=== PATIENT | female | born 1935 | race Caucasian/White ===

== ENCOUNTER 2017-05-05 02:34 | Inpatient (IN) | payer MEDICARE ==
[2017-05-05] MEDS ORDERED: Furosemide IV* 10 MG/ML VIAL (40 MG) IV ONE (03:11)
[2017-05-05] MEDS ORDERED: Aspirin Low Dose CHEW TAB* 81 MG PO ONE (03:11)
[2017-05-05 03:36] LABS: Comments Flag Yes; Hematocrit 37 % (35-47); Mean Corpuscular HGB Conc 32 g/dl (31-36); Mean Corpuscular Hemoglobin 28 pg (27-31); Mean Corpuscular Volume 85 fL (80-97); Mean Platelet Volume 10 um3 (7.4-10.4); Red Blood Count 4.37 10^6/ul (4.0-5.4); Red Cell Distribution Width 15 % (10.5-15); White Blood Count 11.7 10^3/ul (3.5-10.8)
[2017-05-05 03:37] LABS: Add Diff/Slide Review? Slide Review Added
[2017-05-05 03:44] LABS: Albumin 3.7 g/dL (3.2-5.2); BUN/Creatinine Ratio 22.7 (8-20); Calcium 8.3 mg/dL (8.6-10.3); EGFR African American 42.9 (>60); EGFR Non-African American 33.3 (>60); Globulin 3.1 g/dL (2-4); Magnesium 2.3 mg/dL (1.9-2.7); Potassium 4.5 mmol/L (3.5-5.0); Total Bilirubin 0.5 mg/dL (0.2-1.0); Total Protein 6.8 g/dL (6.4-8.9)
[2017-05-05 03:54] LABS: Troponin I 0.04 ng/mL (<0.04)
[2017-05-05] MEDS ORDERED: CMC: Melatonin (NF) 3 MG TAB PO PRN (05:00)
[2017-05-05] MEDS ORDERED: Morphine INJ* 2 MG/ML 1 ML SYRINGE (TWO MG - NEW SYRINGE VERSION) IV PRN (05:00)
[2017-05-05] MEDS ORDERED: Albuterol 2.5 MG/3 ML NEB.SOL* (0.083%) INH PRN (05:00)
[2017-05-05] MEDS ORDERED: Ondansetron INJ* 2 MG/ML VIAL IV PRN (05:00)
[2017-05-05] MEDS ORDERED: Acetaminophen TAB* 325 MG PO PRN (05:00)
[2017-05-05] MEDS ORDERED: Metoprolol Tartrate TAB* 25 MG PO ONE (05:01)
[2017-05-05] MEDS ORDERED: Heparin DRIP 25,000 UNITS(*) 25,000 UNITS/500 ML BAG IVPB SCH (05:30)
--- NOTE | 2017-05-05 05:38 | ED ---
Tyler Mims Thomas, scribed for Garth Buchanan MD on 05/05/17 at 0315 . Shortness of Breath - HPI Summary HPI Summary: The pt is a 81 y/o F presenting to the ED c/o SOB that began three hours ago. She has SOB at rest that is worsened with exertion. She additionally c/o orthopnea, wheezing, and spitting up blood. Patient denies diarrhea and any pains. She is accompanied by her three family members. The patient was given ASA 324 prior to arrival by EMS. - History of Current Complaint Chief Complaint: EDShortnessOfBreath Time Seen by Provider: 05/05/17 02:46 Hx Obtained From: Patient Onset/Duration: Lasting Hours - 3, Still Present Timing: Constant Dyspnea At: Rest Aggrevating Factors: Other - Exertion Alleviating Factors: Nothing Associated Signs & Symptoms: Wheezing - Allergy/Home Medications Allergies/Adverse Reactions: Allergies Allergy/AdvReac Type Severity Reaction Status Date / Time No Known Allergies Allergy Verified 05/05/17 03:36 Home Medications: Home Medications Aspirin [Aspirin 81 MG TAB] 81 mg PO DAILY 05/05/17 [History Confirmed 05/05/17] Metoprolol Tartrate [Lopressor] 50 mg PO DAILY 05/05/17 [History Confirmed 05/05] Pravastatin Sodium [Pravachol] 40 mg PO DAILY 05/05/17 [History Confirmed ] Sertraline HCl [Zoloft] 100 mg PO DAILY 05/05/17 [History Confirmed 05/05/17] PMH/Surg Hx/FS Hx/Imm Hx Previously Healthy: No Endocrine/Hematology History: Denies: Hx Anticoagulant Therapy, Hx Blood Disorders, Hx Blood Transfusions, Hx Bone Marrow Disease, Hx Diabetes, Hx Systemic Lupus Erythematosus, Hx Sickle Cell Disease, Hx Thyroid Disease, Hx Anemia, Hx Unexplained Bleeding, Other Endocrine/Hematological Disorders Cardiovascular History: Reports: Hx Hypercholesterolemia, Hx Hypertension Denies: Hx Aneurysm, Hx Angina, Hx Angioplasty, Hx Auto Implanted Cardiovert Defib, Hx Cardiac Arrest, Hx Cardiomegaly, Hx Congenital Heart Disease, Hx Congestive Heart Failure, Hx Coronary Artery Disease, Hx Deep Vein Thrombosis, Hx Hypotension, Hx Pacemaker/ICD, Hx Peripheral Vascular Disease, Hx Rheumatic Fever, Hx Syncope, Hx Valvular Heart Disease, Other Cardiovascular Problems/ Disorders Respiratory History: Reports: Hx Pneumonia Denies: Hx Asthma, Hx Chronic Bronchitis, Hx Chronic Obstructive Pulmonary Disease (COPD), Hx Cystic Fibrosis, Hx Lung Cancer, Hx Pleural Effusion, Hx Pulmonary Edema, Hx Pulmonary Embolism, Hx Seasonal Allergies, Hx Sleep Apnea, Other Respiratory Problems/Disorders GI History: Denies: Hx Cirrhosis, Hx Crohn's Disease, Hx Diverticulosis, Hx Gall Bladder Disease, Hx Gastroesophageal Reflux Disease, Hx Gastrointestinal Bleed, Hx Hiatal Hernia, Hx Irritable Bowel, Hx Jaundice, Hx Obstructive Bowel, Hx Ileostomy, Hx Pyloric Stenosis, Hx Ulcer, Other GI Disorders History: Denies: Hx Acute Renal Failure, Hx Benign Prostatic Hyperplasia, Hx Chronic Renal Failure, Hx Dialysis, Hx Kidney Infection, Hx Kidney Stones, Other Problems/Disorders Musculoskeletal History: Reports: Hx Orthopedic Injury - 12/06/12: Knee surgery x 46yrs ago Denies: Hx Arthritis, Hx Back Problems, Hx Bursitis, Hx Congenital Bone Abnormalities, Hx Fibromyalgia, Hx Gout, Hx Osteoporosis, Hx Scoliosis, Hx Tendonitis, Other Musculoskeletal History Sensory History: Reports: Hx Contacts or Glasses, Hx Vision Problem - 12/06/12: glasses for reading Denies: Hx Cataracts, Hx Eye Injury, Hx Eye Prosthesis, Hx Glaucoma, Hx Macular Degeneration, Hx Hearing Aid, Hx Hearing Problem, Other Sensory Impairments Opthamlomology History: Reports: Hx Contacts or Glasses, Hx Vision Problem - : glasses for reading Denies: Hx Cataracts, Hx Eye Injury, Hx Eye Prosthesis, Hx Glaucoma, Hx Macular Degeneration, Other Sensory Impairments Neurological History: Denies: Hx Dementia, Hx Developmental Delay, Hx Headaches, Hx Migraine, Hx Nerve Disease, Hx Seizures, Hx Spinal Cord Injury, Hx Transient Ischemic Attacks (TIA), Other Neuro Impairments/Disorders Psychiatric History: Denies: Hx Anxiety, Hx Attention Deficit Hyperactivity Disorder, Hx Eating Disorder, Hx Depression, Hx Panic Disorder, Hx Post Traumatic Stress Disorder, Hx Inpatient Treatment, Hx Community Mental Health Tx, Hx Schizophrenia, Hx Bipolar Disorder, Hx Suicide Attempt, Hx of Violent Episodes Against Others, Hx Substance Abuse, Other Psychiatric Issues/Disorders - Cancer History Hx Chemotherapy: No Hx Radiation Therapy: No - Surgical History Surgery Procedure, Year, and Place: 12/06/12: knee surgery 40yrs ago. 12/06/12 : ectopic approx 40yrs ago Hx Anesthesia Reactions: No Infectious Disease History: No Infectious Disease History: Denies: Hx Clostridium Difficile, Hx Hepatitis, Hx Human Immunodeficiency Virus (HIV), Hx Shingles, Hx Tuberculosis, Traveled Outside the [place] in Last 30 Days - Family History Known Family History: Negative: Other - CHF - Social History Lives: Alone Alcohol Use: None Hx Substance Use: No Substance Use Type: Reports: None Review of Systems Negative: Chest Pain Positive: Shortness Of Breath, Other - Wheezing, spitting up blood Negative: Diarrhea All Other Systems Reviewed And Are Negative: Yes Physical Exam - Summary Physical Exam Summary: VITAL SIGNS: Reviewed. GENERAL: Patient is a female who is lying comfortable in the stretcher. Patient is not in any acute respiratory distress. HEAD AND FACE: No signs of trauma. No ecchymosis, hematomas or skull depressions. No sinus tenderness. EYES: PERRLA, EOMI x 2, No injected conjunctiva, no nystagmus. EARS: Hearing grossly intact. Ear canals and tympanic membranes are within normal limits. MOUTH: Oropharynx within normal limits. NECK: Supple, trachea is midline, no adenopathy, no JVD, no carotid bruit, no c- spine tenderness, neck with full ROM. CHEST: Symmetric, no tenderness at palpation LUNGS: Clear to auscultation bilaterally. No wheezing or crackles. CVS: Regular rate and rhythm, S1 and S2 present, no murmurs or gallops appreciated. ABDOMEN: Soft, non-tender. No signs of distention. No rebound no guarding, and no masses palpated. Bowel sounds are normal. EXTREMITIES: FROM in all major joints, no edema, no cyanosis or clubbing. NEURO: Alert and oriented x 3. No acute neurological deficits. Speech is normal and follows commands. SKIN: Dry and warm. She is pale-looking. Triage Information Reviewed: Yes Vital Signs On Initial Exam: Initial Vitals Temp Pulse Resp BP Pulse Ox 96.9 F 73 19 159/67 93 05/05/17 02:48 05/05/17 02:48 05/05/17 02:48 05/05/17 02:48 05/05/17 02:48 Vital Signs Reviewed: Yes Diagnostics - Vital Signs Vital Signs Temp Pulse Resp BP Pulse Ox 05/05/17 02:48 96.9 F 73 19 159/67 93 - Laboratory Result Diagrams: 05/05/17 03:10 05/05/17 03:10 Lab Statement: Any lab studies that have been ordered have been reviewed, and results considered in the medical decision making process. - Radiology CXR Xray Interpretation: Positive (See Comments) - Bilateral increased venous congestion and cephalization consistent with CHF, PENDING OFFICIAL REPORT. Radiology Interpretation Completed By: ED Physician - EKG 02:49 Cardiac Rate: NL EKG Rhythm: Sinus Rhythm EKG Interpretation: 72 BPM. Normal Tynan. LBBB, which is new from EKG on . Re-Evaluation - Re-Evaluation First Eval Re-Evaluation Time: 05:28 Change: Improved Comment: The patient is improved after she is diuresed. She is lying on her back comfortably. She is able to go back to sleep. She is not in any pain. Course/Dx - Course Assessment/Plan: The pt is a 81 y/o F presenting to the ED c/o SOB that began three hours ago. She has SOB at rest that is worsened with exertion. She additionally c/o wheezing and spitting up blood. Patient denies diarrhea and any pains. She is accompanied by her three family members. The patient was given ASA 324 prior to arrival by EMS. I obtained an EKG, bloodwork, and a CXR. The patient will be admitted to the hospitalists with a diagnosis of CHF rule out ACS. - Diagnoses Provider Diagnoses: CHF r/o ACS - Physician Notifications Discussed Care of Patient With: Ladarius Freitas Time Discussed With Above Provider: 05:00 Instructed by Provider To: Admit As Inpatient Discharge - Discharge Plan Condition: Fair Disposition: ADMITTED TO [facility] The documentation as recorded by the Tyler stahl Thomas accurately reflects the service I personally performed and the decisions made by me, Garth Buchanan MD.
[2017-05-05] MEDS ORDERED: Heparin VIAL(*) 5000 UNITS/ML VIAL (FIVE THOUSAND) IV SCH (06:00)
--- NOTE | 2017-05-05 06:04 | HP ---
H&P (Free Text) History and Physical: PCP: Juan Henry MD Date/Time: 05/05/2017 0530 CC: SOB, chest pain HPI: Mrs Bernal is an 81YO demented female HX CAD, HTN, HLD who is a very poor historian. Essentially she states she went to bed ~0030 and developed SOB around 0100. To me she denies chest pain, but she had called her daughter and informed her she was having chest pain. At this time, she cannot give further characterization such as type of pain, radiation, etc. She denies N/V, palpitations, and light-headedness. She also denies sweating, but her daughters state that she was very sweaty upon their arrival to her home. Her daughters also report her stating she coughed up some blood, but she had not done so here as yet. Her pain/SOB began to subside with oxygen from EMS and she is currently symptom free. Work up is notable for a new LBBB compared to our last ECG of 2012. Troponin is 0.04. PMedHx CAD/[place]/stent HTN HLD depression Ambulatory Orders Aspirin [Aspirin 81 MG TAB] 81 mg PO DAILY 05/05/17 Metoprolol Tartrate [Lopressor] 50 mg PO DAILY 05/05/17 Pravastatin Sodium [Pravachol] 40 mg PO DAILY 05/05/17 Sertraline HCl [Zoloft] 100 mg PO DAILY 05/05/17 Allergies No Known Allergies Allergy (Verified 05/05/17 03:36) SocHx: quit smoking ~35years ago, rare alcohol, no recreational drugs; lives alone, 3 adult daughters; full code status FamHx: reviewed, non-contributory ROS: as above, otherwise reviewed and all were negative vitals: Vital Signs Temp 36.1 C 05/05/17 02:48 Pulse 63 05/05/17 05:30 Resp 17 05/05/17 05:30 BP 161/66 05/05/17 05:30 Pulse Ox 96 05/05/17 05:30 Intake & Output 05/04/17 05/04/17 05/05/17 11:59 23:59 11:59 Weight 81.647 kg Constitutional: NAD, normally developed, obese elderly white female HEENM: atraumatic; sclera/conjunctiva: anicteric/clear; hearing: moderately decreased; oropharynx: clear, mucosa moist Neck: soft tissue: non-tender; thyroid: normal Pulmonary: clear to auscultation bilaterally, good aeration, no accessory muscle use CV: RR/RR, normal S1S2, no carotid bruit, no jugular venous distention, 2+ B DP/ PT, trace BLE edema Abdominal: soft, non-distended, non-tender, no rebound/guarding/rigidity, normoactive bowel sounds, no hepatosplenomegaly or masses, no costovertebral angle tenderness Musculoskeletal: general: grossly intact, no palpable tenderness Integumental: normal appearance and texture of exposed skin Psychiatric orientation: AA&O to PP, not entirely to situation affect: calm, mildly confused mood: cooperative eye contact: fair content: unreliable memory: poor responses: mildly slowed insight: poor Testing: Lab Results 05/05/17 05/05/17 05/05/17 Range/Units 03:10 03:10 03:10 WBC 11.7 H (3.5-10.8) 10^3/ul RBC 4.37 (4.0-5.4) 10^6/ul Hgb 12.0 (12.0-16.0) g/dl Hct 37 (35-47) % MCV 85 (80-97) fL MCH 28 (27-31) pg MCHC 32 (31-36) g/dl RDW 15 (10.5-15) % Plt Count 90 L (150-450) 10^3/ul MPV 10 (7.4-10.4) um3 Neut % (Auto) 73.6 (38-83) % Lymph % (Auto) 15.4 L (25-47) % [place] % (Auto) 6.7 (1-9) % Eos % (Auto) 3.4 (0-6) % Baso % (Auto) 0.9 (0-2) % Absolute Neuts (auto) 8.6 H (1.5-7.7) 10^3/ul Absolute Lymphs (auto) 1.8 (1.0-4.8) 10^3/ul Absolute Monos (auto) 0.8 (0-0.8) 10^3/ul Absolute Eos (auto) 0.4 (0-0.6) 10^3/ul Absolute Basos (auto) 0.1 (0-0.2) 10^3/ul Absolute Nucleated RBC 0 10^3/ul Nucleated RBC % 0 INR (Anticoag Therapy) 0.85 L (0.89-1.11) APTT 30.3 (26.0-36.3) seconds Sodium (133-145) mmol/L Potassium (3.5-5.0) mmol/L Chloride (101-111) mmol/L Carbon Dioxide (22-32) mmol/L Anion Gap (2-11) mmol/L BUN (6-24) mg/dL Creatinine (0.51-0.95) mg/dL Est GFR ( Amer) (>60) Est GFR (Non-Af Amer) (>60) BUN/Creatinine Ratio (8-20) Glucose (70-100) mg/dL Calcium (8.6-10.3) mg/dL Magnesium (1.9-2.7) mg/dL Total Bilirubin (0.2-1.0) mg/dL AST (13-39) U/L ALT (7-52) U/L Alkaline Phosphatase (34-104) U/L Troponin I (<0.04) ng/mL B-Natriuretic Peptide 138 H ( - 100) pg/mL Total Protein (6.4-8.9) g/dL Albumin (3.2-5.2) g/dL Globulin (2-4) g/dL Albumin/Globulin Ratio (1-3) Blood Type Antibody Screen 05/05/17 05/05/17 Range/Units 03:10 03:10 WBC (3.5-10.8) 10^3/ul RBC (4.0-5.4) 10^6/ul Hgb (12.0-16.0) g/dl Hct (35-47) % MCV (80-97) fL MCH (27-31) pg MCHC (31-36) g/dl RDW (10.5-15) % Plt Count (150-450) 10^3/ul MPV (7.4-10.4) um3 Neut % (Auto) (38-83) % Lymph % (Auto) (25-47) % [place] % (Auto) (1-9) % Eos % (Auto) (0-6) % Baso % (Auto) (0-2) % Absolute Neuts (auto) (1.5-7.7) 10^3/ul Absolute Lymphs (auto) (1.0-4.8) 10^3/ul Absolute Monos (auto) (0-0.8) 10^3/ul Absolute Eos (auto) (0-0.6) 10^3/ul Absolute Basos (auto) (0-0.2) 10^3/ul Absolute Nucleated RBC 10^3/ul Nucleated RBC % INR (Anticoag Therapy) (0.89-1.11) APTT (26.0-36.3) seconds Sodium 135 (133-145) mmol/L Potassium 4.5 (3.5-5.0) mmol/L Chloride 103 (101-111) mmol/L Carbon Dioxide 26 (22-32) mmol/L Anion Gap 6 (2-11) mmol/L BUN 34 H (6-24) mg/dL Creatinine 1.50 H (0.51-0.95) mg/dL Est GFR ( Amer) 42.9 (>60) Est GFR (Non-Af Amer) 33.3 (>60) BUN/Creatinine Ratio 22.7 H (8-20) Glucose 223 H (70-100) mg/dL Calcium 8.3 L (8.6-10.3) mg/dL Magnesium 2.3 (1.9-2.7) mg/dL Total Bilirubin 0.50 (0.2-1.0) mg/dL AST 13 (13-39) U/L ALT 10 (7-52) U/L Alkaline Phosphatase 62 (34-104) U/L Troponin I 0.04 H* (<0.04) ng/mL B-Natriuretic Peptide ( - 100) pg/mL Total Protein 6.8 (6.4-8.9) g/dL Albumin 3.7 (3.2-5.2) g/dL Globulin 3.1 (2-4) g/dL Albumin/Globulin Ratio 1.2 (1-3) Blood Type A Positive Antibody Screen Negative ECG, personally reviewed: LBBB rate 72, LBBB is new compared to most recent ECG dated 12/07/2012 CXR, personally reviewed: interstitial edema & pulmonary congestion Impression: 81F HX CAD/[place]/stent presenting with sketchy details, apparently developing rapid onset chest pain & SOB found to be in a new compared to 2013 LBBB and minimally elevated troponin DIAGNOSIS & PLAN Primary unstable angina r/o ACS : aspirin : metoprolol : heparin GTT ( treating more aggressively given new to us LBBB, HX CAD, elevated trop, & poor quality history) : supplemental oxygen : chemical NST this AM : ECHO this AM : supportive care acute diastolic HF : furosemide given by ED : strict I&Os : daily weights : check ECHO this AM Secondary HTN : continue metoprolol HLD : continue pravastatin depression : continue sertraline Admission Rational: inpatient for unstable angina DVTp: heparin GTT Code Status: full HCP: daughter, Evelia
[2017-05-05 06:43] LABS: Hematocrit 37 % (35-47); Hemoglobin 12.1 g/dl (12.0-16.0); Mean Corpuscular HGB Conc 33 g/dl (31-36); Mean Corpuscular Hemoglobin 27 pg (27-31); Mean Corpuscular Volume 83 fL (80-97); Mean Platelet Volume 10 um3 (7.4-10.4); Red Blood Count 4.44 10^6/ul (4.0-5.4); Red Cell Distribution Width 16 % (10.5-15); White Blood Count 11.6 10^3/ul (3.5-10.8)
[2017-05-05 06:49] LABS: Comments Flag Yes
[2017-05-05 07:07] LABS: BUN/Creatinine Ratio 25.5 (8-20); Calcium 8.9 mg/dL (8.6-10.3); EGFR African American 44.6 (>60); EGFR Non-African American 34.7 (>60); Potassium 4.6 mmol/L (3.5-5.0)
[2017-05-05 07:28] LABS: Troponin I 0.18 ng/mL (<0.04)
--- NOTE | 2017-05-05 07:40 | RAD ---
HISTORY: Shortness of breath COMPARISONS: August 08, 2012 VIEWS: 1: frontal portable view of the chest at 3:20 AM FINDINGS: LINES AND TUBES: None. CARDIOMEDIASTINAL SILHOUETTE: The cardiomediastinal silhouette is normal for portable technique. PLEURA: The costophrenic angles are sharp. No pleural abnormalities are noted. LUNG PARENCHYMA: There is prominence of the central pulmonary vasculature. There is a mild diffuse pattern of reticular opacification. There is hyperinflation. ABDOMEN: The upper abdomen is clear. There is no subphrenic gas. BONES AND SOFT TISSUES: No bone or soft tissue abnormalities are noted. IMPRESSION: PULMONARY VASCULAR CONGESTION WITH MILD PULMONARY INTERSTITIAL EDEMA
[2017-05-05] MEDS: Furosemide IV* 10 MG/ML 10 ML VIAL (100 MG) IV SCH ×3 (07:54→16:40)
[2017-05-05] MEDS: Omeprazole CAP* 20 MG PO SCH (07:55)
[2017-05-05] MEDS: Sertraline* 100 MG TAB PO SCH (07:55)
[2017-05-05] MEDS: Docusate CAP* 100 MG PO SCH ×2 (07:55→20:12)
[2017-05-05] MEDS: Atorvastatin* 10 MG TAB PO SCH (07:56)
[2017-05-05] MEDS: Aspirin EC Low Dose* 81 MG TAB.EC PO SCH (07:56)
--- NOTE | 2017-05-05 12:06 | PN ---
Subjective Date of Service: 05/05/17 Interval History: Patient seen this morning with 2 daughters present. Reports feeling in her USOH yesterday until acute onset of SOB while laying in bed around 1100 pm. Initially denied chest pain but daughters stated she was complaining of this to them at the time, also with diaphoretic. Pain and SOB resolved en route to the hospital and has not recurred. She says she is fairly active at home, does not require cane/walker, no history of blood clots. During previous admission on 2012 for NSTEMI patient was found to have a significant cardiomyoapthy and was transferred to [facility] after attempted cardiac cath was aborted to due problems with arterial access. She went on to receive one stent at [facility] as per family. Unclear if she has had much Cardiology follow-up since then. Family History: Unchanged from Admission Social History: Unchanged from Admission Past Medical History: Unchanged from Admission Objective Active Medications: Acetaminophen (Tylenol Tab*) 650 mg PO Q6H PRN Albuterol (Ventolin 2.5 Mg/3 Ml Neb.Makenna*) 2.5 mg INH Q2H PRN Aspirin (Aspirin Ec Low Dose*) 81 mg PO DAILY [facility] Atorvastatin Calcium (Lipitor*) 10 mg PO DAILY [facility] Docusate Sodium (Colace Cap*) 200 mg PO BID [facility] Heparin Sodium (Porcine) (Heparin Vial(*)) 0 units IV .PER PROTOCOL [facility] Heparin Sodium/Dextrose (Heparin Drip 25,000 Units(*)) 25,000 units in 500 mls @ 0 mls/hr IVPB .PER RATE JACKELINE; Per Protocol Melatonin (Melatonin (Nf)) 3 mg PO BEDTIME PRN; Protocol Metoprolol Tartrate (Lopressor Tab*) 50 mg PO DAILY [facility] Morphine Sulfate (Morphine Inj (Syringe)*) 2 mg IV Q4H PRN Omeprazole (Prilosec Cap*) 20 mg PO DAILY@0600 [facility] Ondansetron HCl (Zofran Inj*) 4 mg IV Q6H PRN Sertraline HCl (Zoloft*) 100 mg PO DAILY [facility] Vital Signs 05/05/17 05/05/17 05/05/17 05:00 05:30 06:00 Temperature Pulse Rate 64 63 62 Respiratory 19 17 17 Rate Blood Pressure 169/71 161/66 153/54 (mmHg) O2 Sat by Pulse 95 96 97 Oximetry 05/05/17 05/05/17 05/05/17 06:15 06:18 06:28 Temperature 97.2 F 97.2 F Pulse Rate 66 66 62 Respiratory 20 Rate Blood Pressure 186/80 (mmHg) O2 Sat by Pulse 97 97 Oximetry 05/05/17 05/05/17 05/05/17 07:42 09:38 11:16 Temperature 97.9 F 98.0 F Pulse Rate 59 62 63 Respiratory 16 18 Rate Blood Pressure 165/73 151/65 147/58 (mmHg) O2 Sat by Pulse 97 97 97 Oximetry Oxygen Devices in Use Now: Nasal Cannula Appearance: Elderly, F, laying in bed in NAD Eyes: No Scleral Icterus Ears/Nose/Mouth/Throat: - - Dry MM Neck: NL Appearance and Movements; NL JVP Respiratory: Symmetrical Chest Expansion and Respiratory Effort, - - Bibasilar rales Cardiovascular: NL Sounds; No Murmurs; No JVD, RRR Abdominal: NL Sounds; No Tenderness; No Distention Lymphatic: No Cervical Adenopathy Extremities: No Edema Skin: No Rash or Ulcers Neurological: Alert and Oriented x 3, - - no focal deficits Result Diagrams: 05/05/17 06:33 05/05/17 06:33 Assess/Plan/Problems-Billing Assessment: Chest pain, SOB, NSTEMI in an 81 yo F with hx of CAD s/p stent placement 2012, cardiomyopathy (last EF 25-30% in 2013 echo), HTN, HLD, depression - Patient Problems (1) NSTEMI (non-ST elevated myocardial infarction) Current Visit: Yes Comment: No further chest pain or SOB. Troponins slowly climbing, trend to peak. Cardiology consulted. Continue heparin gtt, ASA, statin, beta-kimberli. Echo pending. (2) Acute on chronic systolic (congestive) heart failure Current Visit: Yes Comment: Patient continues to require O2 and with rales on exam. Continue IV Lasix for now. Echo as above. Daily weight, I/O (3) Chest pain Current Visit: Yes Comment: SOB. May be 2/2 cardiac etiology but PE is a possbility as well. Will check d- dimer which is likely to be elevated. If it is, will get VQ scan as patient has elevated creatinine and may require catheterization. (4) Depression Current Visit: Yes Comment: Continue Zoloft (5) DVT prophylaxis Current Visit: Yes Comment: Heparin Status and Disposition: Inpatient for NSTEMI
--- NOTE | 2017-05-05 14:07 | ECHO ---
Patient: JOSE SWEENEY Rec#: [id number] : 1935 Date: 05/05/2017 Age: 81y Height: 152.4 cm / 60.0 in Weight: 83.01 kg / 183.0 lbs Sex: F BSA: 1.8 Room#: 435 Admit Date#: 05/05/2017 Type: Inpatient Referring: Ladarius Freitas MD Reading: Truman Leslie MD Search Engine Optimization Analyst: Rosie Smith PUAR CC: Zack Henry MD Transthoracic Echocardiogram Indication: Unstable angina BP: 186/80 HR: 57 Rhythm: NSR Findings History: CAD with PCI,HTN,HLDmdeoression, former smoker. Technical Comments: The study quality is good. Completed at 1001. Left Ventricle: The left ventricular chamber size is decreased. Moderate concentric left ventricular hypertrophy is observed. Global left ventricular wall motion and contractility are within normal limits. Left ventricular systolic function is at the lower limits of normal. The estimated ejection fraction is 50-55%. Abnormal left ventricular diastolic function is observed.Grade 3 Left Atrium: The left atrial chamber size is normal. Right Ventricle: The right ventricular cavity size is normal. The right ventricular global systolic function is normal. Right Atrium: The right atrial cavity size is normal. There is no patent foramen ovale visualized. A patent foramen ovale is demonstrated by color Doppler. There is evidence of an atrial septal aneurysm. Aortic Valve: The aortic valve is trileaflet. There is no evidence of aortic valve thickening. There is a trace of aortic regurgitation. There is no evidence of aortic stenosis. Mitral Valve: The mitral valve leaflets are mildly thickened. There is mild mitral regurgitation. There is no evidence of mitral stenosis. Tricuspid Valve: The tricuspid valve leaflets are normal. There is mild tricuspid regurgitation. There is evidence of borderline pulmonary hypertension. There is no tricuspid stenosis. Pulmonic Valve: The pulmonic valve appears normal. There is moderate pulmonic regurgitation. There is no pulmonic stenosis. Pericardium: A pericardial fat pad is visualized. Aorta: There is no dilatation of the ascending aorta. There is no dilatation of the aortic arch. There is no dilation of the aortic root. Pulmonary Artery: The main pulmonary artery appears normal. Venous: The venous system is not well visualized. Conclusions Moderate concentric left ventricular hypertrophy is observed. Global left ventricular wall motion and contractility are within normal limits. Left ventricular systolic function is at the lower limits of normal. The estimated ejection fraction is 50-55%. Abnormal left ventricular diastolic function is observed.Grade 3 The right ventricular global systolic function is normal. A patent foramen ovale is demonstrated by color Doppler. There is a trace of aortic regurgitation. There is no evidence of aortic stenosis. There is mild mitral regurgitation. There is mild tricuspid regurgitation. Compared to study of 11/2012, the LV function is much better. Valve function is stalbe Measurements Name Value Normal Range RVIDd (AP) 2D 2.7 cm (0.9 - 2.6) RVDdMajor (2D) 3 cm (2.2 - 4.4) RAd ISD 4CH 4 cm (3.4 - 4.9) RA (A4C)W 3.2 cm (2.9 - 4.6) IVSd (2D) 1.5 cm (0.6 - 1) LVPWd (2D) 1.6 cm (0.6 - 1) LVIDd (2D) 3.5 cm (3.6 - 5.4) LVIDs (2D) 2.7 cm - LV FS (2D) 25 % (25 - 45) Aortic Annulus 1.9 cm (1.4 - 2.6) Ao root diameter (2D) 2.9 cm (2.1 - 3.5) Ascending Ao 3.1 cm (2.1 - 3.4) Aortic arch 2.3 cm (1.8 - 3.4) Descending Ao 0.5 cm - LA dimension (AP) 2D 3.4 cm (2.3 - 3.8) LAd ISD 4CH 4.6 cm (2.9 - 5.3) LA ISD 4CH W 3.9 cm (2.5 - 4.5) Name Value Normal Range LA ESV SP 4CH (A/L) 39 ml - LA ESV SP 2CH (A/L) 43 ml - LA ESV BP (A/L) 41 ml - LA ESV BP (A/L) index 22.9 ml/m2 - LA ESV SP 4CH (MOD) 37 ml - LA ESV SP 2CH (MOD) 40 ml - Name Value Normal Range MV E-wave Vmax 0.5 m/sec - MV deceleration time 272 msec - MV A-wave Vmax 1.1 m/sec - MV E:A ratio 0.4 ratio - LV septal e' Vmax 0.02 m/sec - LV lateral e' Vmax 0.04 m/sec - LV E:e' septal ratio 25 ratio - LV E:e' lateral ratio 12.5 ratio - Name Value Normal Range AV Vmax 1.1 m/sec - AV VTI 24.2 cm - AV peak gradient 4.64 mmHg - AV mean gradient 2.27 mmHg - LVOT Vmax 0.8 m/sec - LVOT VTI 18.1 cm - LVOT peak gradient 2.48 mmHg - LVOT mean gradient 1.2 mmHg - Name Value Normal Range TR Vmax 2.6 m/sec - TR peak gradient 26 mmHg - RAP 8 mmHg - RVSP 34 mmHg - Name Value Normal Range PV Vmax 1 m/sec - PV peak gradient 3.79 mmHg -
[2017-05-05] MEDS: Metoprolol Tartrate TAB* 50 mg PO SCH (20:12)
--- NOTE | 2017-05-05 21:35 | CONS ---
CC: Dr. Zack Henry; Dr. Silvano De La Cruz * CARDIOLOGY CONSULTATION REPORT: DATE OF CONSULT: 05/05/17 INDICATION FOR CONSULT: Coronary artery disease, congestive heart failure. HISTORY OF PRESENT ILLNESS: The patient is an 81-year-old female with a history of coronary artery disease, history of stenting to her LAD back in 2012 , hypertension, hyperlipidemia, depression, who came to the emergency room after having woken up with an episode of shortness of breath and chest pain. The patient states that she was in bed around 1 o'clock in the morning. She had not fallen asleep yet, when she started noticing that she was getting more short of breath. She also noted that she was diaphoretic and had some very mild chest pain. The patient states she had these symptoms for about an half an hour and decided to call her daughter on arrival. Her daughter stated that she was short of breath and mildly diaphoretic. The patient at that time did not complain of any chest pain. The patient was transported to the emergency room where she was found to be in congestive heart failure. She was given IV Lasix in the emergency room with relief of her symptoms. In speaking with her tonight at 5 o'clock, she has no symptoms. She states she is not short of breath. She has no chest pain. She has no palpitations, no lightheadedness or dizziness. The patient's echocardiogram shows normal LV size and systolic function and no significant valvular abnormalities. Her troponin level peaked at 0.32. OUTPATIENT MEDICATIONS: 1. Aspirin 81 mg a day. 2. Metoprolol succinate 50 mg a day. 3. Pravastatin 40 mg a day. 4. Zoloft 100 mg a day. ALLERGIES: No known drug allergies. SOCIAL HISTORY: She lives alone. She has 3 daughters in the area. She quit smoking 35 years ago. Rare alcohol intake. REVIEW OF SYSTEMS: Showed no early coronary artery disease. PHYSICAL EXAM: Height is 5 feet, weight is 179 pounds. Blood pressure 137/55, heart rate is 64, respiratory rate is 20, oxygen saturation 96% on 2 L, temperature 98.6. Sclerae anicteric. Oropharynx is pink without erythema. Carotids are 2+ without bruits. JVD is normal. Thyroid is normal. Cardiac Exam: S1, S2 without any murmurs, rubs, or gallops. Lungs are clear to auscultation. There are some mild rales at the bases. There is no dullness to percussion. Abdomen is obese, soft, nontender, nondistended with normoactive bowel sounds. Extremities show minimal edema. She has 2+ pulses throughout. The patient is awake, alert, and oriented. She moves all 4 extremities equally. DIAGNOSTIC STUDIES/LAB DATA: Chemistries within normal limits. BUN 37, creatinine 1.45. We do not have an old one for comparison. AST and ALT are normal. Initial troponin was 0.04, again peak troponin was 0.32. BNP was 138. CBC within normal limits. D-dimer was minimally elevated at 386. EKG shows normal sinus rhythm with left bundle branch block. IMPRESSION AND PLAN: This is an 81-year-old female with a history of coronary artery disease. Her cardiac catheterization in 2012 showed an 80% stenosis to her left anterior descending artery and ramus artery that had a 50% to 60% stenosis. She was admitted to the hospital with congestive heart failure and minimally elevated troponins. Her echocardiogram shows normal left ventricular size and systolic function. She does have significant diastolic dysfunction. She has mild mitral regurgitation and mild tricuspid regurgitation. We could not estimate pulmonary artery systolic pressure. For now my recommendation is the patient continue on her current medications. The patient was on heparin. I have stopped the heparin. I am not convinced that this is an acute coronary syndrome. I think her elevated troponins are most likely due to diastolic dysfunction and her congestive heart failure. The question is whether she was mildly ischemic that has caused her diastolic dysfunction to worsen. I am going to schedule the patient for a chemical nuclear stress test tomorrow for further evaluation. Further recommendations pending results of her stress test. [id number]/[facility] #: [id number] [facility] CENTERJatinder
[2017-05-06 05:21] LABS: Hematocrit 35 % (35-47); Hemoglobin 11.8 g/dl (12.0-16.0); Mean Corpuscular HGB Conc 33 g/dl (31-36); Mean Corpuscular Hemoglobin 28 pg (27-31); Mean Corpuscular Volume 83 fL (80-97); Mean Platelet Volume 9 um3 (7.4-10.4); Red Blood Count 4.24 10^6/ul (4.0-5.4); Red Cell Distribution Width 16 % (10.5-15); White Blood Count 9.6 10^3/ul (3.5-10.8)
[2017-05-06 05:25] LABS: Comments Flag Yes
[2017-05-06 05:26] LABS: Add Diff/Slide Review? Slide Review Added
[2017-05-06 05:41] LABS: Calcium 8.9 mg/dL (8.6-10.3); EGFR African American 42.2 (>60); EGFR Non-African American 32.8 (>60); Potassium 3.9 mmol/L (3.5-5.0)
[2017-05-06] MEDS ORDERED: Heparin VIAL(*) 5000 UNITS/ML VIAL (FIVE THOUSAND) SUBCUT SCH (06:00)
[2017-05-06] MEDS: Omeprazole CAP* 20 MG PO SCH (06:02)
[2017-05-06 07:55] VITALS: BP 142/54
[2017-05-06] MEDS ORDERED: Aspirin EC Low Dose* 81 MG TAB.EC PO SCH (09:00)
[2017-05-06] MEDS ORDERED: Regadenoson* 0.4 MG/5 ML SYRINGE ONE (12:35)
[2017-05-06] MEDS: Atorvastatin* 10 MG TAB PO SCH (12:52)
[2017-05-06] MEDS: Metoprolol Tartrate TAB* 50 mg PO SCH (12:52)
[2017-05-06] MEDS: Sertraline* 100 MG TAB PO SCH (12:52)
[2017-05-06] MEDS: Aspirin EC Low Dose* 81 MG TAB.EC PO SCH (12:52)
[2017-05-06] MEDS: Docusate CAP* 100 MG PO SCH (12:52)
[2017-05-06] MEDS: Furosemide IV* 10 MG/ML 10 ML VIAL (100 MG) IV SCH (12:53)
--- NOTE | 2017-05-06 13:17 | RAD ---
Edited for charges. INDICATION: Shortness of breath. Coronary artery disease. Multiple risk factors. COMPARISON: No relevant prior exams available on the [facility] P[facility]. TECHNIQUE: 10.500 mCi of Tc-99m Myoview were administered IV. SPECT images of the heart were obtained. Later on the same day. Under the direction of Dr. Leslie, the patient was given an IV injection of a pharmacologic stress agent. Subsequently, the patient was given an IV injection of 25.310 mCi Tc-99m Myoview. SPECT images of the heart were obtained and a gated wall motion study was performed. FINDINGS: Gated wall motion images were obtained at stress and demonstrate hypokinesia most prominent at the septum. Presence of LEFT bundle branch block and artifact from gut activity decreases specificity of this finding. The calculated left ventricular ejection fraction is 53 % at stress. Estimated LEFT ventricular end diastolic volume is 88 mL. TID 1.14. Artifact from bowel activity. Diaphragmatic attenuation noted. Small region of decreased perfusion at the basilar segment of the septum at stress with reversal at rest. Presence of artifact from gut activity on the stress images and presence of LEFT bundle branch block decreases specificity of this finding. No additional reversible or fixed myocardial perfusion defect evident. IMPRESSION: 1. Potential small focus of stress-induced ischemia at the basilar segment of the septum however presence of artifact from gut activity and presence of LEFT bundle branch block decreases specificity. On this basis the hypokinesia at the septum may also be erroneous. Correlate with clinical assessment and consider further assessment with cardiac echo if deemed appropriate. 2. Normal range estimated LEFT ventricular ejection fraction. ASSESSMENT: LOW RISK. Based on imaging criteria from ACC/AHA 2002 Guideline Update for the Management of Patients With Chronic Stable Angina Table 23. Noninvasive Risk Stratification. MTDD
--- NOTE | 2017-05-06 14:31 | RAD ---
Indication: Bilateral leg edema. Duplex Doppler sonography of the deep venous system of both lower extremities was performed. Bilaterally the common femoral veins, proximal greater saphenous veins, proximal deep femoral veins, femoral veins, popliteal veins, posterior tibial veins and peroneal veins appear patent and compressible. IMPRESSION: NO EVIDENCE OF DEEP VENOUS THROMBOSIS OF EITHER LOWER EXTREMITY IS PRESENT.
--- NOTE | 2017-05-06 15:13 | DCNOTE ---
Patient seen this afternoon. No recurrent chest pain or SOB, says she feels good. Daughter at bedside agrees she is back to baseline. Asking for food. On exam, RRR, s1 and s2 present, no m/g/r, lungs CTA B/L, no w/r/r, abd soft, NTND, BS+, no LE edema NST low risk. LE dopplers negative. There was some concern for PE but I think symptoms were more likely due to CHF. Age-adjusted d-dimer was negative, LE dopplers negative. Patient is unable to get VQ scan for 48 hrs after nuclear stress test. As I think a cardiac source is more likely, I don't think it's necessary to keep the patient hospitalized for additional testing. Will discharge home with PCP follow-up and if felt necessary, VQ can be done as an outpatient.
--- NOTE | 2017-05-07 04:48 | DS ---
CC: Dr. Henry* DISCHARGE SUMMARY: DATE OF ADMISSION: 05/05/17 DATE OF DISCHARGE: 05/06/17 PRIMARY CARE PHYSICIAN: Dr. Henry. PRINCIPAL DISCHARGE DIAGNOSES: 1. Acute diastolic congestive heart failure exacerbation. 2. Chest pain. 3. Troponin elevation. SECONDARY DIAGNOSES: 1. History of coronary artery disease, status post stent placement. 2. Hypertension. 3. Hyperlipidemia. 4. Depression. CONSULTANTS DURING THIS HOSPITALIZATION: Dr. Truman Leslie, Cardiology. DISCHARGE MEDICATION REGIMEN: 1. Aspirin 81 mg by mouth daily. 2. Metoprolol 50 mg by mouth daily. 3. Pravastatin 40 by mouth daily. 4. Sertraline 100 mg by mouth daily. STUDIES DONE DURING HOSPITALIZATION: Chest x-ray, impression: Pulmonary vascular congestion with mild pulmonary interstitial edema. Transthoracic echocardiogram, conclusions: Moderate concentric LVH is observed , global left ventricular wall motion and contractility within normal limits, left ventricular systolic function is at the lower limits of normal. The estimated ejection fraction is 50% to 55%, abnormal left ventricular diastolic function is observed grade 3. The right ventricular global systolic function is normal. Patent foramen ovale is demonstrated by color Doppler. There is trace aortic regurgitation. No evidence of aortic stenosis, mild mitral regurgitation, mild tricuspid regurgitation. Compared to study of 11/2012 LV function is much better. Valve function is stable. Nuclear cardiac stress test, assessment: Low risk. Lower extremity Dopplers bilaterally, impression: No evidence of DVT of either lower extremity is present. HISTORY OF PRESENT ILLNESS AND HOSPITAL SUMMARY: Please see the full history and physical by Dr. Ladarius Freitas for full details. Briefly, Ms. Bernal is an 81-year-old female with past medical history as above who presented to the hospital with acute onset shortness of breath followed by chest pain, diaphoresis. The patient called her daughters who live next door. On arrival, she was transported by EMS to the hospital. The patient had an EKG that showed a new left bundle- branch block; however, on review of charting and reference by Dr. Leslie, she has actually had intermittent left bundle-branch block in the past. The patient's initial troponin was 0.04 and continued to climb until it peaked at 0.32. The initial plan had been for a nuclear cardiac stress test; however, this was held due to the increasing troponins and Cardiology was consulted. Dr. Leslie felt that her symptoms were likely due to her CHF exacerbation and recommended continuing with a stress test the following day which she had and was assessed as low risk. The patient received IV Lasix and by the following day, she was able to be weaned off her oxygen and her breathing was back to baseline. The patient had a D-dimer of 386 which by age adjustment standards is not elevated. Lower extremity Doppler's were done, which were negative. I entertained the idea of getting a V/Q scan as the patient's creatinine is elevated; however, due to receiving tracer for the nuclear stress test, she would be unable to get a V/Q scan for 48 hours. As my suspicion for a cardiac etiology is higher than PE at this point, I think it is safe to discharge the patient without additional testing at this time and she can follow up with her PCP to determine if he feels like a V/Q scan would be indicated. We will hold on prescribing any standing diuretics for now, but we will encourage the patient to weigh herself daily and monitor her salt intake. If she starts to notice she is gaining weight, she will contact her PCP and may be beneficial for the patient to start on Lasix or spironolactone, which she has been on in the past when her EF was reduced. TIME SPENT: Total time spent on this discharge - 45 minutes. This is a summary of the hospitalization. Please see the full medical record for further details. [id number]/[facility] #: [id number] MTDD
== END 2017-05-06 16:30 | disposition home or self-care (01) | DRG 293 ==
LOC: ED 02:34 → MEDTELE 04:54
PROVIDERS: ADMIT Hospitalist; ATTEND Hospitalist
DX: I11.0 Hypertensive heart disease with heart failure (principal); I44.7 Left bundle-branch block, unspecified; I08.3 Combined rheumatic disorders of mitral, aortic and tricuspid valves; I50.43 Acute on chronic combined systolic (congestive) and diastolic (congestive) heart failure; I25.10 Atherosclerotic heart disease of native coronary artery without angina pectoris; F32.9 Major depressive disorder, single episode, unspecified; Z87.891 Personal history of nicotine dependence; Z95.5 Presence of coronary angioplasty implant and graft
CPT/HCPCS: 36415; 71010; 78452; 80048; 80053; 82272; 83036; 83735; 83880; 84484; 85025; 85379; 85610; 85730; 86850; 86900; 86901; 93005; 93017; 93306; 93970; A9270-GY; A9502; J1644; J1940; J2785

== ENCOUNTER 2017-08-19 18:37 | Emergency (ER) | payer MEDICARE ==
[2017-08-19 18:51] VITALS: BP 112/58
--- NOTE | 2017-08-19 19:16 | UC ---
Knee Pain HPI - HPI Summary HPI Summary: 82 yo female presents with daughter, c/o R knee pain since this morning. Exact time unclear. Ms. Bernal reports that she felt like her R knee cap may be out of place. Does not recall a recent trauma, nor inciting event today. Just started hurting. No pain in contralateral knee, no hip / ankle / foot pain. No neck / back pain. No p/d/w. No new skin discoloration. PMH includes R knee surgery in the remote past, but Ms. Bernal not sure for what condition or what type of surgery. In general feels ok. No current cp / sob. - History of Current Complaint Chief Complaint: UCLowerExtremity Stated Complaint: KNEE INJURY Time Seen by Provider: 08/19/17 18:39 Hx Obtained From: Patient, Family/High Climber Pain Intensity: 2 - Allergies/Home Medications Allergies/Adverse Reactions: Allergies Allergy/AdvReac Type Severity Reaction Status Date / Time No Known Allergies Allergy Verified 08/19/17 18:46 Home Medications: Home Medications Furosemide TAB* [Lasix TAB*] 20 mg PO DAILY 08/19/17 [History Confirmed 08/19/17 ] Losartan Potassium 25 mg PO DAILY 08/19/17 [History Confirmed 08/19/17] Metoprolol Tartrate TAB* [Lopressor TAB*] 50 mg PO DAILY 08/19/17 [History Confirmed 08/19/17] Sertraline HCl [Zoloft] 100 mg PO DAILY 08/19/17 [History Confirmed 08/19/17] PMH/Surg Hx/FS Hx/Imm Hx Previously Healthy: No - cardiac history Endocrine History: Other - no hx dm Other Endocrine History: no dm Other History Of: Negative For: Anticoagulant Therapy - Surgical History Surgical History: Yes Surgery Procedure, Year, and Place: 12/06/12: knee surgery 40yrs ago. 12/06/12 : ectopic approx 40yrs ago - Family History Known Family History: Negative: Other - CHF - Social History Occupation: Retired Lives: Alone - family lives close by Alcohol Use: None Substance Use Type: None Smoking Status (MU): Former Smoker - Immunization History Most Recent Influenza Vaccination: received 04/21/17 Most Recent Tetanus Shot: 12/06/12: Unknown Most Recent Pneumonia Vaccination: never Review of Systems Constitutional: Negative Skin: Negative Eyes: Negative ENT: Negative Respiratory: Negative Cardiovascular: Negative Gastrointestinal: Negative Motor: Other - see hpi Neurovascular: Other - see gou Musculoskeletal: Arthralgia Neurological: Negative, Other - see hpi Psychological: Negative Is Patient Immunocompromised?: No All Other Systems Reviewed And Are Negative: Yes Physical Exam Triage Information Reviewed: Yes Appearance: Well-Appearing - sitting up in chair during physical examination, Well-Nourished Vital Signs: Initial Vital Signs Temp 98.2 F 08/19/17 18:46 Pulse 70 08/19/17 18:46 Resp 20 08/19/17 18:46 BP 112/58 08/19/17 18:46 Pulse Ox 100 08/19/17 18:46 Vital Signs Reviewed: Yes Eye Exam: Normal - grossly normal ENT Exam: Normal - grossly normal, mmm Neck exam: Normal - denies pain in neck or injury Respiratory Exam: Normal - no tachypnea, no dyspnea. Resp rate normal. converses in full sentances Cardiovascular Exam: Normal - heart rate regular. non-diaphoretic. Abdominal Exam: Normal - soft, no abd pain c/os Musculoskeletal Exam: Other - Hips nontender. R knee + swelling. + surgical scar faint medial knee approx 4cm, pain is particularly over this area. Tenderness exacerbated with bending knee. However, she is able to fully bend knee. + mild fluctuance post knee, c/w cerda's cyst. No cord, no Lenora's sign. R knee painful to lat>med rotation. No unilateral calf swelling appreciated. Feet both warm to touch. PT not palp bilat. DP faint. Distal cap refill approx 2 sec. Feet warm to touch. Neurological Exam: Other - see above detailed neuro exam not done grossly nonfocal. Distal bipedal sensation to Light touch present bilat. Psychological Exam: Normal - converses easily and appropriately Skin Exam: Normal - nondiaphoretic. BLE chronic venous insuff changes. + paucity of hair growth BLE. Knee Pain Course/Dx - Course Course Of Treatment: Pt lives alone but family will be able to stay with her. Family will call orthopedic surgeon for appt this week if possible. Family has seen Dr. Vera in the past, as such they will try to schedule appt with her. Otherwise they will call on-call orthopedist. Alex becker, with RN teaching. Diff dx includes albeit not limited to djd, meniscal degeneration / injury, tendon / ligament problem. Recommend elevation, acetaminophen as needed for discomfort. Given cardiac hx, nsaid not recommended. Considered jaycob wrap, but given + venous insuff chanes, and poor vascular status, the risk of bottle neck is sigificant. Knee immobilizer logistically problematic risky. D/w pt and family. Frequent rest, elevation optimal. - Differential Dx/Diagnosis Provider Diagnoses: R knee effusion. Likely internal knee damage. DJD Discharge - Discharge Plan Condition: Stable Disposition: HOME Patient Education Materials: Osteoarthritis (ED), Bakers Cyst (ED), Swollen Knee Joint (ED), Knee Pain (ED) Referrals: William Amato MD [Medical Doctor] - Zack Henry MD [Primary Care Provider] - Additional Instructions: Follow up with Dr. Henry per routine. Please call his office this week to let him know what happened and how you are doing. Follow up with Orthopedic surgeon - call tomorrow for appointment this week. Seek medical attention for worse or new problems. Over the counter acetaminophen as needed for pain.
--- NOTE | 2017-08-19 19:43 | RAD ---
Indication: Right knee pain. 4 views of the right knee demonstrates joint space narrowing in the medial compartment. Osteophyte formation is noted. Degenerative changes of patellofemoral joint is noted. Small joint effusion is noted. IMPRESSION: Degenerative changes medial compartment right knee. Degenerative changes of the patellofemoral joint.
== END 2017-08-19 20:10 | disposition home or self-care (01) ==
LOC: UCEAST 18:37
DX: M25.561 Pain in right knee (principal); M17.11 Unilateral primary osteoarthritis, right knee; Z87.891 Personal history of nicotine dependence
CPT/HCPCS: 99213; G0463

== ENCOUNTER 2017-10-06 22:35 | Inpatient (IN) | payer MEDICARE ==
[2017-10-06] MEDS ORDERED: Albuterol/Ipratropium NEB.SOL* Albuterol 2.5 MG/Ipratropium 0.5 MG 3 ML INH ONE (22:52)
[2017-10-06] MEDS ORDERED: NS 0.9% 1000 ML* 1,000 ML IV ONE (22:52)
[2017-10-06] MEDS ORDERED: NS 0.9% 1000 ML*IV.FLUID IV ONE (23:19)
[2017-10-06] MEDS ORDERED: Levofloxacin 750 MG IVPREMIX(* 750 MG/150 ML BAG IVPB ONE (23:20)
[2017-10-06] MEDS ORDERED: methylPREDNISolone 125 MG* 2 ML VIAL IV ONE (23:20)
[2017-10-06 23:34] LABS: INR 1.01 (0.77-1.02)
[2017-10-06 23:35] LABS: Hematocrit 22 % (35-47); Hemoglobin 6.5 g/dl (12.0-16.0); Mean Corpuscular HGB Conc 29 g/dl (31-36); Mean Corpuscular Hemoglobin 20 pg (27-31); Mean Corpuscular Volume 68 fL (80-97); Red Blood Count 3.24 10^6/ul (4.0-5.4); Red Cell Distribution Width 19 % (10.5-15)
[2017-10-06 23:43] LABS: Urine Appearance Cloudy; Urine Blood Negative (Negative); Urine Color Yellow; Urine Ketones Negative (Negative); Urine Protein Negative (Negative); Urine Specific Gravity 1.011 (1.010-1.030); Urine Urobilinogen Negative (Negative)
--- OUTSIDE RECORDS SUMMARY | 2017-10-06 23:44 | XMS REPORT ---
:1935 External Reference #:[id number] Author Organization [facility] Address [address] [address] Phone [phone] Care Team Providers Name Role Phone Lamar Calderon MD Primary Care Physician Unavailable Payers Type Date Identification Numbers Payment Provider Subscriber Health Maintenance Effective: Policy Number: Medicare Juan Bernal [facility] ([facility] 06/16/2013 [id number] o PayID: [id number] [address] [address] [place] [address] Problems Description No Information Social History Type Date Description Comments Lives With Alone Occupation Retired ETOH Use Denies alcohol use Smoking Patient is a former smoker Daily Caffeine Occasional soda and coffee Exercise Type/Frequency Does not exercise Allergies, Adverse Reactions, Alerts Date Description Reaction Status Severity Comments 06/04/2017 NKDA active Medications Medication Date Status Form Strength Qnty SIG Indications Ordering Provider Losartan Active Tablets 25mg 90tabs one a day I50.33 Truman Sheldon Potassium 017 Brand, M.D. Furosemide Active Tablets 20mg 90tabs 1 by I50.33 Truman Sheldon 017 mouth Brand, every day M.D. Metoprolol Active Tablets ER 50mg 1 tablet Ehrenberg, Succinate ER 000 24HR per day MD Zack Sertraline HCL Active Tablets 100mg 1 tablet Ehrenberg, 000 per day MD Zack Pravastatin Active Tablets 40mg 1 tablets Ehrenberg, Sodium 000 once per bryan Dixon MD Aspir-[address] 81mg 1 by Unknown 000 mouth every day Naproxen Hx Tablets 500mg 60tabs 1 tablet Jackie 014 - with food Chuy, by mouth M.D. 017 twice a day Vital Signs Date Vital Result Comment 09/17/2017 Height 62 inches 5'2" Weight 178.00 lb No shoes Heart Rate 62 /min BP Systolic Sitting 110 mmHg Lue reg cuff BP Diastolic Sitting 74 mmHg Lue reg cuff BP Systolic Standing 112 mmHg Lue reg cuff BP Diastolic Standing 76 mmHg Lue reg cuff Respiratory Rate 16 /min BMI (Body Mass Index) 32.6 kg/m2 Ejection Fraction 50-55% 05/05/2017-echo 06/04/2017 Weight 178.00 lb Heart Rate 60 /min BP Systolic Sitting 130 mmHg Lue large cuff BP Diastolic Sitting 80 mmHg Lue large cuff BP Systolic Standing 112 mmHg Lue BP Diastolic Standing 70 mmHg Lue Respiratory Rate 16 /min Ejection Fraction 50-55% 05/05/17 Results Test Date Test Result H/L Range Note Basic Metabolic Panel 07/04/2017 Sodium 139 mmol/L 133-145 Potassium 4.2 mmol/L 3.5-5.0 Chloride 104 mmol/L 101-111 Co2 Carbon Dioxide 28 mmol/L 22-32 Anion Gap 7 mmol/L 2-11 Glucose 153 mg/dL High 70-100 Blood Urea Nitrogen 32 mg/dL High 6-24 Creatinine 1.39 mg/dL High 0.51-0.95 BUN/Creatinine Ratio 23.0 High 8-20 Calcium 8.6 mg/dL 8.6-10.3 Egfr Non- 36.4 >60 Egfr 46.8 >60 1 1 Because ethnic data is not always readily available, this report includes an eGFR for both -Americans and non- Americans. The National Kidney Disease Education Program (NKDEP) does not endorse the use of the MDRD equation for patients that are not between the ages of 18 and 70, are , have extremes of body size, muscle mass, or nutritional status, or are non- or non-. According to the National Kidney Foundation, irrespective of diagnosis, the stage of the disease is based on the level of kidney function: Stage Description GFR(mL/min/1.73 m(2)) 1 Kidney damage with normal or decreased GFR 90 2 Kidney damage with mild decrease in GFR 60-89 3 Moderate decrease in GFR 30-59 4 Severe decrease in GFR 15-29 5 Kidney failure <15 (or dialysis) Procedures Date CPT Code Description Status 05/06/2017 87717 Treadmill Interp/Report Only Completed 05/06/2017 96073 Stress Test Supervsn W/Out I/R Completed 05/05/2017 49489 ECHO Transthorasic Realtime 2D W Doppler & Color Completed Flow [facility] 05/05/2017 65319 EKG, Interpretation Only Completed 05/30/2014 53598 Xray Knee 3 Views Completed 12/07/2012 43181 EKG, Interpretation Only Completed 12/06/2012 26881 Color Flow Doppler/Interp & Reprt Completed 12/06/2012 63790 Pulse Wave/Continuous-Interp.RPT Completed 12/06/2012 11090 ECHO Transthorasic Realtime 2D W Doppler & Color Completed Flow [facility]osp 12/06/2012 04926 EKG, Interpretation Only Completed Encounters Type Date Location Provider CPT E/M Dx Office Visit 06/04/2017 [facility] Truman Leslie, 32683 I50.33 8:30a Marge Moura I25.110 Office Visit 05/06/2017 2:11p [facility] Sejal eLslie, 91500 I50.9 Marge Moura I25.10 Office Visit 05/06/2017 1:10p [facility] ,[place] [address] I50.33 Hospitalists I25.110 R74.8 I10 Office Visit 05/05/2017 1:08p [facility] [place], [address] I20.0 Assoc,pc Hospitaliv[facility] Moura E78.5 I10 Office Visit 05/05/2017 2:32p [facility] Sejal Leslie, 19683 I25.10 Marge Moura I50.9 I20.0 Office Visit 05/30/2014 2:15p [facility] Vera M.D. 59939 715.16 C.M.A. Office Visit 12/07/2012 2:41p [facility] Assashok,elda Agustin, 95713 427.31 Hospitalists MSara 411.1 401.0 790.6 Office Visit 12/07/2012 8:47a [facility] Ksenia Hernandez, 15623 794.31 M.DAlfred 414.8 401.1 Office Visit 12/06/2012 2:40p [facility],[place] [address] 518.81 Hospitalists 518.4 401.0 790.6 Office Visit 12/06/2012 9:28a [facility] Ksenia Hernandez, 57205 786.05 M.Pito 794.31 428.22 425.9 427.31 Plan of Care Future Appointment(s):10/02/2017 2:00 pm - [facility] Nuclear Schedule at [facility]09/17/2017 - Truman Leslie M.D.I50.33 Acute on chronic diastolic (congestive) heart failureFollow up:6 iudeobF64.9 Heart failure, dakmemsjyegM32.89 Oth symptoms and signs involving the circ and resp systemsNew Orders:Doppler Study, Carotid Artery
[2017-10-06 23:58] LABS: ABS Basophils 0.1 10^3/ul (0-0.2); ABS Eosinophils 0.4 10^3/ul (0-0.6); ABS Lymphocytes 2.1 10^3/ul (1.0-4.8); ABS Monocytes 1.7 10^3/ul (0-0.8); ABS Neutrophils 8.8 10^3/ul (1.5-7.7); ABS Nucleated RBC 0 10^3/ul; Eosinophil % 3.1 % (0-6); Mean Platelet Volume 9.2 um3 (7.4-10.4); Nucleated Red Blood Cells % 0.2; Platelet Count 154 10^3/ul (150-450)
[2017-10-07] MEDS ORDERED: CMCS: Melatonin (NF) 3 MG TAB PO PRN (02:01)
[2017-10-07] MEDS ORDERED: Ondansetron INJ* 2 MG/ML VIAL IV PRN (02:01)
[2017-10-07] MEDS ORDERED: traMADol TAB* 50 MG PO PRN (02:01)
--- NOTE | 2017-10-07 02:07 | HP ---
H&P (Free Text) History and Physical: PCP: Juan Henry MD Date/Time: CC: SOB HPI: Mrs Bernal is an 81YO demented female HX CAD, HTN, HLD who PMedHx CAD/AR/stent diastolic HF HTN HLD depression Ambulatory Orders Furosemide TAB* [Lasix TAB*] 20 mg PO DAILY 08/19/17 Aspirin EC TAB* [Ecotrin EC Low Dose 81 MG*] 81 mg PO DAILY 10/06/17 Losartan TAB* [Cozaar TAB*] 25 mg PO DAILY 10/06/17 Metoprolol Succinate XL TAB* [Toprol XL TAB*] 50 mg PO DAILY 10/06/17 Pravastatin (NF) [Pravachol (NF)] 40 mg PO DAILY 10/06/17 Sertraline* [Zoloft*] 100 mg PO DAILY 10/06/17 Allergies No Known Allergies Allergy (Verified 08/19/17 18:46) SocHx: quit smoking ~35years ago, rare alcohol, no recreational drugs; lives alone, 3 adult daughters; full code status FamHx: reviewed, non-contributory ROS: as above, otherwise reviewed and all were negative vitals: Vital Signs Temp 36.0 C 10/06/17 22:36 Pulse 92 10/07/17 01:20 Resp 24 10/07/17 01:20 BP 92/67 10/07/17 01:20 Pulse Ox 95 10/07/17 01:20 Intake & Output 10/06/17 10/06/17 10/07/17 11:59 23:59 11:59 Intake Total 2570 Balance 2570 Weight 80.739 kg Intake: IV Fluids 2570 Constitutional: NAD, normally developed, obese elderly white female HEENM: atraumatic; sclera/conjunctiva: anicteric/clear; hearing: moderately decreased; oropharynx: clear, mucosa moist Neck: soft tissue: non-tender; thyroid: normal Pulmonary: clear to auscultation bilaterally, fair to good aeration, no accessory muscle use CV: RR/RR, normal S1S2, no carotid bruit, no jugular venous distention, 1+ B DP/ PT, trace BLE edema Abdominal: soft, non-distended, non-tender, no rebound/guarding/rigidity, normoactive bowel sounds, no hepatosplenomegaly or masses, no costovertebral angle tenderness Musculoskeletal: general: grossly intact, no palpable tenderness Integumental: pale appearance, normal texture of exposed skin Psychiatric orientation: AA&O to PPS affect: calm, mildly confused mood: cooperative eye contact: fair content: somewhat reliable memory: poor responses: mildly slowed insight: poor Testing: Lab Results 10/06/17 10/06/17 10/06/17 Range/Units 23:04 23:04 23:04 WBC 13.0 H (3.5-10.8) 10^3/ul RBC 3.24 L (4.0-5.4) 10^6/ul Hgb 6.5 L (12.0-16.0) g/dl Hct 22 L (35-47) % MCV 68 L (80-97) fL MCH 20 L (27-31) pg MCHC 29 L (31-36) g/dl RDW 19 H (10.5-15) % Plt Count 154 (150-450) 10^3/ul MPV 9.2 (7.4-10.4) um3 Neut % (Auto) 67.2 (38-83) % Lymph % (Auto) 16.0 L (25-47) % [place] % (Auto) 12.8 H (0-7) % Eos % (Auto) 3.1 (0-6) % Baso % (Auto) 0.9 (0-2) % Absolute Neuts (auto) 8.8 H (1.5-7.7) 10^3/ul Absolute Lymphs (auto) 2.1 (1.0-4.8) 10^3/ul Absolute Monos (auto) 1.7 H (0-0.8) 10^3/ul Absolute Eos (auto) 0.4 (0-0.6) 10^3/ul Absolute Basos (auto) 0.1 (0-0.2) 10^3/ul Absolute Nucleated RBC 0 10^3/ul Nucleated RBC % 0.2 Polychromasia 1+ Hypochromasia 2+ Anisocytosis 1+ Microcytosis 2+ INR (Anticoag Therapy) 1.01 (0.77-1.02) APTT 29.5 (26.0-36.3) seconds Sodium (139-145) mmol/L Potassium (3.5-5.0) mmol/L Chloride (101-111) mmol/L Carbon Dioxide (22-32) mmol/L Anion Gap (2-11) mmol/L BUN (6-24) mg/dL Creatinine (0.51-0.95) mg/dL Est GFR ( Amer) (>60) Est GFR (Non-Af Amer) (>60) BUN/Creatinine Ratio (8-20) Glucose (70-100) mg/dL Lactic Acid (0.5-2.0) mmol/L Calcium (8.6-10.3) mg/dL Total Bilirubin (0.2-1.0) mg/dL AST (13-39) U/L ALT (7-52) U/L Alkaline Phosphatase (34-104) U/L Total Creatine Kinase (10-223) U/L Troponin I (<0.04) ng/mL B-Natriuretic Peptide 1313 H ( - 100) pg/mL Total Protein (6.4-8.9) g/dL Albumin (3.2-5.2) g/dL Globulin (2-4) g/dL Albumin/Globulin Ratio (1-3) Urine Color Urine Appearance Urine pH (5-9) Ur Specific [place] (1.010-1.030) Urine Protein (Negative) Urine Ketones (Negative) Urine Blood (Negative) Urine Nitrate (Negative) Urine Bilirubin (Negative) Urine Urobilinogen (Negative) Ur Leukocyte Esterase (Negative) Urine WBC (Auto) (Absent) Urine RBC (Auto) (Absent) Ur Squamous Epith Cells (Absent) Urine Bacteria (Absent) Hyaline Casts (Absent) Urine Glucose (Negative) Influenza A (Rapid) (Negative) Influenza B (Rapid) (Negative) Blood Type Antibody Screen Crossmatch 10/06/17 10/06/17 10/06/17 Range/Units 23:04 23:04 23:04 WBC (3.5-10.8) 10^3/ul RBC (4.0-5.4) 10^6/ul Hgb (12.0-16.0) g/dl Hct (35-47) % MCV (80-97) fL MCH (27-31) pg MCHC (31-36) g/dl RDW (10.5-15) % Plt Count (150-450) 10^3/ul MPV (7.4-10.4) um3 Neut % (Auto) (38-83) % Lymph % (Auto) (25-47) % [place] % (Auto) (0-7) % Eos % (Auto) (0-6) % Baso % (Auto) (0-2) % Absolute Neuts (auto) (1.5-7.7) 10^3/ul Absolute Lymphs (auto) (1.0-4.8) 10^3/ul Absolute Monos (auto) (0-0.8) 10^3/ul Absolute Eos (auto) (0-0.6) 10^3/ul Absolute Basos (auto) (0-0.2) 10^3/ul Absolute Nucleated RBC 10^3/ul Nucleated RBC % Polychromasia Hypochromasia Anisocytosis Microcytosis INR (Anticoag Therapy) (0.77-1.02) APTT (26.0-36.3) seconds Sodium 134 L (139-145) mmol/L Potassium 4.4 (3.5-5.0) mmol/L Chloride 101 (101-111) mmol/L Carbon Dioxide 22 (22-32) mmol/L Anion Gap 11 (2-11) mmol/L BUN 26 H (6-24) mg/dL Creatinine 1.55 H (0.51-0.95) mg/dL Est GFR ( Amer) 41.2 (>60) Est GFR (Non-Af Amer) 32.0 (>60) BUN/Creatinine Ratio 16.8 (8-20) Glucose 171 H (70-100) mg/dL Lactic Acid 3.1 H* (0.5-2.0) mmol/L Calcium 8.7 (8.6-10.3) mg/dL Total Bilirubin 1.00 (0.2-1.0) mg/dL AST 32 (13-39) U/L ALT 11 (7-52) U/L Alkaline Phosphatase 73 (34-104) U/L Total Creatine Kinase 165 (10-223) U/L Troponin I 7.22 H* (<0.04) ng/mL B-Natriuretic Peptide ( - 100) pg/mL Total Protein 7.1 (6.4-8.9) g/dL Albumin 3.7 (3.2-5.2) g/dL Globulin 3.4 (2-4) g/dL Albumin/Globulin Ratio 1.1 (1-3) Urine Color Urine Appearance Urine pH (5-9) Ur Specific [place] (1.010-1.030) Urine Protein (Negative) Urine Ketones (Negative) Urine Blood (Negative) Urine Nitrate (Negative) Urine Bilirubin (Negative) Urine Urobilinogen (Negative) Ur Leukocyte Esterase (Negative) Urine WBC (Auto) (Absent) Urine RBC (Auto) (Absent) Ur Squamous Epith Cells (Absent) Urine Bacteria (Absent) Hyaline Casts (Absent) Urine Glucose (Negative) Influenza A (Rapid) (Negative) Influenza B (Rapid) (Negative) Blood Type A Positive Antibody Screen Negative Crossmatch See Detail 10/06/17 10/06/17 Range/Units 23:12 23:15 WBC (3.5-10.8) 10^3/ul RBC (4.0-5.4) 10^6/ul Hgb (12.0-16.0) g/dl Hct (35-47) % MCV (80-97) fL MCH (27-31) pg MCHC (31-36) g/dl RDW (10.5-15) % Plt Count (150-450) 10^3/ul MPV (7.4-10.4) um3 Neut % (Auto) (38-83) % Lymph % (Auto) (25-47) % [place] % (Auto) (0-7) % Eos % (Auto) (0-6) % Baso % (Auto) (0-2) % Absolute Neuts (auto) (1.5-7.7) 10^3/ul Absolute Lymphs (auto) (1.0-4.8) 10^3/ul Absolute Monos (auto) (0-0.8) 10^3/ul Absolute Eos (auto) (0-0.6) 10^3/ul Absolute Basos (auto) (0-0.2) 10^3/ul Absolute Nucleated RBC 10^3/ul Nucleated RBC % Polychromasia Hypochromasia Anisocytosis Microcytosis INR (Anticoag Therapy) (0.77-1.02) APTT (26.0-36.3) seconds Sodium (139-145) mmol/L Potassium (3.5-5.0) mmol/L Chloride (101-111) mmol/L Carbon Dioxide (22-32) mmol/L Anion Gap (2-11) mmol/L BUN (6-24) mg/dL Creatinine (0.51-0.95) mg/dL Est GFR ( Amer) (>60) Est GFR (Non-Af Amer) (>60) BUN/Creatinine Ratio (8-20) Glucose (70-100) mg/dL Lactic Acid (0.5-2.0) mmol/L Calcium (8.6-10.3) mg/dL Total Bilirubin (0.2-1.0) mg/dL AST (13-39) U/L ALT (7-52) U/L Alkaline Phosphatase (34-104) U/L Total Creatine Kinase (10-223) U/L Troponin I (<0.04) ng/mL B-Natriuretic Peptide ( - 100) pg/mL Total Protein (6.4-8.9) g/dL Albumin (3.2-5.2) g/dL Globulin (2-4) g/dL Albumin/Globulin Ratio (1-3) Urine Color Yellow Urine Appearance Cloudy Urine pH 5.0 (5-9) Ur Specific [place] 1.011 (1.010-1.030) Urine Protein Negative (Negative) Urine Ketones Negative (Negative) Urine Blood Negative (Negative) Urine Nitrate Positive A (Negative) Urine Bilirubin Negative (Negative) Urine Urobilinogen Negative (Negative) Ur Leukocyte Esterase Trace A (Negative) Urine WBC (Auto) 1+(6-10/hpf) A (Absent) Urine RBC (Auto) Absent (Absent) Ur Squamous Epith Cells Present A (Absent) Urine Bacteria 1+ A (Absent) Hyaline Casts Present A (Absent) Urine Glucose Negative (Negative) Influenza A (Rapid) Negative (Negative) Influenza B (Rapid) Negative (Negative) Blood Type Antibody Screen Crossmatch ECG, personally reviewed: sinus LBBB rate 77; LBBB present on ECG 04/2017 CXR, personally reviewed: no acute process Impression: 82F HX CAD/AR/stent presenting with SOB, NSTEMI 2nd GI hemorrhage w / hypovolemic shock DIAGNOSIS & PLAN Primary NSTEMI : transfuse to target HGB 10, respiratory status allowing : ICU telemetry : trend troponin : no aspirin or heparin in setting of GI hemorrhage : no beta kimberli 2nd hypotension : check ECHO in AM : consider cardiology consult in AM pending above : supportive care GI hemorrhage, suspect lower given BUN lower than typical : NPO x/ meds w/ sips of clears : GI consult in AM : transfuse to target HGB of 10 as above : no anti-platelets or anti-coagulation : close monitoring of respiratory status given HX diastolic HF Secondary HX acute diastolic HF : strict I&Os : daily weights HTN : hold anti-hypertensives in current setting HLD : continue pravastatin depression : continue sertraline Admission Rational: inpatient NSTEMI 2nd GI hemorrhage w/ hypovolemic shock; inappropriate for outpatient setting DVTp: SCDs, no anticoagulation in setting of GI hemorrhage Code Status: full HCP: daughter, Evelia
--- NOTE | 2017-10-07 03:10 | ED ---
Lincoln Mims Rebecca, scribed for Kojo Jasso MD on 10/06/17 at 2256 . Shortness of Breath - HPI Summary HPI Summary: Pt is an 82 y/o F who presents to ED due to SOB, cough, and increased confusion. She has been gradually worsening for about 3-4 days with a harsh, productive cough. Additionally notes diaphoresis, mild rhinorrhea and being increasingly sedentary. Takes 81 mg ASA daily. Pt lives alone and is accompanied by a family member who is responsible for administering all medications. No recent contact with a sick individual or young children. Received her flu vaccination this year. PMHx CHF, dementia, HLD, and HTN, FHx former smoker. - History of Current Complaint Chief Complaint: EDShortnessOfBreath Hx Obtained From: Patient, Family/Senior Sales Administrator Onset/Duration: Gradual Onset, Lasting Days - 3-4 days, Still Present Dyspnea At: Rest Aggrevating Factors: Nothing Alleviating Factors: Nothing Associated Signs & Symptoms: Cough (Productive) - Allergy/Home Medications Allergies/Adverse Reactions: Allergies Allergy/AdvReac Type Severity Reaction Status Date / Time No Known Allergies Allergy Verified 08/19/17 18:46 Home Medications: Home Medications Aspirin EC TAB* [Ecotrin EC Low Dose 81 MG*] 81 mg PO DAILY 10/06/17 [History Confirmed 10/06/17] Losartan TAB* [Cozaar TAB*] 25 mg PO DAILY 10/06/17 [History Confirmed 10/06/17] Metoprolol Succinate XL TAB* [Toprol XL TAB*] 50 mg PO DAILY 10/06/17 [History Confirmed 10/06/17] Pravastatin (NF) [Pravachol (NF)] 40 mg PO DAILY 10/06/17 [History Confirmed ] Sertraline* [Zoloft*] 100 mg PO DAILY 10/06/17 [History Confirmed 10/06/17] PMH/Surg Hx/FS Hx/Imm Hx Endocrine/Hematology History: Reports: Hx Diabetes - A1C 6.3 05/05/17 Denies: Hx Anticoagulant Therapy, Hx Blood Disorders, Hx Blood Transfusions, Hx Bone Marrow Disease, Hx Systemic Lupus Erythematosus, Hx Sickle Cell Disease , Hx Thyroid Disease, Hx Anemia, Hx Unexplained Bleeding, Other Endocrine/ Hematological Disorders Cardiovascular History: Reports: Hx Angina, Hx Congestive Heart Failure - , Hx Coronary Artery Disease, Hx Hypercholesterolemia, Hx Hypertension, Other Cardiovascular Problems/Disorders - cardiomyopathy EF 55% Denies: Hx Aneurysm, Hx Angioplasty, Hx Auto Implanted Cardiovert Defib, Hx Cardiac Arrest, Hx Cardiomegaly, Hx Congenital Heart Disease, Hx Deep Vein Thrombosis, Hx Hypotension, Hx Myocardial Infarction, Hx Pacemaker/ICD, Hx Peripheral Vascular Disease, Hx Rheumatic Fever, Hx Syncope, Hx Valvular Heart Disease Respiratory History: Reports: Hx Pneumonia Denies: Hx Asthma, Hx Chronic Bronchitis, Hx Chronic Obstructive Pulmonary Disease (COPD), Hx Cystic Fibrosis, Hx Lung Cancer, Hx Pleural Effusion, Hx Pulmonary Edema, Hx Pulmonary Embolism, Hx Seasonal Allergies, Hx Sleep Apnea, Other Respiratory Problems/Disorders GI History: Denies: Hx Cirrhosis, Hx Crohn's Disease, Hx Diverticulosis, Hx Gall Bladder Disease, Hx Gastroesophageal Reflux Disease, Hx Gastrointestinal Bleed, Hx Hiatal Hernia, Hx Irritable Bowel, Hx Jaundice, Hx Obstructive Bowel, Hx Ileostomy, Hx Pyloric Stenosis, Hx Ulcer, Other GI Disorders History: Denies: Hx Acute Renal Failure, Hx Benign Prostatic Hyperplasia, Hx Chronic Renal Failure, Hx Dialysis, Hx Kidney Infection, Hx Kidney Stones, Other Problems/Disorders Musculoskeletal History: Reports: Hx Orthopedic Injury - 12/06/12: Knee surgery x 46yrs ago Denies: Hx Arthritis, Hx Back Problems, Hx Bursitis, Hx Congenital Bone Abnormalities, Hx Fibromyalgia, Hx Gout, Hx Osteoporosis, Hx Scoliosis, Hx Tendonitis, Other Musculoskeletal History Sensory History: Reports: Hx Contacts or Glasses, Hx Vision Problem - 12/06/12: glasses for reading Denies: Hx Cataracts, Hx Eye Injury, Hx Eye Prosthesis, Hx Glaucoma, Hx Macular Degeneration, Hx Hearing Aid, Hx Hearing Problem, Other Sensory Impairments Opthamlomology History: Reports: Hx Contacts or Glasses, Hx Vision Problem - : glasses for reading Denies: Hx Cataracts, Hx Eye Injury, Hx Eye Prosthesis, Hx Glaucoma, Hx Macular Degeneration, Other Sensory Impairments Neurological History: Reports: Hx Dementia Denies: Hx Developmental Delay, Hx Headaches, Hx Migraine, Hx Nerve Disease, Hx Seizures, Hx Spinal Cord Injury, Hx Transient Ischemic Attacks (TIA), Other Neuro Impairments/Disorders Psychiatric History: Reports: Hx Depression Denies: Hx Anxiety, Hx Attention Deficit Hyperactivity Disorder, Hx Eating Disorder, Hx Panic Disorder, Hx Post Traumatic Stress Disorder, Hx Inpatient Treatment, Hx Community Mental Health Tx, Hx Schizophrenia, Hx Bipolar Disorder , Hx Suicide Attempt, Hx of Violent Episodes Against Others, Hx Substance Abuse , Other Psychiatric Issues/Disorders - Cancer History Hx Chemotherapy: No Hx Radiation Therapy: No - Surgical History Surgery Procedure, Year, and Place: 12/06/12: knee surgery 40yrs ago. 12/06/12 : ectopic approx 40yrs ago Hx Anesthesia Reactions: No Infectious Disease History: No Infectious Disease History: Denies: Hx Clostridium Difficile, Hx Hepatitis, Hx Human Immunodeficiency Virus (HIV), Hx of Known/Suspected MRSA, Hx Shingles, Hx Tuberculosis, Traveled Outside the [place] in Last 30 Days - Family History Known Family History: Negative: Other - CHF - Social History Alcohol Use: None Hx Substance Use: No Substance Use Type: Reports: None Smoking Status (MU): Former Smoker Review of Systems Positive: Skin Diaphoresis, Other - Increasingly sedentary Positive: Nasal Discharge - mild Positive: Shortness Of Breath, Cough Neurological: Other - Increased confusion All Other Systems Reviewed And Are Negative: Yes Physical Exam - Summary Physical Exam Summary: Appearance: Well appearing, no pain distress Skin: generalized pallor of skin, diaphoretic Head/face: normal Eyes: EOMI, SARAH, conjunctiva pale ENT: normal, mucous membranes moist Neck: supple, non-tender, some carotid stenosis Respiratory: diffuse expiratory wheezes, no rhonchi, prolonged expiratory phase , breath sounds present Cardiovascular: RRR, pulses symmetrical Abdomen: non-tender, soft Bowel Sounds: present Musculoskeletal: normal, strength/ROM intact, no LE edema Neuro: normal, sensory motor intact, A&Ox3 Triage Information Reviewed: Yes Vital Signs On Initial Exam: Initial Vitals Temp Pulse Resp BP Pulse Ox 96.8 F 97 22 104/66 97 10/06/17 22:36 10/06/17 22:36 10/06/17 22:36 10/06/17 22:36 10/06/17 22:36 Vital Signs Reviewed: Yes Diagnostics - Vital Signs Vital Signs Temp Pulse Resp BP Pulse Ox 10/06/17 22:36 96.8 F 97 22 104/66 97 - Laboratory Lab Results: Lab Results 10/06/17 10/06/17 10/06/17 Range/Units 23:04 23:04 23:04 WBC 13.0 H (3.5-10.8) 10^3/ul RBC 3.24 L (4.0-5.4) 10^6/ul Hgb 6.5 L (12.0-16.0) g/dl Hct 22 L (35-47) % MCV 68 L (80-97) fL MCH 20 L (27-31) pg MCHC 29 L (31-36) g/dl RDW 19 H (10.5-15) % Plt Count 154 (150-450) 10^3/ul MPV 9.2 (7.4-10.4) um3 Neut % (Auto) 67.2 (38-83) % Lymph % (Auto) 16.0 L (25-47) % [place] % (Auto) 12.8 H (0-7) % Eos % (Auto) 3.1 (0-6) % Baso % (Auto) 0.9 (0-2) % Absolute Neuts (auto) 8.8 H (1.5-7.7) 10^3/ul Absolute Lymphs (auto) 2.1 (1.0-4.8) 10^3/ul Absolute Monos (auto) 1.7 H (0-0.8) 10^3/ul Absolute Eos (auto) 0.4 (0-0.6) 10^3/ul Absolute Basos (auto) 0.1 (0-0.2) 10^3/ul Absolute Nucleated RBC 0 10^3/ul Nucleated RBC % 0.2 Polychromasia 1+ Hypochromasia 2+ Anisocytosis 1+ Microcytosis 2+ INR (Anticoag Therapy) 1.01 (0.77-1.02) APTT 29.5 (26.0-36.3) seconds Sodium (139-145) mmol/L Potassium (3.5-5.0) mmol/L Chloride (101-111) mmol/L Carbon Dioxide (22-32) mmol/L Anion Gap (2-11) mmol/L BUN (6-24) mg/dL Creatinine (0.51-0.95) mg/dL Est GFR ( Amer) (>60) Est GFR (Non-Af Amer) (>60) BUN/Creatinine Ratio (8-20) Glucose (70-100) mg/dL Lactic Acid (0.5-2.0) mmol/L Calcium (8.6-10.3) mg/dL Total Bilirubin (0.2-1.0) mg/dL AST (13-39) U/L ALT (7-52) U/L Alkaline Phosphatase (34-104) U/L Total Creatine Kinase (10-223) U/L Troponin I (<0.04) ng/mL B-Natriuretic Peptide 1313 H ( - 100) pg/mL Total Protein (6.4-8.9) g/dL Albumin (3.2-5.2) g/dL Globulin (2-4) g/dL Albumin/Globulin Ratio (1-3) Urine Color Urine Appearance Urine pH (5-9) Ur Specific [place] (1.010-1.030) Urine Protein (Negative) Urine Ketones (Negative) Urine Blood (Negative) Urine Nitrate (Negative) Urine Bilirubin (Negative) Urine Urobilinogen (Negative) Ur Leukocyte Esterase (Negative) Urine WBC (Auto) (Absent) Urine RBC (Auto) (Absent) Ur Squamous Epith Cells (Absent) Urine Bacteria (Absent) Hyaline Casts (Absent) Urine Glucose (Negative) Influenza A (Rapid) (Negative) Influenza B (Rapid) (Negative) Blood Type Antibody Screen Crossmatch 10/06/17 10/06/17 10/06/17 Range/Units 23:04 23:04 23:04 WBC (3.5-10.8) 10^3/ul RBC (4.0-5.4) 10^6/ul Hgb (12.0-16.0) g/dl Hct (35-47) % MCV (80-97) fL MCH (27-31) pg MCHC (31-36) g/dl RDW (10.5-15) % Plt Count (150-450) 10^3/ul MPV (7.4-10.4) um3 Neut % (Auto) (38-83) % Lymph % (Auto) (25-47) % [place] % (Auto) (0-7) % Eos % (Auto) (0-6) % Baso % (Auto) (0-2) % Absolute Neuts (auto) (1.5-7.7) 10^3/ul Absolute Lymphs (auto) (1.0-4.8) 10^3/ul Absolute Monos (auto) (0-0.8) 10^3/ul Absolute Eos (auto) (0-0.6) 10^3/ul Absolute Basos (auto) (0-0.2) 10^3/ul Absolute Nucleated RBC 10^3/ul Nucleated RBC % Polychromasia Hypochromasia Anisocytosis Microcytosis INR (Anticoag Therapy) (0.77-1.02) APTT (26.0-36.3) seconds Sodium 134 L (139-145) mmol/L Potassium 4.4 (3.5-5.0) mmol/L Chloride 101 (101-111) mmol/L Carbon Dioxide 22 (22-32) mmol/L Anion Gap 11 (2-11) mmol/L BUN 26 H (6-24) mg/dL Creatinine 1.55 H (0.51-0.95) mg/dL Est GFR ( Amer) 41.2 (>60) Est GFR (Non-Af Amer) 32.0 (>60) BUN/Creatinine Ratio 16.8 (8-20) Glucose 171 H (70-100) mg/dL Lactic Acid 3.1 H* (0.5-2.0) mmol/L Calcium 8.7 (8.6-10.3) mg/dL Total Bilirubin 1.00 (0.2-1.0) mg/dL AST 32 (13-39) U/L ALT 11 (7-52) U/L Alkaline Phosphatase 73 (34-104) U/L Total Creatine Kinase 165 (10-223) U/L Troponin I 7.22 H* (<0.04) ng/mL B-Natriuretic Peptide ( - 100) pg/mL Total Protein 7.1 (6.4-8.9) g/dL Albumin 3.7 (3.2-5.2) g/dL Globulin 3.4 (2-4) g/dL Albumin/Globulin Ratio 1.1 (1-3) Urine Color Urine Appearance Urine pH (5-9) Ur Specific [place] (1.010-1.030) Urine Protein (Negative) Urine Ketones (Negative) Urine Blood (Negative) Urine Nitrate (Negative) Urine Bilirubin (Negative) Urine Urobilinogen (Negative) Ur Leukocyte Esterase (Negative) Urine WBC (Auto) (Absent) Urine RBC (Auto) (Absent) Ur Squamous Epith Cells (Absent) Urine Bacteria (Absent) Hyaline Casts (Absent) Urine Glucose (Negative) Influenza A (Rapid) (Negative) Influenza B (Rapid) (Negative) Blood Type A Positive Antibody Screen Negative Crossmatch See Detail 10/06/17 10/06/17 Range/Units 23:12 23:15 WBC (3.5-10.8) 10^3/ul RBC (4.0-5.4) 10^6/ul Hgb (12.0-16.0) g/dl Hct (35-47) % MCV (80-97) fL MCH (27-31) pg MCHC (31-36) g/dl RDW (10.5-15) % Plt Count (150-450) 10^3/ul MPV (7.4-10.4) um3 Neut % (Auto) (38-83) % Lymph % (Auto) (25-47) % [place] % (Auto) (0-7) % Eos % (Auto) (0-6) % Baso % (Auto) (0-2) % Absolute Neuts (auto) (1.5-7.7) 10^3/ul Absolute Lymphs (auto) (1.0-4.8) 10^3/ul Absolute Monos (auto) (0-0.8) 10^3/ul Absolute Eos (auto) (0-0.6) 10^3/ul Absolute Basos (auto) (0-0.2) 10^3/ul Absolute Nucleated RBC 10^3/ul Nucleated RBC % Polychromasia Hypochromasia Anisocytosis Microcytosis INR (Anticoag Therapy) (0.77-1.02) APTT (26.0-36.3) seconds Sodium (139-145) mmol/L Potassium (3.5-5.0) mmol/L Chloride (101-111) mmol/L Carbon Dioxide (22-32) mmol/L Anion Gap (2-11) mmol/L BUN (6-24) mg/dL Creatinine (0.51-0.95) mg/dL Est GFR ( Amer) (>60) Est GFR (Non-Af Amer) (>60) BUN/Creatinine Ratio (8-20) Glucose (70-100) mg/dL Lactic Acid (0.5-2.0) mmol/L Calcium (8.6-10.3) mg/dL Total Bilirubin (0.2-1.0) mg/dL AST (13-39) U/L ALT (7-52) U/L Alkaline Phosphatase (34-104) U/L Total Creatine Kinase (10-223) U/L Troponin I (<0.04) ng/mL B-Natriuretic Peptide ( - 100) pg/mL Total Protein (6.4-8.9) g/dL Albumin (3.2-5.2) g/dL Globulin (2-4) g/dL Albumin/Globulin Ratio (1-3) Urine Color Yellow Urine Appearance Cloudy Urine pH 5.0 (5-9) Ur Specific [place] 1.011 (1.010-1.030) Urine Protein Negative (Negative) Urine Ketones Negative (Negative) Urine Blood Negative (Negative) Urine Nitrate Positive A (Negative) Urine Bilirubin Negative (Negative) Urine Urobilinogen Negative (Negative) Ur Leukocyte Esterase Trace A (Negative) Urine WBC (Auto) 1+(6-10/hpf) A (Absent) Urine RBC (Auto) Absent (Absent) Ur Squamous Epith Cells Present A (Absent) Urine Bacteria 1+ A (Absent) Hyaline Casts Present A (Absent) Urine Glucose Negative (Negative) Influenza A (Rapid) Negative (Negative) Influenza B (Rapid) Negative (Negative) Blood Type Antibody Screen Crossmatch Result Diagrams: 10/06/17 23:04 10/06/17 23:04 Lab Statement: Any lab studies that have been ordered have been reviewed, and results considered in the medical decision making process. - Radiology CXR Xray Interpretation: No Acute Changes - No acute disease. Radiology Interpretation Completed By: ED Physician - EKG 2252 Cardiac Rate: NL - 77 bpm EKG Rhythm: Sinus Rhythm ST Segment: Non-Specific EKG Interpretation: LAD, LBBB Re-Evaluation - Re-Evaluation First Eval Re-Evaluation Time: 01:51 Change: Improved Comment: Still coughing, but her BP is improving. She is currently getting blood. Course/Dx - Course Course Of Treatment: Pt is my great aunt -- and she presents feverish, diaphoretic and extremely pale. She has a harsh cough and expiratory wheezing. Flu testing neg. Hbg < 7. Stool heme positive. Iron def anemia. Trop/BNP grossly elevated. No CP, and CXR shows no overt CHF. No peripheral edema. BPs borderline low. IV fluids and antibiotics given. Consented and started infusion of 2 units of PRBCs. Cough no better with steroids, breathing tx. Sats well. Assume elev trop also from severe anemia. Admit thru hospitalist who saw pt in ED and admits to ICU. Assessment/Plan: CCT is EXCLUSIVE of separately billable procedures - Diagnoses Differential Diagnosis/HQI/PQRI: Positive: Asthma, Bronchitis, CHF, COPD Exacerbation, CT, Pneumonia Provider Diagnoses: Severe sepsis, GI bleed, COPD with exacerbation, Acute bronchitis with COPD, Iron deficiency anemia, NSTEMI (non-ST elevated myocardial infarction) - Physician Notifications Discussed Care of Patient With: Ladarius Freitas Time Discussed With Above Provider: 23:50 Instructed by Provider To: Other - Accepts pt for admission. - Critical Care Time Critical Care Time: 30-74 min - 30 minutes Discharge - Sign-Out/Discharge Documenting (check all that apply): Discharge/Admit/Transfer - Admit - Discharge Plan Condition: Critical Disposition: ADMITTED TO [facility] - Billing Disposition and Condition Condition: CRITICAL Disposition: [facility] [place] The documentation as recorded by the Lincoln stahl Rebecca accurately reflects the service I personally performed and the decisions made by , Kojo Jasso MD.
[2017-10-07] MEDS ORDERED: Furosemide IV* 10 MG/ML 2 ML VIAL (20 MG) ONE (03:44)
[2017-10-07] MEDS ORDERED: Furosemide IV* 10 MG/ML 2 ML VIAL (20 MG) IV ONE ×2 (04:21)
[2017-10-07] MEDS ORDERED: Furosemide IV* 10 MG/ML 10 ML VIAL (100 MG) IV ONE ×2 (04:21)
[2017-10-07] MEDS: Omeprazole CAP* 20 MG PO SCH ×3 (05:44→17:57)
[2017-10-07 07:58] LABS: Hematocrit 26 % (35-47); Hemoglobin 8.3 g/dl (12.0-16.0); Mean Corpuscular HGB Conc 32 g/dl (31-36); Mean Corpuscular Hemoglobin 23 pg (27-31); Mean Corpuscular Volume 72 fL (80-97); Red Blood Count 3.61 10^6/ul (4.0-5.4); Red Cell Distribution Width 22 % (10.5-15)
--- NOTE | 2017-10-07 08:01 | RAD ---
Indication: Cough, dyspnea on exertion. Comparison: May 05, 2017 Technique: Upright AP 2303 hours Report: Clear lungs and pleural spaces. Negative for pneumothorax. Cardiomegaly. Unremarkable central pulmonary vasculature. Mildly tortuous thoracic aorta. IMPRESSION: Cardiomegaly without evidence for pulmonary edema. No acute cardiopulmonary process evident.
[2017-10-07 08:14] LABS: EGFR Non-African American 35.1 (>60)
[2017-10-07 08:47] LABS: ABS Basophils 0.1 10^3/ul (0-0.2); ABS Eosinophils 0 10^3/ul (0-0.6); ABS Lymphocytes 0.7 10^3/ul (1.0-4.8); ABS Monocytes 0.3 10^3/ul (0-0.8); ABS Nucleated RBC 0 10^3/ul; Eosinophil % 0 % (0-6); Lymphocyte % 6.8 % (25-47); Mean Platelet Volume 9.3 um3 (7.4-10.4); Nucleated Red Blood Cells % 0.3; Platelet Count 125 10^3/ul (150-450)
[2017-10-07] MEDS: Atorvastatin* 10 MG TAB PO SCH (09:54)
[2017-10-07] MEDS: Sertraline* 100 MG TAB PO SCH (09:54)
[2017-10-07] MEDS: Docusate CAP* 100 MG PO SCH ×2 (09:54→21:14)
[2017-10-07] MEDS: Furosemide TAB* 20 MG PO SCH (09:54)
--- NOTE | 2017-10-07 12:31 | CONS ---
CC: Dr. Calderon* CARDIOLOGY CONSULTATION: DATE OF CONSULT: 10/07/17 INDICATION FOR CONSULTATION: Coronary artery disease, abnormal troponin. HISTORY OF PRESENT ILLNESS: The patient is an 82-year-old female with a history of coronary artery disease, history of stenting to her LAD in 2012, who was admitted to the hospital because of shortness of breath. The patient states that she was at home yesterday and then suddenly became short of breath. She was at home for about 2 hours with progressive shortness of breath and then decided to come to the emergency room. On arrival to the emergency room, her EKG showed no obvious ischemic changes. There was normal sinus rhythm and a left bundle-branch block which is at her baseline. She was admitted to the hospital. She was found to be profoundly anemic. Her hemoglobin was 7, her hematocrit 22. The patient had not described any changes in bowel or bladder habits, had not described any nausea or vomiting. Ultimately, the patient's troponin level was abnormal with a peak troponin level of 13. In speaking with the patient, she has no symptoms this morning. She feels a little fatigued. She denies any chest pain, she denies any GI symptoms. She denies any palpitations, no lightheadedness, dizziness or syncope. Again at home, her only complaint was shortness of breath. Of note, the patient was seen in my office recently and was found to have critical bilateral stenosis of her coronary arteries. The patient was to be scheduled for a carotid CT angiogram in the near future. Past medical history is significant for coronary artery disease. She had a cardiac catheterization in 2012, at that time, she had an 80 % stenosis to her LAD, which was stented. Her ramus artery had sequential 50% stenoses. The patient did have an echocardiogram in April 2017 which showed normal LV size and systolic function. Mild mitral and tricuspid regurgitation. PAST MEDICAL HISTORY: Is significant for: 1. Coronary artery disease as described above. 2. Hypertension. OUTPATIENT MEDICATIONS: 1. Losartan 25 mg a day. 2. Lasix 20 mg a day. 3. Metoprolol succinate 50 mg a day. 4. Sertraline 100 mg a day. 5. Pravastatin 40 mg a day. 6. Aspirin 81 mg a day. ALLERGIES: No known drug allergies. SOCIAL HISTORY: She lives alone. Both her daughters are in the area and take care of her. She is a former smoker. She quit many years ago. She denies alcohol use. She is not getting any regular exercise. PHYSICAL EXAMINATION: Height is 5 feet 2 inches, weight 183 pounds. Temperature 98.6, heart rate is 80, blood pressure 118/72, respiratory rate is 23, oxygen saturation 91% on room air. Sclerae anicteric. Oropharynx is pink without erythema. Carotids are 2+. She has bilateral bruits. JVD is normal. Thyroid is normal. Cardiac Exam: S1, S2 without any murmurs, rubs, or gallops. PMI is normal. Lungs are clear to auscultation bilaterally. There is no dullness to percussion. Abdomen is obese, soft, nontender, nondistended with normoactive bowel sounds. Extremities show 1+ edema. She has 2+ pulses throughout. The patient is awake, alert, oriented. She moves all 4 extremities equally. DIAGNOSTIC STUDIES/LAB DATA: Hemoglobin 6.5, hematocrit 22 yesterday, today it is 8.3 and 26 after 2 units. Chemistries within normal limits. BUN 28, creatinine 1.4. Again peak troponin is 13. AST and ALT are normal. IMPRESSION: This is an 82-year-old female with a history of coronary artery disease, admitted to the hospital with shortness of breath. She did rule in for a myocardial infarction with a peak troponin level of 13. The patient does have a history of coronary artery disease, she has a history of stenting to her LAD. The patient does have profound anemia on arrival with a hemoglobin of 6.5 and hematocrit of 22. The question is whether the patient had a truly unstable plaque or whether her troponin elevation is just due to poor supply of oxygen because of her severe anemia. At this point, I don't think the patient has truly unstable plaque. It is my recommendation the patient be treated aggressively by GI doctors and have colonoscopy or endoscopy as necessary. The patient will continue on her outpatient medications except for her aspirin. My recommendation is the patient to be stabilized and discharged from the hospital. I will see the patient in followup and get a stress test in my office in 1 to 2 weeks. [id number]/[facility] #: [id number] MARIUM
--- NOTE | 2017-10-07 16:50 | PN ---
Date of Service: 10/07/17 Critical Care Services: Has been clinically stable since sdmission. Hb up to 8.3 after 2 units packed RBCs. Cardiology (Dr. Leslie) in to see patient. Patient also seen by Dr. Hernandez (GI) Vital Signs: Temp Pulse Resp BP SpO2 FiO2 99.5 F 74 23 118/59 89 30 Physical Exam: Gen: Resting comfortably in bed. Lungs: Clear Abdomen: Soft, nontender. Not distended. Extremities: No cyanosis or edema Fluid Balance (Past 24 Hours): 10/07/17 06:59 Intake Total 640 Output Total 675 Balance -35 Weight 183 lb Intake: Packed Cells 640 Output: Silveira 675 Labs: 10/07/17 10/07/17 10/07/17 03:00 03:00 07:45 WBC 10.0 Hgb 8.3 Hct 26 MCV 72 MCH 23 L MCHC 32 RDW 22 H Plt Count 125 L Lactic Acid 2.7 H* Calcium Troponin I 2.59 H* 10/07/17 07:45 WBC RBC Hgb Hct MCV MCH MCHC RDW Plt Count MPV Neut % (Auto) Lymph % (Auto) Nelson % (Auto) Eos % (Auto) Baso % (Auto) Absolute Neuts (auto) Absolute Lymphs (auto) Absolute Monos (auto) Absolute Eos (auto) Absolute Basos (auto) Absolute Nucleated RBC Nucleated RBC % Sodium 134 L Potassium 4.2 Chloride 105 Carbon Dioxide 17 L Anion Gap 12 H BUN 28 H Creatinine 1.43 H Est GFR ( Amer) 45.2 Est GFR (Non-Af Amer) 35.1 BUN/Creatinine Ratio 19.6 Glucose 242 H Lactic Acid Calcium 8.0 L Troponin I 13.06 Studies: Stool hematest + Nutrition: NPO Impression: Occult GI bleeding with a microcytic anemia (? iron deficiency). No hemodynamic compromise. Also no evidence for ongoing myocardial ischemia. Plan: Upper GI endoscopy tomorrow.
[2017-10-07] MEDS ORDERED: Omeprazole CAP* 20 MG PO ONE (19:00)
--- NOTE | 2017-10-07 20:34 | CONS ---
GASTROENTEROLOGY CONSULT: Date 10/09/17 REFERRING PHYSICIAN: Logan Vargas, IRAIS REASON FOR CONSULT: Microcytic anemia in a woman with no history of gastrointestinal symptoms. HISTORY: This 82-year-old woman awakened in the hospice clinical marketer hours with shortness of breath. She had had some upper respiratory symptoms in the preceding few days. In the emergency room, she was found to be anemic, microcytic, and had an elevated troponin and BNP at 7 and 1313 respectively. She continued without chest pain. She was given blood, Lasix, and a dose of a PPI. She improved. Her troponin levels changed up and down. She was seen today by Dr. Leslie and he did not feel that she was having a major coronary event through an epicardial vessel. He thought that her GI workup should proceed as it would impact on potential cardiac catheterization or stenting decisions. Interview with the patient and her 2 daughters reveal that she has not been having any GI complaints lately and indeed does not have any history of chronic gastrointestinal concerns. She does not take Tums or Rolaids and has never been on acid blockers. There is no history of heartburn, dysphagia, weight loss , or trouble with her bowels. She has not had colonoscopy in quite some time ( on further review with second dtr probably never). When admitted to the hospital in April, her hemoglobin was 12.0 on admission with an MCV of 83. It is interesting to see that in 2012, her MCVs are running in the low 90s with a hemoglobin of 14.2. Since then, she has been on low-dose aspirin. She does not take Advil or Aleve. In 2012, she had heme-positive stool, although it was negative in April 2017 and positive again today. PAST MEDICAL HISTORY: 1. Coronary disease - followed by Dr. Leslie. 2. Hypertension. 3. Former smoker - quitting 30 years ago. 4. Obesity - mild. MEDICATIONS: At home aspirin 81, losartan 25, metoprolol extended release 50 mg , furosemide 20 mg, pravastatin 40, and Zoloft 100 mg SOCIAL HISTORY: She is . She has 3 adult daughters and one is a field consultant in the endoscopy department. One of her daughters lives across the street. REVIEW OF SYSTEMS: No history of seizures, alcoholism, or syncope. She did have a TIA in 1998, at which time it was noted in the [facility] that she had not had any medical contacts in 10 years, i.e., no mammograms, etc. There is no history of hepatitis, jaundice, gallstones, renal stones, ulcer, recent fracture. PHYSICAL EXAM: She is a healthy-appearing older woman, moderately overweight, somewhat pale, but in no acute distress. She has no adenopathy. Her lungs are clear with diminished breath sounds, but present symmetrically. Heart sounds are regular. The abdomen is rounded, moderately obese with normal bowel sounds , soft, and nontender. Rectal: Deferred. Extremities: Show no edema. Neurologic is nonfocal with symmetric cranial nerves and movement of all 4 extremities. Gait was not tested. IMPRESSION: This 82-year-old woman presents with congestive failure and clearly signs that anemia has stressed her cardiac circulation. The metallurgical inspector feels that her prognosis is still good. She has been transfused. With heme-positive stool, the options for cardiac care are limited and it appears appropriate to expedite workup of her chronic iron deficiency anemia. She will have EGD tomorrow. Further latter-day of her hemoglobin is probably in order prior to considering a colonoscopy. Intravenous iron might accelerate her recovery above 10.5 or 11 g. Findings on EGD will drive further decisions. [id number]/[facility] #: [id number] [facility]
[2017-10-07 21:37] LABS: Hematocrit 25 % (35-47)
[2017-10-08] MEDS ORDERED: Albuterol 2.5 MG/3 ML NEB.SOL* (0.083%) INH ONE (03:30)
[2017-10-08] MEDS ORDERED: Furosemide IV* 10 MG/ML 2 ML VIAL (20 MG) IV PRN (03:30)
[2017-10-08] MEDS ORDERED: Albuterol 2.5 MG/3 ML NEB.SOL* (0.083%) ONE (03:32)
[2017-10-08 04:25] LABS: Urine Appearance Clear; Urine Blood 3+ (Negative); Urine Color Yellow; Urine Ketones Negative (Negative); Urine Protein 1+(30 mg/dL) (Negative); Urine Specific Gravity 1.014 (1.010-1.030); Urine Urobilinogen Negative (Negative)
[2017-10-08 04:49] LABS: Hematocrit 29 % (35-47); Hemoglobin 8.9 g/dl (12.0-16.0); Mean Corpuscular HGB Conc 31 g/dl (31-36); Mean Corpuscular Hemoglobin 22 pg (27-31); Mean Corpuscular Volume 73 fL (80-97); Red Cell Distribution Width 22 % (10.5-15); White Blood Count 18.3 10^3/ul (3.5-10.8)
[2017-10-08 04:51] LABS: EGFR Non-African American 27.3 (>60)
[2017-10-08 05:15] LABS: Mean Platelet Volume 9.1 um3 (7.4-10.4); Platelet Count 146 10^3/ul (150-450)
[2017-10-08] MEDS ORDERED: Omeprazole CAP* 20 MG PO SCH (07:00)
[2017-10-08] MEDS ORDERED: Zosyn per Pharmacy* NOTE FOLLOW UP PRN (07:23)
--- NOTE | 2017-10-08 07:49 | RAD ---
INDICATION: GI hemorrhage and hypovolemic shock COMPARISON: Most recent comparison chest x-rays dated October 06, 2017 TECHNIQUE: Single AP portable view of the chest was obtained. FINDINGS: Image quality is compromised due to the relative inferiority of a portable chest x-ray. Again seen is mild cardiomegaly and coarse calcification overlying the arch of the aorta. There are increased patchy densities overlying the bilateral lungs relative to the most recent previous chest x-ray. There is bibasilar costophrenic angle blunting. The pulmonary vasculature appears increasingly indistinct. Visualized bones are normal for the patient's age. IMPRESSION: In the correct clinical setting chest x-ray findings are consistent with worsening pulmonary edema relative to the October 06, 2017 chest x-ray.
[2017-10-08] MEDS ORDERED: Piperacillin/Tazobac ADVAN(*) 3.375 GM in NS 0.9% 100 ML* 100 ML IVPB SCH (08:00)
[2017-10-08] MEDS ORDERED: ZOSYN 3.375 GM x ONE DOSE over 30 miuntes IVPB ×2 (08:00)
[2017-10-08] MEDS: Furosemide TAB* 20 MG PO SCH (08:32)
[2017-10-08] MEDS: Acetaminophen TAB* 325 MG PO PRN ×2 (08:32→20:15)
[2017-10-08] MEDS: Sertraline* 100 MG TAB PO SCH (08:32)
[2017-10-08] MEDS: Atorvastatin* 10 MG TAB PO SCH (08:32)
--- NOTE | 2017-10-08 09:19 | PN ---
Subjective Date of Service: 10/08/17 - CC: SOB Interval History: The patient had a hard time answering questions about breathing. Per nursing the patient was very SOB early this AM and loud wheezing. Treated with IV lasix, good diuresis and the patient admits breathing is better now. She is vague about whether breathing is better than when she came in. No chest pain, neck, arm or epigastric pain. No dysurea, no GI c/o. No awareness of fevers or chills. Medications Active Medications: Acetaminophen (Tylenol Tab*) 650 mg PO Q6H PRN PRN Reason: FEVER/PAIN Last Admin: 10/08/17 08:32 Dose: 650 mg Albuterol (Ventolin 2.5 Mg/3 Ml Neb.Makenna*) 2.5 mg INH Q2H PRN PRN Reason: SHORTNESS OF BREATH Atorvastatin Calcium (Lipitor*) 10 mg PO DAILY [facility] PRN Reason: Protocol Last Admin: 10/08/17 08:32 Dose: 10 mg Docusate Sodium (Colace Cap*) 200 mg PO BID [facility] Last Admin: 10/07/17 21:14 Dose: 200 mg Furosemide (Lasix Tab*) 20 mg PO DAILY [facility] Last Admin: 10/08/17 08:32 Dose: 20 mg Piperacillin Sod/Tazobactam (Sod 13.5 gm/ Sodium Chloride) 500 mls @ 20.833 mls /hr IVPB Q24H [facility] Melatonin (Melatonin (Nf)) 3 mg PO BEDTIME PRN; Protocol PRN Reason: Sleep Ondansetron HCl (Zofran Inj*) 4 mg IV Q6H PRN PRN Reason: NAUSEA Pantoprazole Sodium (Protonix Iv*) 40 mg IV Q24H [facility] Pharmacy Consult (Zosyn Per Pharmacy*) 1 note FOLLOW UP . PRN PRN Reason: PER PROTOCOL Sertraline HCl (Zoloft*) 100 mg PO DAILY [facility] Last Admin: 10/08/17 08:32 Dose: 100 mg Tramadol HCl (Ultram*) 50 mg PO Q6H PRN PRN Reason: PAIN Objective Vital Signs: Temp Pulse Resp BP Pulse Ox 102.2 F 101 29 113/78 98 10/08/17 08:00 10/08/17 08:00 10/08/17 08:00 10/08/17 08:00 10/08/17 08:00 Oxygen Devices in Use Now: Nasal Cannula Appearance: Elderly woman, lying 40 degrees, tachypnic. Eyes: No Scleral Icterus, PERRLA Ears/Nose/Mouth/Throat: NL Teeth, Lips, Gums, Clear Oropharnyx Neck: Trachea Midline, No Thyroid Enlargement, Masses - JVP distended at 40 degrees. Respiratory: Symmetrical Chest Expansion and Respiratory Effort - mild inspiratory wheezing. Cardiovascular: RRR - fast. No murmurs appreciated. Lymphatic: No Cervical Adenopathy Extremities: No Edema, No Clubbing, Cyanosis Skin: No Rash or Ulcers Neurological: NL Muscle Strength and Tone - for age, no gross neurological deficits. Lines/Tubes/Other Access: Clean, Dry and Intact Peripheral IV Laboratory Results: 10/08/17 04:15 10/08/17 04:15 INR (Anticoag Therapy) 1.01 (0.77-1.02) 10/06/17 23:04 APTT 29.5 seconds (26.0-36.3) 10/06/17 23:04 Total Bilirubin 1.00 mg/dL (0.2-1.0) 10/06/17 23:04 AST 32 U/L (13-39) 10/06/17 23:04 ALT 11 U/L (7-52) 10/06/17 23:04 Alkaline Phosphatase 73 U/L (34-104) 10/06/17 23:04 B-Natriuretic Peptide 1313 pg/mL (-100) H 10/06/17 23:04 Total Protein 7.1 g/dL (6.4-8.9) 10/06/17 23:04 Albumin 3.7 g/dL (3.2-5.2) 10/06/17 23:04 Globulin 3.4 g/dL (2-4) 10/06/17 23:04 Albumin/Globulin Ratio 1.1 (1-3) 10/06/17 23:04 10/07/17 10/07/17 03:00 07:45 Troponin I 2.59 H* 13.06 H* Laboratory Results - last 24 hr 10/07/17 10/08/17 10/08/17 21:30 04:10 04:15 WBC RBC Hgb 8.0 L Hct 25 L MCV MCH MCHC RDW Plt Count MPV Sodium 136 L Potassium 3.9 Chloride 103 Carbon Dioxide 24 Anion Gap 9 BUN 31 H Creatinine 1.78 H Est GFR ( Amer) 35.1 Est GFR (Non-Af Amer) 27.3 BUN/Creatinine Ratio 17.4 Glucose 172 H Calcium 8.7 Urine Color Yellow Urine Appearance Clear Urine pH 5.0 Ur Specific [place] 1.014 Urine Protein 1+(30 mg/dl) A Urine Ketones Negative Urine Blood 3+ A Urine Nitrate Negative Urine Bilirubin Negative Urine Urobilinogen Negative Ur Leukocyte Esterase 2+ A Urine WBC (Auto) 1+(6-10/hpf) A Urine RBC (Auto) 3+(>10/hpf) A Ur Squamous Epith Cells Present A Urine Bacteria Absent Urine Glucose Negative 10/08/17 04:15 WBC 18.3 H RBC 4.00 Hgb 8.9 L Hct 29 L MCV 73 L MCH 22 L MCHC 31 RDW 22 H Plt Count 146 L MPV 9.1 Sodium Potassium Chloride Carbon Dioxide Anion Gap BUN Creatinine Est GFR ( Amer) Est GFR (Non-Af Amer) BUN/Creatinine Ratio Glucose Calcium Urine Color Urine Appearance Urine pH Ur Specific [place] Urine Protein Urine Ketones Urine Blood Urine Nitrate Urine Bilirubin Urine Urobilinogen Ur Leukocyte Esterase Urine WBC (Auto) Urine RBC (Auto) Ur Squamous Epith Cells Urine Bacteria Urine Glucose Diagnostic Imaging: CXR 10/08/17: worsening CHF. EKG Data: ordered, not yet completed. Assessment/Plan 82 yo female presented with SOB, found to have a microcytic anemia, Guiaic + stool. Echo showed preserved ventricular function, mild to moderate mitral and tricuspid insufficiency and mod-severe pulmonary HTN. CXR also showed CHF. Trops increased to 13. Fevers that appear post transfusion. CHF: I suspect this is related to anemia, increased demand, renal insufficiency , increase in MR/TR. Worsening last evening likely related to volume from PRBC and diastolic CHF and is responding to diuretics. -Continue diuretics keeping euvolemic. -diagnosing and treating anemia. -hold off in resuming ACEI -I favor resuming low dose beta blockers for CHF, valvular insuffciency and bump in troponins. CAD/bump in trops: -Possibly demiand ischemia, small vessel disease. -agree iwth serial ECG's and troponins. -Supportive care working up and treating anemia. -as above, I favor resumption of beta kimberli, start low dose, I think wheezing was CHF. Anemia: -GI working up. -OK for endoscopy with normal EF. Fevers: -Newly documented after PRBC, ? UTI vs transfusion vs other. -Defer to ICU, but fevers will contribute to O2 demand/stress on heart.
--- NOTE | 2017-10-08 10:38 | PN ---
Date of Service: 10/08/17 Critical Care Services: Fever and increasing SOB last night - started on zosyn and cultures obtained of blood and urine. CXR looks like CHF and given duretic with some improvement in symptomatology. Upper endoscopy scheduled for today but has been postponed. Cardiology evaluation much appreciated. Vital Signs: Temp Pulse Resp BP SpO2 FiO2 102.2 F 101 29 113/78 98 30 Physical Exam: Gen:Alert, oriented. Tachypneic, but able to complete sentences. Lungs: Crackles both bases. No wheezes Cardiac: Reg rhythm Extremities: No cyanosis or edema Fluid Balance (Past 24 Hours): 10/07/17 10/08/17 06:59 06:59 Intake Total 640 Output Total 675 1945 Balance - Weight 183 lb 182 lb Intake: Packed Cells 640 Output: Silveira 675 1945 Labs: 10/07/17 10/08/17 10/08/17 21:30 04:10 04:15 Hgb 8.0 L Hct 25 L Sodium 136 Potassium 3.9 Chloride 103 Carbon Dioxide 24 Anion Gap 9 BUN 31 Creatinine 1.78 Glucose 172 Calcium 8.7 Urine Color Yellow Urine Appearance Clear Urine pH 5.0 Ur Specific [place] 1.014 Urine Protein 1+(30 mg/dl) A Urine Ketones Negative Urine Blood 3+ A Urine Nitrate Negative Urine Bilirubin Negative Urine Urobilinogen Negative Ur Leukocyte Esterase 2+ A Urine WBC (Auto) 1+(6-10/hpf) A Urine RBC (Auto) 3+(>10/hpf) A Ur Squamous Epith Cells Present A Urine Bacteria Absent Urine Glucose Negative 10/08/17 04:15 WBC 18.3 Hgb 8.9 L Hct 29 L MCV 73 Plt Count 146 L Studies: CXR: Pulmonary congestion. No focal infiltrate evident. Nutrition: Low residue diet (just started) Impression: CXR looks like CHF, but new-onset fever raises possibility of pneumonia (UTI also possible). Plan: 1. Will continue empiric antibiotic coverage (with Zosyn) pending results of blood and urine culture. 2. Use diuresis for apparent CHF. 3. Monitor blood Hb concentration. 4. Serum ferritin level for Dx of Fe-deficiency anemia. 5. Hold off on endoscopy for now. Critical Care Time: 40 minutes
[2017-10-08] MEDS: Pantoprazole IV* 40 MG IV SCH (11:57)
[2017-10-08] MEDS: Docusate CAP* 100 MG PO SCH ×2 (11:58→21:04)
[2017-10-08] MEDS: Metoprolol Succinate XL TAB* 25 MG PO SCH (11:58)
[2017-10-08] MEDS ORDERED: Piperacillin/Tazobactam 13.5 GM IV 24 hour continuous infusion IVPB SCH ×2 (12:00)
--- NOTE | 2017-10-08 13:58 | PN ---
CC: GASTROENTEROLOGY PROGRESS NOTE: DATE OF SERVICE: 10/08/17 HISTORY: Ms. Bernal has developed some congestive heart failure and also an apparent pneumonia. Her respiratory status is not quite as good and she requires higher FiO2. The patient has developed a lo w-grade fever as well, currently 100, 102 max. Blood pressure is running in the high 90s with the he art rate in the upper 70s and lower 80s. The patient denies any abdominal pain, nausea, or vomiting. She is tolerating clear liquids. She describes some shortness of breath. The patient has been rec eiving IV Lasix. She has received 2 units of packed red blood cells with followup hematocrit of 29 u p from 22 on 10/06/17. She does have very microcytic indices. I did discuss her case with the mica sizer this morning, a decision has been made to hold off on upper endoscopy at this time, give n the absence of any acute bleeding, her rise in hematocrit, and the likelihood that this has been an ongoing progressive slow process with her significantly microscopic indices. The patient is on IV p antoprazole 40 mg daily as well as antibiotics. Her troponin T level has risen up to 17. She is goi ng to be evaluated by Cardiology. IMPRESSION: Ms. Bernal presented with a severe microcytic anemia. She has ruled in for an acute myoc ardial infarction. She is having issues with congestive heart failure and now new onset of pneumonia . We will monitor her hematocrit carefully and any stool output. As of this point, there has been n o evidence of any active gastrointestinal bleeding. The patient will ultimately need upper endoscopy when her respiratory status has improved as well as if that examination is unremarkable, given her t enuous medical condition, I would highly recommend a CT colonography as opposed to colonoscopy to ki lara for source of her severe iron-deficiency anemia again, only if upper endoscopy is normal. We will continue to monitor the patient's condition. [id number]/[facility] #: [id number]
[2017-10-09 05:42] LABS: Hematocrit 28 % (35-47); Hemoglobin 8.7 g/dl (12.0-16.0); Mean Corpuscular HGB Conc 31 g/dl (31-36); Mean Corpuscular Hemoglobin 23 pg (27-31); Mean Corpuscular Volume 73 fL (80-97); Red Blood Count 3.85 10^6/ul (4.0-5.4); Red Cell Distribution Width 23 % (10.5-15); White Blood Count 13.1 10^3/ul (3.5-10.8)
[2017-10-09 06:19] LABS: Mean Platelet Volume 9.7 um3 (7.4-10.4); Platelet Count 150 10^3/ul (150-450)
--- NOTE | 2017-10-09 08:58 | RAD ---
HISTORY: Question pneumonia, non-ST elevation HI with GI hemorrhage and hypothalamic shock COMPARISONS: None VIEWS: 1: frontal portable view of the chest at 6:10 AM FINDINGS: LINES AND TUBES: None. CARDIOMEDIASTINAL SILHOUETTE: The cardiomediastinal silhouette is stable. PLEURA: The costophrenic angles are sharp. No pleural abnormalities are noted. LUNG PARENCHYMA: There is prominence of the central pulmonary vasculature, with improvement of the edema pattern noted on the previous examination. ABDOMEN: The upper abdomen is clear. There is no subphrenic gas. BONES AND SOFT TISSUES: No bone or soft tissue abnormalities are noted. IMPRESSION: PULMONARY VASCULAR CONGESTION WITH IMPROVEMENT OF THE EDEMA PATTERN NOTED ON THE PREVIOUS EXAMINATION.
[2017-10-09] MEDS: Pantoprazole IV* 40 MG IV SCH (09:22)
[2017-10-09] MEDS: Furosemide TAB* 20 MG PO SCH (09:22)
[2017-10-09] MEDS: Atorvastatin* 10 MG TAB PO SCH (09:22)
[2017-10-09] MEDS: Metoprolol Succinate XL TAB* 25 MG PO SCH (09:22)
[2017-10-09] MEDS: Docusate CAP* 100 MG PO SCH (09:23)
[2017-10-09] MEDS: Sertraline* 100 MG TAB PO SCH (09:23)
--- NOTE | 2017-10-09 11:37 | PN ---
Date of Service: 10/09/17 Critical Care Services: Continues to feel better. Slept well last night. Up in chair this AM. Vital Signs: Temp Pulse Resp BP SpO2 FiO2 98.8 F 88 20 93/65 94 30 Physical Exam: Gen:Alert, oriented, breathing comfortably. Lungs: Intermittent crackles at both bases Abdomen: Not distended Extremities:No cyanosis or edema Fluid Balance (Past 24 Hours): 10/09/17 06:59 Intake Total 905 Output Total 2175 Balance -1270 Weight 177 lb Intake: IV Fluids 373 ABX - PIPERACILLIN 166 NS 207 IVPB 157 ABX - PIPERACILLIN 157 Oral 375 Packed Cells Output: Silveira 2175 Other: Estimated Void Medium Labs: 10/09/17 10/09/17 04:35 04:35 WBC 13. Hgb 8.7 Hct 28 L MCV 73 L Plt Count 150 MPV 9.7 Sodium 139 Potassium 3.7 Chloride 105 Carbon Dioxide 28 Anion Gap 6 BUN 25 H Creatinine 1.51 H Est GFR ( Amer) 42.4 Est GFR (Non-Af Amer) 33.0 BUN/Creatinine Ratio 16.6 Glucose 128 H Calcium 8.0 L Ferritin 46.3 Troponin I 5.86 NOTE: 1) Hb unchanged from yesterday, 2) ferritin level is normal, and 3) troponin I down from 17 to 5.8. Studies: Urine culture growing E.coli (> 100,000 cfu/mL). Blood cultures negative. Nutrition: Oral diet Impression: Clinically improved today, with marked drop in troponin level. No evidence for active GI bleeding (i.e., Hb level is stable). Normal ferritin level is against the Dx of iron deficiency anemia. Plan: 1. D/C zosyn and start oral cipro (x 3 days) for UTI. 2. Start metoprolol Rx (25 mg daily) today. 3. Monitor whole blood Hb levels. 4. W/U gI blood loss per GI service. Critical care Time: 40 minutes
[2017-10-09] MEDS: Ciprofloxacin TAB* 500 MG PO SCH ×2 (11:43→22:03)
--- NOTE | 2017-10-09 13:21 | PN ---
GASTROENTEROLOGY PROGRESS NOTE: DATE OF SERVICE: 10/09/17 SUBJECTIVE: Ms. Bernal looks much better today. She is currently actually on room air with O2 sat in the 91 to 94 range. She has had no evidence of any further bleeding and her hematocrit has remained stable after her 2 units of blood on admission in the 29 to 28 range. Again, she does have signific antly microcytic indices. The patient has been seen by Cardiology who recommends pursuing GI evaluation. Her chest x-ray today looks improved in terms of congestive heart failure. The patient does have a known urinary tract infection. She denies any nausea or vomiting. She denies any stool o utput. She has no abdominal pain. She has no chest pain. PHYSICAL EXAMINATION: Heart: Regular rate and rhythm. Lungs have some crackles at the right base. No wheezing is heard. LABORATORY DATA: White blood count is 13.1. Her troponin T is down to 5.8. BUN and creatinine mild ly elevated at 25 and 1.5. IMPRESSION AND PLAN: I have discussed the case with Dr. Vargas, assistant manager of operations. We will plan on upper endoscopy either with minimal sedation and pediatric gastroscope tomorrow or regular gastroscope and anesthesia assistance. Dr. Hernandez will be in the hospital tomorrow to perform the procedure. This will be one additional day of rest and hopeful improvement in the patient's respiratory and cardiac c onditions or issues. She is on pantoprazole 40 mg IV q.24 hours, which should be continued. I will make the patient NPO after midnight for planned upper endoscopy tomorrow. [id number]/[facility] #: [id number]
[2017-10-10 05:21] LABS: Hematocrit 25 % (35-47); Hemoglobin 7.8 g/dl (12.0-16.0); Mean Corpuscular HGB Conc 32 g/dl (31-36); Mean Corpuscular Hemoglobin 23 pg (27-31); Mean Corpuscular Volume 72 fL (80-97); Red Blood Count 3.41 10^6/ul (4.0-5.4); Red Cell Distribution Width 23 % (10.5-15); White Blood Count 11.8 10^3/ul (3.5-10.8)
[2017-10-10 05:26] LABS: EGFR Non-African American 37.2 (>60)
[2017-10-10 05:50] LABS: Platelet Count 145 10^3/ul (150-450)
[2017-10-10 05:51] LABS: Mean Platelet Volume 8.4 um3 (7.4-10.4)
[2017-10-10] MEDS ORDERED: Midazolam* 1 MG/ML 10 ML VIAL (10 MG) ONE (10:23)
[2017-10-10] MEDS ORDERED: fentaNYL* 50 MCG/ML 2 ML VIAL (100 MCG VIAL) ONE (10:23)
[2017-10-10] MEDS: Ciprofloxacin TAB* 500 MG PO SCH ×2 (11:55→20:37)
[2017-10-10] MEDS: Sertraline* 100 MG TAB PO SCH (11:55)
[2017-10-10] MEDS: Atorvastatin* 10 MG TAB PO SCH (11:55)
[2017-10-10] MEDS: Furosemide TAB* 20 MG PO SCH (11:55)
[2017-10-10] MEDS: Metoprolol Succinate XL TAB* 25 MG PO SCH (11:55)
[2017-10-10] MEDS: Pantoprazole IV* 40 MG IV SCH (11:56)
--- NOTE | 2017-10-10 13:12 | PN ---
Subjective Date of Service: 10/10/17 Interval History: Ms. Bernal reports that she is feeling quite well today. She denies chest pain, SOB, nausea, or abdominal pain. She is tolerating oral intake well. Objective Active Medications: Albuterol (Ventolin 2.5 Mg/3 Ml Neb.Makenna*) 2.5 mg INH Q2H PRN Atorvastatin Calcium (Lipitor*) 10 mg PO DAILY JACKELINE Ciprofloxacin (Cipro Tab*) 500 mg PO Q12HR JACKELINE Furosemide (Lasix Tab*) 20 mg PO DAILY JACKELINE Metoprolol Succinate (Toprol Xl Tab*) 25 mg PO DAILY JACKELINE Pantoprazole Sodium (Protonix Iv*) 40 mg IV Q24H JACKELINE Sertraline HCl (Zoloft*) 100 mg PO DAILY JACKELINE Tramadol HCl (Ultram*) 50 mg PO Q6H PRN Vital Signs: Temp Pulse Resp BP Pulse Ox 98 F 64 14 111/47 98 10/10/17 11:37 10/10/17 11:37 10/10/17 11:37 10/10/17 11:37 10/10/17 11:37 Oxygen Devices in Use Now: Nasal Cannula Appearance: Female lying in bed in NAD Eyes: No Scleral Icterus Ears/Nose/Mouth/Throat: Mucous Membranes Moist Neck: Trachea Midline Respiratory: Symmetrical Chest Expansion and Respiratory Effort, Clear to Auscultation Cardiovascular: NL Sounds; No Murmurs; No JVD, No Edema Abdominal: NL Sounds; No Tenderness; No Distention Lymphatic: No Cervical Adenopathy Extremities: No Edema Skin: No Rash or Ulcers Neurological: Alert and Oriented x 3, NL Muscle Strength and Tone Nutrition: Taking PO's Result Diagrams: 10/10/17 04:42 10/10/17 04:42 Additional Lab and Data: . Microbiology and Other Data: . Assess/Plan/Problems-Billing Assessment: Ms. Bernal is an 82 yo female with a PMH of dementia and CAD who was admitted on 10/07/17 with NSTEMI in setting of anemia with GI bleed. - Patient Problems (1) GI bleed Comment: - Hgb 7.8 after 2 units PRBC (6.5 on arrival). - EGD completed today, no evidence of acute bleed. Plan for colonoscopy tomorrow, ok'd per Dr. Hernandez. - Continue PPI. (2) NSTEMI (non-ST elevated myocardial infarction) Comment: - Trops peaked at 17.52. - Appreciate cardiology consultation. History of cardiac cath in 2013 showing 80% stenosis to LAD which was stented. - Continue atorvastatin and metoprolol, antiplatelets and anticoagulants contraindicated in setting of acute GI bleed. (3) Acute on chronic diastolic CHF (congestive heart failure) Comment: - Resolved. - Continue home furosemide. (4) Depression Comment: - Continue Zoloft (5) UTI (urinary tract infection) Comment: - Continue cipro (6) DVT prophylaxis Comment: - SCDs only (7) Full code status Comment: Status and Disposition: Inpatient. May need rehab, [facility] referral made.
[2017-10-10] MEDS ORDERED: PEG 3000 GI LAVAGE* 1 GALLON PO ONE (15:00)
--- NOTE | 2017-10-10 21:13 | PRO ---
DATE: 10/10/17 REFERRING PHYSICIAN : Zack Henry PROCEDURE: Upper gastrointestinal endoscopy and CLOtest. INDICATION: This 82-year-old woman was admitted 4 days ago with shortness of breath and found to have an elevated troponin and signs of failure on chest x- ray. Her troponin has fluctuated. She has been diuresed. She was anemic with a lower MCV and has been transfused. ENDOSCOPIST: Dr. Hernandez MEDICATIONS: Midazolam 3.5, fentanyl 37.5. FINDINGS: She is an elderly woman, in no overt distress. EGD: Larynx - not seen. Esophagus - easily entered. The mucosa is normal in the upper, mid, and lower esophagus with the EG junction at 40. Stomach - generally normal mucosa in the cardia, fundus, and body. There is some minimal erythema on slightly swollen gastritic spots in the antrum. The changes are minimal, but worth remarking on. No blood was seen. There is no deformity. Duodenum - the pylorus, bulb, and second through fourth portions appear normal. IMPRESSION: 1. Mild antral gastritis. 2. Iron deficiency anemia - colonoscopy will proceed if cardiac clearance obtained. Addendum: stool heme negative and Clotest negative [id number]/[facility] #: [id number] [facility]
[2017-10-11] MEDS: Albuterol 2.5 MG/3 ML NEB.SOL* (0.083%) INH PRN ×2 (02:37→05:31)
[2017-10-11 05:25] LABS: Hematocrit 27 % (35-47); Hemoglobin 8.4 g/dl (12.0-16.0); Mean Corpuscular HGB Conc 31 g/dl (31-36); Mean Corpuscular Hemoglobin 23 pg (27-31); Mean Corpuscular Volume 73 fL (80-97); Platelet Count 175 10^3/ul (150-450); Red Blood Count 3.72 10^6/ul (4.0-5.4); Red Cell Distribution Width 24 % (10.5-15); White Blood Count 11.5 10^3/ul (3.5-10.8)
[2017-10-11 05:38] LABS: EGFR Non-African American 43.9 (>60)
[2017-10-11] MEDS ORDERED: PEG 3000 GI LAVAGE* 1 GALLON PO ONE (06:00)
[2017-10-11] MEDS: Atorvastatin* 10 MG TAB PO SCH (08:11)
[2017-10-11] MEDS: Pantoprazole IV* 40 MG IV SCH (08:11)
[2017-10-11] MEDS: Furosemide TAB* 20 MG PO SCH (08:11)
[2017-10-11] MEDS: Ciprofloxacin TAB* 500 MG PO SCH (08:11)
[2017-10-11] MEDS: Metoprolol Succinate XL TAB* 25 MG PO SCH (08:11)
[2017-10-11] MEDS: Sertraline* 100 MG TAB PO SCH (08:11)
[2017-10-11] MEDS ORDERED: Midazolam* 1 MG/ML 5 ML VIAL (5 MG) ONE (08:45)
[2017-10-11] MEDS ORDERED: fentaNYL* 50 MCG/ML 2 ML VIAL (100 MCG VIAL) ONE (08:45)
--- NOTE | 2017-10-11 11:44 | PN ---
Subjective Date of Service: 10/11/17 Interval History: Ms. Bernal reports that she is feeling quite well this morning. She is planned for colonoscopy today. She denies chest pain, SOB, nausea, or abdominal pain. Objective Active Medications: Albuterol (Ventolin 2.5 Mg/3 Ml Neb.Makenna*) 2.5 mg INH Q2H PRN Atorvastatin Calcium (Lipitor*) 10 mg PO DAILY JACKELINE Ciprofloxacin (Cipro Tab*) 500 mg PO Q12HR JACKELINE Furosemide (Lasix Tab*) 20 mg PO DAILY JACKELINE Metoprolol Succinate (Toprol Xl Tab*) 25 mg PO DAILY JACKELINE Pantoprazole Sodium (Protonix Iv*) 40 mg IV Q24H JACKELINE Sertraline HCl (Zoloft*) 100 mg PO DAILY JACKELINE Tramadol HCl (Ultram*) 50 mg PO Q6H PRN Vital Signs: Temp Pulse Resp BP Pulse Ox 99 F 81 20 138/56 94 10/11/17 11:08 10/11/17 11:08 10/11/17 11:08 10/11/17 11:08 10/11/17 11:08 Oxygen Devices in Use Now: None Appearance: Female lying in bed in NAD Eyes: No Scleral Icterus Ears/Nose/Mouth/Throat: Mucous Membranes Moist Neck: Trachea Midline Respiratory: Symmetrical Chest Expansion and Respiratory Effort, Clear to Auscultation Cardiovascular: NL Sounds; No Murmurs; No JVD, No Edema Abdominal: NL Sounds; No Tenderness; No Distention Lymphatic: No Cervical Adenopathy Extremities: No Edema Skin: No Rash or Ulcers Neurological: Alert and Oriented x 3, NL Muscle Strength and Tone Nutrition: Taking PO's Result Diagrams: 10/11/17 05:03 10/11/17 05:03 Additional Lab and Data: . Microbiology and Other Data: . Assess/Plan/Problems-Billing Assessment: Ms. Bernal is an 82 yo female with a PMH of dementia and CAD who was admitted on 10/07/17 with NSTEMI in setting of anemia with GI bleed. - Patient Problems (1) GI bleed Comment: - Hgb 8.4 after 2 units PRBC (6.5 on arrival). - EGD completed, no evidence of acute bleed. Plan for colonoscopy today, ok'd per Dr. Hernandez. - Continue PPI. (2) NSTEMI (non-ST elevated myocardial infarction) Comment: - Trops peaked at 17.52. - Appreciate cardiology consultation. History of cardiac cath in 2013 showing 80% stenosis to LAD which was stented. - Continue atorvastatin and metoprolol, antiplatelets and anticoagulants contraindicated in setting of acute GI bleed. (3) Acute on chronic diastolic CHF (congestive heart failure) Comment: - Resolved. - Continue home furosemide. (4) Depression Comment: - Continue Zoloft (5) UTI (urinary tract infection) Comment: - Continue cipro (6) DVT prophylaxis Comment: - SCDs only (7) Full code status Comment: Status and Disposition: Inpatient. Anticipate discharge to home after colonoscopy.
[2017-10-11 15:09] VITALS: BP 93/51
--- NOTE | 2017-10-11 15:30 | DS ---
CC: Dr. Henry; Dr. Leslie * HOSPITAL MEDICINE DISCHARGE SUMMARY: DATE OF ADMISSION: 10/07/17 DATE OF DISCHARGE: 10/11/17 PRIMARY CARE PHYSICIAN: Dr. Henry. COMPUTER HARDWARE DESIGNER: Dr. Leslie. ATTENDING PHYSICIAN: Dr. Chao * (dictation provided by Alem Ortega NP). PRIMARY DIAGNOSES: 1. Non-ST elevation myocardial infarction. 2. Gastrointestinal bleed (unclear source). 3. Acute on chronic diastolic congestive heart failure. 4. Acute blood loss anemia. 5. Urinary tract infection. SECONDARY DIAGNOSES: 1. History of coronary artery disease with myocardial infarction and stent in 2012. 2. Hypertension. 3. Hyperlipidemia. 4. Diastolic congestive heart failure. 5. Depression. MEDICATIONS: 1. Pravastatin 40 mg p.o. daily. 2. Sertraline 100 mg p.o. daily. 3. Losartan 25 mg p.o. daily. 4. Furosemide 20 mg p.o. daily. 5. Omeprazole 20 mg p.o. b.i.d. (new medication). 6. Metoprolol succinate 25 mg p.o. daily (new dose). 7. Ferrous sulfate 325 mg p.o. daily (new medication). 8. Ciprofloxacin 500 mg p.o. x1 this evening (completing a 3-day course for UTI ). HOSPITAL COURSE: Ms. Bernal is an 82-year-old female with a past medical history of coronary artery disease with HI and stent in 2012, who presented to the hospital on 10/07/17 with concern for shortness of breath. Please see dictated H and P from Dr. Ladarius Freitas for complete details. In brief, the patient stated that she was feeling well when she suddenly began to feel short of breath about 2 hours prior to her arrival. She denied chest pain, nausea, vomiting, abdominal pain, lightheadedness, or dizziness. She denied any blood in the stool or dark tarry stool. In the emergency room, Ms. Bernal had finding of a hemoglobin of 6.5 with a hematocrit of 22. Her last known hemoglobin was 11.8 noted on 05/06/17. She had initial elevated troponin to 7.22. She had a slight acute kidney injury with BUN 26 and creatinine 1.55. Her lactic acid was 3.1. Her BNP was 1313. Chest x-ray showed "cardiomegaly without evidence for pulmonary edema." Ms. Bernal had a transthoracic echocardiogram, which showed an intact ejection fraction of 50% to 55% as well as [id number] mitral regurgitation and tricuspid regurgitation. This was compared to study from April 2017, which showed that this mitral and tricuspid regurgitation had worsened as they were both previously mild. She also had increase in pulmonary hypertension from borderline to moderate. Repeat troponins were trended and they peaked at 17.52. The patient was seen in consultation by Dr. Leslie from Cardiology, who is her outpatient compensation programs manager. He made a note of her previous cardiac catheterization in 2012 that had an 80% stenosis to her LAD, which was stented and that she had a ramus artery with sequential stenosis of 50%. He suspected that she was not having a true HI, but likely had poor supply of oxygen due to severe anemia. The patient was not a candidate for antiplatelets or anticoagulants due to the GI bleed and he recommended that he follow up in the office with him in 1 to 2 weeks for stress testing. In terms of the GI bleed, the patient received 2 units of packed red blood cells. Today, her hemoglobin is stable at 8.4 with a hematocrit of 27. She was seen in consultation by Dr. Hernandez from Gastroenterology, who recommended upper endoscopy. Upper endoscopy showed no evidence of bleeding, but did show mild gastritis. At that point, he recommended colonoscopy, which was approved per Cardiology. The colonoscopy was also unremarkable. I do not have the report available, but there is no evidence of bleeding or gross significant abnormalities. Ms. Bernal is doing well today. In terms of the GI bleed, she has no evidence of bleeding and her hemoglobin and hematocrit are stable. Her vital signs are stable. In terms of the non-ST elevation HI, she has remained chest pain-free and has no shortness of breath. She is ambulating in her room independently. She is not requiring oxygen. I will make note that the patient did have urinary tract infection with E. coli , which was pansensitive and she is completing tonight a 3- day course of Cipro. Ms. Bernal is medically stable. DISPOSITION: To home. DIET: Heart healthy. ACTIVITY: As tolerated. FOLLOWUP PLANS: 1. Please follow up with Dr. Leslie in the next 1 to 2 weeks regarding this acute hospitalization with non-ST elevation HI. 2. Please follow up with Dr. Henry in the next week regarding this hospitalization as well. TIME SPENT: Approximately 60 minutes was spent in the discharge of this patient , more than half the time was spent with the patient at the bedside reviewing the events leading up to this hospitalization, performing the physical examination, and reviewing the plan of care. ALEM ORTEGA NP [id number]/[facility] #: [id number] MARIUM
--- NOTE | 2017-10-13 04:18 | PRO ---
DATE: 10/11/17 - ROOM #432 REFERRING PHYSICIANS: Zack Henry; Truman Leslie * PROCEDURE: Colonoscopy and ileoscopy INDICATION: This 82-year-old woman admitted with failure and fluctuating troponin and a severe iron-deficiency anemia, had a nondiagnostic upper endoscopy yesterday. Her stool was heme-negative yesterday, though had been positive on 10/06/17. There was no history of black stools. Stool was heme- negative on 05/05/17, during a prior admission and her hemoglobin was 12.0 and MCV 83. She has never had a colonoscopy. She has not been seeing blood in the stool. When she was given cardiac clearance, she was prepped with Colyte, just 2 L as the morning dose was missed in the orders. ENDOSCOPIST: Dr. Hernandez MEDICATIONS: Midazolam 2, fentanyl 37.5. FINDINGS: She is a frail, elderly woman, appearing pale and chronically ill. Her lungs are clear with O2 saturation 87 to 90 on 2 L. She states her breathing is as per usual. The adult colonoscope was inserted. The initial views showed surprisingly good prep. In the sigmoid, there was 1 to 2+ diverticulosis and a little bit of stiffening and tortuosity. There was a loop in the upper sigmoid or lower descending. Fair amount of maneuvering was required, the patient tolerated this well. There was some cramping. Additional 0.5 mg doses of midazolam were given. With left-sided pressure, a loop was taken out and then the scope easily advanced to the cecum. No blood was seen at anytime. Cecum was washed clear and appeared normal, as did the ileocecal valve, 15 cm terminal ileum, and the right colon directly. There was a small 4 mm polyp, 1 marking distal to the ileocecal valve. It was pale and clearly benign. Two more sessile small lesions were seen in the transverse and splenic flexure area respectively , also flat, pale, and clearly benign, estimated 3 and 5 mm respectively. On slow withdrawal, excellent segmental views were obtained without any recoil events and no blood or major lesions seen. There was no colitis. Final views of the rectosigmoid and rectum directly were normal. Given small confines, retroflexion was not done though digital rectal exam was clearly benign. IMPRESSION: 1. Mild sigmoid diverticulosis. 2. Small colon polyps - clearly clinically innocuous and not a source of heme- positive stool or iron-deficiency anemia. Polyps were not removed so as not to complicate decision making regarding cardiac interventions. 3. Iron-deficiency anemia - source unclear, but sporadic small bleeds from low - dose aspirin, possibly in conjunction with being on Plavix (1 to 3 years ago) can be postulated. She has never been on acid blockers and per her daughter, who is an endoscopy community outreach manager, has never had a steady use of NSAIDs. Spiritism of iron intravenously is recommended and following her Hemoccult as an outpatient. [id number]/[facility] #: [id number] [facility]
== END 2017-10-11 15:30 | disposition home or self-care (01) | DRG 377 ==
LOC: ED 22:35 → ICU 10-07 01:50 → MEDTELE 10-09 16:54
PROVIDERS: ADMIT Hospitalist; ATTEND Student in an Organized Health Care Education/Training Program
PROC: 30233N1 Transfusion of Nonautologous Red Blood Cells into Peripheral Vein, Percutaneous Approach (ICD-10-PCS; principal; 2017-10-06)
PROC: 5A09357 Assistance with Respiratory Ventilation, Less than 24 Consecutive Hours, Continuous Positive Airway Pressure (ICD-10-PCS; 2017-10-07)
PROC: 0DB68ZX Excision of Stomach, Via Natural or Artificial Opening Endoscopic, Diagnostic (ICD-10-PCS; 2017-10-10)
PROC: 0DJD8ZZ Inspection of Lower Intestinal Tract, Via Natural or Artificial Opening Endoscopic (ICD-10-PCS; 2017-10-11)
DX: K92.2 Gastrointestinal hemorrhage, unspecified (principal); I21.4 Non-ST elevation (NSTEMI) myocardial infarction; I50.33 Acute on chronic diastolic (congestive) heart failure; N39.0 Urinary tract infection, site not specified; D62 Acute posthemorrhagic anemia; N17.9 Acute kidney failure, unspecified; I11.0 Hypertensive heart disease with heart failure; B96.20 Unspecified Escherichia coli [E. coli] as the cause of diseases classified elsewhere; F03.90 Unspecified dementia, unspecified severity, without behavioral disturbance, psychotic disturbance, mood disturbance, and anxiety; I25.10 Atherosclerotic heart disease of native coronary artery without angina pectoris; E66.9 Obesity, unspecified; I65.23 Occlusion and stenosis of bilateral carotid arteries; E78.5 Hyperlipidemia, unspecified; F32.9 Major depressive disorder, single episode, unspecified; I08.1 Rheumatic disorders of both mitral and tricuspid valves; I27.20 Pulmonary hypertension, unspecified; K57.30 Diverticulosis of large intestine without perforation or abscess without bleeding; K63.5 Polyp of colon; D50.9 Iron deficiency anemia, unspecified; K29.70 Gastritis, unspecified, without bleeding; Z87.891 Personal history of nicotine dependence; Z79.82 Long term (current) use of aspirin; Z95.5 Presence of coronary angioplasty implant and graft; Z68.32 Body mass index [BMI] 32.0-32.9, adult; Z79.899 Other long term (current) drug therapy
CPT/HCPCS: 36415; 71045; 80048; 80053; 81003; 81015; 82272; 82550; 82728; 83605; 83880; 84484; 85014; 85018; 85025; 85027; 85610; 85730; 86850; 86900; 86901; 86922; 87040; 87070; 87077; 87086; 87186; 87205; 87502; 87641; 93005; 93308; 94640; 94660; 94760; 99156; 99157; 99285; A9270-GY; G8978-GP-CI; G8978-GP-CK; G8979-GP-CH; J1940; J2250; J2543; J2930; J3010; P9040

== ENCOUNTER 2017-10-17 11:50 | Inpatient (IN) | payer MEDICARE ==
[2017-10-17 12:59] LABS: Hematocrit 27 % (35-47); Hemoglobin 8.1 g/dl (12.0-16.0); Mean Corpuscular HGB Conc 30 g/dl (31-36); Mean Corpuscular Hemoglobin 22 pg (27-31); Mean Corpuscular Volume 73 fL (80-97); Mean Platelet Volume 8.7 um3 (7.4-10.4); Platelet Count 180 10^3/ul (150-450); Red Blood Count 3.66 10^6/ul (4.0-5.4); Red Cell Distribution Width 24 % (10.5-15); White Blood Count 11.1 10^3/ul (3.5-10.8)
[2017-10-17 13:03] LABS: EGFR Non-African American 43.9 (>60)
--- NOTE | 2017-10-17 13:18 | RAD ---
HISTORY: Shortness of breath COMPARISONS: October 09, 2014 VIEWS: 1: frontal portable view of the chest at 12:35 PM. The patient is obliqued to the right. FINDINGS: LINES AND TUBES: None. CARDIOMEDIASTINAL SILHOUETTE: The aorta is tortuous. The cardiomediastinal silhouette is otherwise normal for portable technique. PLEURA: The costophrenic angles are sharp. No pleural abnormalities are noted. LUNG PARENCHYMA: There is hyperinflation. There is patchy alveolar opacification of the right midlung field. ABDOMEN: The upper abdomen is clear. There is no subphrenic gas. BONES AND SOFT TISSUES: No bone or soft tissue abnormalities are noted. IMPRESSION: PATCHY AIRSPACE DISEASE OF THE RIGHT MIDLUNG FIELD. RECOMMEND FOLLOW-UP UNTIL RESOLUTION TO EXCLUDE UNDERLYING PULMONARY PARENCHYMAL PATHOLOGY.
[2017-10-17] MEDS ORDERED: Furosemide IV* 10 MG/ML 10 ML VIAL (100 MG) IV ONE (13:25)
[2017-10-17 13:44] LABS: ABS Basophils 0.1 10^3/ul (0-0.2); ABS Eosinophils 0.3 10^3/ul (0-0.6); ABS Lymphocytes 0.8 10^3/ul (1.0-4.8); ABS Monocytes 0.8 10^3/ul (0-0.8); ABS Neutrophils 9.2 10^3/ul (1.5-7.7); ABS Nucleated RBC 0 10^3/ul; Eosinophil % 2.4 % (0-6); Nucleated Red Blood Cells % 0
--- NOTE | 2017-10-17 17:33 | ED ---
Elizabet Mims Gabriel, scribed for Kojo Jasso MD on 10/17/17 at 1218 . Shortness of Breath - HPI Summary HPI Summary: This patient is a 82 year old F [facility] [place] by her daughter after she saw blood in her stool, [employer]. She also c/o increasing SOB. Patient reports cough, diaphoresis, and general malaise. Patient denies fever. Pt was recently admitted to the ICU for anemia with a hemoglobin of 6.5, weakness, and CHF exacerbation for a week and was released 6 days ago. Pt had a recent colonoscopy with show nothing significant. She states the symptoms are similar to the last time she was seen. - History of Current Complaint Chief Complaint: EDShortnessOfBreath Time Seen by Provider: 10/17/17 11:57 Hx Obtained From: Patient, Family/Director Search Onset/Duration: Still Present Timing: Constant Current Severity: Moderate Dyspnea At: Rest Associated Signs & Symptoms: Cough (Nonproductive), Diaphoresis - Allergy/Home Medications Allergies/Adverse Reactions: Allergies Allergy/AdvReac Type Severity Reaction Status Date / Time No Known Allergies Allergy Verified 10/17/17 12:05 PMH/Surg Hx/FS Hx/Imm Hx Endocrine/Hematology History: Reports: Hx Anemia Denies: Hx Anticoagulant Therapy, Hx Blood Disorders, Hx Blood Transfusions, Hx Bone Marrow Disease, Hx Diabetes, Hx Systemic Lupus Erythematosus, Hx Sickle Cell Disease, Hx Thyroid Disease, Hx Unexplained Bleeding, Other Endocrine/ Hematological Disorders Cardiovascular History: Reports: Hx Angina, Hx Congestive Heart Failure - , Hx Coronary Artery Disease, Hx Embolism, Hx Hypercholesterolemia, Hx Hypertension, Other Cardiovascular Problems/Disorders - cardiomyopathy EF 55%, stent at [place] Denies: Hx Aneurysm, Hx Angioplasty, Hx Auto Implanted Cardiovert Defib, Hx Cardiac Arrest, Hx Cardiomegaly, Hx Congenital Heart Disease, Hx Deep Vein Thrombosis, Hx Hypotension, Hx Myocardial Infarction, Hx Pacemaker/ICD, Hx Peripheral Vascular Disease, Hx Rheumatic Fever, Hx Syncope, Hx Valvular Heart Disease Respiratory History: Reports: Hx Pneumonia Denies: Hx Asthma, Hx Chronic Bronchitis, Hx Chronic Obstructive Pulmonary Disease (COPD), Hx Cystic Fibrosis, Hx Lung Cancer, Hx Pleural Effusion, Hx Pulmonary Edema, Hx Pulmonary Embolism, Hx Seasonal Allergies, Hx Sleep Apnea, Other Respiratory Problems/Disorders GI History: Denies: Hx Cirrhosis, Hx Crohn's Disease, Hx Diverticulosis, Hx Gall Bladder Disease, Hx Gastroesophageal Reflux Disease, Hx Gastrointestinal Bleed, Hx Hiatal Hernia, Hx Irritable Bowel, Hx Jaundice, Hx Obstructive Bowel, Hx Ileostomy, Hx Pyloric Stenosis, Hx Ulcer, Other GI Disorders History: Denies: Hx Acute Renal Failure, Hx Benign Prostatic Hyperplasia, Hx Chronic Renal Failure, Hx Dialysis, Hx Kidney Infection, Hx Kidney Stones, Other Problems/Disorders Musculoskeletal History: Reports: Hx Orthopedic Injury - 12/06/12: Knee surgery x 46yrs ago Denies: Hx Arthritis, Hx Back Problems, Hx Bursitis, Hx Congenital Bone Abnormalities, Hx Fibromyalgia, Hx Gout, Hx Osteoporosis, Hx Scoliosis, Hx Tendonitis, Other Musculoskeletal History Sensory History: Reports: Hx Contacts or Glasses, Hx Vision Problem - 12/06/12: glasses for reading Denies: Hx Cataracts, Hx Eye Injury, Hx Eye Prosthesis, Hx Glaucoma, Hx Macular Degeneration, Hx Hearing Aid, Hx Hearing Problem, Other Sensory Impairments Opthamlomology History: Reports: Hx Contacts or Glasses, Hx Vision Problem - : glasses for reading Denies: Hx Cataracts, Hx Eye Injury, Hx Eye Prosthesis, Hx Glaucoma, Hx Macular Degeneration, Other Sensory Impairments Neurological History: Denies: Hx Dementia, Hx Developmental Delay, Hx Headaches, Hx Migraine, Hx Nerve Disease, Hx Seizures, Hx Spinal Cord Injury, Hx Transient Ischemic Attacks (TIA), Other Neuro Impairments/Disorders Psychiatric History: Reports: Hx Depression Denies: Hx Anxiety, Hx Attention Deficit Hyperactivity Disorder, Hx Eating Disorder, Hx Panic Disorder, Hx Post Traumatic Stress Disorder, Hx Inpatient Treatment, Hx Community Mental Health Tx, Hx Schizophrenia, Hx Bipolar Disorder , Hx Suicide Attempt, Hx of Violent Episodes Against Others, Hx Substance Abuse , Other Psychiatric Issues/Disorders - Cancer History Hx Chemotherapy: No Hx Radiation Therapy: No - Surgical History Surgery Procedure, Year, and Place: 12/06/12: knee surgery 40yrs ago. 12/06/12 : ectopic approx 40yrs ago Hx Anesthesia Reactions: No Infectious Disease History: No Infectious Disease History: Denies: Hx Clostridium Difficile, Hx Hepatitis, Hx Human Immunodeficiency Virus (HIV), Hx of Known/Suspected MRSA, Hx Shingles, Hx Tuberculosis, Traveled Outside the [place] in Last 30 Days - Family History Known Family History: Negative: Other - CHF - Social History Lives: With Family Alcohol Use: None Hx Substance Use: No Substance Use Type: Reports: None Smoking Status (MU): Former Smoker Review of Systems Positive: Skin Diaphoresis, Other - general malaise. Negative: Fever Positive: Shortness Of Breath, Cough All Other Systems Reviewed And Are Negative: Yes Physical Exam - Summary Physical Exam Summary: Appearance: Well appearing, no pain distress Skin: warm, dry, reflects adequate perfusion Head/face: normal Eyes: EOMI, SAARH ENT: normal, mucous membranes are moist Neck: supple, non-tender, no JVD Respiratory: tachypnea, mild wheezing with forced expiration, bilateral crackles 1[address] Cardiovascular: RRR, pulses symmetrical, good radial pulses, soft S3 murmur, Abdomen: non-tender, soft Bowel Sounds: present Musculoskeletal: strength/ROM intact, 2+ pitting edema in bilateral extremities. Neuro: normal, sensory motor intact, A&Ox3 Triage Information Reviewed: Yes Vital Signs On Initial Exam: Initial Vitals Temp Pulse Resp BP Pulse Ox 98.2 F 87 28 84/53 91 10/17/17 11:59 10/17/17 11:59 10/17/17 11:59 10/17/17 11:59 10/17/17 11:59 Vital Signs Reviewed: Yes Diagnostics - Vital Signs Vital Signs Temp Pulse Resp BP Pulse Ox 10/17/17 11:59 98.2 F 87 28 84/53 91 - Laboratory Lab Results: Lab Results 10/17/17 10/17/17 10/17/17 Range/Units 12:31 12:31 12:31 WBC 11.1 H (3.5-10.8) 10^3/ul RBC 3.66 L (4.0-5.4) 10^6/ul Hgb 8.1 L (12.0-16.0) g/dl Hct 27 L (35-47) % MCV 73 L (80-97) fL MCH 22 L (27-31) pg MCHC 30 L (31-36) g/dl RDW 24 H (10.5-15) % Plt Count 180 (150-450) 10^3/ul MPV 8.7 (7.4-10.4) um3 Neut % (Auto) 83.0 (38-83) % Lymph % (Auto) 7.0 L (25-47) % Payette % (Auto) 7.1 H (0-7) % Eos % (Auto) 2.4 (0-6) % Baso % (Auto) 0.5 (0-2) % Absolute Neuts (auto) 9.2 H (1.5-7.7) 10^3/ul Absolute Lymphs (auto) 0.8 L (1.0-4.8) 10^3/ul Absolute Monos (auto) 0.8 (0-0.8) 10^3/ul Absolute Eos (auto) 0.3 (0-0.6) 10^3/ul Absolute Basos (auto) 0.1 (0-0.2) 10^3/ul Absolute Nucleated RBC 0 10^3/ul Nucleated RBC % 0 Sodium 134 L (139-145) mmol/L Potassium 3.5 (3.5-5.0) mmol/L Chloride 99 L (101-111) mmol/L Carbon Dioxide 27 (22-32) mmol/L Anion Gap 8 (2-11) mmol/L BUN 17 (6-24) mg/dL Creatinine 1.18 H (0.51-0.95) mg/dL Est GFR ( Amer) 56.4 (>60) Est GFR (Non-Af Amer) 43.9 (>60) BUN/Creatinine Ratio 14.4 (8-20) Glucose 148 H (70-100) mg/dL Lactic Acid 1.5 (0.5-2.0) mmol/L Calcium 8.4 L (8.6-10.3) mg/dL Total Bilirubin 0.70 (0.2-1.0) mg/dL AST 13 (13-39) U/L ALT 10 (7-52) U/L Alkaline Phosphatase 76 (34-104) U/L CK-MB (CK-2) 2.7 (0.6-6.3) ng/mL Troponin I 0.34 H* (<0.04) ng/mL B-Natriuretic Peptide ( - 100) pg/mL Total Protein 6.7 (6.4-8.9) g/dL Albumin 3.3 (3.2-5.2) g/dL Globulin 3.4 (2-4) g/dL Albumin/Globulin Ratio 1.0 (1-3) Blood Type Antibody Screen 10/17/17 10/17/17 Range/Units 12:31 12:31 WBC (3.5-10.8) 10^3/ul RBC (4.0-5.4) 10^6/ul Hgb (12.0-16.0) g/dl Hct (35-47) % MCV (80-97) fL MCH (27-31) pg MCHC (31-36) g/dl RDW (10.5-15) % Plt Count (150-450) 10^3/ul MPV (7.4-10.4) um3 Neut % (Auto) (38-83) % Lymph % (Auto) (25-47) % Payette % (Auto) (0-7) % Eos % (Auto) (0-6) % Baso % (Auto) (0-2) % Absolute Neuts (auto) (1.5-7.7) 10^3/ul Absolute Lymphs (auto) (1.0-4.8) 10^3/ul Absolute Monos (auto) (0-0.8) 10^3/ul Absolute Eos (auto) (0-0.6) 10^3/ul Absolute Basos (auto) (0-0.2) 10^3/ul Absolute Nucleated RBC 10^3/ul Nucleated RBC % Sodium (139-145) mmol/L Potassium (3.5-5.0) mmol/L Chloride (101-111) mmol/L Carbon Dioxide (22-32) mmol/L Anion Gap (2-11) mmol/L BUN (6-24) mg/dL Creatinine (0.51-0.95) mg/dL Est GFR ( Amer) (>60) Est GFR (Non-Af Amer) (>60) BUN/Creatinine Ratio (8-20) Glucose (70-100) mg/dL Lactic Acid (0.5-2.0) mmol/L Calcium (8.6-10.3) mg/dL Total Bilirubin (0.2-1.0) mg/dL AST (13-39) U/L ALT (7-52) U/L Alkaline Phosphatase (34-104) U/L CK-MB (CK-2) (0.6-6.3) ng/mL Troponin I (<0.04) ng/mL B-Natriuretic Peptide 2253 H ( - 100) pg/mL Total Protein (6.4-8.9) g/dL Albumin (3.2-5.2) g/dL Globulin (2-4) g/dL Albumin/Globulin Ratio (1-3) Blood Type A Positive Antibody Screen Negative Result Diagrams: 10/17/17 12:31 10/17/17 12:31 Lab Statement: Any lab studies that have been ordered have been reviewed, and results considered in the medical decision making process. - Radiology CXR Radiology Interpretation Completed By: Radiologist - PATCHY AIRSPACE DISEASE OF THE RIGHT MIDLUNG FIELD. RECOMMEND FOLLOW-UP UNTIL RESOLUTION TO EXCLUDE UNDERLYING PULMONARY PARENCHYMAL PATHOLOGY. ED physician has reviewed this radiology report. - EKG 1224 Cardiac Rate: NL EKG Rhythm: Sinus Rhythm - at [address] Segment: Non-Specific EKG Interpretation: LAD, LBBB Course/Dx - Course Course Of Treatment: Patient with recent ICU admission for off, CHF and GI bleed presents with difficulty breathing. She has crackles in both bases and evidence of CHF on her x-ray. Known history of diastolic heart failure. Lower extremity edema as well. Blood pressures have been borderline low running around 90. Discussed with cardiology who agrees that giving Lasix. Doses given here. No nitroglycerin obviously was given. She will require readmission , gentle diuresis, etc. Hemoglobin is 8.1 and there was evidence for blood streaking in in a bowel movement today. Her recent colonoscopy and endoscopy have been negative. - Diagnoses Differential Diagnosis/HQI/PQRI: Positive: CHF, Pneumonia, Pulmonary Edema, Other - Anemia, GI bleed Provider Diagnoses: CHF (congestive heart failure), Anemia, Hypotension - Physician Notifications Discussed Care of Patient With: Agata Leija Time Discussed With Above Provider: 13:25 Instructed by Provider To: Admit As Inpatient Discharge - Sign-Out/Discharge Documenting (check all that apply): Discharge/Admit/Transfer - admitted to Dr. Leija - Discharge Plan Condition: Fair Disposition: ADMITTED TO [facility] - Billing Disposition and Condition Condition: FAIR Disposition: [facility] Consult Consult: We discussed patient care with Dr. Vargas and he suggests given the patient lasixs. He will see the patient during the admission. The documentation as recorded by the Elizabet stahl Gabriel accurately reflects the service I personally performed and the decisions made by me, Kojo Jasso MD.
[2017-10-17 18:09] LABS: Hematocrit 28 % (35-47); Hemoglobin 8.4 g/dl (12.0-16.0)
[2017-10-17] MEDS: Omeprazole CAP* 20 MG PO SCH (21:04)
[2017-10-18 00:10] LABS: Hematocrit 26 % (35-47); Hemoglobin 8.1 g/dl (12.0-16.0)
--- NOTE | 2017-10-18 00:25 | HP ---
CC: Zack Henry MD * HISTORY AND PHYSICAL: DATE OF ADMISSION: 10/17/17 ATTENDING PHYSICIAN: Parminder Chao MD * (dictated by Daniela Guevara NP) CHIEF COMPLAINT: Shortness of breath. HISTORY OF PRESENT ILLNESS: Ms. Bernal is an 82-year-old female with past medical history significant for coronary artery disease, hypertension, hyperlipidemia, diastolic heart failure, depression, who was recently hospitalized from 10/07/17 to 10/11/17 for NSTEMI secondary to a GI bleed. The patient states that she had been feeling well since being discharged when she developed shortness of breath last evening. The patient denies any recent fevers, chills, chest pain, nausea, vomiting, diarrhea. Per her daughter, she was noted to have blood in her stool this morning (daughter is not at bedside to describe what she saw at this time). She has also been complaining of bilateral upper arm pain since her discharge. She also reports a cough, shortness of breath with exertion, and general malaise. The patient's daughter states that she has been fixing most of her meals for her mom, but she has had a few [employer] over the last few days since she went home. Due to her shortness of breath, she presented to the emergency room for further evaluation. While in the emergency room, the patient had labs showing a BNP of 2253. Her hemoglobin and hematocrit were near where she was at discharge. Her creatinine appears to be her baseline. She had an EKG showing a sinus rhythm, a left bundle- branch block, ST depression in V4 and II from previously have resolved. She had a chest x-ray showing patchy airspace disease of the right mid lung field. She received IV lasix. She was requiring 3 L of oxygen. The patient is on room air at baseline. The Hospitalists were asked to evaluate the patient for admission. PAST MEDICAL HISTORY: 1. Coronary artery disease. 2. Hypertension. 3. Hyperlipidemia. 4. Diastolic congestive heart failure. 5. Acute blood loss anemia. 6. GI bleed. 7. Recent urinary tract infection. PAST SURGICAL HISTORY: 1. Status post knee surgery. 2. Status post ectopic . 3. Status post cardiac stent placement. HOME MEDICATIONS: Include: 1. Zoloft 100 mg oral daily. 2. Pravastatin 40 mg oral daily. 3. Omeprazole 20 mg oral twice daily. 4. Toprol 25 mg oral daily. 5. Losartan 25 mg oral daily. 6. Furosemide 20 mg oral daily. 7. Ferrous sulfate 325 mg oral daily. ALLERGIES: No known drug allergies. FAMILY HISTORY: The patient's mother had a history of coronary artery disease. She denies any family history of diabetes mellitus or cancer. SOCIAL HISTORY: The patient is a former smoker, quitting 35 years ago. She rarely drinks alcohol. She denies recreational drug use. The patient's daughters will be her surrogate decision makers in the event she is unable to make decisions for herself. REVIEW OF SYSTEMS: I performed an 11-point review of systems. All the pertinent positives and negatives are mentioned in the history of present illness. The remaining review of systems is negative. PHYSICAL EXAMINATION GENERAL APPEARANCE: The patient is alert, pleasant, appears to be in no acute distress. VITAL SIGNS: Temperature 98.2, heart rate 80, respiratory rate 26, O2 sat 98% on 3 L via nasal cannula, blood pressure 94/69. HEENT: Normocephalic, atraumatic. Pupils are equal and reactive to light. Extraocular movements are intact. RESPIRATORY: There is no accessory muscle use. The lungs have crackles in the bases in addition to a mild wheeze with forced expiration. CARDIOVASCULAR: Regular rate and rhythm. S1, S2 present. There are no murmurs , rubs, or gallops. ABDOMEN: Soft, nontender, nondistended. Bowel sounds present x4. EXTREMITIES: There is trace to 1+ bilateral lower extremity edema. DP and PT pulses are 1+ and symmetric. MUSCULOSKELETAL: There is no clubbing or cyanosis noted. The patient exhibits good strength in all extremities. NEUROLOGICAL: The patient is alert and oriented x4. Cranial nerves II through XII are grossly intact. PSYCHOLOGICAL: The patient is calm and cooperative. SKIN: There are no rashes or abnormalities seen. DIAGNOSTIC STUDIES/LAB DATA: Sodium 134, potassium 3.5, chloride 99, CO2 27, BUN 17, creatinine 1.18, glucose 148. White blood cell count 11.1, hemoglobin 8.1, hematocrit 27, platelet count 180. Troponin 0.34. BNP 2253. EKG shows a sinus rhythm, rate of 81, and a left bundle-branch block. There are some nonspecific ST changes when compared to previous EKG from 10/08/17. The previously seen T wave inversion in V4 and lead II have now resolved. Chest x-ray from today. Radiologist's impression: Patchy airspace of the right mid lung field. Recommend followup until resolution to exclude underlying pulmonary parenchymal pathology. IMPRESSION: Ms. Bernal is an 82-year-old female with past medical history significant for coronary artery disease, hypertension, hyperlipidemia, diastolic congestive heart failure, depression, recent GI bleed, and non-ST elevation myocardial infarction who presented to the emergency room with complaints of shortness of breath. She will be admitted as an inpatient for acute on chronic diastolic congestive heart failure exacerbation and a possible GI bleed. ASSESSMENT/PLAN: 1. Acute on chronic diastolic congestive heart failure. The patient last had an echo on 10/07/17 showing EF of 50% to 55%, abnormal LV function. We will not repeat another echo as she does have 1 done in the last few weeks. The patient received 40 mg of IV Lasix in the ER. This caused her to be hypotensive with systolic blood pressures into the 80s. Her blood pressures have improved while in the emergency room up to 117/75. For now, we are going to hold on any further diuresis. She can likely be resumed on her home Lasix in the morning if her blood pressures allow. In the differential for her shortness of breath includes a pulmonary embolism. I am going to get a V/Q scan. I am not going to do a CTA due to her renal insufficiency. I am holding on a Cardiology consult and if her heart failure continues to be difficult to manage with diuresis and her blood pressure not tolerating it, I would recommend having Cardiology consult. We will get strict I's and O's and daily weights. I will also ask the dieticians to consult, to discuss a low sodium diet. The patient also has acute hypoxic respiratory failure in the setting of her acute CHF exacerbation, we will continue supplemental O2 as needed. 2. Blood in stool. According to the patient's daughter (who is not at bedside currently), she had blood in her stool today prior to arrival. The patient recently had an upper and lower endoscopy showing mild gastritis with no signs of bleeding and a diverticulitis with no signs of active bleeding. We will trend her H and H's and check a stool for guaiac. If she drops her H and H, we will ask GI to consult; but at this time, we will just going to continue to monitor her. 3. Hypertroponinemia. I suspect this is secondary to the patient's recent non- ST elevation myocardial infarction. This is lower than she had been. With her chronic kidney disease, this could actually be close to her baseline troponin. We will check a CK-MB just to verify. We will not trend anymore troponins as when she was here previously 9 days ago, her troponin peaked at 17.52. 4. Hypertension. The patient was hypotensive in the ER. This is resolved. For now, I am going to hold her losartan, but continue her metoprolol with hold parameters. 5. Chronic kidney disease, stage 3. The patient's creatinine appears to be near her baseline. 6. Hyperlipidemia. The patient will be continued on her home pravastatin. 7. Anemia and recent GI bleed. This is secondary to acute blood loss secondary to recent GI bleed. The patient will be continued on her home ferrous sulfate. We will continue to trend her H and H and the patient will also be continued on omeprazole. 8. Depression. The patient will be continued on her home Zoloft. 9. Fluids, electrolytes, and nutrition. The patient will be on a clear liquid diet. 10. Code status. Full code. 11. DVT prophylaxis. The patient is at highest risk. She will not have chemical DVT prophylaxis due to her possible GI bleed and additionally, I am not going to use SCDs with her history of heart failure. 12. Disposition. Inpatient. TIME SPENT: Time for this admission was approximately 60 minutes, greater than half of that was spent with the patient and daughter discussing medications, past medical history, the events leading up to her arrival today, performing a physical examination. The case has been reviewed with the attending, Dr. Chao, who agrees with the plan of care. Reviewed by LEBA LUCERO 10/20/17 1133 [id number]/[facility] #: [id number] MARIUM
[2017-10-18 06:27] LABS: EGFR Non-African American 45.6 (>60)
[2017-10-18] MEDS: Nystatin CREAM* 15 GM TUBE TOPICAL SCH ×3 (07:28→21:52)
[2017-10-18] MEDS: Atorvastatin* 10 MG TAB PO SCH (07:29)
[2017-10-18] MEDS: Ferrous Sulfate TAB* 325 MG PO SCH (07:29)
[2017-10-18] MEDS: Sertraline* 100 MG TAB PO SCH (07:29)
[2017-10-18 07:30] LABS: ABS Basophils 0.1 10^3/ul (0-0.2); ABS Eosinophils 0.3 10^3/ul (0-0.6); ABS Lymphocytes 1.3 10^3/ul (1.0-4.8); ABS Monocytes 0.9 10^3/ul (0-0.8); ABS Neutrophils 7.2 10^3/ul (1.5-7.7); ABS Nucleated RBC 0 10^3/ul; Eosinophil % 3.6 % (0-6); Hematocrit 26 % (35-47); Lymphocyte % 12.8 % (25-47); Mean Corpuscular HGB Conc 31 g/dl (31-36); Mean Corpuscular Hemoglobin 23 pg (27-31); Mean Corpuscular Volume 72 fL (80-97); Mean Platelet Volume 9.6 um3 (7.4-10.4); Nucleated Red Blood Cells % 0.1; Platelet Count 165 10^3/ul (150-450); Red Blood Count 3.56 10^6/ul (4.0-5.4); Red Cell Distribution Width 24 % (10.5-15); White Blood Count 9.8 10^3/ul (3.5-10.8)
[2017-10-18] MEDS: Omeprazole CAP* 20 MG PO SCH ×2 (07:30→21:52)
[2017-10-18] MEDS: Metoprolol Succinate XL TAB* 25 MG PO SCH (07:36)
[2017-10-18] MEDS: Potassium Chlor TAB* 20 MEQ TAB.ER PO SCH ×2 (10:53→15:23)
[2017-10-18] MEDS: Furosemide TAB* 40 MG PO SCH (10:53)
--- NOTE | 2017-10-18 11:14 | PN ---
Progress Note - Progress Note Date of Service: 10/18/17 Note: CRITICAL CARE MEDICINE Date: 10/18/17 Time: 1030 SUBJECTIVE: Patient seen and examined. daughter at bedside PHYSICAL EXAM: Vital Signs: Reviewed. stablized. sbp >90; Hr 90s not back on bb yet. Neurologic: awake, clear dementia features, but otherwise pleasant and answers as appropriate for her recollection HEENT: pupils equal. Sclera anicteric. Trachea midline. Cardiovascular: S1 S2, 2/6 esther Respiratory: better air movement and chest excursion on R with dec at base, mod rhonchi and paradoxical with larger neg pressure on left side. Raspy cough without clearance. Abdomen: Soft, obese, nt. No masses Extremities: Warm. Access: piv LABS: Reviewed. IMAGING: Reviewed. MEDICATIONS: Reviewed. ASSESSMENT: 82 F Acute hypoxic resp failure sec to acute on chronic diastolic heart failure > systolic with underlying pulm htn and underappreciated copd degree with component of tracheobronchomalacia. Could have had a aspiration component but story seems more indicative of vasovagal response with bm and poor ventilation recovery with exac of diastolic failure with acute pulmonary edema and failure to self rescue given her degree of ailments. Has improved now with low O2 use, low level lasix utilization and time. No acute bleeding ailment worry for direct cause. Had recent GI workup and H&H stable. On ppi post gastritis component and same f/ u needs there. Has been off asa, plavix. PLAN: Neurologic: stable. Cardiovascular: Bp softer end but perfusion fine and equilibrating well. resuming meds but may be geriatric phase of needing lower doses of regimen, especially post recent stay and still trying to equilibrate post GIB and nstemi. Respiratory: utilize some nebs and close f/u of anticipated outpt needs and f/ u. is Gastrointestinal: po. no gi needs at this time. ppi. Renal/Metabolic: baseline stage 3 ckd. Infectious Disease: no abx needs Hematology: counts holding. iron suppl. recheck daily for hosp stay to ensure no needs. can start on hsq. Endocrine: ok Musculoskeletal: oob. pt. Psych/Social: case work eval and consider what outpt needs/issues. lives alone with daughters close by checking on her. Supportive and preventative care as ordered. SUP: ppi VTE prophylaxis: heparin Disposition: ICU Code Status: Full Critical Care Time: 25min Helen Lynn DO
[2017-10-18] MEDS: Albuterol 2.5 MG/3 ML NEB.SOL* (0.083%) INH SCH ×3 (11:50→23:17)
[2017-10-18] MEDS: Potassium Chloride LIQUID* 20 MEQ PACKET PO ONE (15:29)
[2017-10-18] MEDS ORDERED: Furosemide IV* 10 MG/ML VIAL (40 MG) ONE (16:52)
[2017-10-18] MEDS ORDERED: Nitroglycerin 2% OINT* 1 GM PAK ONE (16:55)
--- NOTE | 2017-10-18 17:12 | PN ---
Hospitalist Progress Note Date of Service: 10/18/17 Arrived to eval pt in resp distress. Pt was sitting up in bed c/o SOB, tachypneic, tripoding. SBP 140, HR 120 (EKG shows known LBBB and sinus tachy). Pt denies CP, AAOx2. +JVD and rales on exam. Neuro: intact. Suspect pulm edema. Treated with nitro paste and Lasix [address] Lynn notified. Pt will be transferred back to ICU. PCX pending
--- NOTE | 2017-10-18 18:09 | RAD ---
INDICATION: Pulmonary edema. COMPARISON: Comparison is made with prior chest x-ray studies from October 09, 2017 and October 17, 2017. TECHNIQUE: A portable view of the chest was obtained. FINDINGS: The heart is mildly enlarged and unchanged. There is diffuse prominence of the interstitial markings with more confluent infiltrates in the right mid and lower lung field and in the left perihilar region. There is a trace right pleural effusion. These findings have progressed from the prior study. IMPRESSION: FINDINGS MOST CONSISTENT WITH CONGESTIVE HEART FAILURE. RECOMMEND FOLLOW-UP CHEST X-RAYS TO RESOLUTION.
[2017-10-18] MEDS: Heparin VIAL(*) 5000 UNITS/ML VIAL (FIVE THOUSAND) SUBCUT SCH (21:53)
[2017-10-19] MEDS: Heparin VIAL(*) 5000 UNITS/ML VIAL (FIVE THOUSAND) SUBCUT SCH ×3 (05:16→21:19)
[2017-10-19] MEDS: Albuterol 2.5 MG/3 ML NEB.SOL* (0.083%) INH SCH (05:21)
[2017-10-19 05:50] LABS: EGFR Non-African American 39.2 (>60)
[2017-10-19 06:36] LABS: ABS Basophils 0.1 10^3/ul (0-0.2); ABS Eosinophils 0.3 10^3/ul (0-0.6); ABS Lymphocytes 1.6 10^3/ul (1.0-4.8); ABS Monocytes 0.9 10^3/ul (0-0.8); ABS Neutrophils 7.4 10^3/ul (1.5-7.7); ABS Nucleated RBC 0 10^3/ul; Eosinophil % 2.5 % (0-6); Hematocrit 26 % (35-47); Hemoglobin 8.2 g/dl (12.0-16.0); Lymphocyte % 15.5 % (25-47); Mean Corpuscular HGB Conc 32 g/dl (31-36); Mean Corpuscular Hemoglobin 23 pg (27-31); Mean Corpuscular Volume 72 fL (80-97); Mean Platelet Volume 9.2 um3 (7.4-10.4); Nucleated Red Blood Cells % 0; Platelet Count 184 10^3/ul (150-450); Red Blood Count 3.55 10^6/ul (4.0-5.4); Red Cell Distribution Width 24 % (10.5-15); White Blood Count 10.2 10^3/ul (3.5-10.8)
[2017-10-19] MEDS: Metoprolol Succinate XL TAB* 25 MG PO SCH (08:22)
[2017-10-19] MEDS: Atorvastatin* 10 MG TAB PO SCH (08:34)
[2017-10-19] MEDS: Sertraline* 100 MG TAB PO SCH (08:34)
[2017-10-19] MEDS: Ferrous Sulfate TAB* 325 MG PO SCH (08:34)
[2017-10-19] MEDS: Omeprazole CAP* 20 MG PO SCH ×2 (08:34→21:19)
[2017-10-19] MEDS: Nystatin CREAM* 15 GM TUBE TOPICAL SCH ×3 (08:35→21:19)
[2017-10-19] MEDS: Furosemide TAB* 40 MG PO SCH (08:35)
[2017-10-19] MEDS ORDERED: Furosemide IV* 10 MG/ML VIAL (40 MG) IV SLOW PU ONE (10:38)
--- NOTE | 2017-10-19 11:09 | PN ---
Progress Note - Progress Note Date of Service: 10/19/17 Note: CRITICAL CARE MEDICINE Date: 10/19/17 Time: 930 SUBJECTIVE: Patient seen and examined. PHYSICAL EXAM: Vital Signs: Reviewed. stable. Neurologic: awake, dementia features, but otherwise pleasant and answers appropriate HEENT: pupils equal. Sclera anicteric. Trachea midline. Cardiovascular: S1 S2, 2/6 esther Respiratory: mild rhonchi but stable. still with signs of tbm. Abdomen: Soft, obese, nt. No masses Extremities: Warm. Access: piv LABS: Reviewed. IMAGING: Reviewed. MEDICATIONS: Reviewed. ASSESSMENT: 82 F Acute hypoxic resp failure sec to acute on chronic diastolic heart failure > systolic with underlying pulm htn and unappreciated copd degree with component of tracheobronchomalacia. Acute pulm edema - unclear failure yesterday, not ischemic; shouldn't be a worsening valve but may need to look if not improving or recurrent; certainly her resp, neg pressure with tbm could exacerbate especially given how quickly she reversed with bipap. PLAN: Neurologic: stable. Cardiovascular: lasix this am and back to po. allowing her to equilibrate but seems more lungs exacerbating heart Respiratory: nebs. is. may need sleep eval and or pulm eval. Gastrointestinal: po. ppi. Renal/Metabolic: stage 3 ckd. Infectious Disease: no abx needs Hematology: counts stable. iron suppl. hsq. Endocrine: ok Musculoskeletal: oob. pt. Psych/Social: case work eval Supportive and preventative care as ordered. SUP: ppi VTE prophylaxis: heparin Disposition: floor with tele Code Status: Full Critical Care Time: 30min Helen Lynn DO
[2017-10-20] MEDS ORDERED: Furosemide IV* 10 MG/ML VIAL (40 MG) IV ONE (04:26)
[2017-10-20] MEDS ORDERED: Furosemide IV* 10 MG/ML VIAL (40 MG) ONE (04:28)
[2017-10-20] MEDS ORDERED: Albuterol 2.5 MG/3 ML NEB.SOL* (0.083%) INH ONE (04:36)
--- NOTE | 2017-10-20 04:40 | PN ---
Progress Note - Progress Note Date of Service: 10/20/17 Note: Paged for increase work of breathing. Patient admitted for acute decompensated heart failure, per nurse responded to lasix earlier. Ordered Lasix 40 mg. On arrival patient tachypneic with increase in work of breathing. Exam: tight, b/ l expiratory wheezing with rhonchi b/l. ?COPD component as well. Will give one time albuterol neb and order CXR as well.
[2017-10-20] MEDS: Albuterol 2.5 MG/3 ML NEB.SOL* (0.083%) INH PRN (04:50)
[2017-10-20] MEDS ORDERED: Nitroglycerin 2% OINT* 1 GM PAK TOPICAL ONE (04:50)
[2017-10-20 05:36] LABS: Hematocrit 29 % (35-47); Mean Corpuscular HGB Conc 31 g/dl (31-36); Mean Corpuscular Hemoglobin 22 pg (27-31); Mean Corpuscular Volume 72 fL (80-97); Mean Platelet Volume 8.8 um3 (7.4-10.4); Platelet Count 241 10^3/ul (150-450); Red Blood Count 4.05 10^6/ul (4.0-5.4); Red Cell Distribution Width 24 % (10.5-15); White Blood Count 10.8 10^3/ul (3.5-10.8)
[2017-10-20 05:49] LABS: EGFR Non-African American 41.4 (>60)
[2017-10-20] MEDS: Heparin VIAL(*) 5000 UNITS/ML VIAL (FIVE THOUSAND) SUBCUT SCH ×3 (07:00→21:31)
--- NOTE | 2017-10-20 08:05 | RAD ---
Indication: Shortness of breath. Single frontal view of the chest performed at 0445 hours was reviewed. Comparison is made with previous exam dated October 18, 2017. Cardiomegaly is noted. Interstitial edema consistent with vascular congestion. No alveolar consolidation. IMPRESSION: CARDIOMEGALY WITH INTERSTITIAL EDEMA AND VASCULAR CONGESTION SIMILAR TO THAT SEEN ON OCTOBER 18, 2017.
[2017-10-20] MEDS: Nystatin CREAM* 15 GM TUBE TOPICAL SCH ×3 (09:13→21:31)
[2017-10-20] MEDS: Metoprolol Succinate XL TAB* 25 MG PO SCH (09:13)
[2017-10-20] MEDS: Atorvastatin* 10 MG TAB PO SCH (09:13)
[2017-10-20] MEDS: Sertraline* 100 MG TAB PO SCH (09:13)
[2017-10-20] MEDS: Omeprazole CAP* 20 MG PO SCH ×2 (09:13→21:31)
[2017-10-20] MEDS: Ferrous Sulfate TAB* 325 MG PO SCH (09:13)
[2017-10-20] MEDS: Furosemide TAB* 40 MG PO SCH (09:13)
[2017-10-20] MEDS ORDERED: Nitro Patch/OINT Remove TOPICAL ONE (11:00)
--- NOTE | 2017-10-20 11:40 | PN ---
Progress Note - Progress Note Date of Service: 10/20/17 Note: CRITICAL CARE MEDICINE Date: 10/20/17 Time: 930 SUBJECTIVE: Patient seen and examined. daughter at bedside PHYSICAL EXAM: Vital Signs: Reviewed. stable. Neurologic: awake, pleasant and answers appropriately. HEENT: pupils equal. Sclera anicteric. Trachea midline. Cardiovascular: S1 S2, 2/6 esther Respiratory: mild rhonchi but better again. still with signs of tbm. Abdomen: Soft, obese, nt. No masses Extremities: Warm. Access: piv LABS: Reviewed. IMAGING: Reviewed. MEDICATIONS: Reviewed. ASSESSMENT: 82 F Acute hypoxic resp failure sec to acute on chronic diastolic heart failure > systolic with underlying pulm htn and unappreciated copd degree with component of tracheobronchomalacia. Now recurrent Acute pulm edema - troponins not impressive but have to blame ischemic nature at this point. Can try and argue neg pressure pulm edema sec to tbm and resp status, even if a shunt were present, but can't say this isn't ischemia. Will need cards to eval PLAN: Neurologic: stable. Cardiovascular: lasix daily. vol status grossly not the main issue. on bb. not on asa, plavix. on statin. cards eval. Respiratory: nebs. is. can consider dynamics ct scan. Gastrointestinal: po. ppi. no sign of gib but was still heme po on admit. may have to revisit ailments if cards needing to intervene. Renal/Metabolic: stage 3 ckd stable. Infectious Disease: no abx needs Hematology: counts stable. iron suppl. hsq. Endocrine: ok Musculoskeletal: oob. pt. Psych/Social: case work eval; daughter updated. expressed good understanding. Supportive and preventative care as ordered. SUP: ppi VTE prophylaxis: heparin Disposition: ICU today Code Status: Full presently Critical Care Time: 30min Helen Lynn DO
--- NOTE | 2017-10-20 13:49 | ECHO ---
Patient: JOSE SWEENEY Rec#: [id number] : 1935 Date: 10/20/2017 Age: 82y Height: 162.56 cm / 64.0 in Weight: 80.29 kg / 177.0 lbs Sex: F BSA: 1.86 Room#: [facility] Admit Date#: 10/17/2017 Type: Inpatient Referring: Rogers Lynn Reading: Truman Leslie MD Religion Department Chair: Daniela JamesPURA CC: Zack Henry MD Transthoracic Echocardiogram Indication: CHF, pulmonary edema. BP: 147/78 HR: 83 Rhythm: NSR with PVCs Findings History: CAD with PCI, NSTEMI, LBBB, TIA, CHF, HLD, HTN. Technical Comments: The study quality is fair. Completed at 1215. Left Ventricle: The left ventricular chamber size is normal. Mild concentric left ventricular hypertrophy is observed. There is global hypokinesis of the left ventricle with minor regional variation. There is moderately decreased left ventricular systolic function. The estimated ejection fraction is 35-40%. There is a left ventricular septal wall motion abnormality observed, possibly due to the presence of a left bundle branch block. Abnormal left ventricular diastolic function is observed. The left ventricular diastolic filling pattern is consistent with pseudonormalization. Left Atrium: The left atrium is mildly dilated. Right Ventricle: Moderator Band present. The right ventricle is mildly dilated. The right ventricular global systolic function is low normal. Right Atrium: The right atrium is mildly dilated. Interatrial septum appears intact without evidence of shunting. The bubble study is negative. A patent foramen ovale is not demonstrated with color Doppler and agitated contrast. Aortic Valve: The aortic valve is trileaflet. The aortic valve leaflets are mildly thickened. There is a trace of aortic regurgitation. There is no evidence of aortic stenosis. Mitral Valve: The mitral valve leaflets are mildly thickened. There is moderate mitral regurgitation. The mitral regurgitant jet is eccentric. There is no evidence of mitral stenosis. Tricuspid Valve: The tricuspid valve leaflets are normal. There is mild to moderate tricuspid regurgitation. The right ventricular systolic pressure is estimated at 47 mmHg. There is evidence of moderate pulmonary hypertension. There is no tricuspid stenosis. Pulmonic Valve: The pulmonic valve appears normal. There is mild pulmonic regurgitation. There is no pulmonic stenosis. Pericardium: There is no significant pericardial effusion. A pericardial fat pad is visualized. Aorta: There is no dilatation of the ascending aorta. There is no dilatation of the aortic arch. There is mild dilatation of the aortic root. Pulmonary Artery: The main pulmonary artery appears normal. Venous: The inferior vena cava appears normal in size. There is a greater than 50% respiratory change in the inferior vena cava dimension. Contrast: Normal saline was used as contrast for the bubble study. Intravenous contrast was used to help determine presence of intracardiac shunting. Conclusions There is global hypokinesis of the left ventricle with minor regional variation. There is moderately decreased left ventricular systolic function. The estimated ejection fraction is 35-40%. There is a left ventricular septal wall motion abnormality observed, possibly due to the presence of a left bundle branch block. The right ventricular global systolic function is low normal. The bubble study is negative. A patent foramen ovale is not demonstrated with color Doppler and agitated contrast. There is a trace of aortic regurgitation. There is moderate mitral regurgitation. There is mild to moderate tricuspid regurgitation. The right ventricular systolic pressure is estimated at 47 mmHg. There is evidence of moderate pulmonary hypertension. There is no significant pericardial effusion. Compared to study of 10/07/17, the LV function is much lower. The valve abnormalities are about the same Measurements Name Value Normal Range RVIDd (AP) 2D 2.7 cm (0.9 - 2.6) RVDdMajor (2D) 4.8 cm (2.2 - 4.4) RAd ISD 4CH 5 cm (3.4 - 4.9) RA (A4C)W 3.6 cm (2.9 - 4.6) IVSd (2D) 1.2 cm (0.6 - 1) LVPWd (2D) 1.2 cm (0.6 - 1) LVIDd (2D) 4.9 cm (3.6 - 5.4) LVIDs (2D) 4 cm - LV FS (2D) 17 % (25 - 45) Aortic Annulus 1.6 cm (1.4 - 2.6) Ao root diameter (2D) 3.1 cm (2.1 - 3.5) Ascending Ao 3.3 cm (2.1 - 3.4) Aortic arch 3 cm (1.8 - 3.4) LA dimension (AP) 2D 3.2 cm (2.3 - 3.8) LAd ISD 4CH 5.9 cm (2.9 - 5.3) LA ISD 4CH W 4.3 cm (2.5 - 4.5) Name Value Normal Range LA ESV SP 4CH (A/L) 51 ml - LA ESV SP 2CH (A/L) 68 ml - LA ESV BP (A/L) 62 ml - LA ESV BP (A/L) index 33 ml/m2 - LA ESV SP 4CH (MOD) 48 ml - LA ESV SP 2CH (MOD) 65 ml - Name Value Normal Range MV E-wave Vmax 1.1 m/sec - MV deceleration time 157.5 msec - MV A-wave Vmax 0.92 m/sec - MV E:A ratio 1.2 ratio - LV septal e' Vmax 0.02 m/sec - LV lateral e' Vmax 0.06 m/sec - LV E:e' septal ratio 55 ratio - LV E:e' lateral ratio 18.33 ratio - Name Value Normal Range AV Vmax 1.1 m/sec - AV VTI 24.44 cm - AV peak gradient 4.5 mmHg - AV mean gradient 3.09 mmHg - LVOT Vmax 0.82 m/sec - LVOT VTI 18.39 cm - LVOT peak gradient 2.69 mmHg - LVOT mean gradient 1.73 mmHg - CLAUDIA Vmax 0.52 m/sec - Name Value Normal Range MR Vmax 4.73 m/sec - MR VTI 144.1 cm - MR flow (PISA) 59.8 ml/sec - MR ERO 0.13 cm2 - MR PISA radius 0.5 cm - MR alias Vmax 38 cm/sec - Name Value Normal Range TR Vmax 3.3 m/sec - TR peak gradient 44 mmHg - RAP 3 mmHg - RVSP 47 mmHg - IVC diameter 1.8 cm - Name Value Normal Range PV Vmax 0.98 m/sec - PV peak gradient 3.85 mmHg - MD end-diastolic Vmax 1.58 m/sec -
[2017-10-21] MEDS ORDERED: Furosemide IV* 10 MG/ML VIAL (40 MG) IV ONE (00:29)
--- NOTE | 2017-10-21 00:31 | PN ---
Progress Note - Progress Note Date of Service: 10/21/17 Note: Paged for increase in work of breathing and crackles - Will do another Lasix [address] on BiPAP to try and avoid acute respiratory event that occurred last evening.
[2017-10-21 05:39] LABS: ABS Basophils 0.1 10^3/ul (0-0.2); ABS Eosinophils 0.4 10^3/ul (0-0.6); ABS Lymphocytes 1.5 10^3/ul (1.0-4.8); ABS Monocytes 0.8 10^3/ul (0-0.8); ABS Neutrophils 6.4 10^3/ul (1.5-7.7); ABS Nucleated RBC 0 10^3/ul; Eosinophil % 3.9 % (0-6); Hematocrit 27 % (35-47); Hemoglobin 8.4 g/dl (12.0-16.0); Mean Corpuscular HGB Conc 31 g/dl (31-36); Mean Corpuscular Hemoglobin 22 pg (27-31); Mean Corpuscular Volume 72 fL (80-97); Mean Platelet Volume 8.7 um3 (7.4-10.4); Nucleated Red Blood Cells % 0; Platelet Count 204 10^3/ul (150-450); Red Blood Count 3.74 10^6/ul (4.0-5.4); Red Cell Distribution Width 24 % (10.5-15); White Blood Count 9.1 10^3/ul (3.5-10.8)
[2017-10-21 05:55] LABS: EGFR Non-African American 42.6 (>60)
[2017-10-21] MEDS: Heparin VIAL(*) 5000 UNITS/ML VIAL (FIVE THOUSAND) SUBCUT SCH ×2 (07:49→13:35)
[2017-10-21] MEDS: Atorvastatin* 10 MG TAB PO SCH (09:04)
[2017-10-21] MEDS: Omeprazole CAP* 20 MG PO SCH ×2 (09:04→21:09)
[2017-10-21] MEDS: Sertraline* 100 MG TAB PO SCH (09:04)
[2017-10-21] MEDS: Furosemide TAB* 40 MG PO SCH (09:04)
[2017-10-21] MEDS: Ferrous Sulfate TAB* 325 MG PO SCH (09:04)
[2017-10-21] MEDS: Nystatin CREAM* 15 GM TUBE TOPICAL SCH ×3 (09:04→21:09)
[2017-10-21] MEDS: Metoprolol Succinate XL TAB* 25 MG PO SCH (09:04)
[2017-10-21] MEDS ORDERED: Furosemide IV* 10 MG/ML 2 ML VIAL (20 MG) IV SLOW PU ONE (09:59)
[2017-10-21] MEDS: acetaZOLAMIDE VIAL* 500 MG in NS 0.9% 50 ML* 50 ML IVPB SCH (10:35)
--- NOTE | 2017-10-21 12:09 | PN ---
Progress Note - Progress Note Date of Service: 10/21/17 Note: CRITICAL CARE MEDICINE Date: 10/21/17 Time: 1030 SUBJECTIVE: Patient seen and examined. daughter at bedside PHYSICAL EXAM: Vital Signs: Reviewed. stable. Neurologic: awake, pleasant and answers appropriately. HEENT: pupils equal. Sclera anicteric. Trachea midline. Cardiovascular: S1 S2, 2/6 esther Respiratory: mild rhonchi but same Abdomen: Soft, obese, nt. No masses Extremities: Warm. Access: piv LABS: Reviewed. IMAGING: Reviewed. MEDICATIONS: Reviewed. ASSESSMENT: 82 F Acute hypoxic resp failure sec to acute on chronic diastolic heart failure > systolic with underlying pulm htn and unappreciated copd degree with component of tracheobronchomalacia. Recurrent Acute pulm edema CAD Valvular heart disease Stage 3 ckd Recent gib Anemia PLAN: Neurologic: stable. Cardiovascular: lasix daily with iv today again. try to maintain dry. cardiac regimen. cards eval but no interventions currently Respiratory: nebs. is. can utilize bipap empirically at night Gastrointestinal: po. ppi. no sign of gib. can ask gi to weigh in on gib potentials etc with anticoags potentials but not anticipating re-scope at this point Renal/Metabolic: stage 3 ckd stable holding. Infectious Disease: no abx needs Hematology: counts stable. iron suppl. hsq. Endocrine: ok Musculoskeletal: oob. pt. Psych/Social: case work eval; daughter updated. expressed good understanding. Supportive and preventative care as ordered. SUP: ppi VTE prophylaxis: heparin Disposition: ICU still given rescue needs Code Status: Full currently Critical Care Time: 30min Helen Lynn DO
[2017-10-21] MEDS: Albuterol 2.5 MG/3 ML NEB.SOL* (0.083%) INH PRN (17:24)
--- NOTE | 2017-10-21 22:05 | CONS ---
GASTROENTEROLOGY CONSULTATION: DATE OF CONSULT: 10/21/17 CONSULTING PHYSICIAN: Rogers Lynn DO REASON FOR CONSULT: Assessment of GI bleeding risk in a woman admitted with shortness of breath just after a week after an admission where she was transfused 2 units and evaluated for a new microcytic anemia. HISTORY OF PRESENT ILLNESS: This 82-year-old woman came to the emergency room short of breath. There was no sign of an acute NE or pulmonary embolism or pneumonia. Her BNP was 2253 and troponin 0.34. Serial troponins have remained in the 0.45 range. She had been diuresed a couple of times and had some acute shortness of breath episodes in the night. She has been eating okay. Some blood has been seen on tissue. Her stools are very dark, but she has been taking ferrous sulfate 325 daily. During her previous admission with a new anemia and a hemoglobin of 6.5, MCV 68 , she had upper endoscopy that showed gastritis, fairly mild without sign of acute or accelerated oozing, had colonoscopy that was normal apart from diverticulosis that was not bleeding. She had heme-positive stool on the day of admission, but then heme-negative a few days later. At this time, she denies any abdominal pain, difficulty eating. The nurses say she is eating well. PAST MEDICAL HISTORY: 1. Coronary artery disease. 2. Hypertension. 3. Diastolic CHF. 4. Diverticulosis - seen on colonoscopy, which was her first, 10/11/17. 5. Status post knee surgery. 6. Status post cardiac stent placement. OUTPATIENT MEDICATIONS: Prior to this admission included: 1. Omeprazole 20 mg b.i.d. 2. Ferrous sulfate 325. 3. Furosemide 20. 4. Losartan 25. 5. Toprol 25. 6. Pravastatin 40. ALLERGIES: None to drugs. FAMILY HISTORY: No history of colon cancer. SOCIAL HISTORY: She quit smoking 35 years ago and rarely has a glass of wine. Her daughter is an endoscopy nurse unit manager. REVIEW OF SYSTEMS: Reviewed in detail with the family and from prior notes and 13 points negative including no TB, fever, chronic diarrhea. No renal stones. PHYSICAL EXAM: She is a chronic ill-appearing woman, slightly pale, lying in bed in the ICU. Pulse 82 and regular. HEENT exam shows no icterus. She is a little wheezy and lying at 15 degrees. She has no adenopathy. Breath sounds are intact in all 4 quadrants. There is a little bit of wheezing that is bilaterally. There are a couple of crackles at both bases. Breasts are without masses. Heart sounds are regular. The abdomen is obese, soft, and without masses. Rectal is normal with good tone for age and sex. There is a little bit of very loose mucoid, almost black stools submitted for Hemoccult. DIAGNOSTIC STUDIES/LAB DATA: Labs on this admission BUN 17 with a pattern during the preceding week's admission being 25 to 31, creatinine 1.18 on admission. Admitting hemoglobin 8.1, has fluctuated to 8.4 a couple of times. Hemoccult just submitted, positive. IMPRESSION: This 82-year-old woman with a history of coronary artery disease and congestive failure is not doing well with persisting shortness of breath and signs of cardiac failure. A moderately severe anemia is certainly stressing this situation. She has no overt GI symptoms and is having a regular stool once a day. Generally, no blood has been seen though it was once recently on the tissue. She is currently having loose stools once, sometimes twice a day and the nurses have attributed that to iron therapy. That may be the case, though obviously diarrhea to this degree has many potential causes. Her iron therapy probably will be more effective and we will give less reason to wonder about GI side effects if it is given intravenously. Low dose daily intravenous iron could be more effective and decrease difficulty in interpreting her stool situation. Her recent GI workup did not include the small bowel, but she appears not to be a candidate for enteroscopy or capsule endoscopy at this time. Repeating her prior studies would appear to be low yield. [id number]/[facility] #: [id number] MTDD
[2017-10-22] MEDS ORDERED: Nitro Patch/OINT Remove TOPICAL ONE (04:30)
--- NOTE | 2017-10-22 04:54 | CONS ---
CC: Dr. Calderon * CARDIOLOGY CONSULTATION: DATE OF CONSULT: 10/20/17. INDICATION FOR CONSULTATION: Congestive heart failure. HISTORY OF PRESENT ILLNESS: The patient is an 82-year-old woman, well-known to me from a consultation 2 weeks ago. The patient has a history of coronary artery disease. At that time, the patient was admitted to the hospital with shortness of breath. She was found to be profoundly anemic and mild elevation of troponin. At that time, the decision was to maximize on medical therapy. The patient was discharged home and she was readmitted to the hospital on , because of severe shortness of breath. During this admission her troponin levels have been mildly elevated at 0.47 at its peak. The patient's echocardiogram showed a drop in her LV function and her ejection fraction had been 55% to 60%, it is now down to 45%. She has no significant valvular abnormalities. On speaking with the family, they state that the patient has just been short of breath at night. She denies any angina. She denies any palpitations, no lightheadedness, dizziness, or syncope. PAST MEDICAL HISTORY: Significant for: 1. Coronary artery disease. She had a stent to her LAD in 2012, at that time, she had a 50% stenosis to her ramus artery. 2. History of hypertension. 3. History of a recent anemic episode with hemoglobin down to 6.5. OUTPATIENT MEDICATIONS: 1. Lasix 20 mg a day. 2. Pravastatin 40 mg a day. 3. Sertraline 100 mg a day. 4. Losartan 25 mg a day. 5. Metoprolol succinate 25 mg a day. 6. Omeprazole 20 mg b.i.d. 7. Iron tablets. ALLERGIES: No known drug allergies. FAMILY HISTORY: Noncontributory. SOCIAL HISTORY: She lives alone. She has a lot of care from her daughters. She denies any tobacco or alcohol use. PHYSICAL EXAMINATION: Her height is 5 feet 4 inches, weight 174 pounds. Temperature 99.3, heart rate is 75, blood pressure 100/67, respiratory rate is 20. Sclerae anicteric. Oropharynx is pink without erythema. Carotids are 2+ without bruits. JVD is normal. Thyroid is normal. Cardiac Exam: S1, S2 without any murmurs, rubs, or gallops. Lung sounds are difficult to hear as she is unable to sit forward. Abdomen is soft, nontender, nondistended with normoactive bowel sounds. Extremities show 2+ edema. She has 2+ pulses throughout. The patient is very somnolent, unable to participate in neuro exam. DIAGNOSTIC STUDIES/LAB DATA: Laboratory studies, chemistry is within normal limits. BUN 17, creatinine 1.1. AST and ALT are normal. Troponin was 0.03, peaked it is 0.47. Hemoglobin 8, hematocrit 26, platelet count 180. EKG demonstrates normal sinus rhythm, left bundle-branch block. IMPRESSION: This is an 82-year-old female, who was readmitted to the hospital because of shortness of breath, and congestive heart failure. Her echocardiogram shows a drop in her LV function of unclear cause. The patient was sent home on beta-blockers, LINSEY inhibitors, Lasix. At this point, I think we will continue to maximize medical therapy. Again, the patient does have a history of coronary artery disease. Her last admission with severe anemia had a significant troponin elevation. At some point repeat cardiac catheterization may be helpful; however, at this time, we do not have a good source for her bleeding episode or her anemic episode with her last admission and may not be appropriate for stent implantation. We will stay with medical therapy. We will continue beta-blockers, LINSEY inhibitor, Lasix for diuresis. Further recommendations pending her hospital course. Again, the patient has a reduction in her LV function, but at this point would not meet criteria for biventricular pacing. [id number]/[facility] #: [id number] MARIUM
[2017-10-22] MEDS: Metoprolol Succinate XL TAB* 25 MG PO SCH ×3 (08:15→21:43)
[2017-10-22] MEDS ORDERED: acetaZOLAMIDE VIAL* 500 MG VIAL ONE (08:18)
[2017-10-22] MEDS: Nystatin CREAM* 15 GM TUBE TOPICAL SCH ×3 (08:42→21:44)
[2017-10-22] MEDS: Sertraline* 100 MG TAB PO SCH (08:42)
[2017-10-22] MEDS: Atorvastatin* 10 MG TAB PO SCH (08:42)
[2017-10-22] MEDS: Omeprazole CAP* 20 MG PO SCH ×2 (08:42→21:43)
[2017-10-22] MEDS: Furosemide TAB* 40 MG PO SCH (08:42)
[2017-10-22] MEDS: Ferrous Sulfate TAB* 325 MG PO SCH (08:42)
--- NOTE | 2017-10-22 09:07 | PN ---
Subjective Date of Service: 10/22/17 - CC: SOB Interval History: The patient was examined with her daughter in the room. Acute decompensation in breathing at night, now s/p IV diuresis and BiPAP HS. Pt feels breathing is much improved, daughter concurs. Daughter reports leg edema has resolved as well, the patient did not remember this. No other c/o, denies CP, trouble eating, no constipation or diarrhea. Slept flat in bed last night and slept well with BiPAP. The patient's nurse held the patient's beta kimberli this AM for low BP. Medications Active Medications: Albuterol (Ventolin 2.5 Mg/3 Ml Neb.Makenna*) 2.5 mg INH Q6H PRN PRN Reason: SOB/WHEEZING Last Admin: 10/21/17 17:24 Dose: 2.5 mg Atorvastatin Calcium (Lipitor*) 10 mg PO DAILY [facility] PRN Reason: Protocol Last Admin: 10/22/17 08:42 Dose: 10 mg Ferrous Sulfate (Ferrous Sulfate Tab*) 325 mg PO 0730 [facility] Last Admin: 10/22/17 08:42 Dose: 325 mg Furosemide (Lasix Tab*) 40 mg PO DAILY [facility] Last Admin: 10/22/17 08:42 Dose: 40 mg Acetazolamide Sodium 500 mg/ (Sodium Chloride) 50 mls @ 100 mls/hr IVPB DAILY [facility] Last Admin: 10/21/17 10:35 Dose: 100 mls/hr Metoprolol Succinate (Toprol Xl Tab*) 25 mg PO DAILY [facility] Last Admin: 10/22/17 08:15 Dose: Not Given Nystatin (Nystatin Cream*) 1 applic TOPICAL TID [facility] Last Admin: 10/22/17 08:42 Dose: 1 applic Omeprazole (Prilosec Cap*) 20 mg PO BID [facility] Last Admin: 10/22/17 08:42 Dose: 20 mg Sertraline HCl (Zoloft*) 100 mg PO DAILY [facility] Last Admin: 10/22/17 08:42 Dose: 100 mg Objective Vital Signs: Temp Pulse Resp BP Pulse Ox 98.5 F 64 12 104/58 92 10/22/17 07:51 10/22/17 07:01 10/22/17 07:01 10/22/17 07:01 10/22/17 07:01 Oxygen Devices in Use Now: Nasal Cannula Appearance: elderly female, appears frail, sitting on edge of the bed and appears comfortable. Eyes: No Scleral Icterus, PERRLA Ears/Nose/Mouth/Throat: NL Teeth, Lips, Gums, Clear Oropharnyx, Mucous Membranes Moist Neck: NL Appearance and Movements; NL JVP, Trachea Midline Respiratory: Symmetrical Chest Expansion and Respiratory Effort - a few squeaks with inspiration, no rales, no rhonchi Cardiovascular: RRR - soft murmurs heard LLLB and apex. Abdominal: NL Sounds; No Tenderness; No Distention Extremities: No Edema - warm. Skin: No Rash or Ulcers Neurological: - - Hard of hearing, answers questions but with evidence of memory loss, follows commands well. Formal exam not performed. Laboratory Results: 10/21/17 05:15 10/21/17 05:15 Total Bilirubin 0.70 mg/dL (0.2-1.0) 10/17/17 12:31 AST 13 U/L (13-39) 10/17/17 12:31 ALT 10 U/L (7-52) 10/17/17 12:31 Alkaline Phosphatase 76 U/L (34-104) 10/17/17 12:31 CK-MB (CK-2) 2.7 ng/mL (0.6-6.3) 10/17/17 12:31 B-Natriuretic Peptide 2253 pg/mL (-100) H 10/17/17 12:31 Total Protein 6.7 g/dL (6.4-8.9) 10/17/17 12:31 Albumin 3.3 g/dL (3.2-5.2) 10/17/17 12:31 Globulin 3.4 g/dL (2-4) 10/17/17 12:31 Albumin/Globulin Ratio 1.0 (1-3) 10/17/17 12:31 10/17/17 10/17/17 10/18/17 17:37 21:01 00:01 Troponin I 0.47 H* 0.45 H* 0.40 H* 10/20/17 05:19 Troponin I 0.43 H* Diagnostic Imaging: ECHO 10/21/17: EF 35-40%, moderate MR, TR, PA pre 49 mmHg. EKG Data: Monitor: NSR. Assessment/Plan 82 yo female with recurrent respiratory failure with CHF on CXR (per nursing "flash CHF", moderate LV CM, Moderate mitral and tricuspid insufficiency, troponins bumping. Guiaic + stool and gastritis on EGD in September. Improved with IV diuresis. CHF -Recurrent, likely multifactorial related to valvular insufficiency, EF has now dropped significantly and anemia puts the patient at risk for high output CHF. -Continue metoprolol, I can split to BID for BP. -On oral lasix 40 mg/day. -Once euvolemic consider daily aldactone 25 mg QOD alternating with lasix , follow BUN/Cr and KCl levels carefully. Alternative would be low dose ACEI or ARB addition if/when BP allows. -Low salt diet, avoid NSAIDs and follow weights daily, lasix PRN. Troponins: -beta kimberli, medical management, not a candidate for intervention with GI bleeding, anemia and per GI not a candidate for any additional diagnostic measures. Respiratory: -Uncertain if an additional pulmonary component, but daughter thinks BiPAP helping, now on albuterol, defer to ICU/hospitalists to determine if she uses these modalities. GI: -Note reviewed, it appears the patient is not a candidate for additional testing/therapy. Overall the patient has multiple comorbidities, is failing medical management for CHF, anemia and I think the two are related. If not yet done, consider palliative/comfort approach.
[2017-10-22] MEDS: acetaZOLAMIDE VIAL* 500 MG in NS 0.9% 50 ML* 50 ML IVPB SCH (09:27)
--- NOTE | 2017-10-22 10:58 | PN ---
Progress Note - Progress Note Date of Service: 10/22/17 Note: CRITICAL CARE MEDICINE Date: 10/22/17 Time: 955 SUBJECTIVE: Patient seen and examined. daughter at bedside PHYSICAL EXAM: Vital Signs: Reviewed. stable. Neurologic: awake, pleasant and answers appropriately. HEENT: pupils equal. Sclera anicteric. Trachea midline. Cardiovascular: S1 S2, 2/6 esther Respiratory: mild rhonchi better Abdomen: Soft, obese, nt. No masses Extremities: Warm. Access: piv LABS: Reviewed. IMAGING: Reviewed. MEDICATIONS: Reviewed. ASSESSMENT: 82 F Acute hypoxic resp failure Acute on chronic diastolic heart failure > systolic Pulm htn Copd with component of tracheobronchomalacia. Acute pulm edema CAD Valvular heart disease Stage 3 ckd Recent gib Anemia PLAN: Neurologic: stable. Cardiovascular: lasix daily po now. cardiac medical therapy and cards f/u but no interventions currently Respiratory: nebs. is. continue to utilize bipap empirically at night Gastrointestinal: po. ppi. no sign of gib. gi eval appreciated and no acute inteventions currently Renal/Metabolic: stage 3 ckd stable holding. juaquin pak Infectious Disease: no abx needs Hematology: counts stable. iron suppl. hsq. Endocrine: ok Musculoskeletal: oob. pt. Psych/Social: case work eval; daughter updated and again expresses good understanding. Supportive and preventative care as ordered. SUP: ppi VTE prophylaxis: heparin Disposition: ok for floor with tele Code Status: Full currently Critical Care Time: 25min FAlfred Lynn DO
[2017-10-22] MEDS ORDERED: Benzonatate CAP* 100 MG PO PRN (20:21)
[2017-10-22] MEDS ORDERED: Nitroglycerin 2% OINT* 1 GM PAK TOPICAL ONE (22:13)
[2017-10-22] MEDS ORDERED: Furosemide IV* 10 MG/ML VIAL (40 MG) IV SLOW PU ONE (22:13)
[2017-10-22] MEDS: Albuterol 2.5 MG/3 ML NEB.SOL* (0.083%) INH PRN (22:18)
[2017-10-22] MEDS ORDERED: Morphine VIAL* 4 MG/ML VIAL (1 ml vial) IV ONE (22:36)
--- NOTE | 2017-10-22 22:49 | RAD ---
INDICATION: Respiratory distress COMPARISON: Chest x-ray dated October 20, 2017 TECHNIQUE: Single AP portable view of the chest was obtained. FINDINGS: Image quality is compromised due to the relative inferiority of a portable chest x-ray. There is a mild degree of cardiomegaly. There are patchy infiltrates overlying the bilateral lungs. The pulmonary vasculature appears to be mildly engorged and indistinct. Visualized bones are normal for the patient's age. IMPRESSION: Again seen are patchy densities not significantly changed since the October 20, 2017 chest x-ray. Depending on the clinical presentation diagnostic possibilities include pulmonary edema, multifocal pneumonia, drug toxicity and/or ARDS.
--- NOTE | 2017-10-22 22:51 | PN ---
Progress Note - Progress Note Date of Service: 10/22/17 Note: Paged for respiratory distress. Patient given Lasix 40 mg IV, inch of nitro paste, CXR essentially unchanged. Her evening BiPAP was not on on arrival to room. Patient in distress, c/o CP which quickly resolved. Once on BiPAP still c/o difficulty breathing. Labs ordered, Morphine 1 mg IV ordered. Transfer to ICU, Dr. Lynn notified. Daugther at the bedside aware of plan.
[2017-10-22 22:53] LABS: Hematocrit 30 % (35-47); Mean Corpuscular HGB Conc 30 g/dl (31-36); Mean Corpuscular Hemoglobin 22 pg (27-31); Mean Corpuscular Volume 73 fL (80-97); Red Blood Count 4.09 10^6/ul (4.0-5.4); Red Cell Distribution Width 24 % (10.5-15); White Blood Count 13.1 10^3/ul (3.5-10.8)
[2017-10-22 23:04] LABS: EGFR Non-African American 28.6 (>60)
[2017-10-22 23:34] LABS: ABS Basophils 0.2 10^3/ul (0-0.2); ABS Eosinophils 0.7 10^3/ul (0-0.6); ABS Lymphocytes 2.1 10^3/ul (1.0-4.8); ABS Neutrophils 9.1 10^3/ul (1.5-7.7); ABS Nucleated RBC 0 10^3/ul; Eosinophil % 5.3 % (0-6); Lymphocyte % 16.4 % (25-47); Mean Platelet Volume 8.5 um3 (7.4-10.4); Nucleated Red Blood Cells % 0.2; Platelet Count 329 10^3/ul (150-450)
[2017-10-23] MEDS ORDERED: Nitro Patch/OINT Remove TOPICAL ONE (04:30)
[2017-10-23 06:51] LABS: Hematocrit 27 % (35-47); Hemoglobin 8.4 g/dl (12.0-16.0); Mean Corpuscular HGB Conc 31 g/dl (31-36); Mean Corpuscular Hemoglobin 23 pg (27-31); Mean Corpuscular Volume 73 fL (80-97); Platelet Count 227 10^3/ul (150-450); Red Cell Distribution Width 24 % (10.5-15); White Blood Count 8.6 10^3/ul (3.5-10.8)
[2017-10-23 07:03] LABS: EGFR Non-African American 31.5 (>60)
[2017-10-23] MEDS: Omeprazole CAP* 20 MG PO SCH ×2 (09:48→20:15)
[2017-10-23] MEDS: Atorvastatin* 10 MG TAB PO SCH (09:48)
[2017-10-23] MEDS: Sertraline* 100 MG TAB PO SCH (09:48)
[2017-10-23] MEDS: Metoprolol Succinate XL TAB* 25 MG PO SCH ×2 (09:48→20:15)
[2017-10-23] MEDS: Furosemide TAB* 40 MG PO SCH (09:49)
[2017-10-23] MEDS: acetaZOLAMIDE VIAL* 500 MG in NS 0.9% 50 ML* 50 ML IVPB SCH (10:04)
[2017-10-23] MEDS: Nystatin CREAM* 15 GM TUBE TOPICAL SCH ×3 (10:10→22:30)
[2017-10-23] MEDS: Ferrous Sulfate TAB* 325 MG PO SCH (11:00)
--- NOTE | 2017-10-23 11:19 | PN ---
Progress Note - Progress Note Date of Service: 10/23/17 Note: CRITICAL CARE MEDICINE Date: 10/23/17 Time: 945 SUBJECTIVE: Patient seen and examined. other daughter at bedside PHYSICAL EXAM: Vital Signs: Reviewed. stable. Neurologic: awake, pleasant and answers appropriately. HEENT: pupils equal. Sclera anicteric. Trachea midline. Cardiovascular: S1 S2, 2/6 esther Respiratory: mild rhonchi inc; same phases Abdomen: Soft, obese, nt. No masses Extremities: Warm. no edema Access: piv LABS: Reviewed. IMAGING: Reviewed. MEDICATIONS: Reviewed. ASSESSMENT: 82 F Acute hypoxic resp failure Acute on chronic diastolic heart failure > systolic Pulm htn Copd with component of tracheobronchomalacia. Recurrent acute pulm edema CAD Valvular heart disease Stage 3 ckd Recent gib Anemia PLAN: Neurologic: stable. Cardiovascular: can only really hope to further dry pt as this recurrence is everlasting. lasix iv bid and see how dry we can make her without toom much Cr rise. if >2 would cut back on lasix. bb. cards f/u. need to assume she has unamendable cad at this point and see how to maximizes rx tx. Respiratory: nebs. is. continue to utilize bipap empirically every night. will obtain dynamics ct chest to eval for degree of tbm and copd and what else we can offer tx and px frey. Gastrointestinal: po. ppi. no sign of active gib. Renal/Metabolic: stage 3 ckd stable. Infectious Disease: no abx needs Hematology: counts stable. iron suppl. hsq. Endocrine: ok Musculoskeletal: oob. pt. Psych/Social: d/w both daughter this am and they too understand everyone's frustration with her medical needs. Supportive and preventative care as ordered. SUP: ppi VTE prophylaxis: heparin Disposition: icu for now Code Status: Full currently Critical Care Time: 30min Helen Lynn DO
--- NOTE | 2017-10-23 16:31 | RAD ---
INDICATION: Recurrent hypoxic respiratory failure. COMPARISON: October 22, 2017 chest radiograph. TECHNIQUE: Multidetector CT images were obtained from the lung apices to the upper abdomen including 5 mm contiguous axial sections as well as supine and prone 1.25 mm interval axial sections on inspiration and supine 1.25 mm interval axial sections on expiration. HRCT protocol. Evaluation of the viscera is limited without IV contrast. REPORT: Diffuse mild prominence of interstitial markings and thickened peripheral interlobular septa at the lower lung zones. Negative for bronchiectasis. Mild patchy alveolar and interstitial consolidation at the bilateral upper lung zones. No compelling focal air trapping on expiration. Small to moderate bilateral dependent pleural effusions with proportional atelectasis. No compelling suspicious focal pulmonary lesions evident. Negative for pneumothorax. 1.2 cm short axis precarinal lymph node. 0.9 cm short axis prevascular lymph nodes. Negative for cardiomegaly or pericardial effusion. Coronary artery calcifications. Normal diameter thoracic aorta with atherosclerotic calcification. Unremarkable limited images through the upper abdomen. Negative for suspicious thoracic osseous lesions. IMPRESSION: 1. The constellation of findings is most consistent with predominant interstitial pulmonary edema with associated small to moderate dependent pleural effusions. 2. Few borderline enlarged mediastinal lymph nodes.
[2017-10-23] MEDS: Potassium Chloride LIQUID* 20 MEQ PACKET PO ONE (16:45)
[2017-10-23] MEDS ORDERED: Potassium Chloride LIQUID* 20 MEQ PACKET ONE (17:34)
[2017-10-23] MEDS: Heparin VIAL(*) 5000 UNITS/ML VIAL (FIVE THOUSAND) SUBCUT SCH ×2 (17:38→22:39)
[2017-10-23] MEDS: Furosemide IV* 10 MG/ML VIAL (40 MG) IV SLOW PU SCH (20:15)
[2017-10-23] MEDS: Potassium Chlor TAB* 20 MEQ TAB.ER PO SCH ×2 (20:15→22:44)
[2017-10-24] MEDS: Heparin VIAL(*) 5000 UNITS/ML VIAL (FIVE THOUSAND) SUBCUT SCH ×3 (05:33→21:13)
[2017-10-24 06:04] LABS: Hematocrit 26 % (35-47); Hemoglobin 8.1 g/dl (12.0-16.0); Mean Corpuscular HGB Conc 31 g/dl (31-36); Mean Corpuscular Hemoglobin 23 pg (27-31); Mean Corpuscular Volume 73 fL (80-97); Red Blood Count 3.59 10^6/ul (4.0-5.4); Red Cell Distribution Width 24 % (10.5-15); White Blood Count 6.9 10^3/ul (3.5-10.8)
[2017-10-24 06:14] LABS: EGFR Non-African American 34.3 (>60)
[2017-10-24 06:34] LABS: Mean Platelet Volume 8.5 um3 (7.4-10.4); Platelet Count 213 10^3/ul (150-450)
[2017-10-24] MEDS: Ferrous Sulfate TAB* 325 MG PO SCH (08:32)
[2017-10-24] MEDS: Furosemide IV* 10 MG/ML VIAL (40 MG) IV SLOW PU SCH ×2 (09:12→21:12)
[2017-10-24] MEDS: Omeprazole CAP* 20 MG PO SCH ×2 (09:13→21:12)
[2017-10-24] MEDS: Metoprolol Succinate XL TAB* 25 MG PO SCH ×2 (09:13→21:12)
[2017-10-24] MEDS: Atorvastatin* 10 MG TAB PO SCH (09:13)
[2017-10-24] MEDS: Potassium Chlor TAB* 20 MEQ TAB.ER PO SCH ×2 (09:13→21:13)
[2017-10-24] MEDS: Sertraline* 100 MG TAB PO SCH (09:13)
--- NOTE | 2017-10-24 10:45 | PN ---
Progress Note - Progress Note Date of Service: 10/24/17 Note: CRITICAL CARE MEDICINE Date: 10/24/17 Time: 955 SUBJECTIVE: Patient seen and examined. daughter at bedside PHYSICAL EXAM: Vital Signs: Reviewed. stable. 3L Neurologic: awake, pleasant and answers appropriately. HEENT: pupils equal. Sclera anicteric. Trachea midline. Cardiovascular: S1 S2, 2/6 esther Respiratory: mild rhonchi same Abdomen: Soft, obese, nt. No masses Extremities: Warm. no edema Access: piv LABS: Reviewed. IMAGING: Reviewed. MEDICATIONS: Reviewed. ASSESSMENT: 82 F Acute hypoxic resp failure Acute on chronic diastolic heart failure > systolic Pulm htn Copd with component of tracheobronchomalacia. Recurrent acute pulm edema transudative pleural effusions CAD Valvular heart disease Stage 3 ckd Recent gib Anemia PLAN: Neurologic: stable. Cardiovascular: maximizing cardiac regimen as able but bp on low end making it tough to push bb. hr been ok though. no cp. Respiratory: nebs. is. bipap nightly. will need to qualify ultimately for this as it has been a huge benefit for her. ct with water. continued diuresis and hopefully can maximize lung and be able to support her better longevity that way. spiriva. nebs prn. can consider inh steroid but no wheeze. Gastrointestinal: po. ppi continued. Renal/Metabolic: stage 3 ckd stable. f/u with diuretics. Infectious Disease: no abx needs Hematology: counts stable. iron suppl. hsq. Endocrine: ok Musculoskeletal: oob. pt. Psych/Social: daughter updated at length this am and we reviewed ct. Supportive and preventative care as ordered. SUP: ppi VTE prophylaxis: heparin Disposition: icu for now given multiple acute exaccerbations needing rescue bipap Code Status: Full Critical Care Time: 30min Helen Lynn DO
[2017-10-24] MEDS ORDERED: Spiriva Inhaler DEVICE* 1 EACH DEVICE SCH (11:00)
[2017-10-24] MEDS ORDERED: Metolazone TAB* 5 MG PO ONE (13:30)
[2017-10-24] MEDS: Nystatin CREAM* 15 GM TUBE TOPICAL SCH (13:32)
[2017-10-24] MEDS ORDERED: Furosemide IV* 10 MG/ML VIAL (40 MG) IV SLOW PU ONE (14:00)
[2017-10-24] MEDS: Nystatin CREAM* 30 GM TOPICAL SCH ×2 (14:16→21:14)
[2017-10-24] MEDS: acetaZOLAMIDE VIAL* 250 MG in NS 0.9% 50 ML* 50 ML IVPB SCH (14:50)
[2017-10-24] MEDS: Tiotropium CAP.INH* CAP.INH/18 MCG (USE ORDER SET !) INH SCH (15:28)
[2017-10-25] MEDS: Heparin VIAL(*) 5000 UNITS/ML VIAL (FIVE THOUSAND) SUBCUT SCH ×3 (06:15→21:18)
[2017-10-25] MEDS: Tiotropium CAP.INH* CAP.INH/18 MCG (USE ORDER SET !) INH SCH (08:08)
[2017-10-25] MEDS: Furosemide IV* 10 MG/ML VIAL (40 MG) IV SLOW PU SCH ×2 (09:16→21:18)
[2017-10-25] MEDS: Omeprazole CAP* 20 MG PO SCH ×2 (09:16→21:18)
[2017-10-25] MEDS: Sertraline* 100 MG TAB PO SCH (09:17)
[2017-10-25] MEDS: Atorvastatin* 10 MG TAB PO SCH (09:17)
[2017-10-25] MEDS: Ferrous Sulfate TAB* 325 MG PO SCH (09:17)
[2017-10-25] MEDS: Potassium Chlor TAB* 20 MEQ TAB.ER PO SCH (09:28)
[2017-10-25] MEDS: Nystatin CREAM* 30 GM TOPICAL SCH ×3 (09:33→21:18)
--- NOTE | 2017-10-25 09:46 | PN ---
Date of Service: 10/25/17 - [facility] progress note Critical Care Services: Pt seen and examined at bedside, pt denies SOB, cough, chest pain, N, V, D, abd pain, headaches. Reports being constipated for 3 days. No acute events o/n Labs, vitals reviewed Vital Signs: Temp Pulse Resp BP SpO2 FiO2 97.9 F 68 18 102/59 91 45 10/25/17 07:39 10/25/17 08:12 10/25/17 08:12 10/25/17 07:00 10/25/17 08:12 10/25 04:00 Physical Exam: Gen: Obese f in NAD HEENT: PERRLA, No JVD, no accessory muscle usage, mucus membranes moist Lungs: Good a/e b/l, no wheeze Cardiac: S1, S2+, regular, no tachycardia Abdomen: Obese , BS+, NT, ND Extremities: Trace edema, normal ROM Neuro: Alert, awake, oriented x3, no focal defecits Skin: no rash or bruise Fluid Balance (Past 24 Hours): I= 840 O=550 Net 290 Intake & Output 10/23/17 10/24/17 10/25/17 10/26/17 06:59 06:59 06:59 06:59 Intake Total 840 560 811 Output Total 550 Balance 290 560 811 Weight 170 lb 13.732 oz 173 lb 1.006 oz 164 lb 10.965 oz Intake: Medicated IV 61 Diamox 61 Oral 840 560 750 [place] Irrigate Amount 0 Output: Urine 0 [place] 550 Other: Estimated Void Large Small Medium Date of Last Bowel 10/24/17 Movement # Bowel Movements 1 Estimated Stool Amount Medium # Voids 1 3 1 Labs: No new labs, H&H low, but stable Nutrition: Cardiac diet Impression: 82 y o obese f, former smoker with h/o COPD, sys and diastolic CHF, pulm HTN, recent GI bleed sec to gastritis, anemia, with recurrent admissions for SOB, was transferred back to ICU from floor due to flash pulmonary edema. 1. Acute systolic and diastolic CHF with drop in EF, stable currently 2. Pos troponins, possible CAD, h/o NSTEMI being complicated by GI bleed, anemia on medical management 3. COPD not in acute exacerbation 4. Hypercapnic and hypoxic resp failure imrpoved with NIPPV 5. Chronic renal insufficiency Plan: C/w diuresis with Lasix, on metoprolol 12.5mg q 12hrs, BP on low end. On medical management for CAD. Will maintain negative fluid balance. Pt benefitting from NIPPV, will continue at night and will need arrangements upon d /c Currently stable on 2L FiO2, not in any distress Anemia, no active bleeding H&H stable Pulm HTN sec to valvular abnormalities with possible group2 pulm HTN. Body habitus concerning for sleep apnea. Will obtain sleep study as out pt if pt doesnot qualify for NIIPV from hypercapnia perspective Optimization of cardiac meds DVT px
[2017-10-25] MEDS: Metoprolol Succinate XL TAB* 25 MG PO SCH ×3 (10:00→21:17)
[2017-10-25] MEDS: acetaZOLAMIDE VIAL* 250 MG in NS 0.9% 50 ML* 50 ML IVPB SCH (10:00)
[2017-10-26] MEDS: Heparin VIAL(*) 5000 UNITS/ML VIAL (FIVE THOUSAND) SUBCUT SCH ×3 (06:27→21:50)
[2017-10-26 06:54] LABS: Hematocrit 34 % (35-47); Hemoglobin 10.6 g/dl (12.0-16.0); Mean Corpuscular HGB Conc 31 g/dl (31-36); Mean Corpuscular Hemoglobin 23 pg (27-31); Mean Corpuscular Volume 72 fL (80-97); Mean Platelet Volume 9.2 um3 (7.4-10.4); Platelet Count 191 10^3/ul (150-450); Red Blood Count 4.69 10^6/ul (4.0-5.4); Red Cell Distribution Width 24 % (10.5-15); White Blood Count 6.8 10^3/ul (3.5-10.8)
[2017-10-26 07:01] LABS: EGFR Non-African American 27.8 (>60)
[2017-10-26] MEDS: Ferrous Sulfate TAB* 325 MG PO SCH (07:33)
[2017-10-26] MEDS: Tiotropium CAP.INH* CAP.INH/18 MCG (USE ORDER SET !) INH SCH (07:44)
[2017-10-26] MEDS: Atorvastatin* 10 MG TAB PO SCH (08:37)
[2017-10-26] MEDS: Fluconazole 100 MG TAB* TAB PO SCH (08:37)
[2017-10-26] MEDS: Sertraline* 100 MG TAB PO SCH (08:37)
[2017-10-26] MEDS: Omeprazole CAP* 20 MG PO SCH ×2 (08:38→20:19)
[2017-10-26] MEDS: Metoprolol Succinate XL TAB* 25 MG PO SCH ×2 (08:38→20:19)
--- NOTE | 2017-10-26 08:59 | PN ---
Date of Service: 10/26/17 - [facility] f/u note Critical Care Services: Pt seen and examined at bedside. Ptsitting up in bed. Denies any complaints. Reports feeling better and getting good sleep last night with BIpAP, denies any issues with NIPPV. Active Medications Generic Name Dose Route Start Last Admin Trade Name Freq PRN Reason Stop Dose Admin Albuterol 2.5 mg 10/18/17 10:23 10/22/17 22:18 Ventolin 2.5 Mg/3 Ml Neb.Makenna* INH 2.5 mg Q6H PRN Administration SOB/WHEEZING Atorvastatin Calcium 10 mg 10/18/17 09:00 10/26/17 08:37 Lipitor* PO 10 mg DAILY JACKELINE Administration Protocol Device 1 each 10/24/17 11:00 Tiotropium Inhaler Device* .SEE ORDER .USE w/ SPIRIVA CAPS JACKELINE Docusate Sodium 100 mg 10/25/17 10:19 Colace Cap* PO BID PRN CONSTIPATION Ferrous Sulfate 325 mg 10/18/17 07:30 10/26/17 07:33 Ferrous Sulfate Tab* PO 325 mg 0730 JACKELINE Administration Fluconazole 100 mg 10/26/17 09:00 10/26/17 08:37 Diflucan 100 Mg Tab* PO 10/27/17 11:00 100 mg DAILY JACKELINE Administration Furosemide 40 mg 10/26/17 09:00 Lasix Tab* PO DAILY JACKELINE Heparin Sodium (Porcine) 5,000 units 10/23/17 14:00 10/26/17 06:27 Heparin Vial(*) SUBCUT 5,000 units Q8HR JACKELINE Administration Metoprolol Succinate 12.5 mg 10/22/17 10:00 10/26/17 08:38 Toprol Xl Tab* PO 12.5 mg BID JACKELINE Administration Nystatin 1 applic 10/24/17 14:00 10/25/17 21:18 Nystatin Cream* TOPICAL 1 applic TID JACKELINE Administration Omeprazole 20 mg 10/17/17 21:00 10/26/17 08:38 Prilosec Cap* PO 20 mg BID JACKELINE Administration Potassium Chloride 20 meq 10/26/17 09:00 Klor Con Er Tab* PO DAILY JACKELINE Sertraline HCl 100 mg 10/18/17 09:00 10/26/17 08:37 Zoloft* PO 100 mg DAILY JACKELINE Administration Tiotropium [place] 1 cap 10/24/17 11:00 10/26/17 07:44 Spiriva Cap.Inh* INH 1 cap DAILY JACKELINE Administration Vital Signs Vital Signs: Temp Pulse Resp BP SpO2 FiO2 98.0 F 69 21 129/55 95 45 10/25/17 19:27 10/26/17 08:00 10/26/17 08:00 10/26/17 08:00 10/26/17 08:00 10/26 04:00 Physical Exam: Gen: Elderly f in NAD, sitting up in bed, comfortable HEENT:PERRLA, No JVD Lungs: Diminished air entry at bases, clear to asucultation b/l Cardiac: S1, S2+, regular Abdomen: Obese, BS+ Extremities: Normal ROM, trace edema Neuro: No focal defects, alert, awake, oriented x3 Fluid Balance (Past 24 Hours): I= 375 O= 1975 Net -1600 Intake & Output 10/24/17 10/25/17 10/26/17 10/27/17 06:59 06:59 06:59 06:59 Intake Total 560 811 375 Output Total 1974 Balance 560 811 -1600 Weight 173 lb 1.006 oz 164 lb 10.965 oz 161 lb 13.109 oz Intake: Medicated IV 61 Diamox 61 Oral 560 750 375 Output: Silveira 1974 Other: Estimated Void Small Medium Date of Last Bowel 10/24/17 10/25/17 Movement # Bowel Movements 1 1 Estimated Stool Amount Medium Small # Voids 3 1 Labs: Laboratory Results - last 24 hr 10/26/17 10/26/17 06:35 06:35 WBC 6.8 RBC 4.69 Hgb 10.6 L Hct 34 L MCV 72 L MCH 23 L MCHC 31 RDW 24 H Plt Count 191 MPV 9.2 Sodium 135 L Potassium 3.1 L Chloride 89 L Carbon Dioxide 34 H Anion Gap 12 H BUN 30 H Creatinine 1.75 H Est GFR ( Amer) 35.8 Est GFR (Non-Af Amer) 27.8 BUN/Creatinine Ratio 17.1 Glucose 151 H Calcium 9.3 Nutrition: Cardiac diet Impression: 82 y o obese f, former smoker with h/o COPD, sys and diastolic CHF, pulm HTN, recent GI bleed sec to gastritis, anemia, with recurrent admissions for SOB, was transferred back to ICU from floor due to flash pulmonary edema. 1. Acute systolic and diastolic CHF with drop in EF, stable currently on diuretics 2. Pos troponins, possible CAD, h/o NSTEMI being complicated by GI bleed, anemia on medical management 3. COPD not in acute exacerbation 4. Hypercapnic and hypoxic resp failure imrpoved with NIPPV 5. Acute on Chronic renal insufficiency with elevated BUN/Cr sec to diuresis Plan: C/w diuresis with Lasix at 40mg daily, will change to 20mg which is her home dose given elevated BUN/Cr from her baseline On metoprolol 12.5mg q 12hrs, to be increased as tolerated On medical management for CAD. Able to stay in negative fluid balance. Pt benefitting from NIPPV, will continue at night and will need arrangements upon d/c Currently stable on 2L FiO2, not in any distress Anemia, no active bleeding other than dark stool yesterday, H&H stable Pulm HTN sec to valvular abnormalities with possible group2 pulm HTN. Body habitus concerning for sleep apnea. Will obtain sleep study as out pt if pt doesnot qualify for NIIPV from hypercapnia perspective Optimization of cardiac meds Pt stable to be transferred to regular medical floor today, to c/w BiPAP at night Will d/w Dr David
[2017-10-26] MEDS: Potassium Chlor TAB* 20 MEQ TAB.ER PO SCH (09:28)
[2017-10-26] MEDS: Nystatin CREAM* 30 GM TOPICAL SCH ×3 (09:28→20:27)
[2017-10-26] MEDS: Furosemide TAB* 40 MG PO SCH (09:28)
[2017-10-27] MEDS: Heparin VIAL(*) 5000 UNITS/ML VIAL (FIVE THOUSAND) SUBCUT SCH ×3 (05:35→21:12)
[2017-10-27] MEDS: Tiotropium CAP.INH* CAP.INH/18 MCG (USE ORDER SET !) INH SCH (07:34)
[2017-10-27 09:01] LABS: Hematocrit 31 % (35-47); Hemoglobin 9.6 g/dl (12.0-16.0); Mean Corpuscular HGB Conc 31 g/dl (31-36); Mean Corpuscular Hemoglobin 23 pg (27-31); Mean Corpuscular Volume 73 fL (80-97); Mean Platelet Volume 9.2 um3 (7.4-10.4); Platelet Count 214 10^3/ul (150-450); Red Blood Count 4.22 10^6/ul (4.0-5.4); Red Cell Distribution Width 24 % (10.5-15); White Blood Count 8.3 10^3/ul (3.5-10.8)
[2017-10-27 09:16] LABS: EGFR Non-African American 27.1 (>60)
[2017-10-27] MEDS: Atorvastatin* 10 MG TAB PO SCH (09:19)
[2017-10-27] MEDS: Sertraline* 100 MG TAB PO SCH (09:19)
[2017-10-27] MEDS: Ferrous Sulfate TAB* 325 MG PO SCH (09:19)
[2017-10-27] MEDS: Furosemide TAB* 40 MG PO SCH (09:19)
[2017-10-27] MEDS: Fluconazole 100 MG TAB* TAB PO SCH (09:19)
[2017-10-27] MEDS: Potassium Chlor TAB* 20 MEQ TAB.ER PO SCH (09:19)
[2017-10-27] MEDS: Omeprazole CAP* 20 MG PO SCH ×2 (09:19→21:12)
[2017-10-27] MEDS: Metoprolol Succinate XL TAB* 25 MG PO SCH ×2 (09:20→21:19)
[2017-10-27 09:24] LABS: ABS Basophils 0.1 10^3/ul (0-0.2); ABS Eosinophils 0.6 10^3/ul (0-0.6); ABS Lymphocytes 1.5 10^3/ul (1.0-4.8); ABS Monocytes 0.8 10^3/ul (0-0.8); ABS Neutrophils 5.4 10^3/ul (1.5-7.7); ABS Nucleated RBC 0 10^3/ul; Eosinophil % 7.2 % (0-6); Lymphocyte % 17.8 % (25-47); Nucleated Red Blood Cells % 0
[2017-10-27] MEDS: Nystatin CREAM* 30 GM TOPICAL SCH ×3 (12:49→21:40)
--- NOTE | 2017-10-27 13:44 | PN ---
Subjective Date of Service: 10/27/17 Interval History: . patient laying flat in bed A+O x3 in NAD. She reports she feels better today. She denies SOB/CP. Denies orthopnea. No LE swelling. Denies fever/chills. Reports her appetite is improving. Objective Active Medications: Albuterol (Ventolin 2.5 Mg/3 Ml Neb.Makenna*) 2.5 mg INH Q6H PRN PRN Reason: SOB/WHEEZING Last Admin: 10/22/17 22:18 Dose: 2.5 mg Atorvastatin Calcium (Lipitor*) 10 mg PO DAILY [facility] PRN Reason: Protocol Last Admin: 10/27/17 09:19 Dose: 10 mg Device (Tiotropium Inhaler Device*) 1 each .SEE ORDER .USE w/ SPIRIVA CAPS [facility] Docusate Sodium (Colace Cap*) 100 mg PO BID PRN PRN Reason: CONSTIPATION Ferrous Sulfate (Ferrous Sulfate Tab*) 325 mg PO 0730 [facility] Last Admin: 10/27/17 09:19 Dose: 325 mg Furosemide (Lasix Tab*) 40 mg PO DAILY [facility] Last Admin: 10/27/17 09:19 Dose: 40 mg Heparin Sodium (Porcine) (Heparin Vial(*)) 5,000 units SUBCUT Q8HR [facility] Last Admin: 10/27/17 05:35 Dose: 5,000 units Metoprolol Succinate (Toprol Xl Tab*) 12.5 mg PO BID [facility] Last Admin: 10/27/17 09:20 Dose: 12.5 mg Nystatin (Nystatin Cream*) 1 applic TOPICAL TID [facility] Last Admin: 10/27/17 12:49 Dose: Not Given Omeprazole (Prilosec Cap*) 20 mg PO BID [facility] Last Admin: 10/27/17 09:19 Dose: 20 mg Potassium Chloride (Klor Con Er Tab*) 20 meq PO DAILY [facility] Last Admin: 10/27/17 09:19 Dose: 20 meq Sertraline HCl (Zoloft*) 100 mg PO DAILY [facility] Last Admin: 10/27/17 09:19 Dose: 100 mg Tiotropium [place] (Spiriva Cap.Inh*) 1 cap INH DAILY [facility] Last Admin: 10/27/17 07:34 Dose: 1 cap Vital Signs - 8 hr 10/27/17 10/27/17 10/27/17 07:27 07:34 09:32 Temperature 97.6 F Pulse Rate 64 63 Respiratory 16 18 Rate Blood Pressure 112/47 (mmHg) O2 Sat by Pulse 94 95 Oximetry 10/27/17 11:19 Temperature 98.1 F Pulse Rate 72 Respiratory 17 Rate Blood Pressure 130/56 (mmHg) O2 Sat by Pulse 100 Oximetry Oxygen Devices in Use Now: Nasal Cannula Appearance: jh female A+O x3 laying in bed resting in NAD Eyes: No Scleral Icterus, PERRLA Ears/Nose/Mouth/Throat: NL Teeth, Lips, Gums, Mucous Membranes Moist Neck: NL Appearance and Movements; NL JVP Respiratory: Symmetrical Chest Expansion and Respiratory Effort, Clear to Auscultation Cardiovascular: NL Sounds; No Murmurs; No JVD, RRR, No Edema Abdominal: NL Sounds; No Tenderness; No Distention Extremities: No Edema, No Clubbing, Cyanosis Skin: No Rash or Ulcers, No Nodules or Sclerosis Neurological: Alert and Oriented x 3, NL Sensation, NL Muscle Strength and Tone Lines/Tubes/Other Access: Clean, Dry and Intact Peripheral IV Nutrition: Taking PO's Result Diagrams: 10/27/17 08:45 10/27/17 08:47 Additional Lab and Data: Lab Results 10/17/17 10/17/17 10/17/17 Range/Units 12:31 12:31 12:31 WBC 11.1 H (3.5-10.8) 10^3/ul RBC 3.66 L (4.0-5.4) 10^6/ul Hgb 8.1 L (12.0-16.0) g/dl Hct 27 L (35-47) % MCV 73 L (80-97) fL MCH 22 L (27-31) pg MCHC 30 L (31-36) g/dl RDW 24 H (10.5-15) % Plt Count 180 (150-450) 10^3/ul MPV 8.7 (7.4-10.4) um3 Neut % (Auto) 83.0 (38-83) % Lymph % (Auto) 7.0 L (25-47) % [place] % (Auto) 7.1 H (0-7) % Eos % (Auto) 2.4 (0-6) % Baso % (Auto) 0.5 (0-2) % Absolute Neuts (auto) 9.2 H (1.5-7.7) 10^3/ul Absolute Lymphs (auto) 0.8 L (1.0-4.8) 10^3/ul Absolute Monos (auto) 0.8 (0-0.8) 10^3/ul Absolute Eos (auto) 0.3 (0-0.6) 10^3/ul Absolute Basos (auto) 0.1 (0-0.2) 10^3/ul Absolute Nucleated RBC 0 10^3/ul Nucleated RBC % 0 Sodium 134 L (139-145) mmol/L Potassium 3.5 (3.5-5.0) mmol/L Chloride 99 L (101-111) mmol/L Carbon Dioxide 27 (22-32) mmol/L Anion Gap 8 (2-11) mmol/L BUN 17 (6-24) mg/dL Creatinine 1.18 H (0.51-0.95) mg/dL Est GFR ( Amer) 56.4 (>60) Est GFR (Non-Af Amer) 43.9 (>60) BUN/Creatinine Ratio 14.4 (8-20) Glucose 148 H (70-100) mg/dL Lactic Acid 1.5 (0.5-2.0) mmol/L Calcium 8.4 L (8.6-10.3) mg/dL Total Bilirubin 0.70 (0.2-1.0) mg/dL AST 13 (13-39) U/L ALT 10 (7-52) U/L Alkaline Phosphatase 76 (34-104) U/L CK-MB (CK-2) 2.7 (0.6-6.3) ng/mL Troponin I 0.34 H* (<0.04) ng/mL B-Natriuretic Peptide ( - 100) pg/mL Total Protein 6.7 (6.4-8.9) g/dL Albumin 3.3 (3.2-5.2) g/dL Globulin 3.4 (2-4) g/dL Albumin/Globulin Ratio 1.0 (1-3) Blood Type Antibody Screen 10/17/17 10/17/17 Range/Units 12:31 12:31 WBC (3.5-10.8) 10^3/ul RBC (4.0-5.4) 10^6/ul Hgb (12.0-16.0) g/dl Hct (35-47) % MCV (80-97) fL MCH (27-31) pg MCHC (31-36) g/dl RDW (10.5-15) % Plt Count (150-450) 10^3/ul MPV (7.4-10.4) um3 Neut % (Auto) (38-83) % Lymph % (Auto) (25-47) % [place] % (Auto) (0-7) % Eos % (Auto) (0-6) % Baso % (Auto) (0-2) % Absolute Neuts (auto) (1.5-7.7) 10^3/ul Absolute Lymphs (auto) (1.0-4.8) 10^3/ul Absolute Monos (auto) (0-0.8) 10^3/ul Absolute Eos (auto) (0-0.6) 10^3/ul Absolute Basos (auto) (0-0.2) 10^3/ul Absolute Nucleated RBC 10^3/ul Nucleated RBC % Sodium (139-145) mmol/L Potassium (3.5-5.0) mmol/L Chloride (101-111) mmol/L Carbon Dioxide (22-32) mmol/L Anion Gap (2-11) mmol/L BUN (6-24) mg/dL Creatinine (0.51-0.95) mg/dL Est GFR ( Amer) (>60) Est GFR (Non-Af Amer) (>60) BUN/Creatinine Ratio (8-20) Glucose (70-100) mg/dL Lactic Acid (0.5-2.0) mmol/L Calcium (8.6-10.3) mg/dL Total Bilirubin (0.2-1.0) mg/dL AST (13-39) U/L ALT (7-52) U/L Alkaline Phosphatase (34-104) U/L CK-MB (CK-2) (0.6-6.3) ng/mL Troponin I (<0.04) ng/mL B-Natriuretic Peptide 2253 H ( - 100) pg/mL Total Protein (6.4-8.9) g/dL Albumin (3.2-5.2) g/dL Globulin (2-4) g/dL Albumin/Globulin Ratio (1-3) Blood Type A Positive Antibody Screen Negative Microbiology and Other Data: Microbiology 10/21/17 16:54 Stool Occult Blood (CHARLIE) - Final Stool Assess/Plan/Problems-Billing Assessment: 82 yo female with a PMH of former smoker with hx of COPD, sys & diastolic CHF, pulm HTN, recent hospitalization with GI bleed 2nd to gastritis with NSTEMI that was treated medically, chronic renal failure with recurrent admission for SOB with hypercapnic and hypoxic respiratory failure who's hospitalization was complicated by flash pulmonary edema improved on NIPPV. - Patient Problems (1) Acute on chronic combined systolic and diastolic congestive heart failure Comment: - Transferred out of ICU last night - doing well - hypercapnic and hypoxic Resp failure improved on NIPPV in ICU - continue Bipap at nighttime/naps - Stable on 2L NC. Has lost appox 18 lbs since admission. - drop in EF noted this admission 35%. - Continue Lasix 40 mg daily - monitor creatinine - Metoprolol 12.5 mg Q12 - Apprciate cardiology consult - once euvolemic could consider aldactone 25 mg QOD alternating with lasix, follwoing K+ and BUN/Cr levels carefully. Alternative low dose ACEI or ARB addition if BP allows. (2) CAD (coronary artery disease) Comment: - Last admission September 17 with NSTEMI - Trops peaked at 17.52 at that time and was medical managed only. History of cardiac cath in 2012 showing 80% stenosis to LAD which was stented. - Appreciate cardiology consultation this admission. Trop peaked .47; Possible CAD - Plan to continue medical management only at this time. Patient may be a canidate for a cath in the future. - Continue atorvastatin and metoprolol (3) Anemia Comment: - Recent GI bleed. No active bleeding noted. HH stable (4) Pulmonary HTN Comment: - secondary to valvular abnormalites with possible group2 Pulm HTN - Dr. Wood saw patient this hospitalization. Follow with Dr. Wood as outpt (5) Sleep apnea Comment: - Questionable sleep apnea, d/t body habitus placed her at higher risk - Sleep study as outpt (6) DVT prophylaxis Comment: - SCDs only (7) Full code status Comment: Status and Disposition: inpatient. Multiple readmissions. PT/OT evals. Possibly may need subacute rehab
[2017-10-28] MEDS: Heparin VIAL(*) 5000 UNITS/ML VIAL (FIVE THOUSAND) SUBCUT SCH ×3 (05:09→21:26)
[2017-10-28 06:59] LABS: EGFR Non-African American 27.6 (>60)
[2017-10-28] MEDS: Nystatin CREAM* 30 GM TOPICAL SCH ×3 (07:57→21:25)
[2017-10-28] MEDS: Potassium Chlor TAB* 20 MEQ TAB.ER PO SCH (08:00)
[2017-10-28] MEDS: Furosemide TAB* 40 MG PO SCH (08:00)
[2017-10-28] MEDS: Ferrous Sulfate TAB* 325 MG PO SCH (08:00)
[2017-10-28] MEDS: Atorvastatin* 10 MG TAB PO SCH (08:01)
[2017-10-28] MEDS: Sertraline* 100 MG TAB PO SCH (08:01)
[2017-10-28] MEDS: Omeprazole CAP* 20 MG PO SCH ×2 (08:01→21:25)
[2017-10-28] MEDS: Metoprolol Succinate XL TAB* 25 MG PO SCH ×2 (08:01→21:26)
[2017-10-28] MEDS: Tiotropium CAP.INH* CAP.INH/18 MCG (USE ORDER SET !) INH SCH (08:15)
--- NOTE | 2017-10-28 08:34 | PN ---
Subjective Date of Service: 10/28/17 Interval History: Ms. Bernal denies any complaint today. She denies chest pain, SOB, nausea, or abdominal pain. She felt tired after working with PT but is otherwise well. Objective Active Medications: Albuterol (Ventolin 2.5 Mg/3 Ml Neb.Makenna*) 2.5 mg INH Q6H PRN Atorvastatin Calcium (Lipitor*) 10 mg PO DAILY [facility] Device (Tiotropium Inhaler Device*) 1 each .SEE ORDER .USE w/ SPIRIVA CAPS [facility] Docusate Sodium (Colace Cap*) 100 mg PO BID PRN Ferrous Sulfate (Ferrous Sulfate Tab*) 325 mg PO 0730 [facility] Furosemide (Lasix Tab*) 40 mg PO DAILY [facility] Heparin Sodium (Porcine) (Heparin Vial(*)) 5,000 units SUBCUT Q8HR [facility] Metoprolol Succinate (Toprol Xl Tab*) 12.5 mg PO BID [facility] Nystatin (Nystatin Cream*) 1 applic TOPICAL TID [facility] Omeprazole (Prilosec Cap*) 20 mg PO BID [facility] Potassium Chloride (Klor Con Er Tab*) 20 meq PO DAILY [facility] Sertraline HCl (Zoloft*) 100 mg PO DAILY [facility] Tiotropium [place] (Spiriva Cap.Inh*) 1 cap INH DAILY [facility] Vital Signs: Temp Pulse Resp BP Pulse Ox 98.0 F 64 20 96/48 97 10/28/17 07:28 10/28/17 08:05 10/28/17 08:05 10/28/17 07:28 10/28/17 08:05 Oxygen Devices in Use Now: Nasal Cannula Appearance: Elderly female lying in bed in NAD Eyes: No Scleral Icterus Ears/Nose/Mouth/Throat: Mucous Membranes Moist Neck: Trachea Midline Respiratory: Symmetrical Chest Expansion and Respiratory Effort, Clear to Auscultation Cardiovascular: NL Sounds; No Murmurs; No JVD, No Edema Abdominal: NL Sounds; No Tenderness; No Distention Lymphatic: No Cervical Adenopathy Extremities: No Edema Skin: No Rash or Ulcers Neurological: Alert and Oriented x 3, NL Muscle Strength and Tone Nutrition: Taking PO's Result Diagrams: 10/27/17 08:45 10/28/17 05:50 Additional Lab and Data: . Microbiology and Other Data: . Assess/Plan/Problems-Billing Assessment: Ms. Bernal is an 82 yo female with a PMH of former smoker with hx of COPD, sys & diastolic CHF, pulm HTN, recent hospitalization with GI bleed 2nd to gastritis with NSTEMI that was treated medically, chronic renal failure with recurrent admission for SOB with hypercapnic and hypoxic respiratory failure who's hospitalization was complicated by flash pulmonary edema improved on NIPPV. - Patient Problems (1) Acute on chronic combined systolic and diastolic congestive heart failure Comment: - Resolved. - Hypercapnic and hypoxic resp failure improved on NIPPV. Stable on 2L NC. Continue Bipap at nighttime/naps - Appreciate cardiology consult - EF dropped from 50-55% in April down to 35% . Once euvolemic (has reportedly lost 18 lbs since admission) could consider aldactone 25 mg QOD alternating with lasix, following K+ and BUN/Cr levels carefully. Alternative low dose ACEI or ARB addition if BP allows. - Continue Lasix 40 mg daily - monitor creatinine . Continue metoprolol 12.5 mg Q12 (2) CAD (coronary artery disease) Comment: - Last admission September 17 with NSTEMI - Trops peaked at 17.52 at that time and was medical managed only. History of cardiac cath in 2012 showing 80% stenosis to LAD which was stented. - Appreciate cardiology consultation this admission. Trop peaked .47; Possible CAD - Plan to continue medical management only at this time. Patient may be a canidate for a cath in the future. - Continue atorvastatin and metoprolol (3) Anemia Comment: - Recent GI bleed. No active bleeding noted. HH stable (4) Pulmonary HTN Comment: - Secondary to valvular abnormalites with possible group2 Pulm HTN - Dr. Wood saw patient this hospitalization. Follow with Dr. Wood as outpt (5) Sleep apnea Comment: - Questionable sleep apnea, d/t body habitus placed her at higher risk - Sleep study as outpt (6) Depression Comment: - Continue Zoloft (7) DVT prophylaxis Comment: - SCDs only (8) Full code status Comment: Status and Disposition: inpatient. Multiple readmissions. PT/OT evals. Possibly may need subacute rehab
[2017-10-29] MEDS: Heparin VIAL(*) 5000 UNITS/ML VIAL (FIVE THOUSAND) SUBCUT SCH ×3 (06:00→20:48)
[2017-10-29] MEDS: Tiotropium CAP.INH* CAP.INH/18 MCG (USE ORDER SET !) INH SCH (07:59)
[2017-10-29] MEDS: Ferrous Sulfate TAB* 325 MG PO SCH (08:02)
[2017-10-29] MEDS: Sertraline* 100 MG TAB PO SCH (08:02)
[2017-10-29] MEDS: Omeprazole CAP* 20 MG PO SCH ×2 (08:02→20:48)
[2017-10-29] MEDS: Potassium Chlor TAB* 20 MEQ TAB.ER PO SCH (08:02)
[2017-10-29] MEDS: Atorvastatin* 10 MG TAB PO SCH (08:03)
[2017-10-29] MEDS: Furosemide TAB* 40 MG PO SCH (08:03)
[2017-10-29] MEDS: Metoprolol Succinate XL TAB* 25 MG PO SCH ×2 (08:03→20:48)
[2017-10-29] MEDS: Nystatin CREAM* 30 GM TOPICAL SCH ×3 (08:04→20:52)
--- NOTE | 2017-10-29 10:51 | PN ---
Subjective Date of Service: 10/29/17 Interval History: Ms. Bernal reports that she is feeling better today. She denies chest pain, SOB , nausea, or abdominal pain. She is tolerating oral intake well. She is currently on 1L NC. She tells me that she does have a CPAP machine at home but her daughter later confirms that she does not. Objective Active Medications: Albuterol (Ventolin 2.5 Mg/3 Ml Neb.Makenna*) 2.5 mg INH Q6H PRN Atorvastatin Calcium (Lipitor*) 10 mg PO DAILY [facility] Device (Tiotropium Inhaler Device*) 1 each .SEE ORDER .USE w/ SPIRIVA CAPS [facility] Docusate Sodium (Colace Cap*) 100 mg PO BID PRN Ferrous Sulfate (Ferrous Sulfate Tab*) 325 mg PO 0730 [facility] Furosemide (Lasix Tab*) 40 mg PO DAILY [facility] Heparin Sodium (Porcine) (Heparin Vial(*)) 5,000 units SUBCUT Q8HR [facility] Metoprolol Succinate (Toprol Xl Tab*) 12.5 mg PO BID [facility] Nystatin (Nystatin Cream*) 1 applic TOPICAL TID [facility] Omeprazole (Prilosec Cap*) 20 mg PO BID [facility] Potassium Chloride (Klor Con Er Tab*) 20 meq PO DAILY [facility] Sertraline HCl (Zoloft*) 100 mg PO DAILY [facility] Tiotropium [place] (Spiriva Cap.Inh*) 1 cap INH DAILY [facility] Vital Signs: Temp Pulse Resp BP Pulse Ox 97.7 F 66 22 96/51 93 10/29/17 07:29 10/29/17 07:29 10/29/17 07:29 10/29/17 07:29 10/29/17 07:29 Oxygen Devices in Use Now: Nasal Cannula Appearance: Female lying in bed in NAD Eyes: No Scleral Icterus Ears/Nose/Mouth/Throat: Mucous Membranes Moist Respiratory: Symmetrical Chest Expansion and Respiratory Effort, Clear to Auscultation Cardiovascular: NL Sounds; No Murmurs; No JVD, No Edema Abdominal: NL Sounds; No Tenderness; No Distention Extremities: No Edema Skin: No Rash or Ulcers Neurological: Alert and Oriented x 3, NL Muscle Strength and Tone Nutrition: Taking PO's Result Diagrams: 10/27/17 08:45 10/28/17 05:50 Additional Lab and Data: . Microbiology and Other Data: . Assess/Plan/Problems-Billing Assessment: Ms. Bernal is an 82 yo female with a PMH of former smoker with hx of COPD, sys & diastolic CHF, pulm HTN, recent hospitalization with GI bleed 2nd to gastritis with NSTEMI that was treated medically, chronic renal failure with recurrent admission for SOB with hypercapnic and hypoxic respiratory failure who's hospitalization was complicated by flash pulmonary edema improved on NIPPV. - Patient Problems (1) Acute on chronic combined systolic and diastolic congestive heart failure Comment: - Resolved. - Hypercapnic and hypoxic resp failure improved on NIPPV with diuresis. Stable on 1L NC. - Plan to trial off bipap tonight with 1L NC and pulse oximetry monitoring. - Appreciate cardiology consult - EF dropped from 50-55% in April down to 35% . Plan for aldactone 25 mg QOD alternating with lasix, following K+ and BUN/Cr levels carefully. - Continue metoprolol 12.5 mg Q12 (2) CAD (coronary artery disease) Comment: - Last admission September 17 with NSTEMI - Trops peaked at 17.52 at that time and was medical managed only. History of cardiac cath in 2012 showing 80% stenosis to LAD which was stented. - Appreciate cardiology consultation this admission. Trop peaked .47; Possible CAD - Plan to continue medical management only at this time. Patient may be a canidate for a cath in the future. - Continue atorvastatin and metoprolol (3) Anemia Comment: - Recent GI bleed. No active bleeding noted. HH stable (4) Pulmonary HTN Comment: - Secondary to valvular abnormalites with possible group2 Pulm HTN - Dr. Wood saw patient this hospitalization. Follow with Dr. Wood as outpt (5) Sleep apnea Comment: - Questionable sleep apnea, d/t body habitus placed her at higher risk - Sleep study as outpt (6) Depression Comment: - Continue Zoloft (7) DVT prophylaxis Comment: - SCDs only (8) Full code status Comment: Status and Disposition: Inpatient. At this point, anticipate discharge to home.
[2017-10-29] MEDS: Docusate CAP* 100 MG PO PRN (20:48)
[2017-10-30] MEDS: Heparin VIAL(*) 5000 UNITS/ML VIAL (FIVE THOUSAND) SUBCUT SCH ×3 (05:34→21:43)
[2017-10-30] MEDS: Docusate CAP* 100 MG PO PRN (05:34)
[2017-10-30 06:33] LABS: EGFR Non-African American 30.9 (>60)
[2017-10-30] MEDS ORDERED: Polyethylene Glycol 3350* 17 GM PACKET PO PRN (07:20)
[2017-10-30] MEDS: Sertraline* 100 MG TAB PO SCH (07:52)
[2017-10-30] MEDS: Ferrous Sulfate TAB* 325 MG PO SCH (07:52)
[2017-10-30] MEDS: Omeprazole CAP* 20 MG PO SCH ×2 (07:53→20:41)
[2017-10-30] MEDS: Atorvastatin* 10 MG TAB PO SCH (07:53)
[2017-10-30] MEDS: Metoprolol Succinate XL TAB* 25 MG PO SCH ×2 (07:53→20:41)
[2017-10-30] MEDS: Potassium Chlor TAB* 20 MEQ TAB.ER PO SCH ×2 (07:54→07:59)
[2017-10-30] MEDS: Nystatin CREAM* 30 GM TOPICAL SCH ×3 (07:55→20:42)
[2017-10-30] MEDS: Senna TAB PO PRN (07:56)
[2017-10-30] MEDS: Tiotropium CAP.INH* CAP.INH/18 MCG (USE ORDER SET !) INH SCH (08:29)
[2017-10-30] MEDS ORDERED: Spironolactone TAB* 25 MG PO SCH (09:00)
--- NOTE | 2017-10-30 09:55 | PN ---
Subjective Date of Service: 10/30/17 Interval History: Ms. Bernal reports feeling quite well this morning and denies any complaint. She specially denies chest pain, SOB, nausea, or abdominal pain. Objective Active Medications: Albuterol (Ventolin 2.5 Mg/3 Ml Neb.Makenna*) 2.5 mg INH Q6H PRN Atorvastatin Calcium (Lipitor*) 10 mg PO DAILY [facility] Device (Tiotropium Inhaler Device*) 1 each .SEE ORDER .USE w/ SPIRIVA CAPS [facility] Docusate Sodium (Colace Cap*) 100 mg PO BID PRN Ferrous Sulfate (Ferrous Sulfate Tab*) 325 mg PO 0730 [facility] Furosemide (Lasix Tab*) 20 mg PO EVERY OTHER DAY [facility] Heparin Sodium (Porcine) (Heparin Vial(*)) 5,000 units SUBCUT Q8HR [facility] Metoprolol Succinate (Toprol Xl Tab*) 12.5 mg PO BID [facility] Nystatin (Nystatin Cream*) 1 applic TOPICAL TID [facility] Omeprazole (Prilosec Cap*) 20 mg PO BID [facility] Polyethylene Glycol/Electrolytes (Miralax*) 17 gm PO DAILY [facility] Potassium Chloride (Klor Con Er Tab*) 20 meq PO DAILY [facility] Senna (Senokot Tab*) 1 tab PO DAILY PRN Sertraline HCl (Zoloft*) 100 mg PO DAILY [facility] Spironolactone (Aldactone Tab*) 25 mg PO EVERY OTHER DAY [facility] Tiotropium [place] (Spiriva Cap.Inh*) 1 cap INH DAILY [facility] Vital Signs: Temp Pulse Resp BP Pulse Ox 98.0 F 62 18 106/54 97 10/30/17 07:35 10/30/17 07:35 10/30/17 09:10 10/30/17 07:35 10/30/17 07:35 Oxygen Devices in Use Now: Nasal Cannula Appearance: Elderly female lying in bed in NAD Eyes: No Scleral Icterus Ears/Nose/Mouth/Throat: Mucous Membranes Moist Neck: Trachea Midline Respiratory: Symmetrical Chest Expansion and Respiratory Effort, Clear to Auscultation Cardiovascular: No Edema, - - Mitral click at apex Abdominal: NL Sounds; No Tenderness; No Distention Lymphatic: No Cervical Adenopathy Extremities: No Edema Skin: No Rash or Ulcers Neurological: Alert and Oriented x 3, NL Muscle Strength and Tone Nutrition: Taking PO's Result Diagrams: 10/27/17 08:45 10/30/17 06:04 Additional Lab and Data: . Microbiology and Other Data: . Assess/Plan/Problems-Billing Assessment: Ms. Bernal is an 82 yo female with a PMH of former smoker with hx of COPD, sys & diastolic CHF, pulm HTN, recent hospitalization with GI bleed 2nd to gastritis with NSTEMI that was treated medically, chronic renal failure with recurrent admission for SOB with hypercapnic and hypoxic respiratory failure who's hospitalization was complicated by flash pulmonary edema improved on NIPPV. - Patient Problems (1) Acute on chronic combined systolic and diastolic congestive heart failure Comment: - Resolved. - Hypercapnic and hypoxic resp failure improved on NIPPV with diuresis. Stable on 1L NC during the day - Patient hypoxic overnight on 1L NC on pulse oximetry study last night, plan to repeat with titration of O2. Patient without significant hypercarbia and no history of documented ELENI so likely unable to obtain CPAP for home until completes sleep study outpatient. - Appreciate cardiology consult - EF dropped from 50-55% in April down to 35% . Plan for aldactone 25 mg QOD alternating with lasix, following K+ and BUN/Cr levels carefully. - Continue metoprolol 12.5 mg Q12 (2) CAD (coronary artery disease) Comment: - Last admission September 17 with NSTEMI - Trops peaked at 17.52 at that time and was medical managed only. History of cardiac cath in 2012 showing 80% stenosis to LAD which was stented. - Appreciate cardiology consultation this admission. Trop peaked .47; Possible CAD - Plan to continue medical management only at this time. Patient may be a canidate for a cath in the future. - Continue atorvastatin and metoprolol (3) Anemia Comment: - Recent GI bleed. No active bleeding noted. HH stable (4) Pulmonary HTN Comment: - Secondary to valvular abnormalites with possible group2 Pulm HTN - Dr. Wood saw patient this hospitalization. Follow with Dr. Wood as outpt (5) Sleep apnea Comment: - O2 at night, plan for pulse oximetry with titration of O2 to determine O2 needs. - Sleep study as outpt (6) Depression Comment: - Continue Zoloft (7) DVT prophylaxis Comment: - SCDs only (8) Full code status Comment: Status and Disposition: Inpatient. At this point, anticipate discharge to home.
[2017-10-31] MEDS: Heparin VIAL(*) 5000 UNITS/ML VIAL (FIVE THOUSAND) SUBCUT SCH ×2 (05:15→13:40)
[2017-10-31] MEDS: Senna TAB PO PRN (08:00)
[2017-10-31] MEDS: Omeprazole CAP* 20 MG PO SCH (08:00)
[2017-10-31] MEDS: Sertraline* 100 MG TAB PO SCH (08:00)
[2017-10-31] MEDS: Metoprolol Succinate XL TAB* 25 MG PO SCH (08:01)
[2017-10-31] MEDS: Docusate CAP* 100 MG PO PRN (08:01)
[2017-10-31] MEDS: Atorvastatin* 10 MG TAB PO SCH (08:01)
[2017-10-31] MEDS: Ferrous Sulfate TAB* 325 MG PO SCH (08:01)
[2017-10-31] MEDS: Potassium Chlor TAB* 20 MEQ TAB.ER PO SCH (08:01)
[2017-10-31] MEDS: Nystatin CREAM* 30 GM TOPICAL SCH ×2 (08:03→13:42)
[2017-10-31] MEDS: Tiotropium CAP.INH* CAP.INH/18 MCG (USE ORDER SET !) INH SCH (08:22)
[2017-10-31] MEDS ORDERED: Furosemide TAB* 20 MG PO SCH ×2 (09:00)
[2017-10-31 15:51] VITALS: BP 121/47
--- NOTE | 2017-11-02 00:14 | DS ---
DISCHARGE SUMMARY: DATE OF ADMISSION: 10/17/17 DATE OF DISCHARGE: 10/31/17 PRIMARY CARE PROVIDER: Zack Henry MD ATTENDING PHYSICIAN WHILE IN THE HOSPITAL: Parminder Chao MD * ( dictated by Chantelle Singletary NP) PRIMARY DIAGNOSES: 1. Acute on chronic diastolic congestive heart failure. 2. Hypertroponinemia. SECONDARY DIAGNOSES: 1. Coronary artery disease. 2. Hypertension. 3. Hyperlipidemia. 4. Acute blood loss anemia. 5. Gastrointestinal bleed. 6. Recent urinary tract infection. STUDIES COMPLETED WHILE IN THE HOSPITAL: She had a chest x-ray on 10/17/17, radiologist's impression: Patchy airspace disease of the right mid lung. Recommend followup until resolution to exclude underlying pulmonary parenchymal pathology. She had several repeat chest x-rays during her admission. The last x- ray was on 10/22/17, again seen are patchy densities, not significantly changed since the 10/20/17 chest x-ray. Depending on clinical presentation, diagnostic possibilities include pulmonary edema, multifocal pneumonia, drug toxicity, or ARDS. She had a CT of the chest on 10/23/17, radiologist's impression: The constellation of findings is most consistent with prominent interstitial pulmonary edema with associated small to moderate dependent pleural effusions, few borderline enlarged mediastinal lymph nodes. She had a transthoracic echocardiogram on 10/20/17, conclusion: There is global hypokinesis of the left ventricle with minor regional variation. There is moderate decreased left ventricular systolic function. Estimated ejection fraction is 35% to 40%. There is left ventricular septal wall motion abnormality observed, possibly due to the presence of left bundle-branch block. The right ventricular global systolic function is low normal. The bubble study was negative. A patent foramen ovale is not demonstrated with color Doppler and agitated contrast. There is a trace aortic regurgitation. There is moderate MR. There is mild to moderate TX. The right ventricular systolic pressure is estimated at 47 mmHg with evidence of moderate pulmonary hypertension. There is no significant pericardial effusion. Compared to study on 10/07/17, the LV function is much lower. The valve abnormalities are about the same. Her last EKG on 10/22/17 showed sinus tachycardia at a rate of 116 with a bundle-branch block. DISCHARGE MEDICATIONS: 1. Furosemide 20 mg p.o. every other day. 2. Metoprolol succinate 12.5 mg p.o. b.i.d. 3. Potassium chloride 20 mEq p.o. daily. 4. Spiriva inhaler 1 p.o. daily. 5. Spironolactone 25 mg p.o. every other day, alternate with Lasix. Continued home medications: 1. Prilosec 20 mg p.o. b.i.d. 2. Pravastatin 40 mg p.o. daily. 3. Sertraline 100 mg p.o. daily. 4. Ferrous sulfate 325 mg p.o. daily. HISTORY OF PRESENT ILLNESS AND HOSPITAL COURSE: Ms. Bernal is an 82-year-old female with past medical history significant for coronary artery disease, hypertension, hyperlipidemia, diastolic heart failure, depression who was recently hospitalized from 10/07/17 to 10/11/17 with non-STEMI secondary to a GI bleed. The patient states that she has been feeling well since discharge and developed some shortness of breath last evening. She denies any recent fever, chills, chest pain, nausea, vomiting, or diarrhea. Per daughter, she has noted some blood in her stool this morning. She has been complaining of bilateral upper arm pain since discharge. The patient also reports a cough and shortness of breath with exertion and general malaise. The daughter states that she has been fixing most of the meals for her mother. Due to her increased shortness of breath, she presented to the emergency room for further evaluation. While in the emergency room, the patient's labs showed BNP of 2253 , hemoglobin and hematocrit were unchanged from her previous discharge. Her EKG showed sinus rhythm with bundle-branch block. The patient was requiring 3 L of oxygen via nasal cannula and her baseline is generally room air. During her hospitalization, she was seen and consulted by Cardiology who felt that optimizing her medical treatment of her acute on chronic diastolic congestive heart failure was appropriate treatment at this time. In the future, when we have a known cause of her GI bleeding, the possibility of a repeat cardiac catheterization would be appropriate. She was seen and consulted by Gastroenterology who recommended not repeating an upper endoscopy. During this hospitalization, her hemoglobin and hematocrit remained stable. Her last H and H was 9.6 and 31. On admission, it was 8.4 and 27. She was found to have an elevated BNP. She was given diuresis throughout the hospitalization, which improved her congestive heart failure. She was able to maintain oxygen saturations on room air at the time of discharge between 94% and 99%. During this hospitalization, she was placed in the ICU. She needed continued rescue ventilation, aeration with BiPAP. She did continue to improve throughout her hospitalization and was able to maintain O2 saturations on room air of 94% to 99 %. She was monitored on telemetry throughout her hospitalization. Her congestive heart failure resolved. The patient did have O2 sat monitoring overnight, which showed approximate 3 minute dip below 88% while on 1 L nasal cannula. At this time, Ms. Bernal is stable for discharge home. Ms. Bernal will be discharged home today. Vital signs are as follows: Blood pressure 121/47, heart rate is 72, respirations are 20, O2 saturation 99% on room air. REVIEW OF SYSTEMS: She denies any fever or chills. Denies any nausea, vomiting or diarrhea. Denies any abdominal pain. Denies any chest pain or shortness of breath. PHYSICAL EXAMINATION: General: Appears comfortable, sitting on the edge of the bed, no acute distress. She is alert and oriented. Neck: Trachea is midline. Respiratory: Symmetrical chest expansion and respiratory effort. Clear to auscultation bilaterally. No wheezes, rales, or rhonchi. Cardiovascular: No edema. Positive for murmur noted. Abdomen: Normal sounds. No tenderness. No distention. Extremities: No edema. Skin: No rashes, ulcers, or lesions. Neurologic: She is alert and oriented x3. Muscle strength and tone within normal limits. Nutrition: She is taking p.o. intake without any issues. DISCHARGE PLAN: Ms. Bernal will be discharged home today. Activity as tolerated. 1. Acute on chronic diastolic congestive heart failure. She will be placed on Lasix 20 mg p.o. every other day alternating with Aldactone 25 mg p.o. every other day. She should continue metoprolol 12.5 mg p.o. b.i.d. Her losartan was discontinued due to her hypotension during this hospitalization. I recommend that she follow up with Cardiology next week. I also recommended she follows up with her primary care provider. She was advised to continue on her heart healthy low sodium diet, no more than 2 g daily. She was also advised to do daily weights and report a weight gain of more than 2 pounds in 24 hours. The patient will take potassium supplement 20 mEq p.o. daily. 2. Anemia. It was stable throughout her hospitalization. There was no acute blood loss anemia. She did not have any GI bleeding. The patient should continue ferrous sulfate 325 mg p.o. daily. 3. Coronary artery disease. She should continue on metoprolol 12.5 mg p.o. daily as well as pravastatin 40 mg p.o. daily. 4. Chronic obstructive pulmonary disease. I placed her on Spiriva 1 cap inhaled daily. The patient should also have an outpatient sleep study completed for further evaluation of possible sleep apnea. 5. Recent GI bleed. The patient was placed on omeprazole 20 mg p.o. b.i.d. 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 She should also follow up with her primary care provider. The patient was instructed to return to the emergency room for any chest pain, shortness of breath, or any other concerning symptoms. This is a summarization of a complex long hospitalization. For further details , please see the entire medical record. TIME SPENT: Time spent on this discharge was approximately 60 minutes, greater than half the time was spent with the patient discussing discharge plans and instructions. CONDITION AT DISCHARGE: Stable. CHANTELLE SINGLETARY NP [id number]/[facility] #: [id number] MARIUM
== END 2017-10-31 18:25 | disposition home or self-care (01) | DRG 280 ==
LOC: ED 11:50 → ICU 14:23 → MED 10-18 14:17 → ICU 10-18 17:33 → MEDTELE 10-19 15:04 → ICU 10-20 06:09 → MEDTELE 10-22 15:48 → ICU 10-22 22:39 → MED 10-26 09:47
PROVIDERS: ADMIT Student in an Organized Health Care Education/Training Program; ATTEND Student in an Organized Health Care Education/Training Program
PROC: 5A09357 Assistance with Respiratory Ventilation, Less than 24 Consecutive Hours, Continuous Positive Airway Pressure (ICD-10-PCS; principal; 2017-10-17)
DX: I13.0 Hypertensive heart and chronic kidney disease with heart failure and stage 1 through stage 4 chronic kidney disease, or unspecified chronic kidney disease (principal); I21.4 Non-ST elevation (NSTEMI) myocardial infarction; J96.21 Acute and chronic respiratory failure with hypoxia; I50.43 Acute on chronic combined systolic (congestive) and diastolic (congestive) heart failure; K92.2 Gastrointestinal hemorrhage, unspecified; N17.9 Acute kidney failure, unspecified; K92.1 Melena; D62 Acute posthemorrhagic anemia; I25.10 Atherosclerotic heart disease of native coronary artery without angina pectoris; E78.5 Hyperlipidemia, unspecified; F32.9 Major depressive disorder, single episode, unspecified; R59.0 Localized enlarged lymph nodes; J44.9 Chronic obstructive pulmonary disease, unspecified; I44.7 Left bundle-branch block, unspecified; N18.3 Chronic kidney disease, stage 3 (moderate); I08.3 Combined rheumatic disorders of mitral, aortic and tricuspid valves; I42.9 Cardiomyopathy, unspecified; J98.09 Other diseases of bronchus, not elsewhere classified; E66.9 Obesity, unspecified; K29.70 Gastritis, unspecified, without bleeding; G47.30 Sleep apnea, unspecified; I27.20 Pulmonary hypertension, unspecified; K57.90 Diverticulosis of intestine, part unspecified, without perforation or abscess without bleeding; Z79.51 Long term (current) use of inhaled steroids; Z95.5 Presence of coronary angioplasty implant and graft; Z82.49 Family history of ischemic heart disease and other diseases of the circulatory system; Z87.891 Personal history of nicotine dependence; Z72.89 Other problems related to lifestyle; Z87.01 Personal history of pneumonia (recurrent); Z87.440 Personal history of urinary (tract) infections
CPT/HCPCS: 36415; 36600; 71045; 71250; 80048; 80053; 82272; 82553; 82803; 83605; 83735; 83880; 84100; 84484; 85014; 85018; 85025; 85027; 86850; 86900; 86901; 93005; 93306; 94640; 94660; 94762; 99283; A9270-GY; C1751; G8978-GP-CI; G8978-GP-CJ; G8979-GP-CH; J1120; J1644; J1940; J2270

== ENCOUNTER 2017-11-07 21:36 | Observation (INO) | payer MEDICARE ==
[2017-11-08 00:06] LABS: INR 0.96 (0.77-1.02)
[2017-11-08 00:21] LABS: ABS Basophils 0.1 10^3/ul (0-0.2); ABS Eosinophils 0.7 10^3/ul (0-0.6); ABS Lymphocytes 1.8 10^3/ul (1.0-4.8); ABS Monocytes 1.1 10^3/ul (0-0.8); ABS Neutrophils 6.1 10^3/ul (1.5-7.7); Hematocrit 29 % (35-47); Hemoglobin 8.9 g/dl (12.0-16.0); Mean Corpuscular HGB Conc 31 g/dl (31-36); Mean Corpuscular Hemoglobin 24 pg (27-31); Mean Corpuscular Volume 76 fL (80-97); Red Blood Count 3.76 10^6/ul (4.0-5.4); Red Cell Distribution Width 26 % (10.5-15); White Blood Count 9.8 10^3/ul (3.5-10.8)
[2017-11-08] MEDS ORDERED: Furosemide IV* 10 MG/ML VIAL (40 MG) IV SLOW PU ONE (00:33)
--- NOTE | 2017-11-08 00:53 | ED ---
Lincoln Mims Rebecca, scribed for Garth Buchanan MD on 11/07/17 at 2318 . HPI Chest Pain - HPI Summary HPI Summary: Pt is an 82 y/o F who presents to ED c/o CP. Pain began at 2030 tonight while in the bathroom. Pain was located in the left lateral chest and resolved after approximately 1 hour. Confirms she remembers the episode. Sx are still resolved. Additionally c/o SOB that began at the same time. Uses 1.5 L of O2 at night, which her daughter placed after onset, which improved SOB. Denies diaphoresis. Pt lives alone, but her daughters live nearby and are often with the pt. - History of Current Complaint Chief Complaint: EDChestPainROMI Time Seen by Provider: 11/07/17 23:05 Hx Obtained From: Patient Onset/Duration: Started Hours Ago, Resolved Time of Onset: 20:30 Current Severity: None Pain Intensity: 0 Pain Scale Used: 0-10 Numeric Chest Pain Location: Left Lateral Aggravating Factor(s): Nothing Alleviating Factor(s): Oxygen - SOB, Spontaneous Resolution - CP Associated Signs and Symptoms: Positive: Shortness of Breath - resolved - Additional Pertinent History Primary Care Physician: [id number] - Allergy/Home Medications Allergies/Adverse Reactions: Allergies Allergy/AdvReac Type Severity Reaction Status Date / Time No Known Allergies Allergy Verified 10/17/17 12:05 Home Medications: Home Medications Pravastatin Sodium [Pravastatin Sodium] 40 mg PO DAILY 11/07/17 [History Confirmed 11/07/17] PMH/Surg Hx/FS Hx/Imm Hx Endocrine/Hematology History: Reports: Hx Anemia Denies: Hx Anticoagulant Therapy, Hx Blood Disorders, Hx Blood Transfusions, Hx Bone Marrow Disease, Hx Diabetes, Hx Systemic Lupus Erythematosus, Hx Sickle Cell Disease, Hx Thyroid Disease, Hx Unexplained Bleeding, Other Endocrine/ Hematological Disorders Cardiovascular History: Reports: Hx Angina, Hx Congestive Heart Failure - , Hx Coronary Artery Disease, Hx Embolism, Hx Hypercholesterolemia, Hx Hypertension, Other Cardiovascular Problems/Disorders - cardiomyopathy EF 55%, stent at [place] Denies: Hx Aneurysm, Hx Angioplasty, Hx Auto Implanted Cardiovert Defib, Hx Cardiac Arrest, Hx Cardiomegaly, Hx Congenital Heart Disease, Hx Deep Vein Thrombosis, Hx Hypotension, Hx Myocardial Infarction, Hx Pacemaker/ICD, Hx Peripheral Vascular Disease, Hx Rheumatic Fever, Hx Syncope, Hx Valvular Heart Disease Respiratory History: Reports: Hx Pneumonia Denies: Hx Asthma, Hx Chronic Bronchitis, Hx Chronic Obstructive Pulmonary Disease (COPD), Hx Cystic Fibrosis, Hx Lung Cancer, Hx Pleural Effusion, Hx Pulmonary Edema, Hx Pulmonary Embolism, Hx Seasonal Allergies, Hx Sleep Apnea, Other Respiratory Problems/Disorders GI History: Denies: Hx Cirrhosis, Hx Crohn's Disease, Hx Diverticulosis, Hx Gall Bladder Disease, Hx Gastroesophageal Reflux Disease, Hx Gastrointestinal Bleed, Hx Hiatal Hernia, Hx Irritable Bowel, Hx Jaundice, Hx Obstructive Bowel, Hx Ileostomy, Hx Pyloric Stenosis, Hx Ulcer, Other GI Disorders History: Denies: Hx Acute Renal Failure, Hx Benign Prostatic Hyperplasia, Hx Chronic Renal Failure, Hx Dialysis, Hx Kidney Infection, Hx Kidney Stones, Other Problems/Disorders Musculoskeletal History: Reports: Hx Orthopedic Injury - 12/06/12: Knee surgery x 46yrs ago Denies: Hx Arthritis, Hx Back Problems, Hx Bursitis, Hx Congenital Bone Abnormalities, Hx Fibromyalgia, Hx Gout, Hx Osteoporosis, Hx Scoliosis, Hx Tendonitis, Other Musculoskeletal History Sensory History: Reports: Hx Contacts or Glasses, Hx Vision Problem - 12/06/12: glasses for reading Denies: Hx Cataracts, Hx Eye Injury, Hx Eye Prosthesis, Hx Glaucoma, Hx Macular Degeneration, Hx Hearing Aid, Hx Hearing Problem, Other Sensory Impairments Opthamlomology History: Reports: Hx Contacts or Glasses, Hx Vision Problem - : glasses for reading Denies: Hx Cataracts, Hx Eye Injury, Hx Eye Prosthesis, Hx Glaucoma, Hx Macular Degeneration, Other Sensory Impairments Neurological History: Denies: Hx Dementia, Hx Developmental Delay, Hx Headaches, Hx Migraine, Hx Nerve Disease, Hx Seizures, Hx Spinal Cord Injury, Hx Transient Ischemic Attacks (TIA), Other Neuro Impairments/Disorders Psychiatric History: Reports: Hx Depression Denies: Hx Anxiety, Hx Attention Deficit Hyperactivity Disorder, Hx Eating Disorder, Hx Panic Disorder, Hx Post Traumatic Stress Disorder, Hx Inpatient Treatment, Hx Community Mental Health Tx, Hx Schizophrenia, Hx Bipolar Disorder , Hx Suicide Attempt, Hx of Violent Episodes Against Others, Hx Substance Abuse , Other Psychiatric Issues/Disorders - Cancer History Hx Chemotherapy: No Hx Radiation Therapy: No - Surgical History Surgery Procedure, Year, and Place: 12/06/12: knee surgery 40yrs ago. 12/06/12 : ectopic approx 40yrs ago Hx Anesthesia Reactions: No - Immunization History Immunizations Up to Date: Yes Infectious Disease History: No Infectious Disease History: Denies: Hx Clostridium Difficile, Hx Hepatitis, Hx Human Immunodeficiency Virus (HIV), Hx of Known/Suspected MRSA, Hx Shingles, Hx Tuberculosis, Traveled Outside the [place] in Last 30 Days - Family History Known Family History: Negative: Other - CHF - Social History Alcohol Use: None Hx Substance Use: No Substance Use Type: Reports: None Smoking Status (MU): Former Smoker Type: Cigarettes Review of Systems Negative: Skin Diaphoresis Positive: Chest Pain - resolved Positive: Shortness Of Breath - resolved All Other Systems Reviewed And Are Negative: Yes Physical Exam - Summary Physical Exam Summary: VITAL SIGNS: Reviewed. GENERAL: ~Patient is a well-developed and nourished female who is lying comfortable in the stretcher. Patient is not in any acute respiratory distress. HEAD AND FACE: No signs of trauma. No ecchymosis, hematomas or skull depressions. No sinus tenderness. EYES: PERRLA, EOMI x 2, No injected conjunctiva, no nystagmus. EARS: Hearing grossly intact. Ear canals and tympanic membranes are within normal limits. MOUTH: Oropharynx within normal limits. NECK: Supple, trachea is midline, no adenopathy, no JVD, no carotid bruit, no c- spine tenderness, neck with full ROM. CHEST: Symmetric, no tenderness at palpation LUNGS: Clear to auscultation bilaterally. No wheezing or crackles. CVS: Regular rate and rhythm, S1 and S2 present, no murmurs or gallops appreciated. ABDOMEN: Soft, non-tender. No signs of distention. No rebound no guarding, and no masses palpated. Bowel sounds are normal. EXTREMITIES: FROM in all major joints, no edema, no cyanosis or clubbing. NEURO: Alert and oriented x 3. No acute neurological deficits. Speech is normal and follows commands. SKIN: Dry and warm, pale Triage Information Reviewed: Yes Vital Signs On Initial Exam: Initial Vitals Pulse BP Pulse Ox 92 117/74 96 11/07/17 21:48 11/07/17 21:48 11/07/17 21:48 Vital Signs Reviewed: Yes Diagnostics - Vital Signs Vital Signs Temp Pulse Resp BP Pulse Ox 11/07/17 21:51 97.6 F 84 20 117/74 97 11/07/17 21:49 89 16 98 11/07/17 21:48 92 117/74 96 - Laboratory Result Diagrams: 11/07/17 23:34 11/07/17 23:34 Lab Statement: Any lab studies that have been ordered have been reviewed, and results considered in the medical decision making process. - Radiology CXR Xray Interpretation: Positive (See Comments) - Cardiomegaly and bilateral venous congestion. Pending official report. Radiology Interpretation Completed By: ED Physician - EKG 2333 Cardiac Rate: NL - 87 bpm EKG Interpretation: Bigeminy. LBBB. Re-Evaluation - Re-Evaluation First Eval Re-Evaluation Time: 00:37 Comment: Discussed results and admission plan. Chest Pain Course/Dx - Course Assessment/Plan: Pt is an 82 y/o F who presents to ED c/o CP and SOB, beginnign at 2030 tonight while in the bathroom, resolved completely after 1 hour. Confirms she remembers the episode. Sx are still resolved. Uses 1.5 L of O2 at night, which her daughter placed after onset, which improved SOB. Denies diaphoresis. Blood work was done including a troponin of 0.01. CXR reveals cardiomegaly with bilateral venous congestion. EKG is sinus rhythm with bigeminy and LBBB. In the ED course, pt received Lasix. Discussed care of pt with Dr. Freitas who accepts pt for admission. Pt will be admitted with Dx of chest pain and CHF. She and her family understand and agree. - Diagnoses Provider Diagnoses: CHF (congestive heart failure), Chest pain Discharge - Sign-Out/Discharge Documenting (check all that apply): Discharge/Admit/Transfer - Admit - Discharge Plan Condition: Stable Disposition: ADMITTED TO [facility] Referrals: Zack Henry MD [Primary Care Provider] - The documentation as recorded by the Lincoln stahl Rebecca accurately reflects the service I personally performed and the decisions made by me, Garth Buchanan MD.
--- NOTE | 2017-11-08 01:05 | HP ---
H&P (Free Text) History and Physical: Date/Time: 11/08/2017 0110 CC: SOB HPI: Mrs Bernal is an 81YO demented female HX CAD, HTN, HLD who was admitted to [facility] 10/07-10/11/2017 and again 10/17-10/31/2017 for cardiac issues and GI bleeding please refer to those H&P/DC summaries for more information. She reports gradual worsening of SOB since discharge despite taking meds and following diet as advised. Tonight she developed some non-exertional L chest aching radiating to the L axilla/side associated with SOB, but no N/V, sweating , palpitations, or light-headedness. The chest pain resolved spontaneously after ~1 hour and the SOB resolved with donning her 1.5L oxygen via NC. She denies s/s at this time. PMedHx CAD/DE/stent diastolic HF HTN HLD depression Ambulatory Orders Sertraline* [Zoloft*] 100 mg PO DAILY 10/06/17 Ferrous Sulfate TAB* 325 mg PO DAILY #30 tab 10/11/17 Omeprazole CAP* [Prilosec CAP* 20 MG] 20 mg PO BID #60 cap.dr 10/11/17 Spironolactone TAB* [Aldactone TAB 25 MG*] 25 mg PO EVERY OTHER DAY #15 tab Tiotropium CAP.INH* [Spiriva CAP.INH*] 1 cap INH DAILY #30 cap.inh 10/31/17 Pravastatin Sodium [Pravastatin Sodium] 40 mg PO DAILY 11/07/17 Allergies No Known Allergies Allergy (Verified 10/17/17 12:05) SocHx: quit smoking ~35years ago, rare alcohol, no recreational drugs; lives alone, 3 adult daughters; full code status FamHx: reviewed, non-contributory ROS: as above, otherwise reviewed and all were negative vitals: Vital Signs Temp 36.4 C 11/07/17 21:51 Pulse 57 11/07/17 23:48 Resp 18 11/07/17 23:48 BP 136/54 11/07/17 23:48 Pulse Ox 96 11/07/17 23:48 Intake & Output 11/07/17 11/07/17 11/08/17 11:59 23:59 11:59 Weight 72.575 kg Constitutional: NAD, normally developed, obese elderly white female HEENM: atraumatic; sclera/conjunctiva: anicteric/clear; hearing: moderately decreased; oropharynx: clear, mucosa moist Neck: soft tissue: non-tender; thyroid: normal Pulmonary: clear to auscultation bilaterally, fair to good aeration, no accessory muscle use CV: RR/RR, normal S1S2, no carotid bruit, no jugular venous distention, 1+ B DP/ PT, trace BLE edema Abdominal: soft, non-distended, non-tender, no rebound/guarding/rigidity, normoactive bowel sounds, no hepatosplenomegaly or masses, no costovertebral angle tenderness Musculoskeletal: general: grossly intact, no palpable tenderness Integumental: pale appearance, normal texture of exposed skin Psychiatric orientation: AA&O to PPS affect: calm, mildly confused mood: cooperative eye contact: fair content: somewhat reliable memory: poor responses: mildly slowed insight: poor Testing: Lab Results 11/07/17 11/07/17 11/07/17 Range/Units 23:34 23:34 23:34 WBC 9.8 (3.5-10.8) 10^3/ul RBC 3.76 L (4.0-5.4) 10^6/ul Hgb 8.9 L (12.0-16.0) g/dl Hct 29 L (35-47) % MCV 76 L (80-97) fL MCH 24 L (27-31) pg MCHC 31 (31-36) g/dl RDW 26 H (10.5-15) % Plt Count Pending MPV Pending Neut % (Auto) Pending Lymph % (Auto) Pending Marin % (Auto) Pending Eos % (Auto) Pending Baso % (Auto) Pending Absolute Neuts (auto) 6.1 (1.5-7.7) 10^3/ul Absolute Lymphs (auto) 1.8 (1.0-4.8) 10^3/ul Absolute Monos (auto) 1.1 H (0-0.8) 10^3/ul Absolute Eos (auto) 0.7 H (0-0.6) 10^3/ul Absolute Basos (auto) 0.1 (0-0.2) 10^3/ul Absolute Nucleated RBC Pending Nucleated RBC % Pending INR (Anticoag Therapy) 0.96 (0.77-1.02) APTT 29.2 (26.0-36.3) seconds Sodium 136 L (139-145) mmol/L Potassium 4.8 (3.5-5.0) mmol/L Chloride 108 (101-111) mmol/L Carbon Dioxide 24 (22-32) mmol/L Anion Gap 4 (2-11) mmol/L BUN 26 H (6-24) mg/dL Creatinine 1.51 H (0.51-0.95) mg/dL Est GFR ( Amer) 42.4 (>60) Est GFR (Non-Af Amer) 33.0 (>60) BUN/Creatinine Ratio 17.2 (8-20) Glucose 125 H (70-100) mg/dL Calcium 8.3 L (8.6-10.3) mg/dL Magnesium 2.3 (1.9-2.7) mg/dL Total Bilirubin 0.60 (0.2-1.0) mg/dL AST 17 (13-39) U/L ALT 16 (7-52) U/L Alkaline Phosphatase 65 (34-104) U/L Troponin I 0.01 (<0.04) ng/mL B-Natriuretic Peptide ( - 100) pg/mL Total Protein 6.3 L (6.4-8.9) g/dL Albumin 3.3 (3.2-5.2) g/dL Globulin 3.0 (2-4) g/dL Albumin/Globulin Ratio 1.1 (1-3) 05/25/18 Range/Units 23:34 WBC (3.5-10.8) 10^3/ul RBC (4.0-5.4) 10^6/ul Hgb (12.0-16.0) g/dl Hct (35-47) % MCV (80-97) fL MCH (27-31) pg MCHC (31-36) g/dl RDW (10.5-15) % Plt Count MPV Neut % (Auto) Lymph % (Auto) Marin % (Auto) Eos % (Auto) Baso % (Auto) Absolute Neuts (auto) (1.5-7.7) 10^3/ul Absolute Lymphs (auto) (1.0-4.8) 10^3/ul Absolute Monos (auto) (0-0.8) 10^3/ul Absolute Eos (auto) (0-0.6) 10^3/ul Absolute Basos (auto) (0-0.2) 10^3/ul Absolute Nucleated RBC Nucleated RBC % INR (Anticoag Therapy) (0.77-1.02) APTT (26.0-36.3) seconds Sodium (139-145) mmol/L Potassium (3.5-5.0) mmol/L Chloride (101-111) mmol/L Carbon Dioxide (22-32) mmol/L Anion Gap (2-11) mmol/L BUN (6-24) mg/dL Creatinine (0.51-0.95) mg/dL Est GFR ( Amer) (>60) Est GFR (Non-Af Amer) (>60) BUN/Creatinine Ratio (8-20) Glucose (70-100) mg/dL Calcium (8.6-10.3) mg/dL Magnesium (1.9-2.7) mg/dL Total Bilirubin (0.2-1.0) mg/dL AST (13-39) U/L ALT (7-52) U/L Alkaline Phosphatase (34-104) U/L Troponin I (<0.04) ng/mL B-Natriuretic Peptide 2144 H ( - 100) pg/mL Total Protein (6.4-8.9) g/dL Albumin (3.2-5.2) g/dL Globulin (2-4) g/dL Albumin/Globulin Ratio (1-3) ECG, personally reviewed: sinus LBBB rate 87, frequent PVCs vs ventricular bigeminy CXR, personally reviewed: interval improvement in pulmonary edema Impression: 82F HX CAD/DE/stent recently discharged after prolonged stays at [facility] for CHF represents for same DIAGNOSIS & PLAN Primary CHF : poor prognosis given recent admissions w/ refractory CHF : furosemide diuresis : supplemental oxygen : telemetry Secondary CAD/DE/stent : review meds once reconciled HTN : review meds once reconciled HLD : review meds once reconciled depression : review meds once reconciled Admission Rational: inpatient for refractory CHF in patient at very high risk for mortality DVTp: heparin SQ & SCDs Code Status: full, needs revisiting HCP: daughterEvelia
[2017-11-08] MEDS ORDERED: Albuterol 2.5 MG/3 ML NEB.SOL* (0.083%) INH PRN (01:13)
[2017-11-08] MEDS ORDERED: Acetaminophen TAB* 325 MG PO PRN (01:13)
[2017-11-08] MEDS ORDERED: Ondansetron ODT TAB* 4 MG PO PRN (01:13)
[2017-11-08] MEDS ORDERED: CMCS:Melatonin (NF) 3 MG TAB PO PRN (01:13)
[2017-11-08 01:28] LABS: ABS Nucleated RBC 0 10^3/ul; Eosinophil % 7.2 % (0-6); Lymphocyte % 18.7 % (25-47); Nucleated Red Blood Cells % 0; Platelet Count 124 10^3/ul (150-450)
[2017-11-08 05:46] LABS: EGFR Non-African American 33.8 (>60)
[2017-11-08 05:49] LABS: Hematocrit 29 % (35-47); Hemoglobin 9.1 g/dl (12.0-16.0); Mean Corpuscular HGB Conc 32 g/dl (31-36); Mean Corpuscular Hemoglobin 24 pg (27-31); Mean Corpuscular Volume 76 fL (80-97); Red Blood Count 3.76 10^6/ul (4.0-5.4); Red Cell Distribution Width 26 % (10.5-15); White Blood Count 9.4 10^3/ul (3.5-10.8)
[2017-11-08] MEDS ORDERED: Omeprazole CAP* 20 MG PO SCH (06:00)
[2017-11-08] MEDS: Omeprazole CAP* 20 MG PO SCH ×2 (07:50→17:16)
[2017-11-08] MEDS: Atorvastatin* 10 MG TAB PO SCH (07:50)
[2017-11-08] MEDS: Docusate CAP* 100 MG PO SCH ×2 (07:50→20:07)
[2017-11-08] MEDS: Ferrous Sulfate TAB* 325 MG PO SCH (07:50)
[2017-11-08] MEDS: Tiotropium CAP.INH* CAP.INH/18 MCG (USE ORDER SET !) INH SCH (07:58)
[2017-11-08] MEDS ORDERED: Furosemide IV* 10 MG/ML VIAL (40 MG) IV SCH (08:00)
--- NOTE | 2017-11-08 08:06 | RAD ---
HISTORY: Chest pain COMPARISONS: October 22, 2017 VIEWS: 1: frontal portable view of the chest at 11:24 PM FINDINGS: LINES AND TUBES: None. CARDIOMEDIASTINAL SILHOUETTE: The cardiomediastinal silhouette is stable. PLEURA: The costophrenic angles are sharp. No pleural abnormalities are noted. LUNG PARENCHYMA: There is mild prominence of the central pulmonary vasculature. ABDOMEN: The upper abdomen is clear. There is no subphrenic gas. BONES AND SOFT TISSUES: No bone or soft tissue abnormalities are noted. IMPRESSION: MILD PULMONARY VASCULAR CONGESTION.
[2017-11-08] MEDS ORDERED: Spiriva Inhaler DEVICE* 1 EACH DEVICE INH ONE (09:00)
[2017-11-08] MEDS ORDERED: Spironolactone TAB* 25 MG PO SCH (09:00)
[2017-11-08] MEDS ORDERED: Sertraline* 100 MG TAB PO SCH (09:00)
--- NOTE | 2017-11-08 10:51 | PN ---
Subjective Date of Service: 11/08/17 Interval History: Less SOB. Slept well last night. Only had trouble with dyspnea while walking at home. No new c/o. Objective Active Medications: Acetaminophen (Tylenol Tab*) 650 mg PO Q6H PRN PRN Reason: FEVER/PAIN Albuterol (Ventolin 2.5 Mg/3 Ml Neb.Makenna*) 2.5 mg INH Q2H PRN PRN Reason: SOB/WHEEZING Atorvastatin Calcium (Lipitor*) 10 mg PO DAILY [facility] Last Admin: 11/08/17 07:50 Dose: 10 mg Docusate Sodium (Colace Cap*) 200 mg PO BID [facility] Last Admin: 11/08/17 07:50 Dose: 200 mg Ferrous Sulfate (Ferrous Sulfate Tab*) 325 mg PO DAILY [facility] Last Admin: 11/08/17 07:50 Dose: 325 mg Furosemide (Lasix Tab*) 20 mg PO DAILY [facility] Heparin Sodium (Porcine) (Heparin Vial(*)) 5,000 units SUBCUT Q8HR [facility] Iron Sucrose 200 mg/ Sodium (Chloride) 110 mls @ 110 mls/hr IVPB ONCE ONE Stop: 11/08/17 11:44 Omeprazole (Prilosec Cap*) 20 mg PO BID [facility] Last Admin: 11/08/17 07:50 Dose: 20 mg Ondansetron HCl (Zofran Odt Tab*) 4 mg PO Q6H PRN PRN Reason: n/v Sertraline HCl (Zoloft*) 100 mg PO DAILY [facility] Last Admin: 11/08/17 07:50 Dose: 100 mg Spironolactone (Aldactone Tab*) 25 mg PO DAILY [facility] Tiotropium [place] (Spiriva Cap.Inh*) 1 cap INH DAILY [facility] Last Admin: 11/08/17 07:58 Dose: 1 cap.inh Vital Signs - 8 hr 11/08/17 11/08/17 11/08/17 05:31 07:28 07:59 Temperature 97.8 F Pulse Rate 68 90 Respiratory 16 18 Rate Blood Pressure 150/53 (mmHg) O2 Sat by Pulse 98 Oximetry 11/08/17 11/08/17 08:06 08:44 Temperature 97.5 F Pulse Rate 76 75 Respiratory 17 18 Rate Blood Pressure 103/57 (mmHg) O2 Sat by Pulse 100 100 Oximetry Oxygen Devices in Use Now: None Appearance: Alert, in a chair. In good spirits. Looks comfortable. Eyes: No Scleral Icterus Neck: NL Appearance and Movements; NL JVP, No Thyroid Enlargement, Masses Respiratory: Symmetrical Chest Expansion and Respiratory Effort, Clear to Auscultation, Clear to Percussion Cardiovascular: NL Sounds; No Murmurs; No JVD, No Edema, - - Radial pulse 30 while apical rate 60. V Bigeminy on monitor. Extremities: No Edema, No Clubbing, Cyanosis, - Skin: No Rash or Ulcers, No Nodules or Sclerosis, - Neurological: Alert and Oriented x 3, NL Sensation Result Diagrams: 11/08/17 04:58 11/08/17 04:58 Assess/Plan/Problems-Billing Assessment: - Patient Problems (1) Acute on chronic combined systolic and diastolic congestive heart failure Current Visit: No Status: Acute Code(s): I50.43 - ACUTE ON CHRONIC COMBINED SYSTOLIC AND DIASTOLIC HRT FAIL SNOMED Code(s): 605137483637788 Comment: Improved with IV furosemide. She denies dietary indiscretion. On only QOD spironolactone, no other diuretic at home. Increase spironolactone to 25 mg daily, start po furodsemide 20 mg on 11/09, O2 sat on RA 89-98%. BMP . (2) Anemia Current Visit: No Status: Acute Code(s): D64.9 - ANEMIA, UNSPECIFIED SNOMED Code(s): 995926374 Comment: Hx GI bleed. Hypochromic, likely iron deficien. Add on soluble transferrin receptor. Iron sucrose 200 mg 11/08. (3) CAD (coronary artery disease) Current Visit: No Status: Acute Code(s): I25.10 - ATHSCL HEART DISEASE OF [place] CORONARY ARTERY W/O ANG PCTRS SNOMED Code(s): 88511981 Comment: - Last admission 10/11/17 with NSTEMI - Trops peaked at 17.52 at that time and was medical managed only. History of cardiac cath in 2012 showing 80% stenosis to LAD which was stented. - Continue atorvastatin. Not on anti-platlet drug d? d/t hx GI bleed, not on BB likely did not tolerate. (4) Depression Current Visit: No Status: Acute Code(s): F32.9 - MAJOR DEPRESSIVE DISORDER, SINGLE EPISODE, UNSPECIFIED SNOMED Code(s): 08115237 Comment: Reduce sertraline to 75 mg daily start 11/09. Not depressed .
[2017-11-08] MEDS ORDERED: Iron Sucrose* 200 MG in NS 0.9% 100 ML* 100 ML IVPB ONE (11:00)
[2017-11-08] MEDS: Benzonatate CAP* 100 MG PO PRN (23:01)
[2017-11-09 05:49] LABS: EGFR Non-African American 32.3 (>60)
[2017-11-09] MEDS: Heparin VIAL(*) 5000 UNITS/ML VIAL (FIVE THOUSAND) SUBCUT SCH ×2 (06:39→12:41)
[2017-11-09] MEDS: Omeprazole CAP* 20 MG PO SCH (08:04)
[2017-11-09] MEDS: Ferrous Sulfate TAB* 325 MG PO SCH (08:05)
[2017-11-09] MEDS: Benzonatate CAP* 100 MG PO PRN (08:05)
[2017-11-09] MEDS: Atorvastatin* 10 MG TAB PO SCH (08:05)
[2017-11-09] MEDS: Docusate CAP* 100 MG PO SCH (08:05)
[2017-11-09] MEDS: Tiotropium CAP.INH* CAP.INH/18 MCG (USE ORDER SET !) INH SCH (08:58)
[2017-11-09] MEDS ORDERED: Furosemide TAB* 20 MG PO SCH (09:00)
[2017-11-09] MEDS ORDERED: Sertraline* 25 MG TAB PO SCH (09:00)
[2017-11-09] MEDS ORDERED: Spironolactone TAB* 25 MG PO SCH (09:00)
[2017-11-09 11:21] VITALS: BP 133/55
--- NOTE | 2017-11-09 13:54 | DS ---
CC: Dr. Henry. DISCHARGE SUMMARY: DATE OF ADMISSION: DATE OF DISCHARGE: 11/09/17 HOSPITAL COURSE: This 82-year-old woman presented with shortness of breath. She was recently admitt ed with GI bleeding. She was on aspirin at the time. She had some gastric erosion. She was placed on PPI and aspirin was discontinued. She reports taking her medications as prescribed and following a low-salt diet. The history is detailed in the admission note. The patient was given intravenous furosemide, she responded well. She has chronic kidney disease. H er creatinine was essentially stable. It was 1.51 on admission to 1.54 on the day of discharge. Her potassium was 4.1. Sodium 137 on the day of discharge. Her anemia is not completely resolved. Her MCV has increased to 76. Since her last admission, her h ematocrit was 29 on the day of discharge. As the PPI possibly will interfere with absorption of iron or other factors may to absorb iron well, I did give her a 200 mg dose of iron sucrose while she was in the hospital. couple of weeks, the anemia is considered to be a problem, this dose could be repeated. She will have a BMP in 2 days on 11/11/17. I have increased spironolactone and furosemide to each daily 25 mg and 20 mg respectively. FINAL DIAGNOSES: 1. Congestive heart failure. 2. Chronic kidney disease. 3. Iron deficiency anemia, soluble transferrin receptor level is pending. 4. Coronary artery disease. 5. Depression. I have started patient on a gradual dose reduction of sertraline. DISCHARGE MEDICATIONS: 1. Furosemide 20 mg daily. 2. Sertraline 25 mg 3 tablets daily for 1 week then 2 tablets daily. 3. Spironolactone 25 mg daily. 4. Omeprazole 20 mg b.i.d. 5. Ferrous sulfate 325 mg daily. 6. Tiotropium 1 capsule daily. 7. Pravastatin 40 mg daily. [id number]/[facility] #: [id number]
== END 2017-11-09 14:45 | disposition home or self-care (01) ==
LOC: ED 21:36 → MEDTELE 11-08 01:08 → INTOOBSV 11-08 01:08
PROVIDERS: ADMIT Hospitalist; ATTEND Internal Medicine
DX: I50.43 Acute on chronic combined systolic (congestive) and diastolic (congestive) heart failure (principal); D64.9 Anemia, unspecified; I25.10 Atherosclerotic heart disease of native coronary artery without angina pectoris; R06.02 Shortness of breath; R07.9 Chest pain, unspecified; Z87.891 Personal history of nicotine dependence; I25.2 Old myocardial infarction; Z95.5 Presence of coronary angioplasty implant and graft; I10 Essential (primary) hypertension; E87.5 Hyperkalemia; F32.9 Major depressive disorder, single episode, unspecified
CPT/HCPCS: 36415; 71045; 80048; 80053; 83735; 83880; 84238; 84484; 85025; 85027; 85610; 85730; 93005; 94640; 96374; 96375; 99284; A9270-GY; G0378; J1644; J1756; J1940

== ENCOUNTER 2017-11-09 21:44 | Inpatient (IN) | payer MEDICARE ==
[2017-11-09] MEDS ORDERED: Furosemide IV* 10 MG/ML VIAL (40 MG) IV ONE (22:17)
[2017-11-09 22:58] LABS: ABS Basophils 0.2 10^3/ul (0-0.2); ABS Eosinophils 0.4 10^3/ul (0-0.6); ABS Lymphocytes 1.5 10^3/ul (1.0-4.8); ABS Monocytes 0.8 10^3/ul (0-0.8); ABS Neutrophils 8.1 10^3/ul (1.5-7.7); ABS Nucleated RBC 0 10^3/ul; Eosinophil % 3.8 % (0-6); Hematocrit 31 % (35-47); Hemoglobin 9.6 g/dl (12.0-16.0); Lymphocyte % 13.6 % (25-47); Mean Corpuscular HGB Conc 31 g/dl (31-36); Mean Corpuscular Hemoglobin 24 pg (27-31); Mean Corpuscular Volume 76 fL (80-97); Nucleated Red Blood Cells % 0.1; Red Blood Count 4.07 10^6/ul (4.0-5.4); Red Cell Distribution Width 27 % (10.5-15)
[2017-11-09 23:00] LABS: INR 0.98 (0.77-1.02)
[2017-11-09 23:07] LABS: EGFR Non-African American 31.8 (>60)
[2017-11-09 23:36] LABS: Platelet Count 70 10^3/ul (150-450)
--- NOTE | 2017-11-09 23:39 | HP ---
H&P (Free Text) History and Physical: Date/Time: 11/09/2017 2330 CC: SOB HPI: Mrs Beranl is an 81YO demented female HX CAD, HTN, HLD who [place] [facility]07-10[place]11[place], 10/17-10/31/2017, & again 11/08-11/09/2017 for cardiac issues, GI bleeding, & CHF please refer to those H&P/DC summaries for more information. She was discharged earlier today after admission last PM and returns with recurrent SOB with a newly elevated troponin of 0.10. She had an NSTEMI & upper GI bleed during the 09/2017 admission and so heparin will not be used. We will give aspirin & low dose beta kimberli. Continue furosemide diuresis. If accepting, patient should be considered for Hospice to prevent further admissions and provide comfort in the home setting. PMedHx CAD/CT/stent diastolic HF HTN HLD depression Ambulatory Orders Ferrous Sulfate TAB* 325 mg PO DAILY #30 tab 10/11/17 Omeprazole CAP* [Prilosec CAP* 20 MG] 20 mg PO BID #60 cap.dr 10/11/17 Tiotropium CAP.INH* [Spiriva CAP.INH*] 1 cap INH DAILY #30 cap.inh 10/31/17 Pravastatin Sodium 40 mg PO DAILY 11/07/17 Furosemide TAB* [Lasix TAB*] 20 mg PO DAILY #30 tab 11/09/17 Sertraline* [Zoloft*] 75 mg PO DAILY #90 tab 11/09/17 Spironolactone TAB* [Aldactone TAB 25 MG*] 25 mg PO DAILY #30 tab 11/09/17 Allergies No Known Allergies Allergy (Verified 10/17/17 12:05) SocHx: quit smoking ~35years ago, rare alcohol, no recreational drugs; lives alone, 3 adult daughters; full code status FamHx: reviewed, non-contributory ROS: as above, otherwise reviewed and all were negative vitals: Vital Signs Temp 36.5 C 11/09/17 21:58 Pulse 94 11/09/17 21:58 Resp 18 11/09/17 21:58 BP 134/69 11/09/17 21:58 Pulse Ox 95 11/09/17 22:18 Intake & Output 11/08/17 11/09/17 11/09/17 23:59 11:59 23:59 Weight 72.575 kg Constitutional: NAD, normally developed, obese elderly white female HEENM: atraumatic; sclera/conjunctiva: anicteric/clear; hearing: moderately decreased; oropharynx: clear, mucosa moist Neck: soft tissue: non-tender; thyroid: normal Pulmonary: clear to auscultation bilaterally, fair to good aeration, no accessory muscle use CV: RR/RR, normal S1S2, no carotid bruit, no jugular venous distention, 1+ B DP/ PT, trace BLE edema Abdominal: soft, non-distended, non-tender, no rebound/guarding/rigidity, normoactive bowel sounds, no hepatosplenomegaly or masses, no costovertebral angle tenderness Musculoskeletal: general: grossly intact, no palpable tenderness Integumental: pale appearance, normal texture of exposed skin Psychiatric orientation: AA&O to PPS affect: calm, mildly confused mood: cooperative eye contact: fair content: somewhat reliable memory: poor responses: mildly slowed insight: poor Testing: Lab Results 11/09/17 11/09/17 11/09/17 Range/Units 22:41 22:41 22:41 WBC 11.0 H (3.5-10.8) 10^3/ul RBC 4.07 (4.0-5.4) 10^6/ul Hgb 9.6 L (12.0-16.0) g/dl Hct 31 L (35-47) % MCV 76 L (80-97) fL MCH 24 L (27-31) pg MCHC 31 (31-36) g/dl RDW 27 H (10.5-15) % Plt Count 70 L D (150-450) 10^3/ul MPV 10.0 (7.4-10.4) um3 Neut % (Auto) 73.7 (38-83) % Lymph % (Auto) 13.6 L (25-47) % [place] % (Auto) 7.5 H (0-7) % Eos % (Auto) 3.8 (0-6) % Baso % (Auto) 1.4 (0-2) % Absolute Neuts (auto) 8.1 H (1.5-7.7) 10^3/ul Absolute Lymphs (auto) 1.5 (1.0-4.8) 10^3/ul Absolute Monos (auto) 0.8 (0-0.8) 10^3/ul Absolute Eos (auto) 0.4 (0-0.6) 10^3/ul Absolute Basos (auto) 0.2 (0-0.2) 10^3/ul Absolute Nucleated RBC 0 10^3/ul Nucleated RBC % 0.1 Large Platelets Present Anisocytosis 2+ Elliptocytes 1+ INR (Anticoag Therapy) 0.98 (0.77-1.02) APTT 31.2 (26.0-36.3) seconds Sodium 131 L (139-145) mmol/L Potassium 4.5 (3.5-5.0) mmol/L Chloride 100 L (101-111) mmol/L Carbon Dioxide 24 (22-32) mmol/L Anion Gap 7 (2-11) mmol/L BUN 27 H (6-24) mg/dL Creatinine 1.56 H (0.51-0.95) mg/dL Est GFR ( Amer) 40.9 (>60) Est GFR (Non-Af Amer) 31.8 (>60) BUN/Creatinine Ratio 17.3 (8-20) Glucose 150 H (70-100) mg/dL Lactic Acid (0.5-2.0) mmol/L Calcium 8.6 (8.6-10.3) mg/dL Magnesium 2.2 (1.9-2.7) mg/dL Total Bilirubin 0.90 (0.2-1.0) mg/dL AST 18 (13-39) U/L ALT 16 (7-52) U/L Alkaline Phosphatase 60 (34-104) U/L Troponin I 0.10 H* (<0.04) ng/mL B-Natriuretic Peptide ( - 100) pg/mL Total Protein 6.8 (6.4-8.9) g/dL Albumin 3.6 (3.2-5.2) g/dL Globulin 3.2 (2-4) g/dL Albumin/Globulin Ratio 1.1 (1-3) 11/09/17 11/09/17 Range/Units 22:41 22:41 WBC (3.5-10.8) 10^3/ul RBC (4.0-5.4) 10^6/ul Hgb (12.0-16.0) g/dl Hct (35-47) % MCV (80-97) fL MCH (27-31) pg MCHC (31-36) g/dl RDW (10.5-15) % Plt Count (150-450) 10^3/ul MPV (7.4-10.4) um3 Neut % (Auto) (38-83) % Lymph % (Auto) (25-47) % [place] % (Auto) (0-7) % Eos % (Auto) (0-6) % Baso % (Auto) (0-2) % Absolute Neuts (auto) (1.5-7.7) 10^3/ul Absolute Lymphs (auto) (1.0-4.8) 10^3/ul Absolute Monos (auto) (0-0.8) 10^3/ul Absolute Eos (auto) (0-0.6) 10^3/ul Absolute Basos (auto) (0-0.2) 10^3/ul Absolute Nucleated RBC 10^3/ul Nucleated RBC % Large Platelets Anisocytosis Elliptocytes INR (Anticoag Therapy) (0.77-1.02) APTT (26.0-36.3) seconds Sodium (139-145) mmol/L Potassium (3.5-5.0) mmol/L Chloride (101-111) mmol/L Carbon Dioxide (22-32) mmol/L Anion Gap (2-11) mmol/L BUN (6-24) mg/dL Creatinine (0.51-0.95) mg/dL Est GFR ( Amer) (>60) Est GFR (Non-Af Amer) (>60) BUN/Creatinine Ratio (8-20) Glucose (70-100) mg/dL Lactic Acid 1.1 (0.5-2.0) mmol/L Calcium (8.6-10.3) mg/dL Magnesium (1.9-2.7) mg/dL Total Bilirubin (0.2-1.0) mg/dL AST (13-39) U/L ALT (7-52) U/L Alkaline Phosphatase (34-104) U/L Troponin I (<0.04) ng/mL B-Natriuretic Peptide 1577 H ( - 100) pg/mL Total Protein (6.4-8.9) g/dL Albumin (3.2-5.2) g/dL Globulin (2-4) g/dL Albumin/Globulin Ratio (1-3) ECG, personally reviewed: sinus LBBB rate 91, frequent PVCs CXR, personally reviewed: pulmonary edema Impression: 82F HX CAD/CT/stent admitted 10/07-10/11/2017, 10/17-10/31/2017, & agian 11/08-11/09/2017 for CHF & cardiac issues, represents for same DIAGNOSIS & PLAN Primary CHF : poor prognosis given recent admissions w/ refractory CHF : furosemide diuresis : supplemental oxygen : telemetry elevated troponin : recent NSTEMI 09/2017 : telemetry : trend troponin : aspirin, but no heparin 2nd recent GI bleed 09/2017 : supplemental oxygen : supportive care : consider cardiology consult in AM as a critical stenosis could be provoking her symptoms & she has failed medical management Secondary CAD/CT/stent : review meds once reconciled HTN : review meds once reconciled HLD : review meds once reconciled depression : review meds once reconciled Admission Rational: inpatient for refractory CHF in patient at very high risk for mortality DVTp: heparin SQ & SCDs Code Status: full, needs revisiting HCP: daughter, Evelia
[2017-11-09] MEDS ORDERED: Acetaminophen TAB* 325 MG PO PRN (23:43)
[2017-11-09] MEDS ORDERED: Ondansetron ODT TAB* 4 MG PO PRN (23:44)
[2017-11-09] MEDS ORDERED: Aspirin 81 mg CHEW TAB* 81 MG TAB.CHEW PO ONE (23:44)
--- NOTE | 2017-11-10 03:01 | ED ---
Alia Mims Julia, scribed for Garth Buchanan MD on 11/09/17 at 2212 . Shortness of Breath - HPI Summary HPI Summary: This patient is a 82 year old F BIBA to [facility] with a chief complaint of SOB and CP beginning around 19:00 tonight. Patient was seen in ED for similar symptoms on 11/07/17. Chest pain is currently resolved. PMHx of CHF. - History of Current Complaint Chief Complaint: EDShortnessOfBreath Time Seen by Provider: 11/09/17 22:04 Hx Obtained From: Patient Onset/Duration: Lasting Hours, Still Present Timing: Constant Alleviating Factors: Nothing Associated Signs & Symptoms: Chest Pain Unrelated to Cough Related History: Similar Episode - Allergy/Home Medications Allergies/Adverse Reactions: Allergies Allergy/AdvReac Type Severity Reaction Status Date / Time No Known Allergies Allergy Verified 10/17/17 12:05 PMH/Surg Hx/FS Hx/Imm Hx Endocrine/Hematology History: Reports: Hx Anemia Denies: Hx Anticoagulant Therapy, Hx Blood Disorders, Hx Blood Transfusions, Hx Bone Marrow Disease, Hx Diabetes, Hx Systemic Lupus Erythematosus, Hx Sickle Cell Disease, Hx Thyroid Disease, Hx Unexplained Bleeding, Other Endocrine/ Hematological Disorders Cardiovascular History: Reports: Hx Angina, Hx Congestive Heart Failure - , Hx Coronary Artery Disease, Hx Embolism, Hx Hypercholesterolemia, Hx Hypertension, Other Cardiovascular Problems/Disorders - cardiomyopathy EF 55%, stent at [place] Denies: Hx Aneurysm, Hx Angioplasty, Hx Auto Implanted Cardiovert Defib, Hx Cardiac Arrest, Hx Cardiomegaly, Hx Congenital Heart Disease, Hx Deep Vein Thrombosis, Hx Hypotension, Hx Myocardial Infarction, Hx Pacemaker/ICD, Hx Peripheral Vascular Disease, Hx Rheumatic Fever, Hx Syncope, Hx Valvular Heart Disease Respiratory History: Reports: Hx Pneumonia Denies: Hx Asthma, Hx Chronic Bronchitis, Hx Chronic Obstructive Pulmonary Disease (COPD), Hx Cystic Fibrosis, Hx Lung Cancer, Hx Pleural Effusion, Hx Pulmonary Edema, Hx Pulmonary Embolism, Hx Seasonal Allergies, Hx Sleep Apnea, Other Respiratory Problems/Disorders GI History: Denies: Hx Cirrhosis, Hx Crohn's Disease, Hx Diverticulosis, Hx Gall Bladder Disease, Hx Gastroesophageal Reflux Disease, Hx Gastrointestinal Bleed, Hx Hiatal Hernia, Hx Irritable Bowel, Hx Jaundice, Hx Obstructive Bowel, Hx Ileostomy, Hx Pyloric Stenosis, Hx Ulcer, Other GI Disorders History: Denies: Hx Acute Renal Failure, Hx Benign Prostatic Hyperplasia, Hx Chronic Renal Failure, Hx Dialysis, Hx Kidney Infection, Hx Kidney Stones, Other Problems/Disorders Musculoskeletal History: Reports: Hx Orthopedic Injury - 12/06/12: Knee surgery x 46yrs ago Denies: Hx Arthritis, Hx Back Problems, Hx Bursitis, Hx Congenital Bone Abnormalities, Hx Fibromyalgia, Hx Gout, Hx Osteoporosis, Hx Scoliosis, Hx Tendonitis, Other Musculoskeletal History Sensory History: Reports: Hx Contacts or Glasses, Hx Vision Problem - 12/06/12: glasses for reading Denies: Hx Cataracts, Hx Eye Injury, Hx Eye Prosthesis, Hx Glaucoma, Hx Macular Degeneration, Hx Hearing Aid, Hx Hearing Problem, Other Sensory Impairments Opthamlomology History: Reports: Hx Contacts or Glasses, Hx Vision Problem - : glasses for reading Denies: Hx Cataracts, Hx Eye Injury, Hx Eye Prosthesis, Hx Glaucoma, Hx Macular Degeneration, Other Sensory Impairments Neurological History: Denies: Hx Dementia, Hx Developmental Delay, Hx Headaches, Hx Migraine, Hx Nerve Disease, Hx Seizures, Hx Spinal Cord Injury, Hx Transient Ischemic Attacks (TIA), Other Neuro Impairments/Disorders Psychiatric History: Reports: Hx Depression Denies: Hx Anxiety, Hx Attention Deficit Hyperactivity Disorder, Hx Eating Disorder, Hx Panic Disorder, Hx Post Traumatic Stress Disorder, Hx Inpatient Treatment, Hx Community Mental Health Tx, Hx Schizophrenia, Hx Bipolar Disorder , Hx Suicide Attempt, Hx of Violent Episodes Against Others, Hx Substance Abuse , Other Psychiatric Issues/Disorders - Cancer History Hx Chemotherapy: No Hx Radiation Therapy: No - Surgical History Surgery Procedure, Year, and Place: 12/06/12: knee surgery 40yrs ago. 12/06/12 : ectopic approx 40yrs ago Hx Anesthesia Reactions: No Infectious Disease History: No Infectious Disease History: Denies: Hx Clostridium Difficile, Hx Hepatitis, Hx Human Immunodeficiency Virus (HIV), Hx of Known/Suspected MRSA, Hx Shingles, Hx Tuberculosis, Traveled Outside the [place] in Last 30 Days - Family History Known Family History: Negative: Other - CHF - Social History Alcohol Use: Occasionally Hx Substance Use: No Substance Use Type: Reports: None Smoking Status (MU): Former Smoker Type: Cigarettes Review of Systems Positive: Chest Pain Positive: Shortness Of Breath All Other Systems Reviewed And Are Negative: Yes Physical Exam - Summary Physical Exam Summary: VITAL SIGNS: Reviewed. GENERAL: Patient is a well-developed and nourished femalewho is lying comfortable in the stretcher. Patient is not in any acute respiratory distress. HEAD AND FACE: No signs of trauma. No ecchymosis, hematomas or skull depressions. No sinus tenderness. EYES: PERRLA, EOMI x 2, No injected conjunctiva, no nystagmus. EARS: Hearing grossly intact. Ear canals and tympanic membranes are within normal limits. MOUTH: Oropharynx within normal limits. NECK: Supple, trachea is midline, no adenopathy, no JVD, no carotid bruit, no c- spine tenderness, neck with full ROM. CHEST: Symmetric, no tenderness at palpation LUNGS: Bilateral rales CVS: Regular rate and rhythm, S1 and S2 present, no murmurs or gallops appreciated. ABDOMEN: Soft, non-tender. No signs of distention. No rebound no guarding, and no masses palpated. Bowel sounds are normal. EXTREMITIES: FROM in all major joints, no edema, no cyanosis or clubbing. NEURO: Alert and oriented x 3. No acute neurological deficits. Speech is normal and follows commands. SKIN: Dry and warm Triage Information Reviewed: Yes Vital Signs On Initial Exam: Initial Vitals Temp Pulse Resp BP Pulse Ox 97.7 F 94 18 134/69 95 11/09/17 21:58 11/09/17 21:58 11/09/17 21:58 11/09/17 21:58 11/09/17 21:58 Vital Signs Reviewed: Yes Diagnostics - Vital Signs Vital Signs Temp Pulse Resp BP Pulse Ox 11/09/17 21:58 97.7 F 94 18 134/69 95 - Laboratory Result Diagrams: 11/09/17 22:41 11/10/17 00:23 Lab Statement: Any lab studies that have been ordered have been reviewed, and results considered in the medical decision making process. - Radiology CXR Radiology Interpretation Completed By: Radiologist - cardimegaly, interstital fluid consistent with CHF - EKG 2221 Cardiac Rate: NL EKG Rhythm: Sinus Rhythm - 91 BPM EKG Interpretation: LBBB Course/Dx - Course Course Of Treatment: 82 year old F BIBA to [facility] with a chief complaint of SOB and CP beginning around 19:00 tonight. Patient was seen in ED for similar symptoms on 11/07/17. Chest pain is currently resolved. PMHx of CHF. EKG reveals LBBB. CXR reveals cardiomegaly and interstital fluid consistent with CHF. Patient is given Lasix and ASA. Lab work reveals a troponin of 0.10. Patient is informed of results. Patient is admitted to Dr. Freitas. - Diagnoses Provider Diagnoses: CHF (congestive heart failure) - Physician Notifications Discussed Care of Patient With: Ladarius Freitas - hospitalist Time Discussed With Above Provider: 23:32 Instructed by Provider To: Admit As Inpatient Discharge - Sign-Out/Discharge Documenting (check all that apply): Discharge/Admit/Transfer - admit - Discharge Plan Condition: Stable Disposition: ADMITTED TO [facility] The documentation as recorded by the Alia stahl Julia accurately reflects the service I personally performed and the decisions made by Chanel pierre Abdul, MD.
[2017-11-10] MEDS: Heparin VIAL(*) 5000 UNITS/ML VIAL (FIVE THOUSAND) SUBCUT SCH ×3 (05:17→21:41)
[2017-11-10] MEDS ORDERED: Omeprazole CAP* 20 MG PO SCH (06:00)
[2017-11-10 06:12] LABS: Hematocrit 29 % (35-47); Hemoglobin 9.2 g/dl (12.0-16.0); Mean Corpuscular HGB Conc 32 g/dl (31-36); Mean Corpuscular Hemoglobin 24 pg (27-31); Mean Corpuscular Volume 76 fL (80-97); Red Blood Count 3.83 10^6/ul (4.0-5.4); Red Cell Distribution Width 27 % (10.5-15)
[2017-11-10 07:15] LABS: Platelet Count 102 10^3/ul (150-450)
[2017-11-10 07:16] LABS: ABS Basophils 0.1 10^3/ul (0-0.2); ABS Eosinophils 0.5 10^3/ul (0-0.6); ABS Monocytes 0.8 10^3/ul (0-0.8); ABS Neutrophils 5.6 10^3/ul (1.5-7.7); ABS Nucleated RBC 0 10^3/ul; Eosinophil % 5.1 % (0-6); Lymphocyte % 22.5 % (25-47); Nucleated Red Blood Cells % 0
[2017-11-10 07:24] LABS: EGFR Non-African American 34.6 (>60)
--- NOTE | 2017-11-10 07:49 | RAD ---
HISTORY: Shortness of breath COMPARISONS: November 07, 2017 VIEWS: 1: frontal portable view of the chest at 10:28 PM FINDINGS: LINES AND TUBES: None. CARDIOMEDIASTINAL SILHOUETTE: The cardiomediastinal silhouette is stable. PLEURA: The costophrenic angles are sharp. No pleural abnormalities are noted. LUNG PARENCHYMA: There is a mild diffuse reticular pattern with indistinct pulmonary vessels. ABDOMEN: The upper abdomen is clear. There is no subphrenic gas. BONES AND SOFT TISSUES: No bone or soft tissue abnormalities are noted. IMPRESSION: MILD PULMONARY INTERSTITIAL EDEMA
[2017-11-10] MEDS: Furosemide IV* 10 MG/ML VIAL (40 MG) IV SCH ×2 (09:04→13:35)
[2017-11-10] MEDS: Aspirin EC TAB* 81 MG TAB.EC PO SCH (09:04)
[2017-11-10] MEDS: Docusate CAP* 100 MG PO SCH ×2 (09:04→21:41)
--- NOTE | 2017-11-10 09:24 | PN ---
Subjective Date of Service: 11/10/17 Interval History: Less SOB. She recalls a significant diuresis after the ER dose of IV furosemide. She got SOB at home after dinner--her first meal at home. Objective Active Medications: Acetaminophen (Tylenol Tab*) 650 mg PO Q6H PRN PRN Reason: FEVER/PAIN Albuterol (Ventolin 2.5 Mg/3 Ml Neb.Makenna*) 2.5 mg INH Q2H PRN PRN Reason: SOB/WHEEZING Aspirin (Aspirin Ec Tab*) 81 mg PO DAILY [facility] Last Admin: 11/10/17 09:04 Dose: 81 mg Docusate Sodium (Colace Cap*) 200 mg PO BID [facility] Last Admin: 11/10/17 09:04 Dose: 200 mg Furosemide (Lasix Iv*) 40 mg IV 0800,1200 [facility] Stop: 11/10/17 23:30 Last Admin: 11/10/17 09:04 Dose: 40 mg Heparin Sodium (Porcine) (Heparin Vial(*)) 5,000 units SUBCUT Q8HR [facility] Last Admin: 11/10/17 05:17 Dose: 5,000 units Omeprazole (Prilosec Cap*) 20 mg PO DAILY@0600 [facility] Last Admin: 11/10/17 05:17 Dose: 20 mg Ondansetron HCl (Zofran Odt Tab*) 4 mg PO Q6H PRN PRN Reason: NAUSEA/VOMITING Spironolactone (Aldactone Tab*) 25 mg PO DAILY [facility] Torsemide (Demadex*) 40 mg PO DAILY [facility] Vital Signs - 8 hr 11/10/17 11/10/17 11/10/17 01:24 04:21 04:34 Temperature 97.2 F Pulse Rate 88 89 Respiratory 16 16 Rate Blood Pressure 102/54 130/69 (mmHg) O2 Sat by Pulse 97 94 95 Oximetry 11/10/17 11/10/17 11/10/17 04:35 06:30 07:35 Temperature 97.5 F Pulse Rate 89 76 Respiratory 16 18 12 Rate Blood Pressure 130/69 130/54 (mmHg) O2 Sat by Pulse 95 97 Oximetry 11/10/17 08:15 Temperature Pulse Rate 78 Respiratory 16 Rate Blood Pressure (mmHg) O2 Sat by Pulse 92 Oximetry Oxygen Devices in Use Now: Nasal Cannula Appearance: Alert, sittin up in bed. In good spirits. Looks comfortable. Eyes: No Scleral Icterus Respiratory: Symmetrical Chest Expansion and Respiratory Effort, Clear to Percussion, - - Some crackles at bases only. Cardiovascular: NL Sounds; No Murmurs; No JVD, RRR, No Edema, - Skin: No Rash or Ulcers, No Nodules or Sclerosis, - Neurological: Alert and Oriented x 3, NL Sensation Result Diagrams: 11/10/17 05:52 11/10/17 05:52 Assess/Plan/Problems-Billing Assessment: - Patient Problems (1) Acute on chronic combined systolic and diastolic congestive heart failure Current Visit: No Status: Acute Code(s): I50.43 - ACUTE ON CHRONIC COMBINED SYSTOLIC AND DIASTOLIC HRT FAIL SNOMED Code(s): 800016788994070 Comment: Improved with IV furosemide. She denies dietary indiscretion. Possibly does not absorb furosemide well and/or diet not as good at home. Continue spironolactone 25 mg daily, start po torsemide 40 mg on 11/11. BMP . Follow daily weights also. (2) GI bleed Current Visit: No Status: Acute Code(s): K92.2 - GASTROINTESTINAL HEMORRHAGE , UNSPECIFIED SNOMED Code(s): 76309897 Comment: - Continue PPI, FeSO4. No ASA or other NSAID. Needs outpt fup. (3) CAD (coronary artery disease) Current Visit: No Status: Acute Code(s): I25.10 - ATHSCL HEART DISEASE OF [place] CORONARY ARTERY W/O ANG PCTRS SNOMED Code(s): 02725049 Comment: Last admission 10/11/17 with NSTEMI - Trops peaked at 17.52 at that time and was medical managed only. History of cardiac cath in 2012 showing 80% stenosis to LAD which was stented. Current mild troponin elevation likely related to CHF. - Continue atorvastatin. Not on anti-platlet drug d/t hx GI bleed, not on BB likely did not tolerate. (4) Depression Current Visit: No Status: Acute Code(s): F32.9 - MAJOR DEPRESSIVE DISORDER, SINGLE EPISODE, UNSPECIFIED SNOMED Code(s): 06020139 Comment: Reduce sertraline to 50 mg daily start 11/10. Not depressed .
[2017-11-10] MEDS: Spironolactone TAB* 25 MG PO SCH (09:56)
[2017-11-10] MEDS: Sertraline* 50 MG TAB PO SCH (09:56)
[2017-11-10] MEDS: Omeprazole CAP* 20 MG PO SCH (21:41)
[2017-11-11] MEDS: Heparin VIAL(*) 5000 UNITS/ML VIAL (FIVE THOUSAND) SUBCUT SCH ×3 (05:09→20:20)
[2017-11-11 07:41] LABS: EGFR Non-African American 31.1 (>60)
[2017-11-11] MEDS: Atorvastatin* 10 MG TAB PO SCH (08:42)
[2017-11-11] MEDS: Docusate CAP* 100 MG PO SCH ×2 (08:42→20:20)
[2017-11-11] MEDS: Torsemide TAB* 20 MG PO SCH (08:42)
[2017-11-11] MEDS: Omeprazole CAP* 20 MG PO SCH ×2 (08:43→20:20)
[2017-11-11] MEDS: Aspirin EC TAB* 81 MG TAB.EC PO SCH (08:43)
[2017-11-11] MEDS: Ferrous Sulfate TAB* 325 MG PO SCH (08:43)
[2017-11-11] MEDS: Sertraline* 50 MG TAB PO SCH (08:43)
[2017-11-11] MEDS: Spironolactone TAB* 25 MG PO SCH (08:43)
[2017-11-11] MEDS ORDERED: Spironolactone TAB* 25 MG PO SCH (09:00)
[2017-11-11] MEDS ORDERED: Spiriva Inhaler DEVICE* 1 EACH DEVICE INH ONE (09:00)
[2017-11-11] MEDS: Tiotropium CAP.INH* CAP.INH/18 MCG (USE ORDER SET !) INH SCH (13:44)
[2017-11-11] MEDS ORDERED: Metoprolol Tartrate IV* 1 MG/ML 5 ML VIAL IV ONE (14:53)
[2017-11-11] MEDS ORDERED: Furosemide IV* 10 MG/ML VIAL (40 MG) IV ONE (15:00)
--- NOTE | 2017-11-11 15:08 | PN ---
Subjective Date of Service: 11/11/17 Interval History: Pt is feeling very SOB currently. All she states is she does not want to breathe like this any more. She denies any pain. Staff notes the patient has been coughing quite a bit all day. She was noted to go tachycardic about 30 minutes ago. Objective Active Medications: Acetaminophen (Tylenol Tab*) 650 mg PO Q6H PRN PRN Reason: FEVER/PAIN Albuterol (Ventolin 2.5 Mg/3 Ml Neb.Makenna*) 2.5 mg INH Q2H PRN PRN Reason: SOB/WHEEZING Aspirin (Aspirin Ec Tab*) 81 mg PO DAILY [facility] Last Admin: 11/11/17 08:43 Dose: 81 mg Atorvastatin Calcium (Lipitor*) 10 mg PO DAILY [facility] Last Admin: 11/11/17 08:42 Dose: 10 mg Docusate Sodium (Colace Cap*) 200 mg PO BID [facility] Last Admin: 11/11/17 08:42 Dose: 200 mg Ferrous Sulfate (Ferrous Sulfate Tab*) 325 mg PO DAILY [facility] Last Admin: 11/11/17 08:43 Dose: 325 mg Furosemide (Lasix Iv*) 40 mg IV ONCE ONE Stop: 11/11/17 15:01 Heparin Sodium (Porcine) (Heparin Vial(*)) 5,000 units SUBCUT Q8HR [facility] Last Admin: 11/11/17 05:09 Dose: 5,000 units Omeprazole (Prilosec Cap*) 20 mg PO BID [facility] Last Admin: 11/11/17 08:43 Dose: 20 mg Ondansetron HCl (Zofran Odt Tab*) 4 mg PO Q6H PRN PRN Reason: NAUSEA/VOMITING Sertraline HCl (Zoloft*) 50 mg PO DAILY [facility] Last Admin: 11/11/17 08:43 Dose: 50 mg Spironolactone (Aldactone Tab*) 25 mg PO DAILY [facility] Last Admin: 11/11/17 08:43 Dose: 25 mg Tiotropium [place] (Spiriva Cap.Inh*) 1 cap INH DAILY [facility] Last Admin: 11/11/17 13:44 Dose: 1 cap Torsemide (Demadex*) 40 mg PO DAILY [facility] Last Admin: 11/11/17 08:42 Dose: 40 mg Vital Signs - 8 hr 11/11/17 11/11/17 11/11/17 07:44 08:00 11:22 Temperature 98.1 F 98.0 F Pulse Rate 84 93 Respiratory 16 20 12 Rate Blood Pressure 145/57 134/59 (mmHg) O2 Sat by Pulse 97 93 Oximetry Oxygen Devices in Use Now: None Appearance: Elderly female sitting up in bed, mild respiratory distress Eyes: No Scleral Icterus Ears/Nose/Mouth/Throat: Mucous Membranes Moist Respiratory: Symmetrical Chest Expansion and Respiratory Effort, - - few coarse bibasilar crackles Cardiovascular: No Edema, - - tachycardic, regular no murmurs heard Abdominal: NL Sounds; No Tenderness; No Distention Extremities: No Clubbing, Cyanosis Skin: No Nodules or Sclerosis Neurological: Alert and Oriented x 3 Result Diagrams: 11/10/17 05:52 11/11/17 06:45 Assess/Plan/Problems-Billing Ms Bernal is an 82 yo F who has been hospitalized 3 times prior to this admission in the last one month who presented to the ER later after being discharged on 11/09/17 and was diagnosed with acute systolic CHF. - Patient Problems (1) Acute systolic (congestive) heart failure Current Visit: Yes Status: Acute Code(s): I50.21 - ACUTE SYSTOLIC ( CONGESTIVE) HEART FAILURE SNOMED Code(s): 536513933 Comment: The patient had been feeling improved prior to about 30minutes to my visit today. She suddenly became very SOB. SHe has a few crackles on exam. Will give lasix 40mg IV x1 now. Continue torsemide 40mg daily and spironolactone 25mg daily. As this is now her 3rd admission in the last 3 weeks for CHF I spoke with Dr. Leslie about her case. He then spoke with Dr. Hussein who will evaluate the patient this afternoon for possible catheterization tomorrow. I question if she may be developing flash pulmonary edema from a critical coronary lesion. (2) CAD (coronary artery disease) Current Visit: Yes Status: Acute Code(s): I25.10 - ATHSCL HEART DISEASE OF [place] CORONARY ARTERY W/O ANG PCTRS SNOMED Code(s): 97468292 Comment: During her admission in 09/2017 the patient bumped her troponin to 17.52. [place] to be secondary to demand ischemia. She was to follow up with Dr. Leslie for outpatient stress testing but she has been hospitalized (3) Anemia Current Visit: Yes Status: Acute Code(s): D64.9 - ANEMIA, UNSPECIFIED SNOMED Code(s): 712277575 Comment: H/H stable post GI bleed 09/2017. Continue to follow H/H. (4) Depression Current Visit: Yes Status: Acute Code(s): F32.9 - MAJOR DEPRESSIVE DISORDER , SINGLE EPISODE, UNSPECIFIED SNOMED Code(s): 72883504 Comment: Continue zoloft. (5) DVT prophylaxis Current Visit: Yes Status: Acute Code(s): WSY1037 - SNOMED Code(s): 005509099 Comment: SQ heparin (6) Full code status Current Visit: Yes Status: Acute Code(s): Z78.9 - OTHER SPECIFIED HEALTH STATUS SNOMED Code(s): 162753564 Comment:
--- NOTE | 2017-11-11 15:32 | RAD ---
Indication: Evaluate for pulmonary edema. Shortness of breath. History of cardiomyopathy. Comparison: November 09, 2017 Technique: Upright AP 1515 hours Report: Elevated lung volumes and both diffuse mild prominence of the interstitial markings and patchy rarefaction of the mid to upper lung zone interstitial markings. Thickened peripheral interlobular septa. Small RIGHT pleural effusion. Negative for pneumothorax. Mild cardiomegaly. Unremarkable central pulmonary vasculature and mediastinal contours accounting for rightward rotation and portable technique. IMPRESSION: Mild interstitial pulmonary edema superimposed on chronic obstructive pulmonary disease.
[2017-11-11] MEDS ORDERED: Furosemide IV* 10 MG/ML 10 ML VIAL (100 MG) IV ONE (19:00)
--- NOTE | 2017-11-12 04:41 | CONS ---
CC: Dr. Calderon; Dr. Leslie * INTERVENTIONAL CARDIOLOGY CONSULT NOTE: DATE OF CONSULT: 11/11/17 PRIMARY CARE PHYSICIAN: Dr. Calderon. COPPER PLATE LITHOGRAPHER: Dr. Leslie. HISTORY OF PRESENT ILLNESS: An 82-year-old woman with coronary artery disease, peripheral vascular disease, CKD stage 3, chronic microcytic anemia with recurring admissions with decompensated diastolic heart failure. In 2012, she presented with ACS, had a low ejection fraction of 25%. Apparently, presenting blood pressure was very high in the 230s systolic. She at that time had attempted cath via the groin here, had distal aortoiliac disease as well as an aneurysm, was therefore transferred to [facility] where she had diagnostic coronary angiography via the right radial approach. According to that report, she had no significant circumflex disease, had a 50% to 60% ramus stenosis, 80% LAD stenosis which was thought to be the culprit and was stented with a 2.75 x 14 drug eluting stent. Stent passage required predilatation of a calcified vessel. The RCA in the report is described as having up to 95% mid disease. Subsequent LV systolic function improved. In 2016, she developed CKD stage 3 with persisting elevated creatinines, and also developed a microcytic anemia. She presented here with ACS this spring, in the setting of a profound anemia. She was treated medically, subsequently had gastritis on upper GI endoscopy, negative colonoscopy. She did not have a small bowel study. Her hemoglobin subsequently has improved, she had a heme-positive stool on 10/21/17. She has not been on antiplatelet agents. Her recurring episodes of shortness of breath by her description are fairly sudden in onset without known hypertension, she has no associated chest pain. She apparently responds to diuretics, has been feeling very debilitated and weak lately, does not have peripheral edema or profound orthopnea. Since her admission here, she has been diuresed about 4 pounds. Recent outpatient carotid Duplex demonstrated bilateral significant carotid stenosis. She has never had renal artery Duplex or abdominal aortic ultrasound in our system. I do not see a CT of the abdomen. She did have a chest CT, which did not go below the diaphragm. PAST MEDICAL HISTORY: Peripheral vascular disease with bilateral carotid stenosis, known abdominal aortic aneurysm, and known aortoiliac disease in 2012. CKD stage 3 with history of hypertension, hyperlipidemia, diabetes type 2 , microcytic anemia. ADMISSION MEDICATIONS: 1. Bronchodilators. 2. Aldactone 25 mg daily. 3. Pravachol 40 daily. 4. Prilosec 20 b.i.d. 5. Iron. 6. Lasix 20 daily. 7. Zoloft 75 daily. ALLERGIES: None to medications. SOCIAL HISTORY: She lives independently, but has supportive daughters. She is a nonsmoker. REVIEW OF SYSTEMS: General: She denies weight loss, feels generally very weak. 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 Pulmonary: No known history of lung disease, although the x-rays read as showing underlying changes of COPD. I do not see PFTs. GI: As above. Remainder all negative. PHYSICAL EXAM: She is an elderly woman, looks debilitated, she is able to stand and transfer from chair to bed. Her lungs, she has rales at both bases, she is tachypneic. She is not wheezing. JVP is not elevated. Carotids are diminished bilaterally with questionable bruits. HEENT: Unremarkable. Cardiac Exam: Heart sounds are relatively distant, she has occasional ectopy, I do not hear a murmur or rub or gallop. The abdomen is without bruit, I cannot feel the aorta, but she is sitting in a chair. I cannot evaluate her femoral pulses. Her pedal pulses are not palpable. She has no edema. DIAGNOSTIC STUDIES/LAB DATA: Hemoglobin on this admission 8.9, MCV 76, platelet count low at 124,000, has been intermittently low in the past. Admission creatinine was 1.5 with a BUN 26, GFR 33. Her BNP was high at 2144. Troponin 0.01 with subsequent of 0.1, 0.18, 0.17. Chest x-ray shows uncoiling of the thoracic aorta as well as some interstitial prominence. Last hemoglobin A1c in April was 6.3. I do not see a lipid profile. EKG shows left bundle-branch block. IMPRESSION: Decompensated diastolic heart failure. Her most recent echo, 10/20, reported left ventricular hypertrophy, global hypokinesis, and ejection fraction decreased at 35% to 40% from previously normal. She has moderate pulmonary hypertension with right ventricular systolic pressure of 47. Echo, , reported ejection fraction of 50% to 55%. Her dyspnea is probably multifactorial including diastolic heart failure, now compromised left ventricular systolic function, excess preload from her chronic kidney disease stage 3 with insufficient diuresis, and possibly an element of intrinsic lung disease. At this point, it is unclear whether her moderate pulmonary hypertension is arterial or venous. She is symptomatically still very limited, is still volume overloaded and needs more diuresis. I have ordered an extra dose of Lasix for this evening. She may also have an element of renal artery stenosis contributing to her episodes of heart failure decompensation. I have ordered an abdominal aortic ultrasound recognizing that it may be difficult to see her renal arteries on this study. Even though she is on b.i.d. Prilosec, she had a recent heme-positive stool and still is anemic with microcytosis. It is likely her blood loss is not primarily from her colon or gastritis, but small bowel has not been ruled out. She also has episodes of thrombocytopenia, all placing her at increased risk for bleeding in the presence of dual antiplatelet therapy. PLAN: For now, our recommendation is to diurese her and try to optimize her for catheterization while we work her up for renal artery stenosis and abdominal aortic aneurysm with ultrasound. I will follow with you as needed. [id number]/[facility] #: [id number] MARIUM
[2017-11-12] MEDS: Heparin VIAL(*) 5000 UNITS/ML VIAL (FIVE THOUSAND) SUBCUT SCH ×3 (05:08→21:40)
[2017-11-12 08:13] LABS: EGFR Non-African American 27.3 (>60)
[2017-11-12] MEDS: Tiotropium CAP.INH* CAP.INH/18 MCG (USE ORDER SET !) INH SCH (08:23)
--- NOTE | 2017-11-12 08:48 | RAD ---
INDICATION: History of aortic aneurysm COMPARISON: None TECHNIQUE: Longitudinal and transverse grayscale and color Doppler imaging of the aorta and iliac vessels was performed. FINDINGS: Aorta: There is a fusiform aneurysm of the infrarenal abdominal aorta measuring 3.7 x 3.9 cm in transverse dimension and 4.3 cm in length. The proximal aorta and the aorta at the bifurcation are both normal in caliber Iliac vessels: The iliac vessels are normal in caliber. The right common iliac artery measures 0.9 cm in AP dimension and the left common iliac artery 1.0 cm in AP dimension. The renal arteries are visualized and appear patent. This was not a dedicated renal arterial examination Other: None IMPRESSION: 3.9 CM INFRARENAL ABDOMINAL AORTIC ANEURYSM
[2017-11-12] MEDS: Aspirin EC TAB* 81 MG TAB.EC PO SCH (09:19)
[2017-11-12] MEDS: Atorvastatin* 10 MG TAB PO SCH (09:19)
[2017-11-12] MEDS: Sertraline* 50 MG TAB PO SCH (09:19)
[2017-11-12] MEDS: Ferrous Sulfate TAB* 325 MG PO SCH (09:19)
[2017-11-12] MEDS: Torsemide TAB* 20 MG PO SCH (09:19)
[2017-11-12] MEDS: Spironolactone TAB* 25 MG PO SCH (09:20)
[2017-11-12] MEDS: Docusate CAP* 100 MG PO SCH ×2 (09:20→20:42)
[2017-11-12] MEDS: Omeprazole CAP* 20 MG PO SCH ×2 (09:20→20:42)
--- NOTE | 2017-11-12 16:06 | PN ---
Subjective Date of Service: 11/12/17 Interval History: HOSPITALIST PROGRESS NOTE Patient seen and examined at bedside. Care reviewed and d/w Ruth Rios RN. She feels better today. Denies chest pain, breathing is easier, but she's concerned with recurrence of her symptoms in the future. Family History: Unchanged from Admission Social History: Unchanged from Admission Past Medical History: Unchanged from Admission Objective Active Medications: Acetaminophen (Tylenol Tab*) 650 mg PO Q6H PRN PRN Reason: FEVER/PAIN Albuterol (Ventolin 2.5 Mg/3 Ml Neb.Makenna*) 2.5 mg INH Q2H PRN PRN Reason: SOB/WHEEZING Aspirin (Aspirin Ec Tab*) 81 mg PO DAILY [facility] Last Admin: 11/12/17 09:19 Dose: 81 mg Atorvastatin Calcium (Lipitor*) 10 mg PO DAILY [facility] Last Admin: 11/12/17 09:19 Dose: 10 mg Docusate Sodium (Colace Cap*) 200 mg PO BID [facility] Last Admin: 11/12/17 09:20 Dose: Not Given Ferrous Sulfate (Ferrous Sulfate Tab*) 325 mg PO DAILY [facility] Last Admin: 11/12/17 09:19 Dose: 325 mg Heparin Sodium (Porcine) (Heparin Vial(*)) 5,000 units SUBCUT Q8HR [facility] Stop: 11/12/17 23:59 Last Admin: 11/12/17 14:40 Dose: 5,000 units Sodium Chloride (Ns 0.9% 1000 Ml*) 1,000 mls @ 25 mls/hr IV PER RATE [facility] Omeprazole (Prilosec Cap*) 20 mg PO BID [facility] Last Admin: 11/12/17 09:20 Dose: 20 mg Ondansetron HCl (Zofran Odt Tab*) 4 mg PO Q6H PRN PRN Reason: NAUSEA/VOMITING Sertraline HCl (Zoloft*) 50 mg PO DAILY [facility] Last Admin: 11/12/17 09:19 Dose: 50 mg Spironolactone (Aldactone Tab*) 25 mg PO DAILY [facility] Last Admin: 11/12/17 09:20 Dose: 25 mg Tiotropium [place] (Spiriva Cap.Inh*) 1 cap INH DAILY [facility] Last Admin: 11/12/17 08:23 Dose: 1 cap Torsemide (Demadex*) 40 mg PO DAILY [facility] Last Admin: 11/12/17 09:19 Dose: 40 mg Vital Signs - 8 hr 11/12/17 11/12/17 11/12/17 08:24 11:21 15:23 Temperature 98.0 F 98.1 F Pulse Rate 68 32 60 Respiratory 14 12 16 Rate Blood Pressure 125/60 122/50 (mmHg) O2 Sat by Pulse 97 95 95 Oximetry Oxygen Devices in Use Now: Nasal Cannula - 2 liters Appearance: Pleasant elderly lady lying in bed in NAD. Eyes: No Scleral Icterus Ears/Nose/Mouth/Throat: Mucous Membranes Moist Neck: Trachea Midline Respiratory: Symmetrical Chest Expansion and Respiratory Effort, Clear to Auscultation Cardiovascular: RRR - Normal S1 and S2 Abdominal: NL Sounds; No Tenderness; No Distention Neurological: Alert and Oriented x 3 Result Diagrams: 11/10/17 05:52 11/12/17 07:22 Assess/Plan/Problems-Billing Assessment: Ms Bernal is an 82 yo F who has been hospitalized 3 times prior to this admission in the last one month who presented to the ER later after being discharged on 11/09/17 and was diagnosed with acute systolic CHF. - Patient Problems (1) Acute systolic (congestive) heart failure Comment: - She feels much better today after further diuresis. - Initial plan was for w/u as outpatient as patient has anemia, EGD 10/10/17 showed mild antral gastritis and colonoscopy was negative. Patient has been on PPI with no signs of active bleeding and stable H/H. - Plan for catheterization 11/13 as flash pulmonary edema could be secondary to a critical coronary lesion. (2) CKD (chronic kidney disease) stage 3, GFR 30-59 ml/min Comment: - Creatinine up to 1.7 today in the setting of diuresis - continue to monitor renal function. (3) CAD (coronary artery disease) Comment: - During her admission in 09/2017 the patient bumped her troponin to 17.52. [place] to be secondary to demand ischemia. She was to follow up with Dr. Leslie for outpatient stress testing but she has been hospitalized, so for that reason we'll do w/u as inpatient - plan for cath tomorrow. (4) Anemia Comment: - H/H stable post GI bleed 09/2017. (5) Thrombocytopenia Comment: - Present intermittently since 2012. - Trending up. (6) Depression Comment: - Continue zoloft. (7) DVT prophylaxis Comment: - SQ heparin. (8) Full code status Comment: Status and Disposition: Inpatient.
[2017-11-12 18:03] LABS: ABS Basophils 0 10^3/ul (0-0.2); ABS Eosinophils 0.6 10^3/ul (0-0.6); ABS Lymphocytes 1.9 10^3/ul (1.0-4.8); ABS Monocytes 0.8 10^3/ul (0-0.8); ABS Neutrophils 4.9 10^3/ul (1.5-7.7); ABS Nucleated RBC 0 10^3/ul; Eosinophil % 7.1 % (0-6); Hematocrit 33 % (35-47); Hemoglobin 10.3 g/dl (12.0-16.0); Lymphocyte % 23.4 % (25-47); Mean Corpuscular HGB Conc 31 g/dl (31-36); Mean Corpuscular Hemoglobin 24 pg (27-31); Mean Corpuscular Volume 78 fL (80-97); Mean Platelet Volume 8.6 um3 (7.4-10.4); Nucleated Red Blood Cells % 0; Platelet Count 82 10^3/ul (150-450); Red Blood Count 4.24 10^6/ul (4.0-5.4); Red Cell Distribution Width 28 % (10.5-15); White Blood Count 8.2 10^3/ul (3.5-10.8)
[2017-11-12] MEDS ORDERED: hydrALAZINE IV* 20 MG/ML VIAL IV SLOW PU PRN (18:27)
[2017-11-12] MEDS: Albuterol 2.5 MG/3 ML NEB.SOL* (0.083%) INH PRN (19:29)
[2017-11-13] MEDS: Tiotropium CAP.INH* CAP.INH/18 MCG (USE ORDER SET !) INH SCH (07:54)
[2017-11-13] MEDS ORDERED: NS 0.9% 1000 ML* 1,000 ML IV SCH ×2 (08:00→10:45)
[2017-11-13] MEDS ORDERED: Heparin(*) 1000 UNIT/ML 10 ML VIAL CATH LAB IV ONE (09:01)
[2017-11-13] MEDS ORDERED: fentaNYL* 50 MCG/ML 2 ML VIAL (100 MCG VIAL) ONE (09:01)
[2017-11-13] MEDS ORDERED: nitroGLYCERIN DRIP* 25,000 MCG/250 ML BTL ONE (09:03)
[2017-11-13] MEDS ORDERED: Heparin 2 UNITS/ML IVPREMIX* 3,000 ML IV ONE (09:03)
[2017-11-13] MEDS ORDERED: Lidocaine 1% INJ* 10 MG/ML 30 ML SDV ONE (09:03)
[2017-11-13] MEDS ORDERED: Iohexol 350 (CONTRAST) 200 ML MDV IV ONE (09:03)
[2017-11-13] MEDS ORDERED: Iodixanol* (CONTRAST) 320 MG/ML 100 ML SDV ONE (09:03)
[2017-11-13] MEDS ORDERED: VERAPAMIL 2.5 MG/ML 2 ML VIAL ** 5 mg/2 ml ONE (09:04)
[2017-11-13] MEDS ORDERED: Midazolam* 1 MG/ML 10 ML VIAL (10 MG) ONE (09:04)
[2017-11-13] MEDS: Docusate CAP* 100 MG PO SCH ×2 (13:55→21:26)
[2017-11-13] MEDS: Omeprazole CAP* 20 MG PO SCH ×2 (13:55→21:27)
[2017-11-13] MEDS: Torsemide TAB* 20 MG PO SCH (15:00)
[2017-11-13] MEDS: Atorvastatin* 10 MG TAB PO SCH (15:36)
[2017-11-13] MEDS: Ferrous Sulfate TAB* 325 MG PO SCH (15:36)
[2017-11-13] MEDS: Sertraline* 50 MG TAB PO SCH (15:36)
[2017-11-13] MEDS: Aspirin EC TAB* 81 MG TAB.EC PO SCH (15:36)
[2017-11-13] MEDS ORDERED: Lisinopril TAB* 5 MG PO SCH (16:00)
[2017-11-13] MEDS: Spironolactone TAB* 25 MG PO SCH (17:00)
--- NOTE | 2017-11-13 17:42 | PN ---
Subjective Date of Service: 11/13/17 Interval History: HOSPITALIST PROGRESS NOTE Patient seen and examined at bedside. Care reviewed and d/w Kwabena Chavez RN. She feels better today. No further episodes of CP or dyspnea. Family History: Unchanged from Admission Social History: Unchanged from Admission Past Medical History: Unchanged from Admission Objective Active Medications: Acetaminophen (Tylenol Tab*) 650 mg PO Q6H PRN PRN Reason: FEVER/PAIN Albuterol (Ventolin 2.5 Mg/3 Ml Neb.Makenna*) 2.5 mg INH Q2H PRN PRN Reason: SOB/WHEEZING Last Admin: 11/12/17 19:29 Dose: 2.5 mg Aspirin (Aspirin Ec Tab*) 81 mg PO DAILY [facility] Last Admin: 11/13/17 15:36 Dose: 81 mg Atorvastatin Calcium (Lipitor*) 10 mg PO DAILY [facility] Last Admin: 11/13/17 15:36 Dose: 10 mg Docusate Sodium (Colace Cap*) 200 mg PO BID [facility] Last Admin: 11/13/17 13:55 Dose: Not Given Ferrous Sulfate (Ferrous Sulfate Tab*) 325 mg PO DAILY [facility] Last Admin: 11/13/17 15:36 Dose: 325 mg Hydralazine HCl (Apresoline Iv*) 5 mg IV SLOW PU Q6H PRN PRN Reason: SBP>180 Last Admin: 11/12/17 18:35 Dose: 5 mg Sodium Chloride (Ns 0.9% 1000 Ml*) 1,000 mls @ 25 mls/hr IV PER [facility] Metoprolol Tartrate (Lopressor Tab*) 25 mg PO BID [facility] Omeprazole (Prilosec Cap*) 20 mg PO BID [facility] Last Admin: 11/13/17 13:55 Dose: Not Given Ondansetron HCl (Zofran Odt Tab*) 4 mg PO Q6H PRN PRN Reason: NAUSEA/VOMITING Sertraline HCl (Zoloft*) 50 mg PO DAILY [facility] Last Admin: 11/13/17 15:36 Dose: 50 mg Tiotropium [place] (Spiriva Cap.Inh*) 1 cap INH [facility] Last Admin: 11/13/17 07:54 Dose: 1 cap Torsemide (Demadex*) 40 mg PO DAILY [facility] Last Admin: 11/13/17 15:00 Dose: Not Given Vital Signs - 8 hr 11/13/17 11/13/17 11/13/17 10:28 10:29 10:45 Temperature Pulse Rate 82 82 81 Respiratory 18 Rate Blood Pressure 116/74 115/68 (mmHg) O2 Sat by Pulse 97 97 95 Oximetry 11/13/17 11/13/17 11/13/17 13:52 14:26 14:27 Temperature 97.9 F Pulse Rate 63 79 Respiratory 18 Rate Blood Pressure 94/72 84/50 (mmHg) O2 Sat by Pulse 100 99 Oximetry 11/13/17 11/13/17 15:42 16:58 Temperature 97.2 F 98.2 F Pulse Rate 90 83 Respiratory 12 16 Rate Blood Pressure 130/58 129/56 (mmHg) O2 Sat by Pulse 96 97 Oximetry Oxygen Devices in Use Now: Nasal Cannula - 2 liters Appearance: Pleasant elderly lady lying in bed in NAD. Eyes: No Scleral Icterus Ears/Nose/Mouth/Throat: Mucous Membranes Moist Neck: Trachea Midline Respiratory: Symmetrical Chest Expansion and Respiratory Effort, Clear to Auscultation Cardiovascular: RRR - Normal S1 and S2 Neurological: Alert and Oriented x 3 Result Diagrams: 11/12/17 17:34 11/13/17 05:59 Assess/Plan/Problems-Billing Assessment: Ms Bernal is an 82 yo F who has been hospitalized 3 times prior to this admission in the last one month who presented to the ER later after being discharged on 11/09/17 and was diagnosed with acute systolic CHF. - Patient Problems (1) CAD (coronary artery disease) Comment: - Cardiac cath showed significant 3 VD but patient is a very poor candidate for CABG due to her comorbidities. Plan is for evaluation by Dr. Harvey Ruth at [facility] for cath with FFR and stenting of critical lesions. - Medical management of CAD with Aspirin, metoprolol, higher dose statin. (2) Acute systolic (congestive) heart failure Comment: - Compensated at this time. - Will add low dose Lisinopril, continue Torsemide. (3) CKD (chronic kidney disease) stage 3, GFR 30-59 ml/min Comment: - Creatinine 1.6 today. (4) Anemia Comment: - H/H stable post GI bleed 09/2017. (5) Thrombocytopenia Comment: - Present intermittently since 2012. (6) Depression Comment: - Continue zoloft. (7) DVT prophylaxis Comment: - SQ heparin. (8) Full code status Comment: Status and Disposition: Inpatient.
[2017-11-13] MEDS: Metoprolol Tartrate TAB* 25 MG PO SCH ×2 (18:18→21:26)
[2017-11-13] MEDS: Lisinopril TAB* 5 MG PO SCH (18:18)
[2017-11-13] MEDS: Heparin VIAL(*) 5000 UNITS/ML VIAL (FIVE THOUSAND) SUBCUT SCH (21:27)
[2017-11-14] MEDS ORDERED: NS 0.9% 500 ML* 500 ML IV ONE ×2 (04:00→15:45)
--- NOTE | 2017-11-14 04:02 | PN ---
Progress Note - Progress Note Date of Service: 11/14/17 Note: Cross coverage: Notified of decreased BP with SBP in 70s on 3 manual attempts No UOP since midnight Bolus 500cc NS now at 250cc/hr and follow
[2017-11-14] MEDS: Heparin VIAL(*) 5000 UNITS/ML VIAL (FIVE THOUSAND) SUBCUT SCH ×3 (05:31→21:38)
[2017-11-14 05:48] LABS: ABS Basophils 0.1 10^3/ul (0-0.2); ABS Eosinophils 0.7 10^3/ul (0-0.6); ABS Lymphocytes 1.4 10^3/ul (1.0-4.8); ABS Monocytes 0.9 10^3/ul (0-0.8); ABS Nucleated RBC 0 10^3/ul; Eosinophil % 8.8 % (0-6); Hematocrit 32 % (35-47); Hemoglobin 9.9 g/dl (12.0-16.0); Lymphocyte % 17.5 % (25-47); Mean Corpuscular HGB Conc 31 g/dl (31-36); Mean Corpuscular Hemoglobin 25 pg (27-31); Mean Corpuscular Volume 79 fL (80-97); Mean Platelet Volume 8.6 um3 (7.4-10.4); Nucleated Red Blood Cells % 0.1; Platelet Count 83 10^3/ul (150-450); Red Blood Count 4.02 10^6/ul (4.0-5.4); Red Cell Distribution Width 29 % (10.5-15); White Blood Count 8.1 10^3/ul (3.5-10.8)
[2017-11-14 05:50] LABS: EGFR Non-African American 26.4 (>60)
[2017-11-14] MEDS: Ferrous Sulfate TAB* 325 MG PO SCH (07:56)
[2017-11-14] MEDS: Docusate CAP* 100 MG PO SCH ×2 (07:57→21:38)
[2017-11-14] MEDS: Atorvastatin* 40 MG TAB PO SCH (07:57)
[2017-11-14] MEDS: Omeprazole CAP* 20 MG PO SCH ×2 (07:57→21:38)
[2017-11-14] MEDS: Sertraline* 50 MG TAB PO SCH (07:57)
[2017-11-14] MEDS: Aspirin EC TAB* 81 MG TAB.EC PO SCH (07:57)
[2017-11-14] MEDS: Lisinopril TAB* 5 MG PO SCH (08:02)
[2017-11-14] MEDS: Metoprolol Tartrate TAB* 25 MG PO SCH ×2 (08:02→21:38)
[2017-11-14] MEDS: Tiotropium CAP.INH* CAP.INH/18 MCG (USE ORDER SET !) INH SCH (09:03)
--- NOTE | 2017-11-14 15:56 | PN ---
Subjective Date of Service: 11/14/17 Interval History: HOSPITALIST PROGRESS NOTE Patient seen and examined at bedside. Care reviewed and d/w Kwabena Chavez RN. She feels well today. Denies chest pain, palpitations, dyspnea. Asymptomatic hypotension overnight, again this morning. Family History: Unchanged from Admission Social History: Unchanged from Admission Past Medical History: Unchanged from Admission Objective Active Medications: Acetaminophen (Tylenol Tab*) 650 mg PO Q6H PRN PRN Reason: FEVER/PAIN Albuterol (Ventolin 2.5 Mg/3 Ml Neb.Makenna*) 2.5 mg INH Q2H PRN PRN Reason: SOB/WHEEZING Last Admin: 11/12/17 19:29 Dose: 2.5 mg Aspirin (Aspirin Ec Tab*) 81 mg PO DAILY [facility] Last Admin: 11/14/17 07:57 Dose: 81 mg Atorvastatin Calcium (Lipitor*) 40 mg PO DAILY [facility] Last Admin: 11/14/17 07:57 Dose: 40 mg Docusate Sodium (Colace Cap*) 200 mg PO BID [facility] Last Admin: 11/14/17 07:57 Dose: 200 mg Ferrous Sulfate (Ferrous Sulfate Tab*) 325 mg PO DAILY [facility] Last Admin: 11/14/17 07:56 Dose: 325 mg Heparin Sodium (Porcine) (Heparin Vial(*)) 5,000 units SUBCUT Q8HR [facility] Last Admin: 11/14/17 14:27 Dose: 5,000 units Sodium Chloride (Ns 0.9% 500 Ml*) 500 mls @ 0 mls/hr IV ONCE ONE PRN Reason: Wide Open Stop: 11/14/17 15:46 Lisinopril (Prinivil Tab*) 2.5 mg PO DAILY [facility] Last Admin: 11/14/17 08:02 Dose: Not Given Metoprolol Tartrate (Lopressor Tab*) 12.5 mg PO BID [facility] Omeprazole (Prilosec Cap*) 20 mg PO BID [facility] Last Admin: 11/14/17 07:57 Dose: 20 mg Ondansetron HCl (Zofran Odt Tab*) 4 mg PO Q6H PRN PRN Reason: NAUSEA/VOMITING Sertraline HCl (Zoloft*) 50 mg PO DAILY [facility] Last Admin: 11/14/17 07:57 Dose: 50 mg Tiotropium [place] (Spiriva Cap.Inh*) 1 cap INH DAILY [facility] Last Admin: 11/14/17 09:03 Dose: 1 cap Vital Signs - 8 hr 11/14/17 11/14/17 11/14/17 08:00 09:04 11:28 Temperature 97.7 F Pulse Rate 71 65 Respiratory 15 18 Rate Blood Pressure 102/36 (mmHg) O2 Sat by Pulse 95 99 Oximetry 11/14/17 11/14/17 15:00 15:37 Temperature 98.1 F Pulse Rate 72 Respiratory 16 Rate Blood Pressure 69/41 (mmHg) O2 Sat by Pulse 84 96 Oximetry Oxygen Devices in Use Now: Nasal Cannula Appearance: Elderly lady lying in bed in NAD. Eyes: No Scleral Icterus Ears/Nose/Mouth/Throat: Mucous Membranes Moist Neck: Trachea Midline Respiratory: Symmetrical Chest Expansion and Respiratory Effort, Clear to Auscultation Cardiovascular: RRR - Normal S1 and S2 Abdominal: NL Sounds; No Tenderness; No Distention - obese Neurological: Alert and Oriented x 3 Result Diagrams: 11/14/17 05:14 11/14/17 05:14 Assess/Plan/Problems-Billing Assessment: Ms Bernal is an 82 yo F who has been hospitalized 3 times prior to this admission in the last one month who presented to the ER later after being discharged on 11/09/17 and was diagnosed with acute systolic CHF. - Patient Problems (1) CAD (coronary artery disease) Comment: - Cardiac cath showed significant 3 VD but patient is a very poor candidate for CABG due to her comorbidities. Plan is for evaluation by Dr. Harvey Ruth at [facility] for cath with FFR and stenting of critical lesions. - Medical management of CAD with Aspirin, metoprolol (as BP allows), higher dose statin. (2) Acute systolic (congestive) heart failure Comment: - Compensated at this time. - Low dose Lisinopril as BP permits, discontinue Torsemide. (3) CKD (chronic kidney disease) stage 3, GFR 30-59 ml/min Comment: - Creatinine 1.8 today. (4) Anemia Comment: - H/H stable post GI bleed 09/2017. (5) Thrombocytopenia Comment: - Present intermittently since 2012. (6) Depression Comment: - Continue zoloft. (7) DVT prophylaxis Comment: - SQ heparin. (8) Full code status Comment: Status and Disposition: Inpatient.
[2017-11-14] MEDS: Albuterol 2.5 MG/3 ML NEB.SOL* (0.083%) INH PRN (23:49)
[2017-11-15] MEDS: Albuterol 2.5 MG/3 ML NEB.SOL* (0.083%) INH PRN (01:44)
[2017-11-15] MEDS: Heparin VIAL(*) 5000 UNITS/ML VIAL (FIVE THOUSAND) SUBCUT SCH ×3 (06:00→21:31)
[2017-11-15 07:08] LABS: EGFR Non-African American 31.1 (>60)
[2017-11-15] MEDS: Lisinopril TAB* 5 MG PO SCH (08:58)
[2017-11-15] MEDS: Tiotropium CAP.INH* CAP.INH/18 MCG (USE ORDER SET !) INH SCH (08:59)
[2017-11-15] MEDS: Aspirin EC TAB* 81 MG TAB.EC PO SCH (09:11)
[2017-11-15] MEDS: Sertraline* 50 MG TAB PO SCH (09:11)
[2017-11-15] MEDS: Omeprazole CAP* 20 MG PO SCH ×2 (09:11→21:28)
[2017-11-15] MEDS: Ferrous Sulfate TAB* 325 MG PO SCH (09:11)
[2017-11-15] MEDS: Atorvastatin* 40 MG TAB PO SCH (09:11)
[2017-11-15] MEDS: Docusate CAP* 100 MG PO SCH ×2 (09:11→21:27)
[2017-11-15] MEDS: Metoprolol Tartrate TAB* 25 MG PO SCH ×2 (09:22→21:28)
[2017-11-15] MEDS: Furosemide TAB* 20 MG PO SCH (13:34)
--- NOTE | 2017-11-15 14:20 | PN ---
Subjective Date of Service: 11/15/17 Interval History: HOSPITALIST PROGRESS NOTE Patient seen and examined at bedside. Care reviewed and d/w William Flores RN. She feels well today. Denies CP or dyspnea, but BP is still on the lower side and most of her meds were held. Family History: Unchanged from Admission Social History: Unchanged from Admission Past Medical History: Unchanged from Admission Objective Active Medications: Acetaminophen (Tylenol Tab*) 650 mg PO Q6H PRN PRN Reason: FEVER/PAIN Albuterol (Ventolin 2.5 Mg/3 Ml Neb.Makenna*) 2.5 mg INH Q2H PRN PRN Reason: SOB/WHEEZING Last Admin: 11/15/17 01:44 Dose: 2.5 mg Aspirin (Aspirin Ec Tab*) 81 mg PO DAILY [facility] Last Admin: 11/15/17 09:11 Dose: 81 mg Atorvastatin Calcium (Lipitor*) 40 mg PO DAILY [facility] Last Admin: 11/15/17 09:11 Dose: 40 mg Docusate Sodium (Colace Cap*) 200 mg PO BID [facility] Last Admin: 11/15/17 09:11 Dose: 200 mg Ferrous Sulfate (Ferrous Sulfate Tab*) 325 mg PO DAILY [facility] Last Admin: 11/15/17 09:11 Dose: 325 mg Furosemide (Lasix Tab*) 20 mg PO DAILY@1200 [facility] Last Admin: 11/15/17 13:34 Dose: 20 mg Heparin Sodium (Porcine) (Heparin Vial(*)) 5,000 units SUBCUT Q8HR [facility] Last Admin: 11/15/17 13:34 Dose: 5,000 units Lisinopril (Prinivil Tab*) 2.5 mg PO DAILY [facility] Last Admin: 11/15/17 08:58 Dose: Not Given Metoprolol Tartrate (Lopressor Tab*) 12.5 mg PO BID [facility] Last Admin: 11/15/17 09:22 Dose: 12.5 mg Omeprazole (Prilosec Cap*) 20 mg PO BID [facility] Last Admin: 11/15/17 09:11 Dose: 20 mg Ondansetron HCl (Zofran Odt Tab*) 4 mg PO Q6H PRN PRN Reason: NAUSEA/VOMITING Sertraline HCl (Zoloft*) 50 mg PO DAILY [facility] Last Admin: 11/15/17 09:11 Dose: 50 mg Tiotropium [place] (Spiriva Cap.Inh*) 1 cap INH DAILY [facility] Last Admin: 11/15/17 08:59 Dose: 1 cap Vital Signs - 8 hr 11/15/17 11/15/17 11/15/17 07:33 08:00 09:00 Temperature 97.9 F Pulse Rate 70 70 Respiratory 16 18 19 Rate Blood Pressure 93/52 (mmHg) O2 Sat by Pulse 100 100 Oximetry 11/15/17 11/15/17 11/15/17 09:01 09:21 12:11 Temperature 98.6 F Pulse Rate 70 71 Respiratory 16 18 Rate Blood Pressure 92/56 (mmHg) O2 Sat by Pulse 100 97 96 Oximetry Oxygen Devices in Use Now: Nasal Cannula - 2 liters Appearance: Elderly lady sitting up in bed in NAD. Eyes: No Scleral Icterus Ears/Nose/Mouth/Throat: Mucous Membranes Moist Neck: Trachea Midline Respiratory: Symmetrical Chest Expansion and Respiratory Effort, - - BS+ bilaterally with fine crackles Cardiovascular: RRR - Normal S1 and S2 Abdominal: NL Sounds; No Tenderness; No Distention Neurological: Alert and Oriented x 3 Result Diagrams: 11/14/17 05:14 11/15/17 06:21 Assess/Plan/Problems-Billing Assessment: Ms Bernal is an 82 yo F who has been hospitalized 3 times prior to this admission in the last one month who presented to the ER later after being discharged on 11/09/17 and was diagnosed with acute systolic CHF. - Patient Problems (1) CAD (coronary artery disease) Comment: - Cardiac cath showed significant 3 VD but patient is a very poor candidate for CABG due to her comorbidities. Plan is for evaluation by Dr. Harvey Ruth at [facility] for cath with FFR and stenting of critical lesions, but as per family, her appointment will be in December. I don't think this patient will be out of the hospital until then as this is her 4th admission in a month. - Will continue medical management of CAD with Aspirin, metoprolol (as BP allows ), higher dose statin, but will discuss transfer with Cardiology. (2) Acute systolic (congestive) heart failure Comment: - Compensated at this time. - Low dose Lisinopril and Furosemide as BP permits. (3) CKD (chronic kidney disease) stage 3, GFR 30-59 ml/min Comment: - Creatinine 1.59 today. (4) Anemia Comment: - H/H stable post GI bleed 09/2017. (5) Thrombocytopenia Comment: - Present intermittently since 2012. (6) Depression Comment: - Continue zoloft. (7) DVT prophylaxis Comment: - SQ heparin. (8) Full code status Comment: Status and Disposition: Inpatient.
[2017-11-16] MEDS: Heparin VIAL(*) 5000 UNITS/ML VIAL (FIVE THOUSAND) SUBCUT SCH (05:53)
[2017-11-16 06:35] LABS: ABS Basophils 0.1 10^3/ul (0-0.2); ABS Eosinophils 0.8 10^3/ul (0-0.6); ABS Lymphocytes 1.6 10^3/ul (1.0-4.8); ABS Neutrophils 4.7 10^3/ul (1.5-7.7); ABS Nucleated RBC 0 10^3/ul; Eosinophil % 9.3 % (0-6); Hematocrit 28 % (35-47); Lymphocyte % 19.5 % (25-47); Mean Corpuscular HGB Conc 32 g/dl (31-36); Mean Corpuscular Hemoglobin 25 pg (27-31); Mean Corpuscular Volume 79 fL (80-97); Mean Platelet Volume 8.7 um3 (7.4-10.4); Nucleated Red Blood Cells % 0; Platelet Count 60 10^3/ul (150-450); Red Blood Count 3.57 10^6/ul (4.0-5.4); Red Cell Distribution Width 29 % (10.5-15); White Blood Count 8.1 10^3/ul (3.5-10.8)
[2017-11-16 06:47] LABS: EGFR Non-African American 37.5 (>60)
[2017-11-16] MEDS: Tiotropium CAP.INH* CAP.INH/18 MCG (USE ORDER SET !) INH SCH (08:14)
[2017-11-16] MEDS: Aspirin EC TAB* 81 MG TAB.EC PO SCH (08:49)
[2017-11-16] MEDS: Fondaparinux* 2.5 MG/0.5 ML SYRINGE SUBCUT SCH (08:50)
[2017-11-16] MEDS: Ferrous Sulfate TAB* 325 MG PO SCH (08:50)
[2017-11-16] MEDS: Sertraline* 50 MG TAB PO SCH (08:50)
[2017-11-16] MEDS: Lisinopril TAB* 5 MG PO SCH (08:50)
[2017-11-16] MEDS: Omeprazole CAP* 20 MG PO SCH ×2 (08:50→20:47)
[2017-11-16] MEDS: Docusate CAP* 100 MG PO SCH ×2 (08:50→20:47)
[2017-11-16] MEDS: Atorvastatin* 40 MG TAB PO SCH (08:50)
[2017-11-16] MEDS: Metoprolol Tartrate TAB* 25 MG PO SCH ×2 (08:58→20:46)
[2017-11-16] MEDS: Furosemide TAB* 20 MG PO SCH (12:19)
--- NOTE | 2017-11-16 14:18 | PN ---
Subjective Date of Service: 11/16/17 Interval History: HOSPITALIST PROGRESS NOTE Patient seen and examined at bedside. Care reviewed and d/w Tasneem Herrera RN. She offers no new complaints today. Family History: Unchanged from Admission Social History: Unchanged from Admission Past Medical History: Unchanged from Admission Objective Active Medications: Acetaminophen (Tylenol Tab*) 650 mg PO Q6H PRN PRN Reason: FEVER/PAIN Albuterol (Ventolin 2.5 Mg/3 Ml Neb.Makenna*) 2.5 mg INH Q2H PRN PRN Reason: SOB/WHEEZING Last Admin: 11/15/17 01:44 Dose: 2.5 mg Aspirin (Aspirin Ec Tab*) 81 mg PO DAILY [facility] Last Admin: 11/16/17 08:49 Dose: 81 mg Atorvastatin Calcium (Lipitor*) 40 mg PO DAILY [facility] Last Admin: 11/16/17 08:50 Dose: 40 mg Docusate Sodium (Colace Cap*) 200 mg PO BID [facility] Last Admin: 11/16/17 08:50 Dose: 200 mg Ferrous Sulfate (Ferrous Sulfate Tab*) 325 mg PO DAILY [facility] Last Admin: 11/16/17 08:50 Dose: 325 mg Fondaparinux (Arixtra*) 2.5 mg SUBCUT DAILY [facility] Last Admin: 11/16/17 08:50 Dose: 2.5 mg Furosemide (Lasix Tab*) 20 mg PO DAILY@1200 [facility] Lisinopril (Prinivil Tab*) 2.5 mg PO DAILY [facility] Last Admin: 11/16/17 08:50 Dose: Not Given Metoprolol Tartrate (Lopressor Tab*) 12.5 mg PO BID [facility] Last Admin: 11/16/17 08:58 Dose: 12.5 mg Omeprazole (Prilosec Cap*) 20 mg PO BID [facility] Last Admin: 11/16/17 08:50 Dose: 20 mg Ondansetron HCl (Zofran Odt Tab*) 4 mg PO Q6H PRN PRN Reason: NAUSEA/VOMITING Sertraline HCl (Zoloft*) 50 mg PO DAILY [facility] Last Admin: 11/16/17 08:50 Dose: 50 mg Tiotropium [place] (Spiriva Cap.Inh*) 1 cap INH DAILY [facility] Last Admin: 11/16/17 08:14 Dose: 1 cap Vital Signs - 8 hr 11/16/17 11/16/17 11/16/17 08:00 08:03 08:15 Temperature 99.9 F Pulse Rate 75 71 Respiratory 20 16 12 Rate Blood Pressure 93/55 (mmHg) O2 Sat by Pulse 93 94 Oximetry 11/16/17 11:52 Temperature 97.8 F Pulse Rate 68 Respiratory 18 Rate Blood Pressure 96/47 (mmHg) O2 Sat by Pulse 91 Oximetry Oxygen Devices in Use Now: None Appearance: Pleasant elderly lady lying in bed in NAD. Eyes: No Scleral Icterus Ears/Nose/Mouth/Throat: Mucous Membranes Moist Neck: Trachea Midline Respiratory: Symmetrical Chest Expansion and Respiratory Effort, - - BS+ bilaterally with bibasilar rales Cardiovascular: RRR - Normal S1 and S2 Extremities: - - Mild LE edema Neurological: Alert and Oriented x 3 Result Diagrams: 11/16/17 05:42 11/16/17 05:42 Assess/Plan/Problems-Billing Assessment: Ms Bernal is an 82 yo F who has been hospitalized 3 times prior to this admission in the last one month who presented to the ER later after being discharged on 11/09/17 and was diagnosed with acute systolic CHF. - Patient Problems (1) CAD (coronary artery disease) Comment: - Cardiac cath showed significant 3 VD but patient is a very poor candidate for CABG due to her comorbidities. Plan is for evaluation by Dr. Harvey Ruth at [facility] for cath with FFR and stenting of critical lesions, but as per family, her appointment will be in December. I don't think this patient will be out of the hospital until then as this is her 4th admission in a month and I'm also concerned with her worsening thrombocytopenia as she'll need DAPT. - Will continue medical management of CAD with Aspirin, metoprolol (as BP allows ), higher dose statin, but will discuss transfer with Cardiology. (2) Thrombocytopenia Comment: - Present intermittently since 2012, but down to 60k today. - No signs of bleeding. - D/c heparin, check PF4 antibodies. (3) Acute systolic (congestive) heart failure Comment: - Compensated at this time. - Low dose Lisinopril and Furosemide as BP permits. (4) CKD (chronic kidney disease) stage 3, GFR 30-59 ml/min Comment: - Creatinine 1.35 today. (5) Anemia Comment: - H/H stable post GI bleed 09/2017. (6) Depression Comment: - Continue zoloft. (7) DVT prophylaxis Comment: - Fondaparinux. (8) Full code status Comment: Status and Disposition: Inpatient.
[2017-11-16] MEDS ORDERED: GuaiFENesin DM* 5 ML UDC PO PRN (23:06)
[2017-11-16] MEDS: Albuterol 2.5 MG/3 ML NEB.SOL* (0.083%) INH PRN (23:19)
[2017-11-16] MEDS ORDERED: Albuterol/Ipratropium NEB.SOL* Albuterol 2.5 MG/Ipratropium 0.5 MG 3 ML INH SCH (23:45)
[2017-11-16] MEDS ORDERED: Furosemide IV* 10 MG/ML VIAL (40 MG) ONE (23:48)
[2017-11-16] MEDS ORDERED: Morphine VIAL* 4 MG/ML VIAL (1 ml vial) IV STA (23:52)
[2017-11-16] MEDS ORDERED: Furosemide IV* 10 MG/ML VIAL (40 MG) IV ONE (23:52)
--- NOTE | 2017-11-17 00:18 | PN ---
Hospitalist Progress Note Date of Service: 11/17/17 Pt seen and examined. Meds and labs reviewed. Called by RN to see pt given pt s RR was 27 and appears to be SOB. Pt had received nebulization prior to my arrival and an order of CXR was done. ROS: Increasing SOB. Denies any accompanying chest pain Denied MEJIA/dizziness, F /C, N/V, increased cough, sputum production, abd pain, diarrhea, constipation, dysuria, myalgias, arthralgias, throat pain, and new skin lesions. The rest of the 14 point ROS are unremarkable. PHYSICAL EXAM: GEN APPEARANCE: Awake, pt appears ill, tachypneic HEENT: NC/AT, PERRLA, moist oral mucosa, (-) throat erythema NECK: Soft, supple, (-) cervical LAD, (+)JVD, (+)Hepatojugular reflux HEART: S1S2 WNL, RRR, No MRG CHEST: Bibasal crackles, No W/R/R ABD: Soft, ND/NT, NABS 4x Q EXT: No C/C/E SKIN: Warm to touch PSYCH: No active psychosis, hallucinations, depression, SI/HI ASSESSMENT AND PLAN: #SOB/Increased WOB: -STAT portable CXR reviewed and appears to be slightly more congested than CXR done on 11/11/17 without any evidence of obvious air bronchograms or consolidation on exam; pending Radiologist official interpretation -Requested RN to obtain fresh set of VS STAT -Given elevated JVD and Hepatojugular reflux, evaluation is more consistent with worsening pulmonary edema due to discontinuation of Lasix earlier -Will give pt 1x dose of 40 mg IV Lasix with 0.5 mg IV x1 of Morphine to relieve pulmonary congestion -Ordered, EKG and ABG STAT and are currently pending -Duonebs q4 ATC, while awake ordered in addition to q2H PRN Albuterol already in place -CK and CKMB preferred for cardiac markers given pts chronic renal failure and pt not complaining of chest pain; will switch to troponins if any EKG changes are found -Appreciate nursing staff help
[2017-11-17] MEDS ORDERED: Albuterol/Ipratropium NEB.SOL* Albuterol 2.5 MG/Ipratropium 0.5 MG 3 ML INH SCH (02:00)
[2017-11-17 07:14] LABS: Hematocrit 27 % (35-47); Hemoglobin 8.7 g/dl (12.0-16.0); Mean Corpuscular HGB Conc 32 g/dl (31-36); Mean Corpuscular Hemoglobin 26 pg (27-31); Mean Corpuscular Volume 79 fL (80-97); Mean Platelet Volume 8.7 um3 (7.4-10.4); Platelet Count 58 10^3/ul (150-450); Red Cell Distribution Width 29 % (10.5-15); White Blood Count 7.3 10^3/ul (3.5-10.8)
--- NOTE | 2017-11-17 07:56 | RAD ---
HISTORY: Shortness of breath COMPARISONS: November 11, 2017 VIEWS: 1: frontal portable view of the chest at 11:40 PM FINDINGS: LINES AND TUBES: None. CARDIOMEDIASTINAL SILHOUETTE: The cardiomediastinal silhouette is normal for portable technique. PLEURA: The costophrenic angles are sharp. No pleural abnormalities are noted. LUNG PARENCHYMA: There is faint patchy alveolar opacification of the right midlung field. ABDOMEN: The upper abdomen is clear. There is no subphrenic gas. BONES AND SOFT TISSUES: No bone or soft tissue abnormalities are noted. IMPRESSION: FAINT AIRSPACE DISEASE OF THE RIGHT MIDLUNG FIELD WHICH MAY REPRESENT ATELECTASIS VERSUS EARLY CONSOLIDATION. RECOMMEND FOLLOW-UP UNTIL RESOLUTION TO EXCLUDE UNDERLYING PULMONARY PARENCHYMAL PATHOLOGY.
[2017-11-17] MEDS: Docusate CAP* 100 MG PO SCH ×2 (08:02→21:34)
[2017-11-17] MEDS: Atorvastatin* 40 MG TAB PO SCH (08:02)
[2017-11-17] MEDS: Ferrous Sulfate TAB* 325 MG PO SCH (08:03)
[2017-11-17] MEDS: Aspirin EC TAB* 81 MG TAB.EC PO SCH (08:03)
[2017-11-17] MEDS: Sertraline* 50 MG TAB PO SCH (08:03)
[2017-11-17] MEDS: Omeprazole CAP* 20 MG PO SCH ×2 (08:03→21:34)
[2017-11-17 08:18] LABS: ABS Basophils 0.1 10^3/ul (0-0.2); ABS Eosinophils 0.7 10^3/ul (0-0.6); ABS Lymphocytes 1.7 10^3/ul (1.0-4.8); ABS Monocytes 0.8 10^3/ul (0-0.8); ABS Nucleated RBC 0 10^3/ul; Eosinophil % 10.1 % (0-6); Lymphocyte % 22.9 % (25-47); Nucleated Red Blood Cells % 0.1
[2017-11-17] MEDS: Tiotropium CAP.INH* CAP.INH/18 MCG (USE ORDER SET !) INH SCH (08:40)
[2017-11-17] MEDS ORDERED: Lidocaine 2% 10 ML* VIAL INJ ONE (10:01)
--- NOTE | 2017-11-17 10:44 | CONSULT ---
Consultation - Reason for Consultation Reason for Consultation: thrombocytopenia and anemia Ordering Provider: Violette Trujillo History of Present Illness: 82 yo F w multiple medical problems including a recent GI bleed, microcytic anemia, CKD, and CAD presenting for the 4th time in 8 weeks with decompensated diastolic heart failure and found to be thrombocytopenic. Ping has had multiple admissions since September of this year when she presented with ACS in the setting of profound anemia. She had an upper endoscopy showing gastritis and a normal colonoscopy. She did not have a small bowel study. She was kept off of antiplatelet agents. She has now presented with three more SOB episodes requiring hospitalizations. She is apparently felt to be a poor candidate for CABG and is currently being considered for stent placement in [place] which would require some course of antiplatelet therapy. She has been noted on this hospitalization to have progressive thrombocytopenia. It should be noted that she has been thrombocytopenic intermittently dating back to at least 2012. In September during her GI bleed admission her platelets were normal. On 11/06 when she was admitted her platelets were 124, and have fallen to 58 today. She did receive heparin 10/18-10/31. She is currently on arixtra for DVT prophylaxis. She has not had a stool guaiac since 10/21. She is still anemic at 8.7 and microcytic at 79. Allergies/Medications Medication: Acetaminophen (Tylenol Tab*) 650 mg PO Q6H PRN PRN Reason: FEVER/PAIN Albuterol (Ventolin 2.5 Mg/3 Ml Neb.Makenna*) 2.5 mg INH Q2H PRN PRN Reason: SOB/WHEEZING Last Admin: 11/16/17 23:19 Dose: 2.5 mg Aspirin (Aspirin Ec Tab*) 81 mg PO DAILY [facility] Last Admin: 11/17/17 08:03 Dose: 81 mg Atorvastatin Calcium (Lipitor*) 40 mg PO DAILY [facility] Last Admin: 11/17/17 08:02 Dose: 40 mg Docusate Sodium (Colace Cap*) 200 mg PO BID [facility] Last Admin: 11/17/17 08:02 Dose: 200 mg Ferrous Sulfate (Ferrous Sulfate Tab*) 325 mg PO DAILY [facility] Last Admin: 11/17/17 08:03 Dose: 325 mg Fondaparinux (Arixtra*) 2.5 mg SUBCUT DAILY [facility] Last Admin: 11/16/17 08:50 Dose: 2.5 mg Guaifenesin/Dextromethorphan (Robitussin Dm*) 10 ml PO Q6H PRN PRN Reason: COUGH Last Admin: 11/16/17 23:18 Dose: 10 ml Lisinopril (Prinivil Tab*) 2.5 mg PO DAILY [facility] Last Admin: 11/16/17 08:50 Dose: Not Given Metoprolol Tartrate (Lopressor Tab*) 12.5 mg PO BID [facility] Last Admin: 11/16/17 20:46 Dose: 12.5 mg Omeprazole (Prilosec Cap*) 20 mg PO BID [facility] Last Admin: 11/17/17 08:03 Dose: 20 mg Ondansetron HCl (Zofran Odt Tab*) 4 mg PO Q6H PRN PRN Reason: NAUSEA/VOMITING Sertraline HCl (Zoloft*) 50 mg PO DAILY [facility] Last Admin: 11/17/17 08:03 Dose: 50 mg Tiotropium [place] (Spiriva Cap.Inh*) 1 cap INH DAILY [facility] Last Admin: 11/17/17 08:40 Dose: 1 cap Allergies/Adverse Reactions: Allergies Allergy/AdvReac Type Severity Reaction Status Date / Time No Known Allergies Allergy Verified 10/17/17 12:05 History - Past Medical History Other History: CAD. PVD. HTN. hyperlipidemia. DM. CKD. anemia. abdominal aortic aneurysm. mild dementia. GI bleed. knee surgery - Family History Other Family History: noncontributory - Social History Hx Alcohol Use: No Hx Tobacco Use: Yes - quit in her 50s Marital Status: Single - daughter lives across the street Review of Systems - Review of Systems Constitutional Symptoms: Positive: Other - fatigue Dermatology: Positive: Normal HEENT: Positive: Normal Eyes: Positive: Normal Thyroid: Positive: Normal Pulmonary: Positive: Shortness of Breath Cardiology: Positive: Chest Pain - non currently Gastroenterology: Positive: Heartburn Genital - Urinary: Positive: Normal Musculoskeletal: Positive: Low Back Pain Endocrinology: Positive: Normal, Diabetes Mellitus Hematologic/Lymphatic: Positive: Anemia Neurology: Positive: Change in Memory Physical Exam - Physical Exam Physical Examination: Vital Signs Temp Pulse Resp BP Pulse Ox 99.1 F 68 18 126/58 98 11/17/17 07:38 11/17/17 07:38 11/17/17 07:38 11/17/17 07:53 11/17/17 07:38 sitting up in NAD perr eomi op moist mild exp wheeze s1 s2 irr soft nt +bs no le edema oriented to name and place, wrong on year grossly nonfocal neuro exam but did not ambulate Results - Lab Results Lab Results: 11/15/17 11/16/17 11/16/17 06:21 05:42 05:42 WBC 8.1 RBC 3.57 L Hgb 9.0 L Hct 28 L MCV 79 L MCH 25 L MCHC 32 RDW 29 H Plt Count 60 L MPV 8.7 Neut % (Auto) 57.9 Lymph % (Auto) 19.5 L [place] % (Auto) 11.8 H Eos % (Auto) 9.3 H Baso % (Auto) 1.5 Absolute Neuts (auto) 4.7 Absolute Lymphs (auto) 1.6 Absolute Monos (auto) 1.0 H Absolute Eos (auto) 0.8 H Absolute Basos (auto) 0.1 Absolute Nucleated RBC 0 Nucleated RBC % 0 Hypochromasia Anisocytosis Elliptocytes ABG pH ABG pCO2 ABG pO2 ABG HCO3 ABG O2 Saturation ABG Base Excess Sodium 136 L 137 L Potassium 3.8 4.2 Chloride 100 L 102 Carbon Dioxide 29 27 Anion Gap 7 8 BUN 33 H 22 Creatinine 1.59 H 1.35 H Est GFR ( Amer) 40.0 48.3 Est GFR (Non-Af Amer) 31.1 37.5 BUN/Creatinine Ratio 20.8 H 16.3 Glucose 122 H 119 H Hemoglobin A1c Calcium 8.7 8.5 L Iron Ferritin Total Creatine Kinase CK-MB (CK-2) B-Natriuretic Peptide Vitamin B12 11/16/17 11/16/17 11/17/17 05:42 23:56 01:17 WBC RBC Hgb Hct MCV MCH MCHC RDW Plt Count MPV Neut % (Auto) Lymph % (Auto) [place] % (Auto) Eos % (Auto) Baso % (Auto) Absolute Neuts (auto) Absolute Lymphs (auto) Absolute Monos (auto) Absolute Eos (auto) Absolute Basos (auto) Absolute Nucleated RBC Nucleated RBC % Hypochromasia Anisocytosis Elliptocytes ABG pH 7.44 ABG pCO2 45 ABG pO2 74 L ABG HCO3 29.4 ABG O2 Saturation 97.3 ABG Base Excess 5.8 H Sodium Potassium Chloride Carbon Dioxide Anion Gap BUN Creatinine Est GFR ( Amer) Est GFR (Non-Af Amer) BUN/Creatinine Ratio Glucose Hemoglobin A1c 5.6 Calcium Iron 43 L Ferritin 93.0 Total Creatine Kinase CK-MB (CK-2) B-Natriuretic Peptide Vitamin B12 227 11/17/17 11/17/17 11/17/17 01:20 06:57 06:57 WBC 7.3 RBC 3.40 L Hgb 8.7 L Hct 27 L MCV 79 L MCH 26 L MCHC 32 RDW 29 H Plt Count 58 L MPV 8.7 Neut % (Auto) 54.0 Lymph % (Auto) 22.9 L [place] % (Auto) 11.6 H Eos % (Auto) 10.1 H Baso % (Auto) 1.4 Absolute Neuts (auto) 4.0 Absolute Lymphs (auto) 1.7 Absolute Monos (auto) 0.8 Absolute Eos (auto) 0.7 H Absolute Basos (auto) 0.1 Absolute Nucleated RBC 0 Nucleated RBC % 0.1 Hypochromasia 1+ Anisocytosis 3+ Elliptocytes 1+ ABG pH ABG pCO2 ABG pO2 ABG HCO3 ABG O2 Saturation ABG Base Excess Sodium Potassium Chloride Carbon Dioxide Anion Gap BUN Creatinine Est GFR ( Amer) Est GFR (Non-Af Amer) BUN/Creatinine Ratio Glucose Hemoglobin A1c Calcium Iron Ferritin Total Creatine Kinase 18 CK-MB (CK-2) 0.8 B-Natriuretic Peptide 1314 H Vitamin B12 11/17/17 06:57 WBC RBC Hgb Hct MCV MCH MCHC RDW Plt Count MPV Neut % (Auto) Lymph % (Auto) [place] % (Auto) Eos % (Auto) Baso % (Auto) Absolute Neuts (auto) Absolute Lymphs (auto) Absolute Monos (auto) Absolute Eos (auto) Absolute Basos (auto) Absolute Nucleated RBC Nucleated RBC % Hypochromasia Anisocytosis Elliptocytes ABG pH ABG pCO2 ABG pO2 ABG HCO3 ABG O2 Saturation ABG Base Excess Sodium Potassium Chloride Carbon Dioxide Anion Gap BUN Creatinine Est GFR ( Amer) Est GFR (Non-Af Amer) BUN/Creatinine Ratio Glucose Hemoglobin A1c Calcium Iron Ferritin Total Creatine Kinase 16 CK-MB (CK-2) 0.7 B-Natriuretic Peptide Vitamin B12 Assessment and Plan Impression: complicated 82 yo F w CAD, anemia and thrombocytopenia. We are being consulted to 1)determine the etiology of her thrombocytopenia, and 2)comment on the safety of antiplatelet therapy. Her smear is notable for anisopoikilocytosis, rare tear drops, and occ large platelets, supporting a possible diagnosis of a myelodysplastic syndrome. It is also possible that she has iron deficiency anemia from her GI blood loss (she has been guaiac positive several times) plus an ITP. I do think HIT is less likely, though it is reasonable to check a PF4 ab, as has been done. Given the importance of knowing the diagnosis to help prognosticate safety of antiplatelet agents I have recommended a bone marrow biopsy and aspiration. Both Ping and her daughter, Karen (her HCP) are in agreement. I would also repeat a stool guaiac, particularly in light of potential need for antiplatelet therapy, and replete her B12 (though it is not low enough to be causing this degree of thrombocytopenia). We will continue to follow with you.
[2017-11-17] MEDS ORDERED: Cyanocobalamin INJ * 1,000 MCG/ML VIAL 1 ML VIAL IM ONE (11:07)
[2017-11-17] MEDS: Metoprolol Tartrate TAB* 25 MG PO SCH ×3 (11:08→21:33)
[2017-11-17] MEDS: Lisinopril TAB* 5 MG PO SCH ×2 (11:08→16:15)
[2017-11-17] MEDS: Fondaparinux* 2.5 MG/0.5 ML SYRINGE SUBCUT SCH (11:08)
--- NOTE | 2017-11-17 11:44 | PROCNOTE ---
Hematology/Oncology Procedure Hematology/Oncology Procedure Note: bone marrow biopsy and aspiration informed consent obtained. Patient prepped and draped in a sterile fashion. local anesthesia with 2% lidocaine administered. bone marrow biopsy and aspiration performed without obvious complications.
[2017-11-17] MEDS ORDERED: Furosemide TAB* 20 MG PO SCH (12:00)
[2017-11-17] MEDS ORDERED: Furosemide IV* 10 MG/ML 2 ML VIAL (20 MG) IV SLOW PU ONE (15:39)
--- NOTE | 2017-11-17 15:43 | PN ---
Subjective Date of Service: 11/17/17 Interval History: HOSPITALIST PROGRESS NOTE Patient seen and examined at bedside. Care reviewed and d/w William Flores RN. She had another episode of flash pulmonary edema last night requiring Furosemide and Morphine IV. Feels better this AM and offers no complaints. Family History: Unchanged from Admission Social History: Unchanged from Admission Past Medical History: Unchanged from Admission Objective Active Medications: Acetaminophen (Tylenol Tab*) 650 mg PO Q6H PRN PRN Reason: FEVER/PAIN Albuterol (Ventolin 2.5 Mg/3 Ml Neb.Makenna*) 2.5 mg INH Q2H PRN PRN Reason: SOB/WHEEZING Last Admin: 11/16/17 23:19 Dose: 2.5 mg Aspirin (Aspirin Ec Tab*) 81 mg PO DAILY [facility] Last Admin: 11/17/17 08:03 Dose: 81 mg Atorvastatin Calcium (Lipitor*) 40 mg PO DAILY [facility] Last Admin: 11/17/17 08:02 Dose: 40 mg Docusate Sodium (Colace Cap*) 200 mg PO BID [facility] Last Admin: 11/17/17 08:02 Dose: 200 mg Ferrous Sulfate (Ferrous Sulfate Tab*) 325 mg PO DAILY [facility] Last Admin: 11/17/17 08:03 Dose: 325 mg Fondaparinux (Arixtra*) 2.5 mg SUBCUT DAILY [facility] Last Admin: 11/17/17 11:08 Dose: Not Given Guaifenesin/Dextromethorphan (Robitussin Dm*) 10 ml PO Q6H PRN PRN Reason: COUGH Last Admin: 11/16/17 23:18 Dose: 10 ml Lisinopril (Prinivil Tab*) 2.5 mg PO DAILY [facility] Last Admin: 11/17/17 11:08 Dose: Not Given Metoprolol Tartrate (Lopressor Tab*) 12.5 mg PO BID [facility] Last Admin: 11/17/17 11:08 Dose: Not Given Omeprazole (Prilosec Cap*) 20 mg PO BID [facility] Last Admin: 11/17/17 08:03 Dose: 20 mg Ondansetron HCl (Zofran Odt Tab*) 4 mg PO Q6H PRN PRN Reason: NAUSEA/VOMITING Sertraline HCl (Zoloft*) 50 mg PO DAILY [facility] Last Admin: 11/17/17 08:03 Dose: 50 mg Tiotropium [place] (Spiriva Cap.Inh*) 1 cap INH DAILY [facility] Last Admin: 11/17/17 08:40 Dose: 1 cap Vital Signs - 8 hr 11/17/17 11/17/17 11/17/17 07:38 07:52 07:53 Temperature 99.1 F Pulse Rate 68 Respiratory 18 Rate Blood Pressure 125/47 82/48 126/58 (mmHg) O2 Sat by Pulse 98 Oximetry 11/17/17 11/17/17 11/17/17 08:00 08:20 11:05 Temperature 97.9 F Pulse Rate 88 71 Respiratory 18 18 Rate Blood Pressure 116/48 (mmHg) O2 Sat by Pulse 96 Oximetry Oxygen Devices in Use Now: Nasal Cannula - 2 liters Appearance: Elderly lady lying in bed in NAD. Eyes: No Scleral Icterus Ears/Nose/Mouth/Throat: Mucous Membranes Moist Neck: Trachea Midline Respiratory: Symmetrical Chest Expansion and Respiratory Effort, - - BS+ bilaterally with bibasilar fine crackles Cardiovascular: RRR - Normal S1 and S2 Neurological: - - AAOx2 (self and place), FREY Result Diagrams: 11/17/17 06:57 11/16/17 05:42 Assess/Plan/Problems-Billing Assessment: Ms Bernal is an 82 yo F with PMH of CAD, diastolic CHF, HTN, HLD, depression, GI bleed, who has been hospitalized 3 times prior to this admission in the past month who presented to the ER later after being discharged on 11/09/17 and was diagnosed with acute systolic CHF exacerbation. - Patient Problems (1) CAD (coronary artery disease) Comment: - Cardiac cath showed significant 3 VD (mid LAD 75%, prox Cx 80%, RCA 70%) but patient was felt to be a very poor candidate for CABG due to her comorbidities as per Interventional Cardiology. - Tentative plan was for evaluation by Dr. Harvey Ruth at [facility] for cath with FFR and stenting of critical lesions, but as per family, her appointment will be in December. I don't think this patient will be out of the hospital until then as this is her 4th admission in a month and she had another episode of flash pulmonary edema last night. I'm also concerned with her worsening thrombocytopenia as she'll need DAPT. - Will continue medical management of CAD with Aspirin, metoprolol (as BP allows ), higher dose statin. (2) PVD (peripheral vascular disease) Comment: - Patient has known bilateral carotid stenosis >70%, 3 vessel CAD and different BP measurements R>L, likely secondary to another vascular occlusion. With her renal failure, I'm concerned about exposing her to IV contrast again ( got contrast for cath), especially if we are not going to pursue invasive treatment. (3) Thrombocytopenia Comment: - Present intermittently since 2012, but down to 58k today. - No signs of bleeding. - D/c heparin, PF4 antibodies pending. - Hematology input appreciated - findings on her smear suggest myelodisplastic syndrome and bone marrow biopsy was done today by Dr. Love. (4) Acute systolic (congestive) heart failure Comment: - Compensated at this time but required IV Furosemide again last night. - Low dose Lisinopril and Furosemide as BP permits. (5) CKD (chronic kidney disease) stage 3, GFR 30-59 ml/min Comment: - Last creatinine was 1.35. (6) Anemia Comment: - Hb down to 8.7 today with no active signs of bleeding. - Hematology input appreciated - repeat guaiac and replete B12. (7) Depression Comment: - Continue zoloft. (8) DVT prophylaxis Comment: - Fondaparinux. (9) Full code status Comment: Status and Disposition: Inpatient. Patient's complex situation reviewed with daughter (Evelia Melo) - we discussed aggressive treatment including transfer to [place] for cardiac cath and stents understanding her anemia, thrombocytopenia, prior GI bleed, put her at very high risk for complications. We also talked about comfort care measures and Hospice eligibility. She wants to talk to her sisters before making any decisions.
[2017-11-18] MEDS: Tiotropium CAP.INH* CAP.INH/18 MCG (USE ORDER SET !) INH SCH (08:39)
[2017-11-18 09:00] LABS: Hematocrit 29 % (35-47); Hemoglobin 9.2 g/dl (12.0-16.0); Mean Corpuscular HGB Conc 32 g/dl (31-36); Mean Corpuscular Hemoglobin 25 pg (27-31); Mean Corpuscular Volume 79 fL (80-97); Red Blood Count 3.63 10^6/ul (4.0-5.4); Red Cell Distribution Width 28 % (10.5-15); White Blood Count 6.9 10^3/ul (3.5-10.8)
[2017-11-18] MEDS: Furosemide TAB* 20 MG PO SCH (09:06)
[2017-11-18] MEDS: Metoprolol Tartrate TAB* 25 MG PO SCH ×2 (09:06→20:49)
[2017-11-18] MEDS: Atorvastatin* 40 MG TAB PO SCH (09:06)
[2017-11-18] MEDS: Omeprazole CAP* 20 MG PO SCH ×2 (09:06→20:49)
[2017-11-18] MEDS: Aspirin EC TAB* 81 MG TAB.EC PO SCH (09:06)
[2017-11-18] MEDS: Ferrous Sulfate TAB* 325 MG PO SCH (09:06)
[2017-11-18] MEDS: Sertraline* 50 MG TAB PO SCH (09:06)
[2017-11-18] MEDS: Docusate CAP* 100 MG PO SCH ×2 (09:06→20:49)
[2017-11-18] MEDS: Lisinopril TAB* 5 MG PO SCH (09:06)
[2017-11-18] MEDS: Fondaparinux* 2.5 MG/0.5 ML SYRINGE SUBCUT SCH (09:07)
[2017-11-18 10:05] LABS: ABS Basophils 0.1 10^3/ul (0-0.2); ABS Eosinophils 0.8 10^3/ul (0-0.6); ABS Lymphocytes 1.2 10^3/ul (1.0-4.8); ABS Monocytes 0.6 10^3/ul (0-0.8); ABS Neutrophils 4.2 10^3/ul (1.5-7.7); ABS Nucleated RBC 0 10^3/ul; Eosinophil % 10.9 % (0-6); Lymphocyte % 17.4 % (25-47); Mean Platelet Volume 8.4 um3 (7.4-10.4); Nucleated Red Blood Cells % 0.1; Platelet Count 53 10^3/ul (150-450)
--- NOTE | 2017-11-18 14:09 | PN ---
Subjective Date of Service: 11/18/17 Interval History: HOSPITALIST PROGRESS NOTE Patient seen and examined at bedside. Care reviewed and d/w Mendy Damico RN. She feels well today. Denies chest pain or dyspnea. States she would not want open heart surgery and what she really wants is to go home and be with her cat Jag (short for Jackson). Family History: Unchanged from Admission Social History: Unchanged from Admission Past Medical History: Unchanged from Admission Objective Active Medications: Acetaminophen (Tylenol Tab*) 650 mg PO Q6H PRN PRN Reason: FEVER/PAIN Albuterol (Ventolin 2.5 Mg/3 Ml Neb.Makenna*) 2.5 mg INH Q2H PRN PRN Reason: SOB/WHEEZING Last Admin: 11/16/17 23:19 Dose: 2.5 mg Aspirin (Aspirin Ec Tab*) 81 mg PO DAILY [facility] Last Admin: 11/18/17 09:06 Dose: 81 mg Atorvastatin Calcium (Lipitor*) 40 mg PO DAILY [facility] Last Admin: 11/18/17 09:06 Dose: 40 mg Docusate Sodium (Colace Cap*) 200 mg PO BID [facility] Last Admin: 11/18/17 09:06 Dose: 200 mg Ferrous Sulfate (Ferrous Sulfate Tab*) 325 mg PO DAILY [facility] Last Admin: 11/18/17 09:06 Dose: 325 mg Fondaparinux (Arixtra*) 2.5 mg SUBCUT DAILY [facility] Last Admin: 11/18/17 09:07 Dose: 2.5 mg Furosemide (Lasix Tab*) 20 mg PO DAILY [facility] Last Admin: 11/18/17 09:06 Dose: 20 mg Guaifenesin/Dextromethorphan (Robitussin Dm*) 10 ml PO Q6H PRN PRN Reason: COUGH Last Admin: 11/16/17 23:18 Dose: 10 ml Lisinopril (Prinivil Tab*) 2.5 mg PO DAILY [facility] Last Admin: 11/18/17 09:06 Dose: 2.5 mg Metoprolol Tartrate (Lopressor Tab*) 12.5 mg PO BID [facility] Last Admin: 11/18/17 09:06 Dose: 12.5 mg Omeprazole (Prilosec Cap*) 20 mg PO BID [facility] Last Admin: 11/18/17 09:06 Dose: 20 mg Ondansetron HCl (Zofran Odt Tab*) 4 mg PO Q6H PRN PRN Reason: NAUSEA/VOMITING Sertraline HCl (Zoloft*) 50 mg PO DAILY [facility] Last Admin: 11/18/17 09:06 Dose: 50 mg Tiotropium [place] (Spiriva Cap.Inh*) 1 cap INH DAILY [facility] Last Admin: 11/18/17 08:39 Dose: 1 cap Vital Signs - 8 hr 11/18/17 11/18/17 11/18/17 06:54 07:18 08:41 Temperature 98.1 F Pulse Rate 66 74 Respiratory 20 12 14 Rate Blood Pressure 117/41 (mmHg) O2 Sat by Pulse 95 98 Oximetry 11/18/17 11:01 Temperature 97.8 F Pulse Rate 78 Respiratory 12 Rate Blood Pressure 86/47 (mmHg) O2 Sat by Pulse 98 Oximetry Oxygen Devices in Use Now: Nasal Cannula - 1.5 liter Appearance: Pleasant elderly lady sitting up in a chair in NAD. Eyes: No Scleral Icterus Ears/Nose/Mouth/Throat: Mucous Membranes Moist Neck: Trachea Midline Respiratory: Symmetrical Chest Expansion and Respiratory Effort, Clear to Auscultation Cardiovascular: RRR - Normal S1 and S2 Abdominal: NL Sounds; No Tenderness; No Distention Neurological: - - AAOx2 (self and place), FREY Result Diagrams: 11/18/17 08:45 11/18/17 08:45 Assess/Plan/Problems-Billing Assessment: Ms Bernal is an 82 yo F with PMH of CAD, diastolic CHF, HTN, HLD, depression, GI bleed, who has been hospitalized 3 times prior to this admission in the past month who presented to the ER later after being discharged on 11/09/17 and was diagnosed with acute systolic CHF exacerbation. - Patient Problems (1) CAD (coronary artery disease) Comment: - Cardiac cath showed significant 3 VD (mid LAD 75%, prox Cx 80%, RCA 70%) but patient was felt to be a very high risk candidate for CABG (calculated mortality rate 15%) as per Interventional Cardiology. Tentative plan was for evaluation by Dr. Harvey Ruth at [facility] for cath with FFR and stenting of critical lesions, but as per my d/w Dr. Ruth she is not a candidate at this time due to recent GI bleed and worsening thrombocytopenia. - Family meeting yesterday with patient's 3 daughters - options at this time are being aggressive (CABG) or pursuing Hospice care. They want to talk to Cardiology before making a decision (Dr. Leslie will talk to them). - Continue Aspirin, Metoprolol, statin. (2) PVD (peripheral vascular disease) Comment: - Patient has known bilateral carotid stenosis >70%, 3 vessel CAD and different BP measurements R>L, likely secondary to another vascular occlusion. With her renal failure, I'm concerned about exposing her to IV contrast again ( got contrast for cath), especially if we are not going to pursue invasive treatment. (3) Thrombocytopenia Comment: - Present intermittently since 2012, but down to 53k today. - No signs of bleeding. - D/c heparin, PF4 antibodies pending. - Hematology input appreciated - findings on her smear suggest myelodisplastic syndrome and bone marrow biopsy was done 11/17/[address] Love. (4) Acute systolic (congestive) heart failure Comment: - Compensated at this time but required IV Furosemide again last night. - Low dose Lisinopril and Furosemide as BP permits. (5) CKD (chronic kidney disease) stage 3, GFR 30-59 ml/min Comment: - Last creatinine was 1.47. (6) Anemia Comment: - Hb 9.2 today with no active signs of bleeding. - Hematology input appreciated - repeat guaiac and replete B12. (7) Depression Comment: - Continue zoloft. (8) DVT prophylaxis Comment: - Fondaparinux. (9) Full code status Comment: Status and Disposition: Inpatient.
[2017-11-19] MEDS: Tiotropium CAP.INH* CAP.INH/18 MCG (USE ORDER SET !) INH SCH (07:47)
[2017-11-19] MEDS: Atorvastatin* 40 MG TAB PO SCH (08:19)
[2017-11-19] MEDS: Ferrous Sulfate TAB* 325 MG PO SCH (08:19)
[2017-11-19] MEDS: Metoprolol Tartrate TAB* 25 MG PO SCH ×2 (08:19→20:34)
[2017-11-19] MEDS: Docusate CAP* 100 MG PO SCH ×2 (08:19→20:34)
[2017-11-19] MEDS: Omeprazole CAP* 20 MG PO SCH ×2 (08:19→20:34)
[2017-11-19] MEDS: Aspirin EC TAB* 81 MG TAB.EC PO SCH (08:19)
[2017-11-19] MEDS: Furosemide TAB* 20 MG PO SCH (08:19)
[2017-11-19] MEDS: Sertraline* 50 MG TAB PO SCH (08:19)
[2017-11-19] MEDS: Fondaparinux* 2.5 MG/0.5 ML SYRINGE SUBCUT SCH (08:20)
[2017-11-19] MEDS: Lisinopril TAB* 5 MG PO SCH (08:20)
[2017-11-19 09:08] LABS: Hematocrit 30 % (35-47); Hemoglobin 9.4 g/dl (12.0-16.0); Mean Corpuscular HGB Conc 31 g/dl (31-36); Mean Corpuscular Hemoglobin 25 pg (27-31); Mean Corpuscular Volume 81 fL (80-97); Red Blood Count 3.74 10^6/ul (4.0-5.4); Red Cell Distribution Width 28 % (10.5-15)
[2017-11-19 09:18] LABS: EGFR Non-African American 35.4 (>60)
[2017-11-19 09:50] LABS: Mean Platelet Volume 8.4 um3 (7.4-10.4); Platelet Count 49 10^3/ul (150-450)
[2017-11-19 09:51] LABS: ABS Basophils 0.1 10^3/ul (0-0.2); ABS Lymphocytes 1.7 10^3/ul (1.0-4.8); ABS Monocytes 0.8 10^3/ul (0-0.8); ABS Neutrophils 4.4 10^3/ul (1.5-7.7); ABS Nucleated RBC 0 10^3/ul; Eosinophil % 12.1 % (0-6); Nucleated Red Blood Cells % 0
--- NOTE | 2017-11-19 13:44 | PN ---
Subjective Date of Service: 11/19/17 Interval History: Pt oriented to time, place, name but not reason for admission. Discussed with Daughter Karen who had spoken to Dr. Leslie last night. Wanting more information about hospice services. Pt denies compliants. Family History: Unchanged from Admission Social History: Unchanged from Admission Past Medical History: Unchanged from Admission Objective Active Medications: Acetaminophen (Tylenol Tab*) 650 mg PO Q6H PRN PRN Reason: FEVER/PAIN Albuterol (Ventolin 2.5 Mg/3 Ml Neb.Makenna*) 2.5 mg INH Q2H PRN PRN Reason: SOB/WHEEZING Last Admin: 11/16/17 23:19 Dose: 2.5 mg Aspirin (Aspirin Ec Tab*) 81 mg PO DAILY [facility] Last Admin: 11/19/17 08:19 Dose: 81 mg Atorvastatin Calcium (Lipitor*) 40 mg PO DAILY [facility] Last Admin: 11/19/17 08:19 Dose: 40 mg Docusate Sodium (Colace Cap*) 200 mg PO BID [facility] Last Admin: 11/19/17 08:19 Dose: 200 mg Ferrous Sulfate (Ferrous Sulfate Tab*) 325 mg PO DAILY [facility] Last Admin: 11/19/17 08:19 Dose: 325 mg Fondaparinux (Arixtra*) 2.5 mg SUBCUT DAILY [facility] Last Admin: 11/19/17 08:20 Dose: 2.5 mg Furosemide (Lasix Tab*) 20 mg PO DAILY [facility] Last Admin: 11/19/17 08:19 Dose: 20 mg Guaifenesin/Dextromethorphan (Robitussin Dm*) 10 ml PO Q6H PRN PRN Reason: COUGH Last Admin: 11/16/17 23:18 Dose: 10 ml Lisinopril (Prinivil Tab*) 2.5 mg PO DAILY [facility] Last Admin: 11/19/17 08:20 Dose: 2.5 mg Metoprolol Tartrate (Lopressor Tab*) 12.5 mg PO BID [facility] Last Admin: 11/19/17 08:19 Dose: 12.5 mg Omeprazole (Prilosec Cap*) 20 mg PO BID [facility] Last Admin: 11/19/17 08:19 Dose: 20 mg Ondansetron HCl (Zofran Odt Tab*) 4 mg PO Q6H PRN PRN Reason: NAUSEA/VOMITING Sertraline HCl (Zoloft*) 50 mg PO DAILY [facility] Last Admin: 11/19/17 08:19 Dose: 50 mg Tiotropium [place] (Spiriva Cap.Inh*) 1 cap INH DAILY [facility] Last Admin: 11/19/17 07:47 Dose: 1 cap Vital Signs - 8 hr 11/19/17 11/19/17 11/19/17 07:06 07:29 07:48 Temperature 98.3 F Pulse Rate 59 68 Respiratory 18 20 14 Rate Blood Pressure 103/31 (mmHg) O2 Sat by Pulse 99 90 Oximetry 11/19/17 11:22 Temperature 97.9 F Pulse Rate 62 Respiratory 16 Rate Blood Pressure 121/47 (mmHg) O2 Sat by Pulse 100 Oximetry Oxygen Devices in Use Now: Nasal Cannula Appearance: NAD. Eyes: No Scleral Icterus, PERRLA Neck: NL Appearance and Movements; NL JVP, Trachea Midline Respiratory: Symmetrical Chest Expansion and Respiratory Effort, Clear to Auscultation Cardiovascular: NL Sounds; No Murmurs; No JVD, RRR Extremities: No Edema Skin: No Rash or Ulcers Neurological: Alert and Oriented x 3 Nutrition: Taking PO's Result Diagrams: 11/19/17 08:51 11/19/17 08:51 Additional Lab and Data: Laboratory Results - last 24 hr 11/16/17 11/17/17 11/17/17 08:30 01:17 10:11 WBC RBC Hgb Hct MCV MCH MCHC RDW Plt Count MPV Neut % (Auto) Lymph % (Auto) [place] % (Auto) Eos % (Auto) Baso % (Auto) Absolute Neuts (auto) Absolute Lymphs (auto) Absolute Monos (auto) Absolute Eos (auto) Absolute Basos (auto) Absolute Nucleated RBC Nucleated RBC % Hem Pathologist Commnt HIT Functional 0.080 Sodium Potassium Chloride Carbon Dioxide Anion Gap BUN Creatinine Est GFR ( Amer) Est GFR (Non-Af Amer) BUN/Creatinine Ratio Glucose Calcium Total Protein (PEP) 5.9 L Albumin (PEP) 2.6 L Albumin/Globulin (PEP) 0.79 Znpcq-2-Kanifqciz 0.3 Damxl-5-Abnbtdkbv 1.0 Bzju-0-Xtkrbssu 1.0 Gamma Globulins 1.0 PEP Impression See comment Heparin-PF4 Ab Interp Negative Heparin-PF4 Ab Comment See comment Flow Intrp 2-8 Markers Flow Intrp 9-15 Marker Not Reportable Flow Intrp 16+ Markers Not Reportable 11/19/17 11/19/17 08:51 08:51 WBC 8.0 RBC 3.74 L Hgb 9.4 L Hct 30 L MCV 81 MCH 25 L MCHC 31 RDW 28 H Plt Count 49 L MPV 8.4 Neut % (Auto) 55.6 Lymph % (Auto) 21.0 L [place] % (Auto) 10.2 H Eos % (Auto) 12.1 H Baso % (Auto) 1.1 Absolute Neuts (auto) 4.4 Absolute Lymphs (auto) 1.7 Absolute Monos (auto) 0.8 Absolute Eos (auto) 1.0 H Absolute Basos (auto) 0.1 Absolute Nucleated RBC 0 Nucleated RBC % 0 Hem Pathologist Commnt HIT Functional Sodium 135 L Potassium 4.5 Chloride 100 L Carbon Dioxide 30 Anion Gap 5 BUN 28 H Creatinine 1.42 H Est GFR ( Amer) 45.5 Est GFR (Non-Af Amer) 35.4 BUN/Creatinine Ratio 19.7 Glucose 143 H Calcium 8.9 Total Protein (PEP) Albumin (PEP) Albumin/Globulin (PEP) Dtbmv-5-Djfgfixtp Bprhv-9-Ddlivxzrw Xler-4-Mxmhfjku Gamma Globulins PEP Impression Heparin-PF4 Ab Interp Heparin-PF4 Ab Comment Flow Intrp 2-8 Markers Flow Intrp 9-15 Marker Flow Intrp 16+ Markers Assess/Plan/Problems-Billing Assessment: Ms Bernal is an 82 yo F with PMH of CAD, diastolic CHF, HTN, HLD, depression, GI bleed, who has been hospitalized 3 times prior to this admission in the past month who presented to the ER later after being discharged on 11/09/17 and was diagnosed with acute systolic CHF exacerbation. Daughter interested in hospice information. - Patient Problems (1) CAD (coronary artery disease) Current Visit: Yes Status: Acute Code(s): I25.10 - ATHSCL HEART DISEASE OF [place] CORONARY ARTERY W/O ANG PCTRS SNOMED Code(s): 51365769 Comment: - Cardiac cath showed significant 3 VD (mid LAD 75%, prox Cx 80%, RCA 70%) but patient was felt to be a very high risk candidate for CABG ( calculated mortality rate 15%) as per Interventional Cardiology. Tentative plan was for evaluation by Dr. Harvey Ruth at [facility] for cath with FFR and stenting of critical lesions, but as per my d/w Dr. Ruth she is not a candidate at this time due to recent GI bleed and worsening thrombocytopenia. - per family report, Dr Leslie was willing to make referrals for 2nd opinions but not optimistic. Per Karen, patient would not want a CABG or large surgery. Hospice referral sent. continue Aspirin, Metoprolol, statin. (2) Acute systolic (congestive) heart failure Current Visit: Yes Status: Acute Code(s): I50.21 - ACUTE SYSTOLIC ( CONGESTIVE) HEART FAILURE SNOMED Code(s): 593850346 Comment: - daily weights, strict io - lasix 20mg po daily - Low dose Lisinopril as BP permits. - EF 20%. (3) Anemia Current Visit: Yes Status: Acute Code(s): D64.9 - ANEMIA, UNSPECIFIED SNOMED Code(s): 254663769 Comment: - Hb 9.4 stable - no active signs of bleeding. - Hematology input appreciated - repeat guaiac (pending), hx of GIB(diverticulosis?) - start B12 supplements. - follow up bone marrow biopsy results (still pending). (4) PVD (peripheral vascular disease) Current Visit: Yes Status: Acute Code(s): I73.9 - PERIPHERAL VASCULAR DISEASE, UNSPECIFIED SNOMED Code(s): 704173898 Comment: - Patient has known bilateral carotid stenosis >70%, 3 vessel CAD and different BP measurements R>L, likely secondary to another vascular occlusion. (5) Thrombocytopenia Current Visit: Yes Status: Acute Code(s): D69.6 - THROMBOCYTOPENIA, UNSPECIFIED SNOMED Code(s): 372847455 Comment: - Present intermittently since 2012, but down to 49k today. - No signs of bleeding. - PF4 antibodies negative. - Hematology input appreciated - findings on her smear suggest myelodisplastic syndrome and bone marrow biopsy was done 11/17/[address] Love. Still pending results. Status and Disposition: Inpatient. /hospice destination likely but will need to address code status.
[2017-11-19] MEDS: Cyanocobalamin TAB* 500 MCG PO SCH (20:34)
[2017-11-20] MEDS: Tiotropium CAP.INH* CAP.INH/18 MCG (USE ORDER SET !) INH SCH (08:30)
[2017-11-20] MEDS: Atorvastatin* 40 MG TAB PO SCH (09:26)
[2017-11-20] MEDS: Docusate CAP* 100 MG PO SCH ×2 (09:26→21:14)
[2017-11-20] MEDS: Aspirin EC TAB* 81 MG TAB.EC PO SCH (09:26)
[2017-11-20] MEDS: Sertraline* 50 MG TAB PO SCH (09:26)
[2017-11-20] MEDS: Ferrous Sulfate TAB* 325 MG PO SCH (09:26)
[2017-11-20] MEDS: Fondaparinux* 2.5 MG/0.5 ML SYRINGE SUBCUT SCH (09:27)
[2017-11-20] MEDS: Metoprolol Tartrate TAB* 25 MG PO SCH ×2 (09:27→21:14)
[2017-11-20] MEDS: Furosemide TAB* 20 MG PO SCH (09:27)
[2017-11-20] MEDS: Lisinopril TAB* 5 MG PO SCH (09:27)
[2017-11-20] MEDS: Cyanocobalamin TAB* 500 MCG PO SCH (09:27)
[2017-11-20] MEDS: Omeprazole CAP* 20 MG PO SCH ×2 (09:27→21:14)
--- NOTE | 2017-11-20 15:49 | PN ---
Subjective Date of Service: 11/20/17 Interval History: Pt without complaints. Daughter at bedside and MOLST was filled out, now DNR/DNI , comfort care, no re-hospitalizations. Daughter declined hospicecare residence offer and plan to take home. Still hoping her incarcerated son can visit prior to discharge. Family History: Unchanged from Admission Social History: Unchanged from Admission Past Medical History: Unchanged from Admission Objective Active Medications: Acetaminophen (Tylenol Tab*) 650 mg PO Q6H PRN PRN Reason: FEVER/PAIN Albuterol (Ventolin 2.5 Mg/3 Ml Neb.Makenna*) 2.5 mg INH Q2H PRN PRN Reason: SOB/WHEEZING Last Admin: 11/16/17 23:19 Dose: 2.5 mg Aspirin (Aspirin Ec Tab*) 81 mg PO DAILY [facility] Last Admin: 11/20/17 09:26 Dose: 81 mg Atorvastatin Calcium (Lipitor*) 40 mg PO DAILY [facility] Last Admin: 11/20/17 09:26 Dose: 40 mg Cyanocobalamin (Vitamin B12 Tab*) 1,000 mcg PO DAILY [facility] Last Admin: 11/20/17 09:27 Dose: 1,000 mcg Docusate Sodium (Colace Cap*) 200 mg PO BID [facility] Last Admin: 11/20/17 09:26 Dose: 200 mg Ferrous Sulfate (Ferrous Sulfate Tab*) 325 mg PO DAILY [facility] Last Admin: 11/20/17 09:26 Dose: 325 mg Fondaparinux (Arixtra*) 2.5 mg SUBCUT DAILY [facility] Last Admin: 11/20/17 09:27 Dose: 2.5 mg Furosemide (Lasix Tab*) 20 mg PO DAILY [facility] Last Admin: 11/20/17 09:27 Dose: 20 mg Guaifenesin/Dextromethorphan (Robitussin Dm*) 10 ml PO Q6H PRN PRN Reason: COUGH Last Admin: 11/16/17 23:18 Dose: 10 ml Lisinopril (Prinivil Tab*) 2.5 mg PO DAILY [facility] Last Admin: 11/20/17 09:27 Dose: 2.5 mg Metoprolol Tartrate (Lopressor Tab*) 12.5 mg PO BID [facility] Last Admin: 11/20/17 09:27 Dose: 12.5 mg Omeprazole (Prilosec Cap*) 20 mg PO BID [facility] Last Admin: 11/20/17 09:27 Dose: 20 mg Ondansetron HCl (Zofran Odt Tab*) 4 mg PO Q6H PRN PRN Reason: NAUSEA/VOMITING Sertraline HCl (Zoloft*) 50 mg PO DAILY [facility] Last Admin: 11/20/17 09:26 Dose: 50 mg Tiotropium [place] (Spiriva Cap.Inh*) 1 cap INH DAILY [facility] Last Admin: 11/20/17 08:30 Dose: 1 cap Vital Signs - 8 hr 11/20/17 11/20/17 11/20/17 08:00 08:31 11:18 Temperature 98.2 F Pulse Rate 63 61 Respiratory 18 16 16 Rate Blood Pressure 123/51 (mmHg) O2 Sat by Pulse 98 100 Oximetry Oxygen Devices in Use Now: Nasal Cannula Appearance: NAD, initially with nasal cannula off. Ears/Nose/Mouth/Throat: NL Teeth, Lips, Gums, Mucous Membranes Moist Neck: NL Appearance and Movements; NL JVP, Trachea Midline Respiratory: Symmetrical Chest Expansion and Respiratory Effort, Clear to Auscultation Cardiovascular: NL Sounds; No Murmurs; No JVD, RRR Abdominal: NL Sounds; No Tenderness; No Distention, No Hepatosplenomegaly Extremities: No Edema Skin: No Rash or Ulcers, No Nodules or Sclerosis Neurological: Alert and Oriented x 3, NL Sensation Nutrition: Taking PO's Result Diagrams: 11/19/17 08:51 11/19/17 08:51 Additional Lab and Data: Laboratory Results - last 24 hr 11/19/17 08:51 Hem Pathologist Commnt Assess/Plan/Problems-Billing Assessment: Ms Bernal is an 82 yo F with PMH of CAD, diastolic CHF, HTN, HLD, depression, GI bleed, who has been hospitalized 3 times prior to this admission in the past month who presented to the ER later after being discharged on 11/09/17 and was diagnosed with acute systolic CHF exacerbation. Plan for home hospice. - Patient Problems (1) CAD (coronary artery disease) Current Visit: Yes Status: Acute Code(s): I25.10 - ATHSCL HEART DISEASE OF [place] CORONARY ARTERY W/O ANG PCTRS SNOMED Code(s): 07888946 Comment: - Cardiac cath showed significant 3 VD (mid LAD 75%, prox Cx 80%, RCA 70%) but patient was felt to be a very high risk candidate for CABG ( calculated mortality rate 15%) as per Interventional Cardiology. Tentative plan was for [facility] with FFR and stenting of critical lesions, but as per my d/w Dr. Ruth she is not a candidate at this time due to recent GI bleed and worsening thrombocytopenia. - per family report, Dr Leslie was willing to make referrals for 2nd opinions but not optimistic. Per Karen, patient would not want a CABG or large surgery. Now plan for home hospice. continue Aspirin, Metoprolol, statin. (2) Acute systolic (congestive) heart failure Current Visit: Yes Status: Acute Code(s): I50.21 - ACUTE SYSTOLIC ( CONGESTIVE) HEART FAILURE SNOMED Code(s): 659683086 Comment: - daily weights, strict io - lasix 20mg po daily - Low dose Lisinopril as BP permits. - EF 20%. (3) Anemia Current Visit: Yes Status: Acute Code(s): D64.9 - ANEMIA, UNSPECIFIED SNOMED Code(s): 349584198 Comment: - Hb 9.4 stable yesterday - no active signs of bleeding. - Hematology input appreciated - repeat guaiac (pending), hx of GIB(diverticulosis?) - start B12 supplements. - follow up bone marrow biopsy results (FISH still pending, flow cytometry without abnormalities). (4) PVD (peripheral vascular disease) Current Visit: Yes Status: Acute Code(s): I73.9 - PERIPHERAL VASCULAR DISEASE, UNSPECIFIED SNOMED Code(s): 086124250 Comment: - Patient has known bilateral carotid stenosis >70%, 3 vessel CAD and different BP measurements R>L, likely secondary to another vascular occlusion. (5) Thrombocytopenia Current Visit: Yes Status: Acute Code(s): D69.6 - THROMBOCYTOPENIA, UNSPECIFIED SNOMED Code(s): 250590460 Comment: - Present intermittently since 2012, but down to 49k yesterday. - No signs of bleeding. - PF4 antibodies negative. - Hematology input appreciated - findings on her smear suggest myelodisplastic syndrome and bone marrow biopsy was done 11/17/[address] Love. Still pending full results(flow cytometry negative, FISH pending. Status and Disposition: Inpatient. home hospice is preferred destination, needs hospital bed.
[2017-11-21] MEDS: Tiotropium CAP.INH* CAP.INH/18 MCG (USE ORDER SET !) INH SCH (07:31)
--- NOTE | 2017-11-21 10:07 | CATH ---
CC: Dr. Calderon; Dr. Leslie * CATH REPORT: DATE OF CATH: 11/13/17 - ROOM #[id number] PRIMARY CARE PHYSICIAN: Dr. Calderon. HANDY WORKER: Dr. Leslie. PROCEDURE: Right radial artery access, bilateral selective coronary cineangiography. HISTORY: An 82-year-old woman with prior LAD stent placement, 2012, 2.75 x 14. At that time, she had significant RCA and ramus disease. She had poor LV function, EF 20% to 25%, which subsequently improved. She now presents with recurring episodes of diastolic heart failure decompensation with a recent non- ST elevation infarct. Comorbidities include CKD, stage 3; bilateral significant carotid stenosis; recent GI bleed with microcytic anemia; chronic thrombocytopenia. PROCEDURE ACCESS: Right radial artery sheath 6F slender. MEDICATIONS: 1. Subcu lidocaine. 2. IV Versed. 3. IV fentanyl. 4. Radial cocktail with heparin 3000 units, verapamil 3 mg, nitroglycerin 300 mcg IA. DIAGNOSTIC CATHETER: 5 TIG4. LV gram was not performed because of renal insufficiency. HEMODYNAMICS: Initial BP 143/54, LV 145/24, there was ectopy during the pullback with probably no significant aortic valve gradient. ANGIOGRAPHY: Right brachial artery: There was some resistance to the J-wire, imaging showed no loop or stenosis. This was easily traversed with a Wholey wire. RCA: The RCA is heavily calcified, there is a calcified plaque in the sinus of Valsalva. The RCA has proximal tubular 50% to 60% stenosis, a mid 75% to 80% stenosis, and a more distal again tubular 50% stenosis. Distal RCA has a large distribution with a moderate PDA and several posterolaterals. Left main: The left main is relatively short, normal, calcified. LAD: The LAD is heavily calcified, it extends past the apex, the previously placed proximal stent is patent, just beyond the stent there is a short discrete 60% to 70% stenosis, the LAD extends past the apex. Circumflex: The circumflex is heavily calcified, not dominant, it has a proximal napkin ring with 80% stenosis after which there is moderate size first marginal, likely the vessel that was called a ramus, it has a 70% stenosis at a bifurcation point, has a relatively long distribution. The circumflex distally supplies the bifurcated marginal. CONCLUSION: 1. Three-vessel coronary artery disease with heavily calcified vessels, tortuous RCA. 2. Successful right radial artery access. [id number]/[facility] #: [id number] MARIUM
[2017-11-21] MEDS: Omeprazole CAP* 20 MG PO SCH (11:12)
[2017-11-21] MEDS: Sertraline* 50 MG TAB PO SCH (11:12)
[2017-11-21] MEDS: Cyanocobalamin TAB* 500 MCG PO SCH (11:12)
[2017-11-21] MEDS: Metoprolol Tartrate TAB* 25 MG PO SCH (11:13)
[2017-11-21] MEDS: Lisinopril TAB* 5 MG PO SCH (11:15)
[2017-11-21] MEDS: Atorvastatin* 40 MG TAB PO SCH (11:15)
[2017-11-21] MEDS: Docusate CAP* 100 MG PO SCH (11:15)
[2017-11-21] MEDS: Ferrous Sulfate TAB* 325 MG PO SCH (11:16)
[2017-11-21] MEDS: Fondaparinux* 2.5 MG/0.5 ML SYRINGE SUBCUT SCH (11:16)
[2017-11-21] MEDS: Aspirin EC TAB* 81 MG TAB.EC PO SCH (11:16)
[2017-11-21] MEDS: Furosemide TAB* 20 MG PO SCH (11:16)
[2017-11-21 12:00] VITALS: BP 111/44
--- NOTE | 2017-11-22 09:38 | DS ---
DISCHARGE SUMMARY: DATE OF ADMISSION: 11/17/17 DATE OF DISCHARGE: 11/21/17 ADMITTING PROVIDER: Ladarius Freitas MD ATTENDING PHYSICIAN: Magdy Gonzalez MD CONSULTING FOUNDATION DRILL OPERATOR: Maureen Hussein MD CONSULTING OVERLAY PLASTICIAN-ONCOLOGIST: Abril Love MD PRIMARY CARE PHYSICIAN: Zack Henry MD CHIEF COMPLAINT: Shortness of breath. PRINCIPAL DIAGNOSES: 1. Acute on chronic congestive heart failure. 2. Multivessel coronary artery disease. 3. Anemia. 4. Thrombocytopenia. 5. History of gastrointestinal bleeds; initiation of hospice at home. HISTORY OF PRESENT ILLNESS: Ping Bernal is an 82-year-old female with past medical history of coronary artery disease, hypertension, hyperlipidemia, congestive heart failure with three admissions in the last month for acute CHF exacerbations, history of gastrointestinal bleeds, and thrombocytopenia. She had just been discharged the same day before presenting to the emergency room with shortness of breath. She was found to have elevated troponin of 0.10. She had had an upper GI bleed in September 2017 and so heparin was not used. Aspirin and beta kimberli were started. She had a peak troponin of 0.18. She had a left heart catheterization with Dr. Hussein on 11/13/17, which showed a triple-vessel coronary artery disease with heavily calcified vessels and a tortuous RCA. The LAD had 60 to 70% stenosis just past the proximal stent. The RCA had a proximal 50 to 60% stenosis and middle 75 to 80% stenosis and distal 50% stenosis. The circumflex was heavily calcified, had an 80% proximal stenosis and 70% stenosis at the ramus. Given her GI bleeds and thrombocytopenia in the mid 50s range. There was a consultation between the firebrick layer and Dr. Harvey Ruth at [facility] for a potential cath with fractional flow reserve and stenting of the critical lesions, but this was deemed by Dr. Ruth to not be a candidate for this. Further goals of care discussion revealed that the patient would not want an open heart or large surgery involved with a CABG. Dr. Abril Love consulted given the thrombocytopenia, she would have a bone marrow biopsy and SPEP. The SPEP did not show any apparent monoclonal protein. The flow cytometry was without abnormality. 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 Ultimately, the patient and family evaluated hospice care residence, decided to pursue hospice at home instead. This is being arranged with the final clarification about whether or not her hospital bed has the adequate preauthorization insurance. She has updated a MOLST form and she is now DNR/DNI, does not want aggressive medical treatment or re-hospitalizations. Did not want a feeding tube. She is being discharged home to home hospice. MEDICATIONS: Home meds include: 1. Tylenol 650 mg p.o. q.6 hours p.r.n. 2. Ferrous sulfate 325 mg p.o. daily. 3. Cyanocobalamin 1000 mcg p.o. daily. 4. Docusate 200 mg p.o. b.i.d. 5. Lisinopril 2.5 mg p.o. daily (new). 6. Metoprolol tartrate 12.5 mg p.o. b.i.d. (new). 7. Omeprazole 20 mg p.o. b.i.d. 8. Pravastatin 40 mg p.o. daily. 9. Sertraline 75 mg p.o. daily. 10. Spiriva 1 capsule inhaled daily. DIET: Heart healthy or per patient's goals of care wishes; same could apply o her medications as she is now comfort care on hospice. Follow up as necessary with Dr. Henry. She has been getting set with [facility] for her hospital bed and other hospice needs along with [facility]. TIME SPENT ON DISCHARGE: 40 minutes. [id number]/[facility] #: [id number] MARIUM
== END 2017-11-21 15:30 | disposition hospice, home (50) | DRG 286 ==
LOC: ED 21:44 → MEDTELE 23:39
PROVIDERS: ADMIT Hospitalist; ATTEND Internal Medicine
PROC: B2111ZZ Fluoroscopy of Multiple Coronary Arteries using Low Osmolar Contrast (ICD-10-PCS; principal; 2017-11-13 09:00)
PROC: 07DR3ZX Extraction of Iliac Bone Marrow, Percutaneous Approach, Diagnostic (ICD-10-PCS; 2017-11-17)
DX: I13.0 Hypertensive heart and chronic kidney disease with heart failure and stage 1 through stage 4 chronic kidney disease, or unspecified chronic kidney disease (principal); I50.43 Acute on chronic combined systolic (congestive) and diastolic (congestive) heart failure; I25.10 Atherosclerotic heart disease of native coronary artery without angina pectoris; E78.00 Pure hypercholesterolemia, unspecified; I42.9 Cardiomyopathy, unspecified; F32.9 Major depressive disorder, single episode, unspecified; E66.9 Obesity, unspecified; I44.7 Left bundle-branch block, unspecified; D69.6 Thrombocytopenia, unspecified; F03.90 Unspecified dementia, unspecified severity, without behavioral disturbance, psychotic disturbance, mood disturbance, and anxiety; I71.4 Abdominal aortic aneurysm, without rupture; D63.1 Anemia in chronic kidney disease; I65.23 Occlusion and stenosis of bilateral carotid arteries; N18.3 Chronic kidney disease, stage 3 (moderate); E11.22 Type 2 diabetes mellitus with diabetic chronic kidney disease; E11.51 Type 2 diabetes mellitus with diabetic peripheral angiopathy without gangrene; I27.20 Pulmonary hypertension, unspecified; Z86.711 Personal history of pulmonary embolism; Z95.5 Presence of coronary angioplasty implant and graft; Z87.01 Personal history of pneumonia (recurrent); Z87.891 Personal history of nicotine dependence; I25.2 Old myocardial infarction; Z72.89 Other problems related to lifestyle; Z68.27 Body mass index [BMI] 27.0-27.9, adult
CPT/HCPCS: 36415; 36600; 71045; 76775; 80048; 80053; 80061; 81479; 82550; 82553; 82607; 82728; 82803; 83036; 83540; 83605; 83735; 83880; 84155; 84165; 84484; 84520; 85025; 85060; 85097; 85610; 85730; 86022; 88184; 88187; 88188; 88189; 88237; 88271; 88305; 88311; 88313; 93005; 93458; 94640; 99156; 99157; 99284; A9270-GY; J0360; J1644; J1940; J2250; J2270; J3010; J3420; J3490